=== PATIENT | male | born 1975 | race Caucasian/White ===

== ENCOUNTER 2016-04-29 09:26 | Emergency (ER) | payer MEDICAID ==
[2016-04-29] MEDS ORDERED: IPRATROPIUM/ALBUTEROL 0.5-2.5 MG/3 ML AMPUL NEB ONE (10:16)
[2016-04-29] MEDS ORDERED: PREDNISONE 20 MG TABLET PO ONE (10:17)
--- NOTE | 2016-04-29 11:25 | ER Document Report ---
HPI - HPI Patient complains to provider of: cough Onset: Last week Onset/Duration: Gradual Quality of pain: Achy Pain Level: 3 Context: Patient complains of occasionally productive cough for the past week. Patient denies any fever. Associated Symptoms: Productive cough. denies: Fever, Rhinnorhea Exacerbated by: Denies Relieved by: Denies Similar symptoms previously: Yes Recently seen / treated by doctor: No - ROS ROS below otherwise negative: Yes Systems Reviewed and Negative: Yes All other systems reviewed and negative - CONSTITUTIONAL Constitutional: DENIES: Fever, Chills - EENT EENT: REPORTS: Congestion. DENIES: Sore Throat - CARDIOVASCULAR Cardiovascular: DENIES: Chest pain - RESPIRATORY Respiratory: REPORTS: Coughing. 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 denies: CAD, DM, Hyperlipidemia, Thyroid Disfunction Patient has suicidal ideation: No Patient has homicidal ideation: No - Past Medical History Cardiac Medical History: Reports: Hx Hypertension Pulmonary Medical History: Reports: Hx Asthma Renal/ Medical History: Denies: Hx Peritoneal Dialysis Musculoskeltal Medical History: Reports Hx Musculoskeletal Deformity, Reports Hx Musculoskeletal Trauma Psychiatric Medical History: Reports: Hx Attention Deficit Hyperactivity Disorder Traumatic Medical History: Reports: Hx Fractures - thumb Past Surgical History: Reports: Hx Orthopedic Surgery - rt shoulder, rt thumb - Immunizations Hx Diphtheria, Pertussis, Tetanus Vaccination: Yes Vertical Provider Document - CONSTITUTIONAL Agree With Documented VS: Yes Exam Limitations: No Limitations General Appearance: WD/WN, No Apparent Distress - INFECTION CONTROL TRAVEL OUTSIDE OF THE [place] IN LAST 30 DAYS: No - HEENT HEENT: Atraumatic, Normal ENT Exam, Normocephalic - NECK Neck: Normal Inspection, Supple. negative: Lymphadenopathy-Left, Lymphadenopathy-Right - RESPIRATORY Respiratory: No Respiratory Distress, Rhonchi, Wheezing - Faint only with cough. negative: Rales O2 Sat by Pulse Oximetry: 96 - CARDIOVASCULAR Cardiovascular: Regular Rate, Regular Rhythm, No Murmur - GI/ABDOMEN Gastrointestinal: Abdomen Soft, Abdomen Non-Tender, No Organomegaly - BACK Back: Normal Inspection - MUSCULOSKELETAL/EXTREMETIES Musculoskeletal/Extremeties: MAEW - NEURO Level of Consciousness: Awake, Alert, Appropriate Motor/Sensory: No Motor Deficit, No Sensory Deficit - DERM Integumentary: Warm, Dry, No Rash Course - Vital Signs Vital signs: Temp Pulse Resp BP Pulse Ox 97.9 F 103 H 16 148/99 H 96 04/29/16 09:34 04/29/16 09:34 04/29/16 10:25 04/29/16 09:34 04/29/16 09:34 - Diagnostic Test Radiology reviewed: Reports reviewed Discharge - Discharge Clinical Impression: Bronchospasm Upper respiratory infection Qualifiers: URI type: unspecified URI Qualified Code(s): J06.9 - Acute upper respiratory infection, unspecified Condition: Stable Disposition: HOME, SELF-CARE Additional Instructions: Return immediately for any new or worsening symptoms Followup with your primary care provider, call tomorrow to make a followup appointment UPPER RESPIRATORY ILLNESS: You have a viral infection of the respiratory passages -- a "cold." This common infection causes nasal congestion, drainage, and often sore throat and cough. It is highly contagious. The disease usually lasts about 10 to 14 days. There is no "cure" for the viral infection -- it must run its course. If there is a complication, such as bacterial infection in the nose, sinuses, middle ear, or bronchial tubes, antibiotics may be required. The antibiotics won't affect the virus. Drink plenty of fluids. A humidifier may help. An expectorant medication or decongestant may make you more comfortable. Use acetaminophen or ibuprofen for fever or aches. See the doctor if fever persists over two days, if there is any significant worsening of your symptoms, or if you simply fail to improve as expected. BRONCHOSPASM: You have tightness in the bronchial tubes, called bronchospasm. This often occurs with bronchial infections. Allergies, inhaled chemicals, and polluted or cold air can also provoke bronchospasm. It's more likely in patients with asthma in the family. Emergency treatment of bronchospasm may include adrenaline shots or bronchodilator aerosol. You may feel lightheaded and have a rapid pulse for an hour or two. Rest and get plenty of fluids. At home, we'll treat you with a bronchodilator inhaler. Antibiotics and corticosteroids may be required for some patients. Until you recover, avoid chemical fumes, dusts, pollens, and exercising in very cold or dry air. If you smoke, stop now!! If you develop a fever, increased wheezing, chest pain, or severe shortness of breath, you should contact the doctor immediately. INHALED BRONCHODILATORS: You have received a treatment of and/or prescription for an inhaled bronchodilator -- a medication which stimulates the airways in the lung to dilate. This improves the flow of air in asthma, bronchitis, and emphysema. These medicines have some similarity to adrenaline, and can cause similar side effects: shakiness, racing heart, and a sense of nervousness. These side effects decrease with time. Contact your doctor if these side effects are severe. Do not over-use the medicine. Too-frequent use of the inhaler may make it ineffective. Call your doctor if the inhaler is not controlling your symptoms at the prescribed doses. STEROID MEDICATION: You have been given an injection of or oral medicine of the cortisone/ steroid class. This medication is used to control inflammation or allergy. Lázaro t is usually only given for a short period of time, until the acute process subsides. There are usually no side effects from short-term use of cortisone-like medications. Some persons feel an increased sense of well-being and are not sleepy at bedtime. Long-term use of cortisone medications is best avoided, unless required for a severe condition. If your condition does not remit, or relapses after the course of corticosteroid medication, you should consult your physician. USE OF ACETAMINOPHEN (Tylenol): Acetaminophen may be taken for pain relief or fever control. It's much safer than aspirin, offering a wider range of "safe" dosages. It is safe during . Some brand names are Tylenol, Panadol, Datril, Anacin 3, Tempra, and Liquiprin. Acetaminophen can be repeated every four hours. The following are maximum recommended dosages: >89 pounds or adults 650 mg to 900 mg Acetaminophen can be repeated every four hours. Maximum dose not to exceed 4000 mg a day. FOLLOW-UP CARE: If you have been referred to a physician for follow-up care, call the physician s office for an appointment as you were instructed or within the next two days. If you experience worsening or a significant change in your symptoms, notify the physician immediately or return to the Emergency Department at any time for re-evaluation. Prescriptions: Albuterol Sulfate [Ventolin Hfa] 2 puff IH Q4HP PRN #17 gm PRN Reason: Hydrocodone/Acetaminophen [[place] 5-325 Tablet] 1 each PO Q4 PRN #15 tablet PRN Reason: Prednisone 20 mg PO DAILY #12 tablet Forms: Elevated Blood Pressure, Return to Work Referrals: ADRIAN FUENTES MD [Primary Care Provider] - 05/02/16
[2016-04-29 12:39] VITALS: BP 142/89
== END 2016-04-29 11:30 | disposition home or self-care (01) ==
LOC: ER 09:26
DX: J06.9 Acute upper respiratory infection, unspecified (principal); J98.01 Acute bronchospasm; I10 Essential (primary) hypertension; J45.909 Unspecified asthma, uncomplicated
CPT/HCPCS: 94640; 99283; 71020; J7512; J7620

== ENCOUNTER 2016-05-17 13:44 | Emergency (ER) | payer MEDICAID ==
--- NOTE | 2016-05-17 14:18 | ER Document Report ---
ED Medical Screen (RME) - General Stated Complaint: CHEST CONGESTION,COUGH,DIARRHEA Mode of Arrival: Ambulatory Information source: Patient Notes: Patient complains of cough for the past 3 days. Patient does complain of congestion. Patient reports subjective fever at home. hx: Asthma I have greeted and performed a rapid initial assessment of this patient. A comprehensive ED assessment and evaluation of the patient, analysis of test results and completion of the medical decision making process will be conducted by additional ED providers. TRAVEL OUTSIDE OF THE [place] IN LAST 30 DAYS: No - Related Data Allergies/Adverse Reactions: codeine [Codeine] Adverse Reaction (Verified 05/17/16 14:16) Past Medical History - Past Medical History Cardiac Medical History: Reports: Hx Hypertension Pulmonary Medical History: Reports: Hx Asthma Renal/ Medical History: Denies: Hx Peritoneal Dialysis Musculoskeltal Medical History: Reports Hx Musculoskeletal Deformity, Reports Hx Musculoskeletal Trauma Psychiatric Medical History: Reports: Hx Attention Deficit Hyperactivity Disorder Traumatic Medical History: Reports: Hx Fractures - thumb Past Surgical History: Reports: Hx Orthopedic Surgery - rt shoulder, rt thumb - Immunizations Hx Diphtheria, Pertussis, Tetanus Vaccination: Yes Physical Exam - Vital signs Vitals: Temp Pulse Resp BP Pulse Ox 97.9 F 79 18 148/106 H 98 05/17/16 13:49 05/17/16 13:49 05/17/16 13:49 05/17/16 13:49 05/17/16 13:49 - Respiratory Respiratory status: No respiratory distress Breath sounds: Nonproductive cough. No: Rales, Rhonchi, Stridor, Wheezing Course - Vital Signs Vital signs: Temp Pulse Resp BP Pulse Ox 97.9 F 79 18 148/106 H 98 05/17/16 13:49 05/17/16 13:49 05/17/16 13:49 05/17/16 13:49 05/17/16 13:49
--- NOTE | 2016-05-17 14:59 | ER Document Report ---
HPI - HPI Patient complains to provider of: cough, sinus congestion, fever Onset: Other - 3 days Quality of pain: Achy Severity: Moderate Pain Level: 3 Context: Patient presents with cough congestion sinus discharge for the past 3 days. Patient reports history of asthma and has been using his inhaler and is neb treatments as indicated. He reports he has hot and cold chills. Denies vomiting diarrhea, reports loose bowel 1. Associated Symptoms: Nonproductive cough, Diarrhea, Fever, Sinus pain/drainage Exacerbated by: Denies Relieved by: Denies Similar symptoms previously: Yes Recently seen / treated by doctor: No - REPRODUCTIVE Reproductive: DENIES: : - DERM Skin Color: Normal Past Medical History - General Information source: Patient - Social History Smoking Status: Smoker,Current Status Unk Cigarette use (# per day): No Frequency of alcohol use: None Drug Abuse: None Family History: Arthritis, CVA, Hypertension, Malignancy. denies: CAD, DM, Hyperlipidemia, Thyroid Disfunction Patient has suicidal ideation: No Patient has homicidal ideation: No - Past Medical History Cardiac Medical History: Reports: Hx Hypertension Pulmonary Medical History: Reports: Hx Asthma Renal/ Medical History: Denies: Hx Peritoneal Dialysis Musculoskeltal Medical History: Reports Hx Musculoskeletal Deformity, Reports Hx Musculoskeletal Trauma Psychiatric Medical History: Reports: Hx Attention Deficit Hyperactivity Disorder Traumatic Medical History: Reports: Hx Fractures - thumb Past Surgical History: Reports: Hx Orthopedic Surgery - rt shoulder, rt thumb - Immunizations Hx Diphtheria, Pertussis, Tetanus Vaccination: Yes Vertical Provider Document - CONSTITUTIONAL Agree With Documented VS: Yes Exam Limitations: No Limitations General Appearance: WD/WN, No Apparent Distress - nontoxic looking - INFECTION CONTROL TRAVEL OUTSIDE OF THE [place] IN LAST 30 DAYS: No - HEENT HEENT: Atraumatic, Normocephalic. negative: Conjuctival Injection, Pharyngeal Exudate, Tympanic Membrane Red, Tympanic Membrane Bulging Notes: +post nasal drip - NECK Neck: Normal Inspection, Supple. negative: Lymphadenopathy-Left, Lymphadenopathy-Right - RESPIRATORY Respiratory: Breath Sounds Normal, No Respiratory Distress. negative: Rhonchi, Wheezing O2 Sat by Pulse Oximetry: 98 - CARDIOVASCULAR Cardiovascular: Regular Rate, Regular Rhythm - MUSCULOSKELETAL/EXTREMETIES Musculoskeletal/Extremeties: MAEW, FROM - NEURO Level of Consciousness: Awake, Alert, Appropriate Motor/Sensory: No Motor Deficit - DERM Integumentary: Warm, Dry, No Rash Course - Re-evaluation Re-evalutation: 05/17/16 Patient was instructed on negative x-ray. Instructed on [id number] aids for cough Flonase for nasal discharge. Patient requesting steroids that he was treated with last time is here. - Vital Signs Vital signs: Temp Pulse Resp BP Pulse Ox 97.9 F 79 18 148/106 H 98 05/17/16 13:49 05/17/16 13:49 05/17/16 13:49 05/17/16 13:49 05/17/16 13:49 - Diagnostic Test Radiology reviewed: Image reviewed, Reports reviewed - neg chest xray Discharge - Discharge Clinical Impression: Cough, Congestion of nasal sinus, Elevated blood pressure reading Fever Qualifiers: Fever type: unspecified Qualified Code(s): R50.9 - Fever, unspecified URI (upper respiratory infection) Qualifiers: URI type: unspecified URI Qualified Code(s): J06.9 - Acute upper respiratory infection, unspecified Condition: Stable Disposition: HOME, SELF-CARE Instructions: Steroid Medication, Oral Narcotic Medication ([facility]), Upper Respiratory Illness ([facility]) Additional Instructions: *You have been evaluated for cold symptoms today, cough, fever, sinus congestion *Increase fluid intake as discussed *Over the counter flonase as indicated *Take medication as prescribed *Monitor your temperature, take Tylenol as indicated *Follow up with [facility] within one week *Monitor your blood pressure. Your blood pressure was elevated today. This may be because you were anxious, in pain or because you need medication. It is important to follow up with your primary care provider for full evaluation. *Return to ED for worsening condition, changes, needs, trouble breathing, concerns Prescriptions: Hydrocodone/Acetaminophen [[place] 5-325 mg Tablet] 1 tab PO QID #15 tablet Prednisone [Deltasone 10 mg Tablet] 10 mg PO ASDIR PRN #21 tablet PRN Reason: Forms: Elevated Blood Pressure, Return to Work
[2016-05-17 15:50] VITALS: BP 134/93
== END 2016-05-17 15:53 | disposition home or self-care (01) ==
LOC: ER 13:44
DX: J06.9 Acute upper respiratory infection, unspecified (principal); R05 Cough; R09.81 Nasal congestion; I10 Essential (primary) hypertension; J34.89 Other specified disorders of nose and nasal sinuses; R19.7 Diarrhea, unspecified; J45.909 Unspecified asthma, uncomplicated; R50.9 Fever, unspecified
CPT/HCPCS: 71020; 99283

== ENCOUNTER 2016-07-12 18:13 | Emergency (ER) | payer MEDICAID ==
[2016-07-12] MEDS ORDERED: PREDNISONE 20 MG TABLET PO ONE (19:23)
[2016-07-12] MEDS ORDERED: BENZONATATE 100 MG CAPSULE PO ONE (19:23)
[2016-07-12] MEDS ORDERED: HYDROCODONE/ACETAMINOPHEN 5-325 MG TABLET PO ONE (19:23)
[2016-07-12] MEDS ORDERED: IPRATROPIUM/ALBUTEROL 0.5-2.5 MG/3 ML AMPUL NEB ONE (20:02)
--- NOTE | 2016-07-12 20:20 | ER Document Report ---
ED Respiratory Problem - General Chief Complaint: Shortness Of Breath Stated Complaint: SHORTNESS OF BREATH Time seen by provider: 20:19 Mode of Arrival: Ambulatory Information source: Patient TRAVEL OUTSIDE OF THE [place] IN LAST 30 DAYS: No - HPI Patient complains to provider of: Cough, Short of breath Onset: Other - Monday Duration: Worse/persistent Quality of pain: No pain Severity: Moderate Context: Hx asthma Short of Breath: Moderate Chest pain/discomfort: Tightness Cough: Productive Sputum amount: Small Sputum color: White Sputum consistency: Mucoid At home treatment: Bronchodilators Associated symptoms: Congestion, Cough, Short of breath, Wheezing Similar symptoms previously: Yes Recently seen / treated by doctor: No Notes: Patient is a 40-year-old male with a history of asthma presents to the emergency room cough cold congestion with shortness of breath he denies a fever , cough is productive of a small amount of whitish colored phlegm, he states he' s been using his albuterol inhaler at home with mild, denies any recent travel, no chest pain, no sick contacts - Related Data Allergies/Adverse Reactions: codeine [Codeine] Adverse Reaction (Verified 05/17/16 14:16) Past Medical History - General Information source: Patient - Social History Smoking Status: Never Smoker Chew tobacco use (# tins/day): No Frequency of alcohol use: Occasional Drug Abuse: None Family History: Arthritis, CVA, Hypertension, Malignancy. denies: CAD, DM, Hyperlipidemia, Thyroid Disfunction Patient has suicidal ideation: No Patient has homicidal ideation: No - Past Medical History Cardiac Medical History: Reports: Hx Hypertension Pulmonary Medical History: Reports: Hx Asthma Renal/ Medical History: Denies: Hx Peritoneal Dialysis Musculoskeltal Medical History: Reports Hx Musculoskeletal Deformity, Reports Hx Musculoskeletal Trauma Psychiatric Medical History: Reports: Hx Attention Deficit Hyperactivity Disorder Traumatic Medical History: Reports: Hx Fractures - thumb Past Surgical History: Reports: Hx Orthopedic Surgery - rt shoulder, rt thumb - Immunizations Hx Diphtheria, Pertussis, Tetanus Vaccination: Yes Review of Systems - Review of Systems Constitutional: No symptoms reported EENT: No symptoms reported Cardiovascular: No symptoms reported Respiratory: See HPI Gastrointestinal: No symptoms reported Genitourinary: No symptoms reported Male Genitourinary: No symptoms reported Musculoskeletal: No symptoms reported Skin: No symptoms reported Hematologic/Lymphatic: No symptoms reported Neurological/Psychological: No symptoms reported -: Yes All other systems reviewed and negative Physical Exam - Vital signs Vitals: Temp Pulse Resp BP Pulse Ox 97.5 F 94 18 130/87 H 99 07/12/16 18:38 07/12/16 18:38 07/12/16 18:38 07/12/16 18:38 07/12/16 18:38 Interpretation: Normal - General General appearance: Appears well, Alert - HEENT Head: Normocephalic, Atraumatic Eyes: Normal Pupils: PERRL - Respiratory Respiratory status: No respiratory distress Chest status: Nontender Breath sounds: Nonproductive cough, Wheezing Chest palpation: Normal - Cardiovascular Rhythm: Regular Heart sounds: Normal auscultation Murmur: No - Abdominal Inspection: Normal Distension: No distension Bowel sounds: Normal Tenderness: Nontender Organomegaly: No organomegaly - Back Back: Normal, Nontender - Extremities General upper extremity: Normal inspection, Nontender, Normal color, Normal ROM , Normal temperature General lower extremity: Normal inspection, Nontender, Normal color, Normal ROM , Normal temperature, Normal weight bearing. No: Dewey's sign - Neurological Neuro grossly intact: Yes Cognition: Normal Orientation: AAOx4 [place] Coma Scale Eye Opening: Spontaneous [place] Coma Scale Verbal: Oriented Mandi Coma Scale Motor: Obeys Commands [place] Coma Scale Total: 15 Speech: Normal Motor strength normal: LUE, RUE, LLE, RLE Sensory: Normal - Psychological Associated symptoms: Normal affect, Normal mood - Skin Skin Temperature: Warm Skin Moisture: Dry Skin Color: Normal Course - Re-evaluation Re-evalutation: 07/12/16 20:22 Patient reports feeling much better, imaging findings were discussed with patient at bedside which are unremarkable, discharged with prescriptions for several medications for treatment of viral upper respiratory illness with asthma exacerbation, advised to follow-up with his primary care provider or return if symptoms worsen, patient acknowledges understanding and agreement with this plan - Vital Signs Vital signs: Temp Pulse Resp BP Pulse Ox 97.5 F 94 18 130/87 H 99 07/12/16 18:38 07/12/16 18:38 07/12/16 19:29 07/12/16 18:38 07/12/16 18:38 - Diagnostic Test Radiology reviewed: Image reviewed, Reports reviewed Discharge - Discharge Clinical Impression: Viral upper respiratory illness Acute asthma exacerbation Qualifiers: Asthma severity: mild persistent Qualified Code(s): J45.31 - Mild persistent asthma with (acute) exacerbation Condition: Stable Disposition: HOME, SELF-CARE Instructions: Upper Respiratory Illness ([facility]), Viral Syndrome ([facility]), Asthma ( [facility]) Additional Instructions: Follow up with your primary care provider in one to 2 days. Return to the emergency room immediately if symptoms worsen or any additional concerns. Prescriptions: Benzonatate [Tessalon [place] 100 mg Capsule] 100 mg PO Q8HP PRN #40 cap PRN Reason: Hydrocodone/Acetaminophen [Hydrocodon-Acetaminophen 5-325] 1 each PO Q6 #20 tablet Prednisone 40 mg PO DAILY #8 tablet
[2016-07-12 20:28] VITALS: BP 149/91
== END 2016-07-12 20:27 | disposition home or self-care (01) ==
LOC: ER 18:13
DX: J06.9 Acute upper respiratory infection, unspecified (principal); B97.89 Other viral agents as the cause of diseases classified elsewhere; J45.31 Mild persistent asthma with (acute) exacerbation; R05 Cough; R06.02 Shortness of breath; I10 Essential (primary) hypertension
CPT/HCPCS: 94640; 99284; 71020; J3490; J7512; J7620

== ENCOUNTER 2016-08-18 09:46 | Emergency (ER) | payer MEDICAID ==
[2016-08-18] MEDS ORDERED: PREDNISONE 20 MG TABLET PO ONE (09:57)
[2016-08-18] MEDS ORDERED: IPRATROPIUM/ALBUTEROL 0.5-2.5 MG/3 ML AMPUL NEB ONE (09:58)
--- NOTE | 2016-08-18 10:02 | ER Document Report ---
ED Respiratory Problem - General Chief Complaint: Breathing Difficulty Stated Complaint: SHORTNESS OF BREATH Time Seen by Provider: 08/18/16 09:57 Notes: Patient is having difficulty breathing this morning. He has a history of asthma. Also has a history of Pickett's esophagitis which causes him to have acid reflux, especially when he is laying recumbent and sleeping. He now has a cough and is producing yellow and green sputum, but has not noted a fever. He is on home medications including nebulizer for his asthma and he uses them today, but still feels difficulty breathing and wheezing. Patient has an appointment to see a records supervisor in September. TRAVEL OUTSIDE OF THE [place] IN LAST 30 DAYS: No - Related Data Allergies/Adverse Reactions: codeine [Codeine] Adverse Reaction (Verified 05/17/16 14:16) Past Medical History - Social History Smoking Status: Never Smoker Frequency of alcohol use: None Drug Abuse: None Family History: Arthritis, CVA, Hypertension, Malignancy. denies: CAD, DM, Hyperlipidemia, Thyroid Disfunction - Past Medical History Cardiac Medical History: Reports: Hx Hypertension Pulmonary Medical History: Reports: Hx Asthma GI Medical History: Reports: Hx Gastroesophageal Reflux Disease, Other - History of Pickett's esophagitis Musculoskeltal Medical History: Reports Hx Musculoskeletal Deformity, Reports Hx Musculoskeletal Trauma Psychiatric Medical History: Reports: Hx Attention Deficit Hyperactivity Disorder Traumatic Medical History: Reports: Hx Fractures - thumb Past Surgical History: Reports: Hx Orthopedic Surgery - rt shoulder, rt thumb - Immunizations Hx Diphtheria, Pertussis, Tetanus Vaccination: Yes Review of Systems - Review of Systems Notes: REVIEW OF SYSTEMS: CONSTITUTIONAL : Denies fever. EENT: Denies eye, ear, nose or mouth or throat pain or other symptoms. CARDIOVASCULAR: Denies chest pain. RESPIRATORY: See HPI. Cough is productive of yellow/green sputum. GASTROINTESTINAL: Denies abdominal pain or nausea, vomiting, or diarrhea. GENITOURINARY: Denies difficulty or painful urinating, urinary frequency, blood in urine. MUSCULOSKELETAL: Denies back or neck pain. Denies joint pain or swelling. SKIN: Denies rash or skin lesions. NEUROLOGICAL: Denies LOC or altered mental status. Denies headache. Denies sensory loss or motor deficits. ALL OTHER SYSTEMS REVIEWED AND NEGATIVE. Physical Exam - Vital signs Vitals: Temp Pulse Resp BP Pulse Ox 97.6 F 107 H 18 141/94 H 97 08/18/16 09:50 05/25/17 09:50 08/18/16 09:50 08/18/16 09:50 08/18/16 09:50 Interpretation: Normal, Tachycardic - Minimal - Notes Notes: PHYSICAL EXAMINATION: Vital signs essentially normal. Afebrile. O2 sat. GENERAL: Well-appearing, in no acute distress. Patient has frequent coughing episodes which sound to be mostly nonproductive. HEAD: Atraumatic, normocephalic. EYES: Pupils equal round and reactive to light, extraocular movements intact. ENT: oropharynx clear without exudates. Moist mucous membranes. NECK: Normal range of motion, supple. LUNGS: Scattered mild expiratory wheezes bilaterally. HEART: Regular rate and rhythm without murmurs. ABDOMEN: Soft, nontender. No guarding or rebound. BACK: No tenderness throughout entire back. EXTREMITIES: Normal range of motion without pain. No pains. Negative Homans bilaterally. NEUROLOGICAL: Normal speech, normal gait. Normal sensory, motor, and reflex exams. Awake, alert, and oriented x3. Cranial nerves normal. SKIN: Warm, dry, no rashes. Course - Re-evaluation Re-evalutation: 08/18/16 11:37 Patient had significant improvement in the wheezing just with one nebulizer treatment. She was also given 80 mg of prednisone p.o. here. Advised him to use his nebulizer at home every morning and every evening every day as long as he is having any problems breathing. In addition, he can use the nebulizer another 2 or 3 times during the day, as needed. He has his inhaler to use when he is not around his nebulizer. - Vital Signs Vital signs: Temp Pulse Resp BP Pulse Ox 97.7 F 103 H 16 116/78 97 08/18/16 11:17 08/18/16 11:17 08/18/16 11:17 08/18/16 11:17 08/18/16 11:17 - Diagnostic Test Radiology results interpreted by me: 08/18/16 11:36 X-ray is normal without evidence of infiltrate or infectious process. Discharge - Discharge Clinical Impression: Asthma Qualifiers: Asthma severity: mild intermittent Asthma complication type: with acute exacerbation Qualified Code(s): J45.21 - Mild intermittent asthma with (acute) exacerbation Acid reflux Qualifiers: Esophagitis presence: with esophagitis Qualified Code(s): K21.0 - Gastro- esophageal reflux disease with esophagitis Pickett's esophagus Qualifiers: Pickett's esophagus type: with dysplasia of unspecified degree Qualified Code(s ): K22.719 - Pickett's esophagus with dysplasia, unspecified Condition: Stable Disposition: HOME, SELF-CARE Additional Instructions: Esophagitis Your evaluation has resulted in a diagnosis of esophagitis. This is an inflammation of the lower esophagus due to stomach acid. It causes symptoms such as chest pain, heartburn, or food "sticking." This is common in persons with a hiatal hernia. Certain foods, alcohol, and aspirin contribute to esophagitis. Treatment depends on the severity. Usually, antacids or acid-suppressing medicines are used. The physician will often prescribe membrane-protective drugs (such as Carafate). Some patients benefit from medication that tightens the valve at the top of the stomach (such as Reglan). Avoid alcohol, aspirin, caffeine, tobacco, and foods that cause heartburn ( such as chocolate). Elevate the head of your bed about four inches. Call the doctor if you develop severe chest pain, inability to swallow fluids, fever, or worsening symptoms. Reflux Disease (GERD) Gastro-Esophageal Reflux Disease (GERD) is caused by stomach acid refluxing back up into the esophagus. The valve at the end of the esophagus may be weak. This is common in persons with a hiatal hernia. GERD symptoms can include indigestion, chest pain, heartburn, or food "sticking." Certain foods, alcohol, and aspirin can make GERD worse. Treatment depends on the severity. Usually, antacids or acid-suppressing medicines are used. When the esophagus is acutely inflamed, the physician will often prescribe membrane-protective drugs such as Carafate. Some patients benefit from medication such as Reglan that tightens the valve at the top of the stomach. Avoid those foods that bring on your symptoms. For many people, these foods are coffee, chocolate, onions, garlic, and carbonated drinks. Don't use alcohol, aspirin, caffeine, or tobacco. Don't eat late at night -- within 4 hours of bedtime. Don't over-eat. If necessary, elevate the head of your bed about 4 inches so that stomach acid will not roll up into your esophagus. Call the doctor if you develop severe chest pain, inability to swallow fluids, fever, or worsening symptoms. ASTHMA: You have been diagnosed as having asthma. This is a condition where there is episodic tightness in the bronchial tubes. Allergies, infections, and polluted or cold air may be contributing factors. Emergency treatment of a severe asthma attack may include adrenaline shots , or bronchodilator aerosol. You may feel lightheaded, have a decreased exercise tolerance and a rapid pulse for an hour or two. Rest and get plenty of fluids. Home treatment of asthma requires bronchodilator drugs. These can be administered by injection, inhalation, or by mouth. Antibiotics and corticosteroids may be required for some patients. You should avoid chemical fumes, dusts, pollens, and exercising in very cold or dry air. If you smoke, stop!! If you develop a fever, increased wheezing, chest pain, or severe shortness of breath, you should contact the doctor immediately. STEROID MEDICATION: You have been given an injection of or oral medicine of the cortisone/ steroid class. This medication is used to control inflammation or allergy. Lázaro t is usually only given for a short period of time, until the acute process subsides. There are usually no side effects from short-term use of cortisone-like medications. Some persons feel an increased sense of well-being and are not sleepy at bedtime. Long-term use of cortisone medications is best avoided, unless required for a severe condition. If your condition does not remit, or relapses after the course of corticosteroid medication, you should consult your physician. INHALED BRONCHODILATORS: You have received treatment(s) of and/or prescription for an inhaled bronchodilator -- a medication which stimulates the airways in the lung to dilate. This improves the flow of air in asthma, bronchitis, and emphysema. These medicines have some similarity to adrenaline, and can cause similar side effects: shakiness, racing heart, and a sense of nervousness. These side effects decrease with time. Contact your doctor if these side effects are severe. Do not over-use the medicine. Too-frequent use of the inhaler may make it ineffective. Call your doctor if the inhaler is not controlling your symptoms at the prescribed doses. Cough Suppressant/Expectorant Medication You are to use a cough medication as needed for relief of symptoms. This medicine is a combination of an expectorant (to make the mucous thinner and more easily "coughed up") and a cough suppressant (to reduce the frequency of coughing). The cough-suppressant medicine is related to narcotics. You may experience mild nausea and sleepiness. Some patients who are very sensitive to narcotics may have stomach pain from this medicine. Taking the medicine with food reduces these side effects. Do not drive or work with machinery until you know how this medicine affects you. The expectorant should have no side effects. Iodine-containing expectorants (such as organidin) should not be taken by persons with active thyroid disease unless approved by your doctor. Call the doctor if you develop shortness of breath, hives, rash, itching, lightheadedness, or severe nausea and vomiting. Antinausea Medication You have been given a medication to suppress nausea and vomiting. This type of medication can be given as a shot, pill, or suppository. It will usually last for many hours. Pills and shots usually last six to eight hours, suppositories last about 12 hours. For the typical illness, only one or two doses of the medication may be necessary. Mild lightheadedness may occur. This type of medicine can cause drowsiness. Do not drive or operate dangerous machinery while under its influence. Do not mix with alcohol. See your doctor at once if you have muscle spasms or tightness, or uncontrollable motions (particularly of the neck, mouth, or jaw). Persistent vomiting or severe lightheadedness should also be evaluated by the physician. FOLLOW-UP CARE: If you have been referred to a physician for follow-up care, call the physician s office for an appointment as you were instructed or within the next two days. If you experience worsening or a significant change in your symptoms, notify the physician immediately or return to the Emergency Department at any time for re-evaluation. Prescriptions: Hydrocodone/Acetaminophen [[place] 5-325 mg Tablet] 1 - 2 tab PO Q4HP PRN #20 tablet PRN Reason: Promethazine HCl [Phenergan 25 mg Tablet] 25 mg PO Q4HP PRN #20 tablet PRN Reason: Prednisone [Deltasone 10 mg Tablet] 10 mg PO ASDIR PRN #21 tablet PRN Reason: Forms: Return to Work
--- NOTE | 2016-08-18 10:42 | RADIOLOGY REPORT (SQ) ---
EXAM DESCRIPTION: CHEST PA/LAT COMPLETED DATE/TIME: 08/18/2016 10:32 am REASON FOR STUDY: Asthma, wheezing, producing phlegm COMPARISON: 07/12/2016 EXAM PARAMETERS: NUMBER OF VIEWS: two views TECHNIQUE: Digital Frontal and Lateral radiographic views of the chest acquired. RADIATION DOSE: NA LIMITATIONS: Poor inspiration. FINDINGS: LUNGS AND PLEURA: Minimal scarring on the lateral view overlying the heart. No acute opac ities, masses or pneumothorax. No pleural effusion. MEDIASTINUM AND HILAR STRUCTURES: No masses or contour abnormalities. HEART AND VASCULAR STRUCTURES: Heart normal size. No evidence for failure. BONES: No acute findings. HARDWARE: None in the chest. OTHER: No other significant finding. IMPRESSION: Poor inspiration without evidence of acute cardiopulmonary disease. TECHNICAL DOCUMENTATION: JOB ID: [id number] [employer]- All Rights Reserved
[2016-08-18 11:20] VITALS: BP 116/78
== END 2016-08-18 11:27 | disposition home or self-care (01) ==
LOC: ER 09:46
DX: J45.21 Mild intermittent asthma with (acute) exacerbation (principal); K21.0 Gastro-esophageal reflux disease with esophagitis; K22.719 Barrett's esophagus with dysplasia, unspecified; R05 Cough; I10 Essential (primary) hypertension; Z79.899 Other long term (current) drug therapy
CPT/HCPCS: 94640; 99284; 71020; J7512; J7620

== ENCOUNTER 2016-08-30 16:15 | Inpatient (IN) | payer MEDICAID ==
[2016-08-30] MEDS ORDERED: NORMAL SALINE 1000 ML 1,000 ML IV ONE (16:39)
[2016-08-30] MEDS ORDERED: IPRATROPIUM/ALBUTEROL 0.5-2.5 MG/3 ML AMPUL NEB ONE ×2 (16:39→17:27)
--- NOTE | 2016-08-30 16:39 | ER Document Report ---
ED Respiratory Problem - General Mode of Arrival: Ambulatory Information source: Patient TRAVEL OUTSIDE OF THE [place] IN LAST 30 DAYS: No - HPI Patient complains to provider of: Asthma, Short of breath <IKER ZAVALA - Last Filed: 08/30/16 19:32> <ADY LOUIS - Last Filed: 08/30/16 23:21> - General Chief Complaint: Breathing Difficulty Stated Complaint: DIFFICULTY BREATHING Time Seen by Provider: 08/30/16 16:33 Notes: Patient is a 40-year-old male who presents to the emergency department today with complaints of shortness of breath. Patient states that yesterday the shortness of breath began after an episode of "severe" acid reflux. Patient states when he has an asthma attack this bad, they are usually preceded by acid reflux. Patient states he has been having a sensation that his chest is burning. (IKER ZAVALA) - Related Data Allergies/Adverse Reactions: codeine [Codeine] Adverse Reaction (Verified 08/30/16 16:20) Home Medications: Current Home Medications Albuterol Sulfate [Albuterol Sulfate 2.5mg/3 mL] 3 ml NEB Q8 08/30/16 [History] Budesonide/Formoterol Fumarate [Symbicort HFA 160-4.5 mcg Inhaler 6 gm] 2 puff IN Q12 08/30/16 [History] Buspirone HCl [Buspar 10 mg Tablet] 10 mg PO QIDP PRN 08/30/16 [History] Cyclobenzaprine HCl [Flexeril 10 mg Tablet] 10 mg PO QIDP PRN 08/30/16 [History] Doxepin HCl [Sinequan 10 mg Capsule] 10 mg PO HSP PRN 08/30/16 [History] Fluoxetine HCl [Prozac 20 mg Capsule] 20 mg PO QAM 08/30/16 [History] Fluticasone Propionate [Flovent Hfa 110 Mcg Inhalation Aerosol 12 gm] 2 puff IH BID 08/30/16 [History] Fluticasone/Salmeterol [Advair 250-50 Diskus 14 Dose/Diskus] 1 puff IH Q12 08/30 [History] Hydrocodone Bit/Acetaminophen [Hydrocodon-Acetaminophen 5-325] 1 tab PO Q4HP PRN 08/30/16 [History] Ipratropium [place] [Atrovent 0.02% Neb 0.5 mg/2.5 ml Ampul] 2.5 ml NEB Q4 08/30 [History] Ketorolac Tromethamine [Toradol 10 mg Tablet] 10 mg PO Q8HP PRN 08/30/16 [ History] Lisinopril [Prinivil 40 mg Tablet] 40 mg PO DAILY 08/30/16 [History] Montelukast Sodium [Singulair 10 mg Tablet] 10 mg PO DAILY 08/30/16 [History] Omeprazole 40 mg PO BIDACBS 08/30/16 [History] Tramadol HCl [Ultram 50 mg Tablet] 50 mg PO Q8HP PRN 08/30/16 [History] Trazodone HCl [Desyrel 50 mg Tablet] 50 mg PO HSP PRN 08/30/16 [History] Zolpidem Tartrate [Ambien 5 mg Tablet] 5 mg PO QHS 08/30/16 [History] Past Medical History - General Information source: Patient - Social History Smoking Status: Unknown if Ever Smoked Family History: Arthritis, CVA, Hypertension, Malignancy Patient has suicidal ideation: No Patient has homicidal ideation: No - Past Medical History Cardiac Medical History: Reports: Hx Hypertension Pulmonary Medical History: Reports: Hx Asthma GI Medical History: Reports: Hx Gastroesophageal Reflux Disease Musculoskeltal Medical History: Reports Hx Musculoskeletal Deformity, Reports Hx Musculoskeletal Trauma Psychiatric Medical History: Reports: Hx Attention Deficit Hyperactivity Disorder Traumatic Medical History: Reports: Hx Fractures - thumb Past Surgical History: Reports: Hx Orthopedic Surgery - rt shoulder, rt thumb - Immunizations Hx Diphtheria, Pertussis, Tetanus Vaccination: Yes <IKER ZAVALA - Last Filed: 08/30/16 19:32> Review of Systems - Review of Systems Constitutional: See HPI, Chills EENT: No symptoms reported Cardiovascular: No symptoms reported Respiratory: See HPI, Cough, Short of breath, Wheezing, Other - chest burning sensation Gastrointestinal: No symptoms reported Genitourinary: No symptoms reported Male Genitourinary: No symptoms reported Musculoskeletal: No symptoms reported Skin: No symptoms reported Hematologic/Lymphatic: No symptoms reported Neurological/Psychological: No symptoms reported -: Yes All other systems reviewed and negative <IKER ZAVALA - Last Filed: 08/30/16 19:32> Physical Exam - Vital signs Interpretation: Tachycardic, Hypoxic, Tachypneic - General General appearance: Alert In distress: Moderate - Respiratory Respiratory status: Respiratory distress, Depressed respirations, Retractions, Tachypnea Chest status: Accessory muscle use Breath sounds: Decreased air movement, Wheezing - Cardiovascular Rhythm: Regular, Tachycardia - Abdominal Inspection: Normal Tenderness: Nontender - Back Back: Normal - Extremities General upper extremity: Normal inspection, Nontender, Normal color, Normal ROM , Normal temperature General lower extremity: Normal inspection, Normal ROM, Normal strength - Neurological Neuro grossly intact: Yes Cognition: Normal Orientation: AAOx4 [place] Coma Scale Eye Opening: Spontaneous [place] Coma Scale Verbal: Oriented [place] Coma Scale Motor: Obeys Commands Mandi Coma Scale Total: 15 Speech: Normal Motor strength normal: LUE, RUE, LLE, RLE Sensory: Normal - Psychological Associated symptoms: Normal affect, Normal mood - Skin Skin Temperature: Warm Skin Moisture: Dry Skin Color: Normal <ADY LOUIS - Last Filed: 08/30/16 23:21> - Vital signs Vitals: Temp Pulse Resp BP Pulse Ox 97.6 F 126 H 24 H 128/89 H 98 08/30/16 16:20 08/30/16 16:20 08/30/16 16:20 08/30/16 16:20 08/30/16 16:20 Course - Laboratory Result Diagrams: 08/30/16 16:05 08/30/16 16:05 - Consults Dr. Astorga Time consulted: 17:57 Consulted provider: will see as inpatient <IKER ZAVALA - Last Filed: 08/30/16 19:32> - Laboratory Result Diagrams: 08/30/16 16:05 08/30/16 16:05 - Diagnostic Test Radiology reviewed: Image reviewed, Reports reviewed - EKG Interpretation by Sc EKG shows normal: Sinus rhythm Rate: Tachycardia Rhythm: NSR <ADY LOUIS - Last Filed: 08/30/16 23:21> - Re-evaluation Re-evalutation: 08/30/16 17:57 (IKER ZAVALA) 08/30/16 17:28 Is a 40-year-old male who comes in with an asthma exacerbation. Patient has been given DuoNeb, Solu-Medrol, he is still wheezing and has decreased air movement. Magnesium has been given. Patient will require hospital admission for continuous exacerbation of asthma with hypoxemia. Respiratory distress is improving with BiPAP. Understands and agrees with plan. (ADY LOUIS) - Vital Signs Vital signs: Temp Pulse Resp BP Pulse Ox 97.6 F 99 18 122/72 96 08/30/16 16:20 08/30/16 20:58 08/30/16 22:01 08/30/16 22:01 08/30/16 22:01 - Laboratory Laboratory results interpreted by me: 08/30/16 08/30/16 16:05 16:05 Hgb 17.4 H Hct 51.4 H MCV 98 H Potassium 5.1 H Glucose 191 H - Consults Dr. Astorga Reason for consultation: 08/30/16 17:57 agrees to admit patient (IKER ZAVALA) Critical Care Note - Critical Care Note Total time excluding time spent on procedures (mins): 45 - Evaluation and management of respiratory distress, multiple re-evaluations, initiation of BiPAP , coordination of admission, counseling of patient and family <ADY LOUIS - Last Filed: 08/30/16 23:21> Discharge <IKER ZAVALA - Last Filed: 08/30/16 19:32> - Discharge Admitting Provider: [facility] Admitted: [facility] <ADY LOUIS - Last Filed: 08/30/16 23:21> - Discharge Clinical Impression: Asthma exacerbation, Respiratory distress Condition: Stable Disposition: ADMITTED INPATIENT Scribe Attestation: 08/30/16 23:21 I personally performed the services described in the documentation, reviewed and edited the documentation which was dictated to the scribe in my presence, and it accurately records my words and actions. (ADY LOUIS) Scribe Documentation - Scribe Written by Pricilla:: Pricilla Rivera, [id number]/[id number] acting as scribe for :: Nighat <IKER ZAVALA - Last Filed: 08/30/16 19:32>
[2016-08-30] MEDS ORDERED: METHYLPREDNISOLONE INJ 125 MG/2 ML SDV IV ONE (16:40)
[2016-08-30 17:26] LABS: ABSOLUTE BASOPHILS # (AUTO) 0.1 10^3/uL (0.0-0.2); ABSOLUTE LYMPHOCYTES (AUTO) 1.4 10^3/uL (0.5-4.7); ABSOLUTE MONOCYTES (AUTO) 0.8 10^3/uL (0.1-1.4); ABSOLUTE NEUT (AUTO) 8.1 10^3/uL (1.7-8.2); BASOPHILS % (AUTO) 0.7 % (0-2); EOSINOPHILS % (AUTO) 0.2 % (0-6); HEMATOCRIT 51.4 % (37.9-51.0); HEMOGLOBIN 17.4 g/dL (13.5-17.0); HGB HCT DIFFERENCE 0.8; LYMPHOCYTES % (AUTO) 13.7 % (13-45); MEAN CORPUSCULAR HGB CONC 33.8 g/dL (32.0-36.0); MEAN CORPUSCULAR VOLUME 98 fl (80-97); MONOCYTES % (AUTO) 7.5 % (3-13); RED BLOOD COUNT 5.26 10^6/uL (4.35-5.55); SEGMENTED NEUTROPHILS % (AUTO) 77.9 % (42-78); VENOUS BLOOD BASE EXCESS -0.9 mmol/L; VENOUS BLOOD HCO3 23.4 mmol/L (20-32); VENOUS BLOOD PCO2 37.9 mmHg (35-63); VENOUS BLOOD PH 7.41 (7.30-7.42); WHITE BLOOD COUNT 10.4 10^3/uL (4.0-10.5)
[2016-08-30 17:30] LABS: PROTHROMBIN TIME 13.5 SEC (11.4-15.4)
[2016-08-30] MEDS: MAGNESIUM SULFATE/D5W 100 ML IV SCH ×2 (17:47→19:37)
[2016-08-30 17:48] LABS: ALANINE AMINOTRANSFERASE 34 U/L (21-72); ALBUMIN 4.4 g/dL (3.5-5.0); ALKALINE PHOSPHATASE 79 U/L (38-126); ANION GAP 12 (5-19); ASPARTATE AMINO TRANSFERASE 23 U/L (17-59); BILIRUBIN,DIRECT 0.3 mg/dL (0.0-0.4); BILIRUBIN,TOTAL 0.6 mg/dL (0.2-1.3); BLOOD UREA NITROGEN 16 mg/dL (7-20); CALCIUM 9.9 mg/dL (8.4-10.2); CARBON DIOXIDE 23 mmol/L (22-30); CHLORIDE 103 mmol/L (98-107); CREATININE RESULT 1.05 mg/dL (0.52-1.25); GLUCOSE 191 mg/dL (75-110); POTASSIUM 5.1 mmol/L (3.6-5.0); SODIUM 138.3 mmol/L (137-145); TOTAL PROTEIN 7.5 g/dL (6.3-8.2)
--- NOTE | 2016-08-30 17:50 | RADIOLOGY REPORT (SQ) ---
EXAM DESCRIPTION: CHEST SINGLE VIEW COMPLETED DATE/TIME: 08/30/2016 5:39 pm REASON FOR STUDY: SOB COMPARISON: 08/18/2016 EXAM PARAMETERS: NUMBER OF VIEWS: One view. TECHNIQUE: Single frontal radiographic view of the chest acquired. RADIATION DOSE: NA LIMITATIONS: None. FINDINGS: LUNGS AND PLEURA: No opacities, masses or pneumothorax. No pleural effusion. MEDIASTINUM AND HILAR STRUCTURES: No masses. Contour normal. HEART AND VASCULAR STRUCTURES: Heart normal in size. Normal vasculature. BONES: No acute findings. HARDWARE: None in the chest. OTHER: No other significant finding. IMPRESSION: NO ACUTE RADIOGRAPHIC FINDING IN THE CHEST. TECHNICAL DOCUMENTATION: JOB ID: [id number]
[2016-08-30] MEDS ORDERED: ACETAMINOPHEN 325 MG TABLET PO PRN (19:22)
--- NOTE | 2016-08-30 19:42 | PDOC H&P ---
History of Present Illness Admission Date/PCP: 08/30/16 18:25 SHAKIR LOZOYA MD History of Present Illness: MINAL PEÑA JR is a 40 year old white male with a past medical history significant for GERD and childhood asthma who presents to the service with acute asthma exacerbation. The patient had asthma as a child. His asthma has been out of control over the last year according to his mother who is in the room. He usually follows as an outpatient with Dr. Naveed Lerma out in [place]. He has seen Dr. Benton once. He Has been to the emergency room off and on since the beginning of the year with his last visit in July. According to the patient his symptoms of shortness of breath began yesterday evening. He believes that it is connected with his acid reflux. He states This is usually how it starts. 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 He has had a cough now for the last week. Most recently he has had allergy testing that showed that he is allergic to various grasses and dogs. He currently lives at home with his mother who has a Arian. He has never been intubated before. He presented to the emergency room and it was felt that he needed to be placed on bilevel Pap. VBG was done which showed a pH of 7.4 and a PO2 of 37 with a bicarb of 23. X Ray was done and did not show any acute process. He was Given 125 mg of Solu-Medrol, magnesium, nebulizer treatments 2. He feels very jittery after having all of these medications. he also feels quite restless and somewhat anxious because he feels as though he cannot breathe. Past Medical History Cardiac Medical History: Reports: Hypertension Pulmonary Medical History: Reports: Asthma GI Medical History: Reports: Gastroesophageal Reflux Disease Musculoskeltal Medical History: Reports: Other - Chronic neck and back pain Psychiatric Medical History: Reports: Attention Deficit Hyperactivity Disorder Past Surgical History Past Surgical History: Reports: Orthopedic Surgery - rt shoulder, rt thumb Social History Information Source: Patient Lives with: Family, Parents Smoking Status: Former Smoker - Patient quit 29 years old prior to this he smoked 1 pack per day Frequency of Alcohol Use: Social - Drinks 1-2 beers a month Hx Recreational Drug Use: No Drugs: None - Advance Directive Resuscitation Status: Full Code Family History Family History: Arthritis, CVA, Hypertension, Malignancy. denies: CAD, DM, Hyperlipidemia, Thyroid Disfunction Parental Family History Reviewed: Yes Children Family History Reviewed: Yes Sibling(s) Family History Reviewed.: Yes Medication/Allergy Allergies/Adverse Reactions: codeine [Codeine] Adverse Reaction (Verified 08/30/16 16:20) Review of Systems Review of Systems: Review of systems is pertinent as per HPI. in addition to this the patient also complains of weight gain, a burning sensation in the chest whenever he has acid reflux, occasional dizziness, occasional diarrhea, cough, and vomiting blood it whenever he takes NSAIDs. He denies any fevers, chills, nausea, vomiting or constipation. Physical Exam Vital Signs: Temp Pulse Resp BP Pulse Ox 97.6 F 126 H 17 125/85 98 08/30/16 16:20 08/30/16 16:20 08/30/16 19:01 08/30/16 19:01 08/30/16 19:01 Physical exam: General: This is a well-developed well-nourished appearing overweight white male resting in bed currently in no acute distress HEENT: normocephalic atraumatic trachea is midline sclera are anicteric. No lymphadenopathy no thyromegaly. Heart: Tachycardic at the bedside. No Murmurs rubs or gallops. Lungs: Clinically clear bilaterally with the exception of slightly diminished breath sounds at the bases. equal rise and fall of the chest. Abdomen: soft, Nontender nondistended with active bowel sounds Extremities: No clubbing cyanosis or edema. Strength is 5 out of 5 bilaterally Neuro: He is awake alert oriented cranial nerves are specifically intact 2 through 12 Results Impressions: Chest X-Ray 08/30/16 17:27 IMPRESSION: NO ACUTE RADIOGRAPHIC FINDING IN THE CHEST. Assessment & Plan - Diagnosis (1) Acute respiratory failure with hypoxemia Plan: Secondary to underlying asthma exacerbation. Continue bilevel Pap for now. (2) Asthma exacerbation Plan: Continue Solu-Medrol at 40 mg 3 times daily. Continue bilevel Pap for now. Continue home medications of Flovent, Advair and albuterol Atrovent nebulizer. Consult pulmonology service for evaluation (3) Neck and shoulder pain Plan: Percocet as needed every 6 hours as needed (4) GERD (gastroesophageal reflux disease) Plan: Continue home medications. - Time Time Spent: 50 to 70 Minutes Anticipated discharge: Home Within: within 72 hours - Inpatient Certification Medical Necessity: Need Close Monitoring Due to Risk of Patient Decompensation
[2016-08-30] MEDS ORDERED: ENOXAPARIN SODIUM INJ 40 MG/0.4 ML DISP.SYRIN SUBCUT ONE (20:45)
[2016-08-30 20:51] LABS: APPEARANCE,URINE CLEAR; BILIRUBIN,URINE NEGATIVE (NEGATIVE); GLUCOSE, URINE 50 mg/dL (NEGATIVE); KETONES,URINE NEGATIVE (NEGATIVE); LEUKOCYTE ESTERASE,URINE NEGATIVE (NEGATIVE); NITRITE,URINE NEGATIVE (NEGATIVE); PROTEIN,URINE NEGATIVE (NEGATIVE); URINE SPECIFIC GRAVITY 1.013; UROBILINOGEN,URINE NEGATIVE mg/dL (<2.0)
[2016-08-30] MEDS: IPRATROPIUM/ALBUTEROL 0.5-2.5 MG/3 ML AMPUL NEB SCH ×2 (20:58→23:57)
[2016-08-30] MEDS: ZOLPIDEM TARTRATE 5 MG TABLET PO SCH (21:25)
[2016-08-30] MEDS: MONTELUKAST SODIUM 10 MG TABLET PO SCH (21:25)
[2016-08-30] MEDS: PANTOPRAZOLE SODIUM 40 MG VIAL IV SCH (21:25)
[2016-08-30] MEDS: FLUTICASONE/SALMETEROL DISKUS 250-50 MCG/DOSE IH SCH (23:40)
[2016-08-31] MEDS: OXYCODONE-ACETAMINOPHEN 5-325 MG TABLET PO PRN ×4 (00:54→17:36)
[2016-08-31] MEDS: IPRATROPIUM/ALBUTEROL 0.5-2.5 MG/3 ML AMPUL NEB SCH ×5 (04:05→19:43)
[2016-08-31] MEDS: METHYLPREDNISOLONE INJ 40 MG/1 ML SDV IV SCH ×3 (05:53→21:09)
[2016-08-31] MEDS ORDERED: BUSPIRONE HCL 10 MG TABLET PO PRN (08:05)
[2016-08-31] MEDS ORDERED: CYCLOBENZAPRINE HCL 10 MG TABLET PO PRN (08:05)
[2016-08-31] MEDS: ENOXAPARIN SODIUM INJ 40 MG/0.4 ML DISP.SYRIN SUBCUT SCH (09:05)
[2016-08-31] MEDS: LISINOPRIL 10 MG TABLET PO SCH (09:06)
[2016-08-31] MEDS: PANTOPRAZOLE SODIUM 40 MG VIAL IV SCH ×2 (09:07→21:10)
[2016-08-31] MEDS: FLUTICASONE/SALMETEROL DISKUS 250-50 MCG/DOSE IH SCH (09:07)
--- NOTE | 2016-08-31 09:12 | EKG REPORT ---
SEVERITY:- NORMAL ECG - SINUS RHYTHM : Confirmed by: Karey Pedroza MD 31-Aug-2016 09:12:10
[2016-08-31] MEDS ORDERED: FLUOXETINE HCL 20 MG CAPSULE PO SCH (10:00)
[2016-08-31 12:04] LABS: ABSOLUTE BASOPHILS # (AUTO) 0.1 10^3/uL (0.0-0.2); ABSOLUTE NEUT (AUTO) 16.7 10^3/uL (1.7-8.2); BASOPHILS % (AUTO) 0.5 % (0-2); HEMATOCRIT 42.9 % (37.9-51.0); HGB HCT DIFFERENCE 0.6; LYMPHOCYTES % (AUTO) 5.5 % (13-45); MEAN CORPUSCULAR HEMOGLOBIN 33.2 pg (27.0-33.4); MEAN CORPUSCULAR HGB CONC 33.7 g/dL (32.0-36.0); MEAN CORPUSCULAR VOLUME 99 fl (80-97); MONOCYTES % (AUTO) 5.1 % (3-13); RED BLOOD COUNT 4.36 10^6/uL (4.35-5.55); RED CELL DISTRIBUTION WIDTH 14.5 % (11.5-14.0); SEGMENTED NEUTROPHILS % (AUTO) 88.9 % (42-78); WHITE BLOOD COUNT 18.8 10^3/uL (4.0-10.5)
[2016-08-31 12:12] LABS: HEMOGLOBIN 14.5 g/dL (13.5-17.0)
[2016-08-31 12:31] LABS: ANION GAP 15 (5-19); BLOOD UREA NITROGEN 13 mg/dL (7-20); CALCIUM 9.5 mg/dL (8.4-10.2); CARBON DIOXIDE 19 mmol/L (22-30); CHLORIDE 104 mmol/L (98-107); CREATININE RESULT 0.91 mg/dL (0.52-1.25); GLUCOSE 264 mg/dL (75-110); MAGNESIUM 2.2 mg/dL (1.6-2.3); POTASSIUM 4.8 mmol/L (3.6-5.0); SODIUM 137.5 mmol/L (137-145)
--- NOTE | 2016-08-31 14:29 | PDOC PROGRESS REPORT ---
Subjective Progress Note for:: 08/31/16 Subjective:: Patient was seen on rounds earlier this morning. He states that he feels much better than he did when he first came in. Any chest pain. We had a long discussion about his need for various pulmonary medications. For each of these medications and their purpose. Physical Exam Vital Signs: Temp Pulse Resp BP Pulse Ox 97.4 F 136 H 18 132/66 H 93 08/31/16 12:02 08/31/16 14:00 08/31/16 12:13 08/31/16 12:02 08/31/16 12:02 Intake & Output 08/30/16 08/31/16 09/01/16 06:59 06:59 06:59 Intake Total 444 996 Output Total 1250 Balance -806 996 Weight 113.9 kg Physical exam: General: This is a well-developed well-nourished appearing overweight white male resting in bed currently in no acute distress HEENT: normocephalic atraumatic trachea is midline sclera are anicteric. Heart: Tachycardic at the bedside. No Murmurs rubs or gallops. Lungs: clear bilaterally with the exception rare expiratory wheeze on the left side. equal rise and fall of the chest. Abdomen: soft, Nontender nondistended with active bowel sounds Extremities: No clubbing cyanosis or edema. Neuro: He is awake alert oriented cranial nerves are specifically intact 2 through 12 Results Laboratory Results: 08/31/16 11:20 08/31/16 11:20 08/30/16 08/31/16 08/31/16 20:05 11:20 11:20 WBC 18.8 H RBC 4.36 Hgb 14.5 D Hct 42.9 MCV 99 H MCH 33.2 MCHC 33.7 RDW 14.5 H Plt Count 222 Seg Neutrophils % 88.9 H Lymphocytes % 5.5 L Monocytes % 5.1 Eosinophils % 0.0 Basophils % 0.5 Absolute Neutrophils 16.7 H Absolute Lymphocytes 1.0 Absolute Monocytes 1.0 Absolute Eosinophils 0.0 Absolute Basophils 0.1 Sodium 137.5 Potassium 4.8 Chloride 104 Carbon Dioxide 19 L Anion Gap 15 BUN 13 Creatinine 0.91 Est GFR ( Amer) > 60 Est GFR (Non-Af Amer) > 60 Glucose 264 H Calcium 9.5 Magnesium 2.2 Urine Color YELLOW Urine Appearance CLEAR Urine pH 7.0 Ur Specific [place] 1.013 Urine Protein NEGATIVE Urine Glucose (UA) 50 H Urine Ketones NEGATIVE Urine Blood NEGATIVE Urine Nitrite NEGATIVE Ur Leukocyte Esterase NEGATIVE Urine WBC (Auto) 0 Urine RBC (Auto) 0 Impressions: Chest X-Ray 08/30/16 17:27 IMPRESSION: NO ACUTE RADIOGRAPHIC FINDING IN THE CHEST. Assessment & Plan - Diagnosis (1) Acute respiratory failure with hypoxemia Plan: Secondary to underlying asthma exacerbation. Patient is off of bilevel Pap. (2) Asthma exacerbation Plan: Severe Persistent asthma. Patient has had to take leave from work since May. Continue Solu-Medrol at 40 mg 2 times daily. Continue current medications. consult pulmonology service for evaluation (3) Neck and shoulder pain Plan: Percocet as needed every 6 hours as needed (4) GERD (gastroesophageal reflux disease) Plan: Continue home medications. - Time Time Spent with patient: 25-34 minutes - Inpatient Certification Medical Necessity: Significant Comorbidiites Make Outpatient Treatment Too Risky
--- NOTE | 2016-08-31 14:59 | PDOC CONSULTATION ---
Consultation Consult Date: 08/31/16 Attending physician:: BHAVIN LOVETT Consult reason:: dyspnea History of Present Illness Admission Date/PCP: 08/30/16 19:16 SHAKIR LOZOYA MD History of Present Illness: MINAL PEÑA JR is a 40 year old white male with a past medical history significant for GERD and childhood asthma who presents to the service with acute asthma exacerbation. The patient had asthma as a child. His asthma has been out of control over the last year according to his mother who is in the room. He usually follows as an outpatient with Dr. Naveed Lerma out in [place]. He has seen Dr. Benton once. He Has been to the emergency room off and on since the beginning of the year with his last visit in July. According to the patient his symptoms of shortness of breath began yesterday evening. He believes that it is connected with his acid reflux. He states This is usually how it starts. 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 He has had a cough now for the last week. Most recently he has had allergy testing that showed that he is allergic to various grasses and dogs. He currently lives at home with his mother who has a Arian. He has never been intubated before. He presented to the emergency room and it was felt that he needed to be placed on bilevel Pap. VBG was done which showed a pH of 7.4 and a PO2 of 37 with a bicarb of 23. X Ray was done and did not show any acute process. He was Given 125 mg of Solu-Medrol, magnesium, nebulizer treatments 2. He feels very jittery after having all of these medications. he also feels quite restless and somewhat anxious because he feels as though he cannot breathe. Past Medical History Cardiac Medical History: Reports: Hypertension Pulmonary Medical History: Reports: Asthma GI Medical History: Reports: Gastroesophageal Reflux Disease Musculoskeltal Medical History: Reports: Other - Chronic neck and back pain Psychiatric Medical History: Reports: Attention Deficit Hyperactivity Disorder, Depression - anxiety Past Surgical History Past Surgical History: Reports: Orthopedic Surgery - rt shoulder, rt thumb Social History Lives with: Family, Parents Smoking Status: Former Smoker Cigarettes Packs Per Day: 1 Number of Years Smokin Last Time Smoked: quit 04' Frequency of Alcohol Use: Occasional Hx Recreational Drug Use: No Drugs: None Hx Prescription Drug Abuse: No - Advance Directive Resuscitation Status: Full Code Family History Family History: Arthritis, CVA, Hypertension, Malignancy. denies: CAD, DM, Hyperlipidemia, Thyroid Disfunction Parental Family History Reviewed: Yes Children Family History Reviewed: Yes Sibling(s) Family History Reviewed.: Yes Medication/Allergy Home Medications: Albuterol Sulfate [Albuterol Sulfate 2.5mg/3 mL] 3 ml NEB Q8 08/30/16 Budesonide/Formoterol Fumarate [Symbicort HFA 160-4.5 mcg Inhaler 6 gm] 2 puff IN Q12 08/30/16 Buspirone HCl [Buspar 10 mg Tablet] 10 mg PO QIDP PRN 08/30/16 Cyclobenzaprine HCl [Flexeril 10 mg Tablet] 10 mg PO QIDP PRN 08/30/16 Doxepin HCl [Sinequan 10 mg Capsule] 10 mg PO HSP PRN 08/30/16 Fluoxetine HCl [Prozac 20 mg Capsule] 20 mg PO QAM 08/30/16 Fluticasone Propionate [Flovent Hfa 110 Mcg Inhalation Aerosol 12 gm] 2 puff IH BID 08/30/16 Fluticasone/Salmeterol [Advair 250-50 Diskus 14 Dose/Diskus] 1 puff IH Q12 08/30 Hydrocodone Bit/Acetaminophen [Hydrocodon-Acetaminophen 5-325] 1 tab PO Q4HP PRN 08/30/16 Ipratropium [place] [Atrovent 0.02% Neb 0.5 mg/2.5 ml Ampul] 2.5 ml NEB Q4 08/30 Ketorolac Tromethamine [Toradol 10 mg Tablet] 10 mg PO Q8HP PRN 08/30/16 Lisinopril [Prinivil 40 mg Tablet] 40 mg PO DAILY 08/30/16 Montelukast Sodium [Singulair 10 mg Tablet] 10 mg PO DAILY 08/30/16 Omeprazole 40 mg PO BIDACBS 08/30/16 Tramadol HCl [Ultram 50 mg Tablet] 50 mg PO Q8HP PRN 08/30/16 Trazodone HCl [Desyrel 50 mg Tablet] 50 mg PO HSP PRN 08/30/16 Zolpidem Tartrate [Ambien 5 mg Tablet] 5 mg PO QHS 08/30/16 Allergies/Adverse Reactions: codeine [Codeine] Adverse Reaction (Verified 08/31/16 00:19) Physical Exam Vital Signs: Temp Pulse Resp BP Pulse Ox 97.4 F 136 H 18 132/66 H 93 08/31/16 12:02 08/31/16 14:00 08/31/16 12:13 08/31/16 12:02 08/31/16 12:02 Intake & Output 08/30/16 08/31/16 09/01/16 06:59 06:59 06:59 Intake Total 444 996 Output Total 1250 Balance -806 996 Weight 113.9 kg General appearance: PRESENT: disheveled, mild distress, morbidly obese, well- developed Head exam: PRESENT: atraumatic, normocephalic Eye exam: PRESENT: conjunctiva pale, EOMI Mouth exam: PRESENT: dry mucosa, neck supple, tongue midline Teeth exam: PRESENT: poor dentation Neck exam: PRESENT: carotid bruit Respiratory exam: PRESENT: decreased breath sounds, prolonged expiratory phas, rales, rhonchi, symmetrical, unlabored Cardiovascular exam: PRESENT: RRR, +S1, +S2, other - harsh loud sounds Pulses: PRESENT: normal radial pulses GI/Abdominal exam: PRESENT: normal bowel sounds, soft. ABSENT: distended, guarding, mass, organolmegaly, rebound, tenderness Rectal exam: PRESENT: deferred Musculoskeletal exam: PRESENT: normal inspection Neurological exam: PRESENT: alert, awake Psychiatric exam: PRESENT: normal mood Skin exam: PRESENT: dry, warm Results Laboratory Results: 08/31/16 11:20 08/31/16 11:20 08/30/16 08/31/16 08/31/16 20:05 11:20 11:20 WBC 18.8 H RBC 4.36 Hgb 14.5 D Hct 42.9 MCV 99 H MCH 33.2 MCHC 33.7 RDW 14.5 H Plt Count 222 Seg Neutrophils % 88.9 H Lymphocytes % 5.5 L Monocytes % 5.1 Eosinophils % 0.0 Basophils % 0.5 Absolute Neutrophils 16.7 H Absolute Lymphocytes 1.0 Absolute Monocytes 1.0 Absolute Eosinophils 0.0 Absolute Basophils 0.1 Sodium 137.5 Potassium 4.8 Chloride 104 Carbon Dioxide 19 L Anion Gap 15 BUN 13 Creatinine 0.91 Est GFR ( Amer) > 60 Est GFR (Non-Af Amer) > 60 Glucose 264 H Calcium 9.5 Magnesium 2.2 Urine Color YELLOW Urine Appearance CLEAR Urine pH 7.0 Ur Specific [place] 1.013 Urine Protein NEGATIVE Urine Glucose (UA) 50 H Urine Ketones NEGATIVE Urine Blood NEGATIVE Urine Nitrite NEGATIVE Ur Leukocyte Esterase NEGATIVE Urine WBC (Auto) 0 Urine RBC (Auto) 0 Impressions: Chest X-Ray 08/30/16 17:27 IMPRESSION: NO ACUTE RADIOGRAPHIC FINDING IN THE CHEST. Assessment & Plan - Diagnosis (1) Dysphasia Is this a current diagnosis for this admission?: No (2) Hiatal hernia with gastroesophageal reflux disease and esophagitis Is this a current diagnosis for this admission?: No (3) Acute respiratory failure with hypoxemia Is this a current diagnosis for this admission?: Yes (4) Asthma exacerbation Is this a current diagnosis for this admission?: Yes (5) GERD (gastroesophageal reflux disease) Is this a current diagnosis for this admission?: Yes
[2016-08-31] MEDS: BUDESONIDE NEB 0.5 MG/2 ML AMPUL NEB SCH (19:43)
[2016-08-31] MEDS: MONTELUKAST SODIUM 10 MG TABLET PO SCH (21:10)
[2016-08-31] MEDS: ZOLPIDEM TARTRATE 5 MG TABLET PO SCH (21:10)
[2016-09-01] MEDS: IPRATROPIUM/ALBUTEROL 0.5-2.5 MG/3 ML AMPUL NEB SCH ×5 (00:05→15:34)
[2016-09-01] MEDS: OXYCODONE-ACETAMINOPHEN 5-325 MG TABLET PO PRN ×2 (05:22→11:20)
--- NOTE | 2016-09-01 07:14 | Physician Advisory Note ---
Physician Advisor ProgressNote .: Pursuant to the plan for [facility], I have reviewed the medical record for this patient. Physician Advisor Statement: Please consider documentin. Criteria used for dx of Ac Hypoxemic Resp Failure: evidence of hypoxemia. (Or else take out "Hypoxemic" from dx, or say dx r/o'd.) Pt was using accessory muscles in ED, but initial sat 98% on RA & lowest sat listed = 93%, VBG pCO2 37 with no pO2 in labs section. 2. Type of asthma* *Dx of type of chronic asthma is based on worst category in which pt has at least 1 of following s/s present at baseline: A. Mild Intermittent: only needs albuterol occasionally. B. Mild Persistent: sx >2x/wk, nocturnal sx up to 4x/mo, FEV1 80+% predicted C. Mod Persistent: sx (or albuterol) daily, nocturnal sx >1x/wk, FEV1 60-80% predicted D. Severe Persistent: activities curtailed, frequent exacerbations, noct sx frequent, FEV1 <60% predicted. Thanks! CK
[2016-09-01] MEDS: BUDESONIDE NEB 0.5 MG/2 ML AMPUL NEB SCH (08:05)
--- NOTE | 2016-09-01 08:54 | ST Inp Modified Barium Swallow ---
Medical Diagnosis - Medical Diagnoses Medical Diagnosis Description & ICD-10 Code(s): gagging liquids and solids - ICD-10 Tx Diagnosis Coding (1) Dysphagia, unspecified ICD-10 Code(s): R13.10 - DYSPHAGIA, UNSPECIFIED ST Inpatient [facility] [place] - General Date: 09/01/16 Date of Onset: 08/30/16 - History History Obtained From: Patient - per EMR -: Medical - per EMR; difficulty breathing, acute asthma, acute respiratory failure, GERD. Chest xray shows no acute findings. PMHx: GERD, childhood asthma , HTN, chronic neck and back pain, ADHD. Per pt: pt states he feels symptoms due to GERD. Pt reports will cough when laying down at night or after meals. Pt denies coughing or choking with PO intake. Reported globus sensation in mid chest. Pt reports history of EOE and hiatal hernia. Pt states follows up with GI. Medications: Medications Reviewed Allergies: Refer to medical record - Subjective Current Nutritional Means: PO Current PO Diet: Regular Current Symptoms: gagging - per order Pain: 0/5 - Objective Assessment: Upright, Left Lateral - Food Trials Food Trials Used: Thin liquids, Pureed, Regular The Patient: Was Able to Self Feed - Assessment Labial Function: Within Normal Limits Lingual Function: Within Normal Limits Mandibular Function: Within Normal Limits Dentition: Full Velo-Pharyngeal Function: Unremarkable Laryngeal Function: Volitional Cough, Volitional Swallow - Pharyngeal Stage Initiation of Pharyngeal Stage: Normal Decreased Laryngeal Elevation: No Reduced Velo-Pharyngeal Closure: no Reduced Pressure Generation: No Reduced Tongue Base Retraction: No Pre-Swallowing Pooling in Valleculae: None Pre-Swallowing Pooling in Pyriforms: None Reduced Thyro-Hyiod Approximation: No Reduced Epiglottic Excursion: No Reduced Pharyngeal Peristalsis: No Post Swallow Residuals in Valleculae: None Post Swallow Residuals in Pyriforms: None - Impression/Summary Laryngeal Penetration: No Tracheal Aspiration: no Patient Presents With: Normal swallow at eval - safe and effective swallow observed Risk of Aspiration: Minimal - Recommendations NPO: no Solid Diet Recommendations: Regular Liquid Diet Recommendations: Thin Dysphagia Therapy with PERSONNEL CONSULTANT: No Recommended Techniques: Fully Upright During Meal, Small Bites and Sips Supervision: Independent Other Recommendations: 1) DIET: recommend continued current diet of regular and thin. 2) Recommend continued follow up with treating GI due to pt reports of GERD, EOE, and hiatal hernia. SUMMARY: Pt presents with a WNL oral and pharyngeal swallow. No penetration or aspiration observed. No oral or pharyngeal residuals seen. Safe and effective swallow observed during MBSS. Pt' s reported symptoms appear consistent with esophageal issues. Pt provided with reflux precautions handout. ST to sign off at this time, please re-consult PRN. - Time Total Time: 20 Total Timed Minutes: 0
[2016-09-01] MEDS: ENOXAPARIN SODIUM INJ 40 MG/0.4 ML DISP.SYRIN SUBCUT SCH (09:21)
[2016-09-01] MEDS: LISINOPRIL 10 MG TABLET PO SCH (09:21)
[2016-09-01] MEDS: METHYLPREDNISOLONE INJ 40 MG/1 ML SDV IV SCH (09:21)
[2016-09-01] MEDS: PANTOPRAZOLE SODIUM 40 MG VIAL IV SCH (11:20)
--- NOTE | 2016-09-01 12:23 | XCELERA REPORT ---
[address] [address] Transthoracic Echocardiogram Report Name: MINAL PEÑA JR Age: 40 yrs Gender: Male : 1975 Patient Status: Inpatient Patient Location: [id number] Study Date: 09/01/2016 08:49 AM Height: 71 in Weight: 251 lb BSA: 2.3 m2 Procedure: A complete two-dimensional transthoracic echocardiogram was performed (2D, M-mode, spectral and color flow Doppler). The study was technically adequate with some images being suboptimal in quality. Reason For Study: chest tightness Ordering Physician: PEDRO CHIU Performed By: Shavon Yadav Interpretation Summary The left ventricular ejection fraction is normal. Doppler measurements suggest impaired left ventricular relaxation, which is associated with grade I/IV or mild diastolic dysfunction There is mild concentric left ventricular hypertrophy. The left ventricle is grossly normal size. Wall motion cannot be accurately commented on, but no definite regional wall motion abnormalities noted. The right ventricular systolic function is normal. The right atrium is normal in size The left atrial size is normal. There is no mitral valve stenosis. There is a trace amount of mitral regurgitation There is no aortic valve stenosis No aortic regurgitation is present. There is a trace or physiologic amount of tricuspid regurgitation Tricuspid regurgitation jet envelope not well defined to measure RV systolic pressure accurately. The aortic root is not well visualized but is probably normal size. The inferior vena cava was not well visualized There is no pericardial effusion. MMode/2D Measurements \T\ Calculations RVDd: 3.0 cm LVIDd: 5.1 cmFS: 46.1 % Ao root diam: 3.3 cm IVSd: 1.1 cm LVIDs: 2.8 cmEDV(Teich): 126.6 ml LVPWd: 1.1 cmESV(Teich): 29.0 ml Ao root area: 8.5 cm2 EF(Teich): 77.1 % LA dimension: 3.5 cm LVOT diam: 2.3 cm LVOT area: 4.3 cm2 Doppler Measurements \T\ Calculations MV E max barbara: MV P1/2t max barbara: Ao V2 max: LV V1 max P.8 cm/sec 91.8 cm/sec 156.9 cm/sec 9.1 mmHg MV A max barbara: MV P1/2t: 46.1 msec Ao max PG: LV V1 max: 84.4 cm/sec MVA(P1/2t): 4.8 cm2 9.8 mmHg 150.5 cm/sec MV E/A: 1.1 MV dec slope: LISETTE(V,D): 4.1 cm2 583.0 cm/sec2 PA V2 max: 96.7 cm/sec PA max P.7 mmHg Left Ventricle The left ventricle is grossly normal size. There is mild concentric left ventricular hypertrophy. The left ventricular ejection fraction is normal. Doppler measurements suggest impaired left ventricular relaxation, which is associated with grade I/IV or mild diastolic dysfunction. Wall motion cannot be accurately commented on, but no definite regional wall motion abnormalities noted. Right Ventricle The right ventricle is grossly normal size. There is normal right ventricular wall thickness. The right ventricular systolic function is normal. Atria The right atrium is normal in size. The left atrial size is normal. Interarterial septum not well visualized and not well dopplered. Cannot comment on ASD/PFO presence. Mitral Valve The mitral valve is grossly normal. There is no mitral valve stenosis. There is a trace amount of mitral regurgitation. Aortic Valve The aortic valve is grossly normal. There is no aortic valve stenosis. No aortic regurgitation is present. Tricuspid Valve The tricuspid valve is not well visualized, but is grossly normal. There is no tricuspid stenosis. There is a trace or physiologic amount of tricuspid regurgitation. Tricuspid regurgitation jet envelope not well defined to measure RV systolic pressure accurately. Pulmonic Valve The pulmonic valve is not well visualized. Great Vessels The aortic root is not well visualized but is probably normal size. The inferior vena cava was not well visualized. Effusions There is no pericardial effusion. : PEDRO CHIU > Johanne Drake
--- NOTE | 2016-09-01 13:16 | PDOC DISCHARGE SUMMARY ---
General - Admit/Disc Date/PCP Admission Date/Primary Care Provider: 08/30/16 19:16 SHAKIR LOZOYA MD Discharge Date: 09/01/16 - Discharge Diagnosis (1) Acute respiratory failure Summary: Patient tachypnic on admission with increased effort of breathing. Patient was initially placed on bilevel Pap for acute asthma exacerbation he was treated with IV Solu-Medrol. He did well with this. And was able to be weaned off of supportive oxygen therapy. (2) Asthma exacerbation Is this a current diagnosis for this admission?: YesSummary: The patient again was able to be weaned off of oxygen he was treated with IV steroids. He underwent modified barium swallow as well as cardiac echo. Each was normal. He was seen by the pulmonary service here. Plan will be for him to be discharged home on prednisone taper. He has an appointment already scheduled with Dr. Lerma for follow-up visit. he should keep this. He should continue his home Symbicort and as needed rescue inhaler/nebulizer treatments. He should also continue his Singulair. (4) GERD (gastroesophageal reflux disease) Is this a current diagnosis for this admission?: YesSummary: PPI. - Additional Information Resuscitation Status: Full Code Discharge Diet: As Tolerated Discharge Activity: Activity As Tolerated Home Medications: Albuterol Sulfate [Albuterol Sulfate 2.5mg/3 mL] 3 ml NEB Q8 08/30/16 Budesonide/Formoterol Fumarate [Symbicort HFA 160-4.5 mcg Inhaler 6 gm] 2 puff IN Q12 08/30/16 Cyclobenzaprine HCl [Flexeril 10 mg Tablet] 10 mg PO QIDP PRN 08/30/16 Fluticasone Propionate [Flovent Hfa 110 Mcg Inhalation Aerosol 12 gm] 2 puff IH BID 08/30/16 Hydrocodone Bit/Acetaminophen [Hydrocodon-Acetaminophen 5-325] 1 tab PO Q4HP PRN 08/30/16 Ipratropium [place] [Atrovent 0.02% Neb 0.5 mg/2.5 ml Ampul] 2.5 ml NEB Q4 08/30 Lisinopril [Prinivil 40 mg Tablet] 40 mg PO DAILY 08/30/16 Montelukast Sodium [Singulair 10 mg Tablet] 10 mg PO DAILY 08/30/16 Omeprazole 40 mg PO BIDACBS 08/30/16 Zolpidem Tartrate [Ambien 5 mg Tablet] 5 mg PO QHS 08/30/16 Prednisone 20 mg PO ASDIR #15 tablet 09/01/16 History of Present Illness History of Present Illness: MINAL PEÑA JR is a 40 year old white male with a past medical history significant for GERD and childhood asthma who presents to the service with acute asthma exacerbation. The patient had asthma as a child. His asthma has been out of control over the last year according to his mother who is in the room. He usually follows as an outpatient with Dr. Naveed Lerma out in [place]. He has seen Dr. Benton once. He Has been to the emergency room off and on since the beginning of the year with his last visit in July. According to the patient his symptoms of shortness of breath began yesterday evening. He believes that it is connected with his acid reflux. He states This is usually how it starts. 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 He has had a cough now for the last week. Most recently he has had allergy testing that showed that he is allergic to various grasses and dogs. He currently lives at home with his [facility] He has never been intubated before. He presented to the emergency room and it was felt that he needed to be placed on bilevel Pap. VBG was done which showed a pH of 7.4 and a PO2 of 37 with a bicarb of 23. X Ray was done and did not show any acute process. He was Given 125 mg of Solu-Medrol, magnesium, nebulizer treatments 2. He feels very jittery after having all of these medications. he also feels quite restless and somewhat anxious because he feels as though he cannot breathe. Hospital Course Hospital Course: Once admitted to the floor, the patient tended to do very well. He was able to be weaned off of bilevel Pap. He was subsequently maintained on oxygen via nasal cannula and did well with this. This too was able to be weaned. A consult was placed to the pulmonary service. And the patient underwent modified barium swallow to rule out aspiration as well as cardiac echo. Each of these tests were normal. The patient was able to be weaned completely off of oxygen and was satting well on room air. He will be converted to p.o. prednisone and given a prescription for prednisone taper as an outpatient. He already has an appointment set up to follow-up with Dr. Lerma on September 13. Physical Exam Vital Signs: Temp Pulse Resp BP Pulse Ox 97.7 F 108 H 18 123/88 H 95 09/01/16 11:14 09/01/16 11:14 09/01/16 11:14 09/01/16 11:14 09/01/16 11:14 Intake & Output 08/31/16 09/01/16 09/02/16 06:59 06:59 06:59 Intake Total 444 2573 Output Total 1250 1000 Balance -806 1573 Weight 113.9 kg 108.2 kg Physical exam: General: This is a well-developed well-nourished appearing overweight white male resting in bed currently in no acute distress HEENT: normocephalic atraumatic trachea is midline sclera are anicteric. Heart: Tachycardic at the bedside. No Murmurs rubs or gallops. Lungs: Diminished at the bases bilaterally with equal rise and fall of the chest Abdomen: soft, Nontender nondistended with active bowel sounds Extremities: No clubbing cyanosis or edema. Neuro: He is awake alert oriented cranial nerves are specifically intact 2 through 12 Results Laboratory Results: 08/31/16 11:20 08/31/16 11:20 08/30/16 20:05 Clean Catch Midstream Urine Culture - Final NO GROWTH 2 DAYS Impressions: Chest X-Ray 08/30/16 17:27 IMPRESSION: NO ACUTE RADIOGRAPHIC FINDING IN THE CHEST. Qualifiers PATEINT BEING DISCHARGED WITH ANY OF THE FOLLOWING DIAGNOSIS?: No Plan Time Spent: Greater than 30 Minutes
--- NOTE | 2016-09-01 13:20 | PDOC PROGRESS REPORT ---
Subjective Progress Note for:: 09/01/16 Subjective:: i feel better Physical Exam Vital Signs: Temp Pulse Resp BP Pulse Ox 97.7 F 108 H 18 123/88 H 95 09/01/16 11:14 09/01/16 11:14 09/01/16 11:14 09/01/16 11:14 09/01/16 11:14 Intake & Output 08/31/16 09/01/16 09/02/16 06:59 06:59 06:59 Intake Total 444 2573 Output Total 1250 1000 Balance -806 1573 Weight 113.9 kg 108.2 kg General appearance: PRESENT: no acute distress, disheveled, obese, well- developed Head exam: PRESENT: atraumatic, normocephalic Eye exam: PRESENT: conjunctiva pale Mouth exam: PRESENT: moist, neck supple, tongue midline Neck exam: ABSENT: carotid bruit, JVD, lymphadenopathy, thyromegaly Respiratory exam: PRESENT: decreased breath sounds, prolonged expiratory phas, rhonchi, symmetrical, unlabored Cardiovascular exam: PRESENT: RRR, +S1, +S2 Pulses: PRESENT: normal radial pulses GI/Abdominal exam: PRESENT: normal bowel sounds, soft. ABSENT: distended, guarding, mass, organolmegaly, rebound, tenderness Rectal exam: PRESENT: deferred Gentrourinary exam: PRESENT: indwelling catheter Musculoskeletal exam: PRESENT: normal inspection Neurological exam: PRESENT: alert, awake Skin exam: PRESENT: dry, warm Results Laboratory Results: 08/31/16 11:20 08/31/16 11:20 08/30/16 20:05 Clean Catch Midstream Urine Culture - Final NO GROWTH 2 DAYS Impressions: Chest X-Ray 08/30/16 17:27 IMPRESSION: NO ACUTE RADIOGRAPHIC FINDING IN THE CHEST. Assessment & Plan - Diagnosis (1) Dysphasia Is this a current diagnosis for this admission?: No (2) Hiatal hernia with gastroesophageal reflux disease and esophagitis Is this a current diagnosis for this admission?: No (3) Acute respiratory failure with hypoxemia Is this a current diagnosis for this admission?: Yes (4) Asthma exacerbation Is this a current diagnosis for this admission?: Yes (5) GERD (gastroesophageal reflux disease) Is this a current diagnosis for this admission?: Yes
[2016-09-01 16:06] VITALS: BP 123/81
--- NOTE | 2016-09-01 16:21 | RADIOLOGY REPORT (SQ) ---
EXAM DESCRIPTION: STEVEN SWALLOW COMPLETED DATE/TIME: 09/01/2016 8:55 am REASON FOR STUDY: Dysphagia unspecified R 13.10, food in pharynx causing other injury, sequela T17.2 28S gagging liquids and solids COMPARISON: None. TECHNIQUE: Videofluoroscopic swallowing examination was performed in conjunction with speech patholo gy. Videofluoroscopic imaging was obtained and reviewed and these are the findings: RADIATION DOSE: Total fluoroscopy time 20 seconds 1 fluoroscopy image saved to PACS. LIMITATIONS: None FINDINGS: The patient was brought into the fluoro room and placed upright on a modified barium swall ow chair. The patient was then given multiple consistencies mixed with barium to swallow under live fluoroscopic video guidance. According to the Speech Pathologist there was no laryngeal penetration and no tracheal aspiration. Normal oral and pharyngeal transit time observed. No significant post s wallow residual seen. Please see speech pathology report for further details and recommendations. IMPRESSION: NO EVIDENCE OF LARYNGEAL PENETRATION OR TRACHEAL ASPIRATIONPLEASE SEE SPEECH PATHOLOGIST REPORT FOR OTHER FINDINGS AND RECOMMENDATIONS. COMMENT: Quality ID [id number]: Final reports for procedures using fluoroscopy that document radiation exp osure indices, or exposure time and number of fluorographic images (if radiation exposure indices are not available) TECHNICAL DOCUMENTATION: JOB ID: [id number] [x+1]- All Rights Reserved
[2016-09-01] MEDS ORDERED: LANSOPRAZOLE 30 MG TAB.RAP.DR PO SCH (18:00)
[2016-09-03 12:40] LABS: IMMUNOGLOBULIN E 98 IU/mL (0-100)
== END 2016-09-01 16:40 | disposition home or self-care (01) | DRG 202 ==
LOC: ER 16:15 → UNDOADMIN 18:25 → EH 18:25 → 3N 08-31 00:03
PROVIDERS: ADMIT Hospitalist; ATTEND Hospitalist
PROC: 3E0F73Z Introduction of Anti-inflammatory into Respiratory Tract, Via Natural or Artificial Opening (ICD-10-PCS; principal; 2016-08-31)
PROC: 5A09357 Assistance with Respiratory Ventilation, Less than 24 Consecutive Hours, Continuous Positive Airway Pressure (ICD-10-PCS; 2016-08-31)
DX: J45.51 Severe persistent asthma with (acute) exacerbation (principal); J96.00 Acute respiratory failure, unspecified whether with hypoxia or hypercapnia; K21.9 Gastro-esophageal reflux disease without esophagitis; F90.9 Attention-deficit hyperactivity disorder, unspecified type; G89.29 Other chronic pain; M79.2 Neuralgia and neuritis, unspecified; M25.519 Pain in unspecified shoulder; M54.9 Dorsalgia, unspecified; I10 Essential (primary) hypertension; Z91.048 Other nonmedicinal substance allergy status; Z87.891 Personal history of nicotine dependence; Z82.61 Family history of arthritis; Z82.3 Family history of stroke; Z80.9 Family history of malignant neoplasm, unspecified; Z82.49 Family history of ischemic heart disease and other diseases of the circulatory system
CPT/HCPCS: 36415; 71010; 74230; 80048; 80053; 81001; 81332; 82785; 82803; 83605; 83735; 85025; 85610; 87040; 87086; 93005; 93010; 93306; 94640; 94660; 96365; 96375; 99291; J1650; J2920; J2930; J3475; J3490; J7030; J7620; S0164

== ENCOUNTER 2016-09-04 18:44 | Emergency (ER) | payer MEDICAID ==
[2016-09-04] MEDS ORDERED: HYDROCODONE/ACETAMINOPHEN 5-325 MG TABLET PO ONE (19:19)
[2016-09-04] MEDS ORDERED: PROMETHAZINE HCL 25 MG TABLET PO ONE (19:19)
--- NOTE | 2016-09-04 19:22 | ER Document Report ---
ED Medical Screen (RME) - General Chief Complaint: Breathing Difficulty Stated Complaint: BACK PAIN Time Seen by Provider: 09/04/16 19:18 Notes: Just got out of [facility] after 4 day hospitalization for difficulty breathing and wheezing secondary to his asthma. He was discharged on steroids and nebulizers and inhalers. In home, yesterday, his daughter jumped in his arms and he had a sudden pain in the right back and flank area which goes down the right buttock and into the right lower leg. That pain is quite severe and he has had a persistent hacking cough that is aggravating that pain. TRAVEL OUTSIDE OF THE [place] IN LAST 30 DAYS: No - Related Data Allergies/Adverse Reactions: codeine [Codeine] Adverse Reaction (Verified 09/04/16 18:49) Past Medical History - Past Medical History Cardiac Medical History: Reports: Hx Hypertension Pulmonary Medical History: Reports: Hx Asthma Renal/ Medical History: Denies: Hx Peritoneal Dialysis GI Medical History: Reports: Hx Gastroesophageal Reflux Disease Musculoskeltal Medical History: Reports Hx Musculoskeletal Deformity, Reports Hx Musculoskeletal Trauma Psychiatric Medical History: Reports: Hx Attention Deficit Hyperactivity Disorder, Hx Depression - anxiety Traumatic Medical History: Reports: Hx Fractures - thumb Past Surgical History: Reports: Hx Orthopedic Surgery - rt shoulder, rt thumb - Immunizations Hx Diphtheria, Pertussis, Tetanus Vaccination: Yes Physical Exam - Vital signs Vitals: Temp Pulse Resp BP Pulse Ox 97.7 F 121 H 17 149/95 H 97 09/04/16 18:49 09/04/16 18:49 09/04/16 18:49 09/04/16 18:49 09/04/16 18:49 Course - Vital Signs Vital signs: Temp Pulse Resp BP Pulse Ox 97.7 F 121 H 17 149/95 H 97 09/04/16 18:49 09/04/16 18:49 09/04/16 18:49 09/04/16 18:49 09/04/16 18:49
[2016-09-04] MEDS ORDERED: IPRATROPIUM/ALBUTEROL 0.5-2.5 MG/3 ML AMPUL NEB ONE (19:37)
--- NOTE | 2016-09-04 19:38 | ER Document Report ---
ED General - General Chief Complaint: Breathing Difficulty Stated Complaint: BACK PAIN Time Seen by Provider: 09/04/16 19:18 Notes: Patient is a 40 year old male with a chief complaint of pain in his right patient is a 40-year-old male that comes emergency department for lower back and flank with radiation down his right leg, he states that on Monday (2 days ago) his 12-year-old daughter jumped into his arms and he felt like he pulled a muscle at that time, he has had increased symptoms since that time. He denies any numbness, loss of bowel or bladder control, impact to his back, or history of the same. He denies any fevers. Past medical history of asthma, he states that he has a persistent cough with occasional yellowish sputum production and postnasal drip, he states that every time he coughs he hurts in his lower back and he cannot get relief because of this. He was actually discharged from this hospital facility 3 days ago on prednisone for treatment of asthma exacerbation. He denies smoking. TRAVEL OUTSIDE OF THE [place] IN LAST 30 DAYS: No - Related Data Allergies/Adverse Reactions: codeine [Codeine] Adverse Reaction (Verified 09/04/16 18:49) Past Medical History - General Information source: Patient - Social History Smoking Status: Never Smoker Frequency of alcohol use: None Drug Abuse: None Lives with: Family Family History: Arthritis, CVA, Hypertension, Malignancy. denies: CAD, DM, Hyperlipidemia, Thyroid Disfunction Patient has suicidal ideation: No Patient has homicidal ideation: No - Past Medical History Cardiac Medical History: Reports: Hx Hypertension Pulmonary Medical History: Reports: Hx Asthma Renal/ Medical History: Denies: Hx Peritoneal Dialysis GI Medical History: Reports: Hx Gastroesophageal Reflux Disease Musculoskeltal Medical History: Reports Hx Musculoskeletal Deformity, Reports Hx Musculoskeletal Trauma Psychiatric Medical History: Reports: Hx Attention Deficit Hyperactivity Disorder, Hx Depression - anxiety Traumatic Medical History: Reports: Hx Fractures - thumb Past Surgical History: Reports: Hx Orthopedic Surgery - rt shoulder, rt thumb - Immunizations Hx Diphtheria, Pertussis, Tetanus Vaccination: Yes Review of Systems - Review of Systems Constitutional: No symptoms reported EENT: No symptoms reported Cardiovascular: No symptoms reported Respiratory: See HPI Gastrointestinal: No symptoms reported Genitourinary: No symptoms reported Male Genitourinary: No symptoms reported Musculoskeletal: See HPI Skin: No symptoms reported Hematologic/Lymphatic: No symptoms reported Neurological/Psychological: No symptoms reported Physical Exam - Vital signs Vitals: Temp Pulse Resp BP Pulse Ox 97.7 F 121 H 17 149/95 H 97 09/04/16 18:49 09/04/16 18:49 09/04/16 18:49 09/04/16 18:49 09/04/16 18:49 Interpretation: Normal - General General appearance: Anxious In distress: Mild - patient sitting slightly awkwardly on the bed, appears uncomfortable but not in distress - HEENT Head: Normocephalic, Atraumatic Eyes: Normal Pupils: PERRL - Respiratory Respiratory status: No respiratory distress Chest status: Nontender Breath sounds: Nonproductive cough - regular non-productive cough, Other - good air movement bilaterally with a very faint end expiratory wheeze Chest palpation: Normal - Cardiovascular Rhythm: Regular, Tachycardia Heart sounds: Normal auscultation, S1 appreciated, S2 appreciated Murmur: No - Abdominal Inspection: Normal Distension: No distension Bowel sounds: Normal Tenderness: Nontender Organomegaly: No organomegaly - Back Back: Tender - tender in the right - Extremities General upper extremity: Normal inspection, Nontender, Normal color, Normal ROM , Normal temperature General lower extremity: Normal inspection, Nontender, Normal color, Normal ROM , Normal temperature, Normal weight bearing. No: Dewey's sign - Neurological Neuro grossly intact: Yes Cognition: Normal Orientation: AAOx4 Mandi Coma Scale Eye Opening: Spontaneous Hinck[place] Coma Scale Verbal: Oriented H[place] Coma Scale Motor: Obeys Commands Hinckley Coma Scale Total: 15 Speech: Normal Motor strength normal: LUE, RUE, LLE, RLE Sensory: Normal - Psychological Associated symptoms: Normal affect, Normal mood - Skin Skin Temperature: Warm Skin Moisture: Dry Skin Color: Normal Course - Re-evaluation Re-evalutation: Negative straight leg raise, no midline tenderness, no saddle anesthesia, there is palpable tenderness over the right lower lumbar musculature extending to the gluteal musculature, no suggestion of neurological injury. Patient with persistent cough initially, this did improve along with resolution of tachycardia with medications. Wheezing completely resolved with a single DuoNeb. No tachypnea or hypoxia. Patient states he had not had a treatment since this morning and the treatments work well at home additionally. chest x- ray unremarkable with no pneumonia or other abnormality noted. Will treat patient symptomatically for cough and back pain, patient has pending followup with pulmonology. Discussed treatment, followup, return precautions with patient and mom, they state understanding and agreement. - Vital Signs Vital signs: Temp Pulse Resp BP Pulse Ox 97.8 F 101 H 20 140/93 H 99 09/04/16 21:42 09/04/16 21:42 09/04/16 21:42 09/04/16 21:42 09/04/16 21:42 Discharge - Discharge Clinical Impression: Cough Lower back pain Qualifiers: Chronicity: acute Back pain laterality: right Sciatica presence: with sciatica Sciatica laterality: sciatica of right side Qualified Code(s): M54.41 - Lumbago with sciatica, right side Condition: Stable Disposition: HOME, SELF-CARE Additional Instructions: The chest x-ray does not show any concerning abnormalities. Take the Tessalon as prescribed for cough, take pain medication as prescribed And apply heat to your left lower back, continue prednisone, also take the muscle relaxer, and rest. Follow up with Pulmonology as planned. Return to the ED for any concerning or worsening symptoms - difficulty breathing , fever, numbness, inability to urinate, numbness, or any other concerning symptoms. Prescriptions: Benzonatate [Tessalon [place] 100 mg Capsule] 100 mg PO Q8HP PRN #40 cap PRN Reason: Methocarbamol [Robaxin 500 mg Tablet] 500 mg PO QID PRN #20 tablet PRN Reason: Oxycodone HCl/Acetaminophen [Percocet 5-325 mg Tablet] 1 - 2 tab PO Q4H PRN #20 tablet PRN Reason:
--- NOTE | 2016-09-04 20:31 | RADIOLOGY REPORT (SQ) ---
EXAM DESCRIPTION: CHEST PA/LAT COMPLETED DATE/TIME: 09/04/2016 8:18 pm REASON FOR STUDY: Frequent coughing, asthma COMPARISON: 08/18/2016. NUMBER OF VIEWS: Two view. TECHNIQUE: Frontal and lateral radiographic views of the chest acquired. LIMITATIONS: None. FINDINGS: LUNGS AND PLEURA: Low lung volumes. No opacities, masses or pneumothorax. No pleural eff usion. MEDIASTINUM AND HILAR STRUCTURES: No masses. No contour abnormalities. HEART AND VASCULAR STRUCTURES: Heart normal in size and contour. No evidence for failure. BONES: No acute findings. HARDWARE: None in the chest. OTHER: No other significant finding. IMPRESSION: LOW LUNG VOLUMES. NO SIGNIFICANT RADIOGRAPHIC FINDING IN THE CHEST. TECHNICAL DOCUMENTATION: JOB ID: [id number] [employer]- All Rights Reserved
[2016-09-04] MEDS ORDERED: HYDROCODONE/ACETAMINOPHEN 5-325 MG 6 TAB/DSPK PO PRN (20:59)
[2016-09-04] MEDS ORDERED: BENZONATATE 100 MG CAPSULE PO ONE (20:59)
[2016-09-04 21:52] VITALS: BP 140/93
== END 2016-09-04 21:42 | disposition home or self-care (01) ==
LOC: ER 18:44
DX: M54.41 Lumbago with sciatica, right side (principal); R05 Cough; R06.02 Shortness of breath; M54.9 Dorsalgia, unspecified; M54.5 Low back pain
CPT/HCPCS: 94640; 99283; 71020; J3490 ×2; J7620

== ENCOUNTER 2016-09-18 11:26 | Inpatient (IN) | payer MEDICAID ==
[2016-09-18] MEDS ORDERED: IPRATROPIUM/ALBUTEROL 0.5-2.5 MG/3 ML AMPUL NEB ONE ×2 (11:44→11:45)
[2016-09-18] MEDS ORDERED: PREDNISONE 20 MG TABLET PO ONE (11:45)
[2016-09-18] MEDS ORDERED: MAGNESIUM SULFATE/D5W 100 ML IV ONE (11:45)
[2016-09-18] MEDS ORDERED: ALBUTEROL SULFATE 0.083% NEB 2.5 MG/3 ML AMPUL NEB ONE (11:45)
--- NOTE | 2016-09-18 11:47 | ER Document Report ---
ED Medical Screen (RME) - General Chief Complaint: Cough Stated Complaint: DIFFICULTY BREATHING Time Seen by Provider: 09/18/16 11:45 TRAVEL OUTSIDE OF THE [place] IN LAST 30 DAYS: No - HPI Patient complains to provider of: Shortness of breath with chest burning - Related Data Allergies/Adverse Reactions: codeine [Codeine] Adverse Reaction (Verified 09/04/16 18:49) Past Medical History - Past Medical History Cardiac Medical History: Reports: Hx Hypertension Pulmonary Medical History: Reports: Hx Asthma Renal/ Medical History: Denies: Hx Peritoneal Dialysis GI Medical History: Reports: Hx Gastroesophageal Reflux Disease Musculoskeltal Medical History: Reports Hx Musculoskeletal Deformity, Reports Hx Musculoskeletal Trauma Psychiatric Medical History: Reports: Hx Attention Deficit Hyperactivity Disorder, Hx Depression - anxiety Traumatic Medical History: Reports: Hx Fractures - thumb Past Surgical History: Reports: Hx Orthopedic Surgery - rt shoulder, rt thumb - Immunizations Hx Diphtheria, Pertussis, Tetanus Vaccination: Yes Review of Systems - Review of Systems Cardiovascular: Chest pain Respiratory: Short of breath Physical Exam - Vital signs Vitals: Temp Pulse Resp BP Pulse Ox 97.5 F 88 22 H 136/98 H 96 09/18/16 11:32 09/18/16 11:32 09/18/16 11:32 09/18/16 11:32 09/18/16 11:32 - Respiratory Respiratory status: Tachypnea Chest status: Nontender Breath sounds: Wheezing - Cardiovascular Rhythm: Regular Heart sounds: Normal auscultation Course - Vital Signs Vital signs: Temp Pulse Resp BP Pulse Ox 97.5 F 88 22 H 136/98 H 96 09/18/16 11:32 09/18/16 11:32 09/18/16 11:32 09/18/16 11:32 09/18/16 11:32
[2016-09-18 12:08] LABS: PROTHROMBIN TIME 13.3 SEC (11.4-15.4)
[2016-09-18 12:14] LABS: ABSOLUTE EOSINOPHILS # (AUTO) 0.2 10^3/uL (0.0-0.6); ABSOLUTE LYMPHOCYTES (AUTO) 2.1 10^3/uL (0.5-4.7); ABSOLUTE MONOCYTES (AUTO) 1.1 10^3/uL (0.1-1.4); ABSOLUTE NEUT (AUTO) 5.1 10^3/uL (1.7-8.2); BASOPHILS % (AUTO) 0.4 % (0-2); EOSINOPHILS % (AUTO) 2.5 % (0-6); HEMATOCRIT 44.8 % (37.9-51.0); HEMOGLOBIN 15.3 g/dL (13.5-17.0); HGB HCT DIFFERENCE 1.1; LYMPHOCYTES % (AUTO) 24.6 % (13-45); MEAN CORPUSCULAR HEMOGLOBIN 33.2 pg (27.0-33.4); MEAN CORPUSCULAR VOLUME 98 fl (80-97); MONOCYTES % (AUTO) 12.4 % (3-13); SEGMENTED NEUTROPHILS % (AUTO) 60.1 % (42-78); WHITE BLOOD COUNT 8.5 10^3/uL (4.0-10.5)
--- NOTE | 2016-09-18 12:26 | RADIOLOGY REPORT (SQ) ---
EXAM DESCRIPTION: CHEST PA/LAT COMPLETED DATE/TIME: 09/18/2016 12:19 pm REASON FOR STUDY: sob COMPARISON: 09/04/2016 NUMBER OF VIEWS: Two view. TECHNIQUE: Frontal and lateral radiographic views of the chest acquired. LIMITATIONS: None. FINDINGS: LUNGS AND PLEURA: Low lung volumes. No opacities, masses or pneumothorax. No pleural eff usion. MEDIASTINUM AND HILAR STRUCTURES: No masses. No contour abnormalities. HEART AND VASCULAR STRUCTURES: Heart normal in size and contour. No evidence for failure. BONES: No acute findings. HARDWARE: None in the chest. OTHER: No other significant finding. IMPRESSION: LOW LUNG VOLUMES. NO SIGNIFICANT RADIOGRAPHIC FINDING IN THE CHEST. TECHNICAL DOCUMENTATION: JOB ID: [id number] [employer]- All Rights Reserved
[2016-09-18 12:28] LABS: ALANINE AMINOTRANSFERASE 44 U/L (21-72); ALBUMIN 3.8 g/dL (3.5-5.0); ALKALINE PHOSPHATASE 63 U/L (38-126); ANION GAP 8 (5-19); ASPARTATE AMINO TRANSFERASE 37 U/L (17-59); BILIRUBIN,DIRECT 0.3 mg/dL (0.0-0.4); BILIRUBIN,TOTAL 0.8 mg/dL (0.2-1.3); BLOOD UREA NITROGEN 15 mg/dL (7-20); CALCIUM 9.1 mg/dL (8.4-10.2); CARBON DIOXIDE 27 mmol/L (22-30); CHLORIDE 103 mmol/L (98-107); CREATINE KINASE 312 U/L (55-170); CREATININE RESULT 1.04 mg/dL (0.52-1.25); GLUCOSE 82 mg/dL (75-110); MAGNESIUM 2.1 mg/dL (1.6-2.3); POTASSIUM 4.8 mmol/L (3.6-5.0); SODIUM 138.4 mmol/L (137-145); TOTAL PROTEIN 6.8 g/dL (6.3-8.2)
--- NOTE | 2016-09-18 12:31 | ER Document Report ---
ED Respiratory Problem - General Mode of Arrival: Ambulatory Information source: Patient TRAVEL OUTSIDE OF THE [place] IN LAST 30 DAYS: No - HPI Patient complains to provider of: Short of breath Initiating Event: Other - GERD Short of Breath: Mild <IKER ZAVALA - Last Filed: 09/18/16 12:44> <ADY LOUIS - Last Filed: 09/18/16 14:46> - General Chief Complaint: Cough Stated Complaint: DIFFICULTY BREATHING Time Seen by Provider: 09/18/16 11:45 Notes: Patient is a 40-year-old male who presents to the emergency department today with complaints of shortness of breath. Patient states that last night he had "bad reflux" which caused shortness of breath and wheezing. Patient has been seen 3 times over the last few weeks for similar complaints. Patient states that he is on omeprazole 3 times a day for reflux and is on Pao and Singulair for allergies. Patient states that he does not feel that his shortness of breath is is worse today as it has been in the past, stating he "came in sooner this time". (IKER ZAVALA) - Related Data Allergies/Adverse Reactions: codeine [Codeine] Adverse Reaction (Verified 09/04/16 18:49) Past Medical History - General Information source: Patient - Social History Smoking Status: Never Smoker Cigarette use (# per day): No Chew tobacco use (# tins/day): No Frequency of alcohol use: Rare Drug Abuse: None Lives with: Family Family History: Arthritis, CVA, Hypertension, Malignancy Patient has suicidal ideation: No Patient has homicidal ideation: No - Past Medical History Cardiac Medical History: Reports: Hx Hypertension Pulmonary Medical History: Reports: Hx Asthma GI Medical History: Reports: Hx Gastroesophageal Reflux Disease Musculoskeltal Medical History: Reports Hx Musculoskeletal Deformity, Reports Hx Musculoskeletal Trauma Psychiatric Medical History: Reports: Hx Attention Deficit Hyperactivity Disorder, Hx Depression - anxiety Traumatic Medical History: Reports: Hx Fractures - thumb Past Surgical History: Reports: Hx Orthopedic Surgery - rt shoulder, rt thumb - Immunizations Hx Diphtheria, Pertussis, Tetanus Vaccination: Yes <IKER ZAVALA - Last Filed: 09/18/16 12:44> Review of Systems - Review of Systems Constitutional: No symptoms reported EENT: No symptoms reported Cardiovascular: No symptoms reported Respiratory: See HPI, Short of breath, Wheezing Gastrointestinal: No symptoms reported Genitourinary: No symptoms reported Male Genitourinary: No symptoms reported Musculoskeletal: No symptoms reported Skin: No symptoms reported Hematologic/Lymphatic: No symptoms reported Neurological/Psychological: No symptoms reported -: Yes All other systems reviewed and negative <IKER ZAVALA - Last Filed: 09/18/16 12:44> Physical Exam - Vital signs Interpretation: Tachypneic - General General appearance: Alert In distress: Mild - HEENT Head: Normocephalic, Atraumatic Eyes: Normal Pupils: PERRL Neck: Normal - Respiratory Respiratory status: Respiratory distress - Mild, Retractions, Tachypnea Breath sounds: Decreased air movement, Wheezing - Cardiovascular Rhythm: Regular Heart sounds: Normal auscultation Murmur: No - Abdominal Inspection: Normal Distension: No distension Bowel sounds: Normal Tenderness: Nontender Organomegaly: No organomegaly - Back Back: Normal, Nontender - Extremities General upper extremity: Normal inspection, Nontender, Normal color, Normal ROM , Normal temperature General lower extremity: Normal inspection, Nontender, Normal color, Normal ROM , Normal temperature, Normal weight bearing. No: Dewey's sign - Neurological Neuro grossly intact: Yes Cognition: Normal Orientation: AAOx4 [place] Coma Scale Eye Opening: Spontaneous [place] Coma Scale Verbal: Oriented Mandi Coma Scale Motor: Obeys Commands Mandi Coma Scale Total: 15 Speech: Normal Motor strength normal: LUE, RUE, LLE, RLE Sensory: Normal - Psychological Associated symptoms: Normal affect, Normal mood - Skin Skin Temperature: Warm Skin Moisture: Dry Skin Color: Normal <ADY LOUIS - Last Filed: 09/18/16 14:46> - Vital signs Vitals: Temp Pulse Resp BP Pulse Ox 97.5 F 88 22 H 136/98 H 96 09/18/16 11:32 09/18/16 11:32 09/18/16 11:32 09/18/16 11:32 09/18/16 11:32 Course - Laboratory Result Diagrams: 09/18/16 11:52 09/18/16 11:52 <IKER ZAVALA - Last Filed: 09/18/16 12:44> - Laboratory Result Diagrams: 09/18/16 11:52 09/18/16 11:52 - Diagnostic Test Radiology reviewed: Reports reviewed <ADY LOUIS - Last Filed: 09/18/16 14:46> - Re-evaluation Re-evalutation: 09/18/16 14:45 Patient is a 40-year-old male who comes in with difficulty breathing. History of asthma. Patient has been given Solu-Medrol, nebulizer treatments, and magnesium. He is persistently wheezing after 3 hours. Patient is fine at rest but he begins to have difficulty breathing and increasing retractions when he starts to sit up or exert himself. Discussed with the hospitalist service and will be referred for asthma exacerbation. Patient agrees with this plan. ( ADY LOUIS) - Vital Signs Vital signs: Temp Pulse Resp BP Pulse Ox 97.5 F 88 13 123/82 99 09/18/16 11:32 09/18/16 11:32 09/18/16 13:01 09/18/16 13:01 09/18/16 13:01 - Laboratory Laboratory results interpreted by me: 09/18/16 09/18/16 11:52 11:52 MCV 98 H Creatine Kinase 312 H Discharge <IKER ZAVALA - Last Filed: 09/18/16 12:44> - Discharge Admitting Provider: Hospitalist [facility] Admitted: Telemetry <ADY LOUIS - Last Filed: 09/18/16 14:46> - Discharge Clinical Impression: Asthma exacerbation Condition: Stable Disposition: ADMITTED INPATIENT Scribe Attestation: 09/18/16 14:46 I personally performed the services described in the documentation, reviewed and edited the documentation which was dictated to the scribe in my presence, and it accurately records my words and actions. (ADY LOUIS) Scribe Documentation - Scribe Written by Pricilla:: Pricilla Rivera, 09/18/2016 1256 acting as scribe for :: Nighat <IKER ZAVALA - Last Filed: 09/18/16 12:44>
[2016-09-18] MEDS ORDERED: HYDROCODONE/ACETAMINOPHEN 5-325 MG TABLET PO ONE (14:19)
[2016-09-18] MEDS ORDERED: ALBUTEROL SULFATE 0.083% NEB 2.5 MG/3 ML AMPUL NEB PRN (14:42)
--- NOTE | 2016-09-18 15:16 | EKG REPORT ---
SEVERITY:- NORMAL ECG - SINUS RHYTHM : Confirmed by: Johanne Drake 18-Sep-2016 15:15:39
[2016-09-18] MEDS ORDERED: LORATADINE 10 MG TABLET PO ONE (15:30)
[2016-09-18] MEDS ORDERED: PANTOPRAZOLE SODIUM 40 MG VIAL IV ONE (16:00)
[2016-09-18] MEDS ORDERED: FAMOTIDINE 20 MG TABLET PO SCH (18:00)
[2016-09-18] MEDS ORDERED: LANSOPRAZOLE 30 MG TAB.RAP.DR PO SCH (18:00)
--- NOTE | 2016-09-18 18:24 | HISTORY AND PHYSICAL E ---
History and Physical NAME: MINAL PEÑA : 1975 AGE: 40Y ADMITTED: 09/18/2016 ROOM: ED05 CODE STATUS: FULL CODE. PRIMARY CARE PROVIDER: Dr. Li in [place]. Outpatient furnace mason is in [place], [place]. Senior Engineering Tech is Lynette Gonzalez in [place], [place]. CHIEF COMPLAINT: Shortness of breath and wheezing. HISTORY OF PRESENT ILLNESS: The patient is a 40-year-old male with a past medical history of asthma and gastroesophageal reflux disease and recent diagnosis of eosinophilic esophagitis. The patient presented to the emergency department with a chief complaint of shortness of breath. The patient stated that he was awakened at approximately 3 a.m. this morning with complaints of acute shortness of breath. The patient got up and gave himself a neb without much change in symptoms. The patient stated that he began coughing with bronchospasm and coughed a significant amount of melon and red colored sputum which was consistent with reflux from spaghetti he had eaten earlier in the evening. The patient stated that he had had reflux esophagitis and had had aspiration reflux in the past. The patient stated that throughout the evening he had bronchospasm and then came to the emergency department here for evaluation and management. Upon presentation to the emergency department the patient was noted to be extremely tight, wheezing, was breathing about 22 times a minute and was saturating 96% on room air. The patient was afebrile. He was given multiple nebs and the patient continued to have diffuse tight expiratory wheezes as well as diminished breath sounds and the patient was also treated with magnesium and steroids and was referred to the hospitalist for admission and management. PAST MEDICAL HISTORY: 1. Gastroesophageal reflux disease. 2. Asthma. 3. Eosinophilic esophagitis. 4. Hypertension. 5. Depression. PAST SURGICAL HISTORY: Orthopedic surgery of the shoulder and thumb on the right extremity. SOCIAL HISTORY: The patient currently resides at home. He does have a history of tobacco use. The patient stopped smoking at the age of 28 after having approximately 10 pack years. The patient denies any alcohol abuse, no illicit drugs. FAMILY MEDICAL HISTORY: Positive for respiratory problems in multiple family members. The patient has a cousin as well as grandfather with COPD and uncle with alpha-1 antitrypsin deficiency. The patient's mother is alive without issues and siblings without any chronic medical problems. ALLERGIES: CODEINE. HOME MEDICATIONS: 1. Albuterol 2.5 mg neb 1 neb q.8 h. p.r.n. 2. Symbicort HFA 2 puff inhalation q.12 h. 3. Flexeril 2 mg p.o. q.i.d. p.r.n. 4. Flovent HFA 2 puff inhalation b.i.d. 5. Atrovent 0.02% neb q.4 h. 6. Lisinopril 40 mg p.o. daily. 7. Robaxin 500 mg p.o. q.i.d. 8. Singulair 2 mg p.o. every hour of sleep. 9. Omeprazole 40 mg p.o. t.i.d. 10. Percocet 5/325 one tablet p.o. q.4 h. p.r.n. 11. Prednisone taper. 12. Ambien 5 mg p.o. every hour of sleep. REVIEW OF SYSTEMS: CONSTITUTIONAL: The patient denies any fevers or chills, no dizziness, no weakness, no loss of appetite. SKIN: The patient denies any diaphoresis, rash, bruising or itching. HEENT: Denies any vision or hearing loss, nasal drainage, sore throat, or headache. CARDIOVASCULAR: Denies any chest pain, edema or heart palpitations. No shortness of breath. RESPIRATORY: The patient denies any hemoptysis but positive for cough, wheezing or sputum production. GASTROINTESTINAL: Denies any nausea, vomiting, abdominal pain, bloating, hematemesis, melena or hematochezia. The patient admits to significant reflux. GENITOURINARY: No hematuria, pyuria or dysuria. MUSCULOSKELETAL: The patient does have chronic joint pains but no acute joint pains. NEUROLOGIC: No seizures, tremors or loss of consciousness. HEMATOLOGICAL: Denies any breezy bleeding. ENDOCRINE: Denies any recent weight changes. PSYCHIATRIC: Denies suicidal or homicidal ideations. The rest of the review of the other organ systems is negative. PHYSICAL EXAMINATION: GENERAL: On examination, the patient is a well-developed, well-nourished 40-year-old male who is awake, alert and oriented to person, place, time and situation. He is verbal, conversational, ambulatory and does not appear to be in any acute distress. VITAL SIGNS: Temperature 97.5, pulse 88, respirations 22, blood pressure 136/98, oxygen saturation is 96% on 2 L nasal cannula. SKIN: Warm and dry. No rash, not diaphoretic. HEENT: Pupils are equal, round, and reactive to light and accommodation. Conjunctivae is pink. Sclerae are not icteric. There are no mouth lesions. Tongue is midline. NECK: Supple. No JVD. No palpable lymphadenopathy or thyromegaly. CARDIOVASCULAR: Heart is regular. There is no murmur or rub. CHEST: The patient does have expiratory wheezes noted throughout both lung kaur, more prominent on the left, slightly diminished, symmetrical and unlabored. ABDOMEN: Soft, nontender, nondistended. Bowel sounds are present. No palpable organomegaly. BACK: No CVA tenderness or sacral edema. EXTREMITIES: No clubbing, cyanosis or edema or peripheral signs of embolization. There are +2 pedal pulses are noted bilaterally. PSYCHIATRIC: Appropriate affect. Pleasant mood. NEUROLOGIC: Cranial nerves II-XII are grossly intact. DIAGNOSTICS: Labs are as follows: Hematology obtained on 09/18/2016: WBC 8.5, hemoglobin 13.3, hematocrit 44.8, platelet count is 179,000. Coagulation obtained on 09/18/2016: PT 13.3, INR 0.94. Chemistry obtained on 09/18/2016: Sodium 138, potassium 4.8, chloride 103, carbon dioxide 27, BUN 15, creatinine 1.04, glucose 82, lactic acid is 1.9, calcium 9.1, magnesium 3.1, total bilirubin 0.8, AST 37, ALT 44, alk phos 63, CK 312, total protein 6.8, albumin 3.8, CK-MB 1.86. IMPRESSION AND PLAN: 1. Gastroesophageal reflux disease. This is severe. The patient is currently on 120 mg of PPI therapy daily. Will alternate PPI therapy and H2 receptor rubi and will monitor symptoms. If symptoms were to persist, will consider adding Reglan and follow. 2. Acute asthma exacerbation secondary to #1. The patient has a normal white count, no fevers, and has not produce sputum today. Therefore, will add steroid, Singulair, home inhalers, defer antibiotic therapy for now given the patient's significant improvement but will monitor closely. The patient is currently being tested for alpha-1 antitrypsin deficiency. Will start the patient on IV steroids and schedule nebulizers. 3. Eosinophilic esophagitis. Will continue Atrovent. DISPOSITION: The patient is a FULL CODE. Pending patient's symptomatology and diagnostic findings, will evaluate in the a.m. Will admit the patient to inpatient telemetry, as the patient's expected length of stay will surpass 2 midnights. Time spent on this admission including assessment, plan, physical examination, patient education and family meeting is 35 minutes. DICTATING PHYSICIAN: VANDANA MARQUIS NP [id number] PHY#: [id number] ID: [id number] JOB#: [id number] ACCT: [id number] cc:DUSTY HEAD M.D., MICHAEL NP > MTDD
[2016-09-18] MEDS: FAMOTIDINE INJ/PF 20 MG/2 ML SDV IV SCH (18:42)
[2016-09-18] MEDS: METHYLPREDNISOLONE INJ 125 MG/2 ML SDV IV SCH ×2 (18:42→23:31)
[2016-09-18] MEDS ORDERED: ACETAMINOPHEN 325 MG TABLET PO PRN (19:41)
[2016-09-18] MEDS: IPRATROPIUM/ALBUTEROL 0.5-2.5 MG/3 ML AMPUL NEB SCH (19:49)
[2016-09-18] MEDS ORDERED: ZOLPIDEM TARTRATE 5 MG TABLET PO PRN (20:18)
[2016-09-18] MEDS ORDERED: MONTELUKAST SODIUM 10 MG TABLET PO SCH (22:00)
[2016-09-19] MEDS: FAMOTIDINE INJ/PF 20 MG/2 ML SDV IV SCH (05:21)
[2016-09-19] MEDS: METHYLPREDNISOLONE INJ 125 MG/2 ML SDV IV SCH ×2 (05:21→11:00)
[2016-09-19] MEDS ORDERED: PANTOPRAZOLE SODIUM 40 MG VIAL IV SCH (06:00)
[2016-09-19] MEDS: IPRATROPIUM/ALBUTEROL 0.5-2.5 MG/3 ML AMPUL NEB SCH (07:38)
[2016-09-19] MEDS ORDERED: KETOROLAC TROMETHAMINE INJ/PF 30 MG/1 ML SDV IV ONE (09:30)
[2016-09-19] MEDS ORDERED: LIDOCAINE 1% INJ-PF (10 MG/ML) 30 ML SDV ONE (09:56)
[2016-09-19] MEDS ORDERED: LISINOPRIL 10 MG TABLET PO SCH (10:00)
[2016-09-19] MEDS ORDERED: LORATADINE 10 MG TABLET PO SCH (10:00)
[2016-09-19] MEDS ORDERED: OXYCODONE-ACETAMINOPHEN 5-325 MG TABLET PO ONE (10:30)
--- NOTE | 2016-09-19 10:37 | PDOC CONSULTATION ---
Consultation Consult Date: 09/19/16 Consult reason:: Abscess left upper back History of Present Illness Admission Date/PCP: 09/18/16 14:42 History of Present Illness: MINAL PEÑA JR is a 40 year old male who presented to the emergency room with exacerbation of his asthma. The patient elicited a history of having a painful mass in his left upper back that prior to admission had his sister cut with a razor blade. He stated the mass prior to that was quite large without any drainage but "I knew it had something in it." He stated that a large amount of purulent "cottage cheese" type material came out of the mass when his sister cut it. He denied taking any antibiotics prior to that he stated that he thought that she had cleaned it with peroxide only. He states the pain is increased over the last 24 hours. He states he can barely lie on that side of his back. He denies fever, chills, sweats. He states he has never had anything like that in the past. Past Medical History Cardiac Medical History: Reports: Hypertension Pulmonary Medical History: Reports: Asthma GI Medical History: Reports: Gastroesophageal Reflux Disease Psychiatric Medical History: Reports: Attention Deficit Hyperactivity Disorder, Depression - anxiety Past Surgical History Past Surgical History: Reports: Orthopedic Surgery - rt shoulder, rt thumb Social History Lives with: Family Smoking Status: Former Smoker Frequency of Alcohol Use: Occasional Hx Recreational Drug Use: No Drugs: None Hx Prescription Drug Abuse: No - Advance Directive Resuscitation Status: Full Code Family History Family History: Arthritis, CVA, Hypertension, Malignancy Family History: Family history cannot be obtained from the patient at this time Parental Family History Reviewed: No Children Family History Reviewed: Unknown Sibling(s) Family History Reviewed.: Unknown Medication/Allergy Home Medications: Albuterol Sulfate [Albuterol Sulfate 2.5mg/3 mL] 2.5 mg NEB Q8 09/18/16 Budesonide/Formoterol Fumarate [Symbicort HFA 160-4.5 mcg Inhaler 6 gm] 2 puff IN Q12 09/18/16 Cyclobenzaprine HCl [Flexeril 10 mg Tablet] 10 mg PO QIDP PRN 09/18/16 Fluticasone Propionate [Flovent Hfa 110 Mcg Inhalation Aerosol 12 gm] 2 puff IH BID 09/18/16 Ipratropium/Albuterol Sulfate [Iprat-Albut 0.5-3(2.5) mg/3 ml] 3 ml NEB Q4 09/18 Lisinopril [Prinivil 40 mg Tablet] 40 mg PO DAILY 09/18/16 Methocarbamol [Robaxin 500 mg Tablet] 500 mg PO QIDP PRN 09/18/16 Montelukast Sodium [Singulair 10 mg Tablet] 10 mg PO DAILY 09/18/16 Oxycodone HCl/Acetaminophen [Oxycodone-Acetaminophen 5-325] 1 tab PO Q4HP PRN Zolpidem Tartrate [Ambien 5 mg Tablet] 5 mg PO QHS 09/18/16 Omeprazole 40 mg PO TID #0 09/19/16 Allergies/Adverse Reactions: codeine [Codeine] Adverse Reaction (Verified 09/04/16 18:49) Review of Systems Constitutional: PRESENT: as per HPI Eyes: PRESENT: as per HPI Ears: PRESENT: as per HPI Nose, Mouth, and Throat: PRESENT: as per HPI Breasts: PRESENT: as per HPI Cardiovascular: PRESENT: as per HPI Respiratory: PRESENT: cough, dyspnea Gastrointestinal: PRESENT: as per HPI Genitourinary: PRESENT: as per HPI Musculoskeletal: PRESENT: as per HPI Integumentary: PRESENT: other - Patient is positive for painful mass left upper back Neurological: PRESENT: as per HPI Psychiatric: PRESENT: as per HPI Endocrine: PRESENT: as per HPI Hematologic/Lymphatic: PRESENT: as per HPI Allergic/Immunologic: PRESENT: as per HPI Physical Exam Vital Signs: Temp Pulse Resp BP Pulse Ox 97.5 F 99 14 133/82 H 94 09/19/16 03:48 09/19/16 07:00 09/19/16 03:48 09/19/16 03:48 09/19/16 03:48 Intake & Output 09/18/16 09/19/16 09/20/16 06:59 06:59 06:59 Intake Total 482 Balance 482 Weight 118.9 kg General appearance: PRESENT: no acute distress, cooperative, obese Eye exam: PRESENT: EOMI, PERRLA Ear exam: PRESENT: normal external ear exam Mouth exam: ABSENT: dry mucosa, laceration, moist, neck supple, tongue midline, other Respiratory exam: PRESENT: symmetrical, unlabored Cardiovascular exam: PRESENT: RRR, +S1, +S2 Pulses: PRESENT: normal carotid pulses GI/Abdominal exam: PRESENT: normal bowel sounds, soft Musculoskeletal exam: PRESENT: tenderness, other - Patient is positive for a 2.5 cm diameter hard fluctuant erythematous area in the left mid to upper back lateral to and inferior to the base of the scapula overlying the ribs. No palpation of the area. There is obviously a old "laceration" probably the site of incision with a razor blade the patient described. No evidence of necrosis of the skin. Skin exam: PRESENT: erythema, warm, other - As noted previously on the back. Results Laboratory Results: 09/18/16 17:15 Troponin I < 0.012 Impressions: Chest X-Ray 09/18/16 11:46 IMPRESSION: LOW LUNG VOLUMES. NO SIGNIFICANT RADIOGRAPHIC FINDING IN THE CHEST. Assessment & Plan - Diagnosis (2) Epidermal inclusion cyst Is this a current diagnosis for this admission?: Yes (3) Asthma exacerbation Is this a current diagnosis for this admission?: Yes (4) inclusion cyst Plan: Procedure note: A consent form was signed by the patient including possible risks and complications which she stated he understood. The area was prepped with Betadine solution draped in sterile fashion. 1% Xylocaine without epinephrine was infiltrated as a field block around the abscess. Once this had adequate time to take effect a cruciate incision was then made with a #11 scalpel blade through skin subtenons tissue. Utilizing bimanual palpation of the area all of the contents of the inclusion cyst was expressed. A curved hemostat was inserted into the abscess cavity and debris was removed utilizing the curved hemostat. The area was irrigated with saline solution. Iodoform gauze was then inserted into the wound as a packing. A sterile dressing was placed on the outside of the wound. The patient tolerated the procedure well. - Time Time Spent: 30 to 50 Minutes - Plan Summary Plan Summary: Instructions were given to the patient to follow-up with his family physician in 1-2 days to remove the iodoform gauze packing. The iodoform gauze was sent with the patient is he is to be discharged today so that it can be used to repack the wound if the family physician feels necessary. He is told to keep it clean and dry. He will be given Bactrim DS 1 p.o. twice daily 10 days to cover the suspected bacteria within the abscess cavity.
[2016-09-19 12:22] VITALS: BP 130/72
--- NOTE | 2016-09-21 15:49 | DISCHARGE SUMMARY E ---
Discharge Summary NAME: MINAL PEÑA : 1975 AGE: 40Y ADMITTED: 09/18/2016 DISCHARGED: 09/19/2016 CODE STATUS: FULL CODE. PRIMARY CARE PROVIDER: Dr. Li in [place]. Outpatient professor of theater is in [place], [place]. [employer] is Lynette Mccann in [place], [place]. CONSULTING SURGICALIST: Dr. Schulz DISCHARGE DIAGNOSES: 1. Gastroesophageal reflux disease. 2. Asthma exacerbation secondary to #1. 3. Recent history of eosinophilic esophagitis. 4. Hypertension. 5. Depression. 6. Abscess on left upper back. DISCHARGE MEDICATIONS: 1. Bactrim DS 1 tablet p.o. b.i.d., 20 tablets, 0 refills. 2. Ambien 5 mg p.o. at hour of sleep. 3. Percocet 5/325 one tablet p.o. q.4 hours p.r.n. 4. Omeprazole 40 mg p.o. t.i.d. 5. Singulair 10 mg p.o. at hour of sleep. 6. Robaxin 500 mg p.o. q.i.d. p.r.n. 7. Claritin 10 mg p.o. daily. 8. Lisinopril 40 mg p.o. daily. 9. DuoNeb 1 neb q.6 hours p.r.n. 10. Flovent HFA 2 puff inhalation b.i.d. 11. Flexeril 10 mg p.o. q.i.d. p.r.n. 12. Symbicort HFA 2 puff inhalation q.12 hours. 13. Albuterol 2.5 mg nebs q.4 hours p.r.n. 14. Tylenol 650 mg p.o. q.4 hours p.r.n. DIET: As tolerated. ACTIVITY: As tolerated. HISTORY OF PRESENT ILLNESS: The patient is a 40-year-old male with a past medical history of asthma and severe gastroesophageal reflux disease. The patient presented to the emergency department with a chief complaint of shortness of breath and wheezing. According to the patient, he was awakened at approximately 3 a.m. the morning of presentation with complaints of acute shortness of breath. The patient stated that the night before he ate a large supper that included spaghetti and he was having much issue with reflux. The patient did lay down to sleep and awakened with a choking sensation. The patient stated that he felt that he had swallowed his own reflux and began coughing and produced red colored sputum which was consistent with his dinner. The patient has been recently treated for eosinophilic esophagitis and is still on inhaler for this and has had aspiration reflux in the past. The patient stated he had problems with bronchospasms and received several nebulizers at home. Upon presentation to the emergency department, the patient was noted to be extremely tight, wheezy, breathing about 22 times a minute, and was saturating 96% on room air. The patient was afebrile. He was given multiple nebs and continued to have diffuse tight expiratory wheezes as well as diminished breath sounds, and the patient was treated with magnesium and steroids and referred to the hospitalist for admission and management. HOSPITAL COURSE: The patient was admitted to continuous telemetry unit. The patient was placed on scheduled nebs and p.r.n. nebs as well as steroids. The patient was co-treated with PPI therapy as well as an H2 receptor rubi and the patient had no reflux symptomatology. The patient was continued on his home medications. The patient's symptoms continued to improve overnight and on the morning of discharge, the patient's wheezing had completely resolved. The patient was not producing any sputum, no fevers or chills, and the patient was no longer dyspneic. No hypoxia. The patient did mention an abscess on his back for which his sister had previously opened for him. The area does appear more reddened than it had the day before and therefore surgery was consulted for bedside I and D. Do appreciate Surgery's input with this. The area was packed and the patient is to return to his primary care provider within 1-2 days to have the packing removed. DIAGNOSTICS: Lab values are as follow: Hematology obtained on 09/18/2016: WBCs are 8.5, hemoglobin 15.3, hematocrit 44.8, platelet count is 179,000. Coagulation obtained on 09/18/2016: PT is 13.3, INR 0.94. Chemistry obtained on 09/18/2016: Sodium 138, potassium 4.8, chloride 103, carbon dioxide 27, BUN 15, creatinine 1.04, glucose 82, calcium is 9.1, magnesium 2.1, bilirubin is 0.8, AST 37, ALT 44, alk phos 66, CK 312, CK-MB 1.86, troponin is 0.012, total protein 6.8, albumin 3.8. Chest x-ray obtained on 09/18/2016 reveals low lung volumes. No significant radiographic finding of the chest. EKG obtained on 09/18/2016 reveals sinus rhythm. PHYSICAL EXAMINATION: GENERAL: On examination, the patient is a well-developed, well-nourished, 40-year-old male who is awake, alert, and oriented to person, place, time, and situation. He is verbal, conversational, ambulatory, and does not appear to be in any acute distress. VITAL SIGNS: Temperature 98.1, pulse 67, respirations 18, blood pressure 147/85, oxygen saturation is 98% on room air. SKIN: Warm and dry. No rash. Not diaphoretic. HEENT: Pupils equal, round, reactive to light and accommodation. Conjunctivae are pink. There is no JVP. CARDIOVASCULAR: Heart is regular with no murmur or rub. CHEST: Clear, symmetrical, unlabored. ABDOMEN: Soft, nontender, nondistended. BACK: No CVA tenderness or sacral edema. EXTREMITIES: No clubbing, cyanosis, or edema. PSYCHIATRIC: Appropriate affect. Pleasant mood. DISCHARGE PLANNIN. The patient is advised to followup with primary care provider within 1-2 days for hospital followup and to have packing removed. 2. The patient is to followup with Gastroenterology on Monday as scheduled. Time spent on this discharge including assessment, plan, physical examination, patient education, and speciality collaboration is 25 minutes. DICTATING PHYSICIAN: VANDANA MARQUIS NP [id number] PHY#: [id number] ID: [id number] JOB#: [id number] ACCT: [id number] cc:DUSTY HEAD M.D., MICHAEL NP >
== END 2016-09-19 12:45 | disposition home or self-care (01) | DRG 988 ==
LOC: ER 11:26 → EH 14:42 → UNDOADMIN 15:13 → EH 15:13 → 5 17:54
PROVIDERS: ADMIT Family Medicine; ATTEND Family Medicine
PROC: 5A09457 Assistance with Respiratory Ventilation, 24-96 Consecutive Hours, Continuous Positive Airway Pressure (ICD-10-PCS; 2016-09-18)
PROC: 0J970ZZ Drainage of Back Subcutaneous Tissue and Fascia, Open Approach (ICD-10-PCS; principal; 2016-09-19)
DX: J45.901 Unspecified asthma with (acute) exacerbation (principal); L02.212 Cutaneous abscess of back [any part, except buttock and flank]; L72.0 Epidermal cyst; K20.0 Eosinophilic esophagitis; I10 Essential (primary) hypertension; F32.9 Major depressive disorder, single episode, unspecified; F90.9 Attention-deficit hyperactivity disorder, unspecified type; Z87.891 Personal history of nicotine dependence; Z82.5 Family history of asthma and other chronic lower respiratory diseases; Z88.6 Allergy status to analgesic agent; Z82.3 Family history of stroke; Z80.9 Family history of malignant neoplasm, unspecified
CPT/HCPCS: 36415; 71020; 80053; 82550; 82553; 83735; 84484; 85025; 85610; 93005; 93010; 94640; 96365; 99285; A6266; J2930; J3475; J3490; J7512; J7620; S0028; S0164

== ENCOUNTER 2016-10-03 10:06 | Emergency (ER) | payer MEDICAID ==
[2016-10-03] MEDS ORDERED: METHYLPREDNISOLONE INJ 125 MG/2 ML SDV IM ONE (10:33)
[2016-10-03] MEDS ORDERED: BENZONATATE 100 MG CAPSULE PO ONE (10:33)
--- NOTE | 2016-10-03 10:39 | ER Document Report ---
HPI - HPI Pain Level: 4 Notes: Patient is a 40-year-old male presents the ED complaining of an acute exacerbation of his asthma over the last 2 days. Patient states that he has been hospitalized twice in the last month for this exacerbation the past. Patient states that he is trying to catch it early and that he took a nebulizer treatment at home which helped. Pt describes this exacerbation mild compared to his last couple visits. Patient has been continuing to use the Singulair and Symbicort as well. Patient complains of a dry cough and occasional wheeze. 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 Patient also has hypertension, no other significant past medical history. Denies any illicit drug use. Patient states she is allergic to codeine, causes GI upset. Patient is tolerating [place] in the past for his cough. Patient would like cough medicine and a steroid. Denies any headache, fever, nasal congestion/discharge , sore throat, chest pain, palpitations, syncope, abdominal pain, nausea/ vomiting/diarrhea, dysuria, muscle weakness/paralysis, or rash. - ROS Notes: REVIEW OF SYSTEMS: CONSTITUTIONAL : Denies fever, chills, or sweats. Denies recent illness. EENT: Denies eye, ear, throat, or mouth pain or symptoms. Denies nasal or sinus congestion or discharge. Denies throat, tongue, or mouth swelling or difficulty swallowing. CARDIOVASCULAR: Denies chest pain. Denies palpitations or racing or irregular heart beat. Denies ankle edema. RESPIRATORY: see hpi GASTROINTESTINAL: Denies abdominal pain or distention. Denies nausea, vomiting , or diarrhea. Denies blood in vomitus, stools, or per rectum. Denies black, tarry stools. Denies constipation. GENITOURINARY: Denies difficulty urinating, painful urination, burning, frequency, blood in urine, or discharge. MUSCULOSKELETAL: Denies back or neck pain or stiffness. Denies joint pain or swelling. SKIN: Denies rash, lesions or sores. ALL OTHER SYSTEMS REVIEWED AND NEGATIVE. Dictation was performed using [employer] voice recognition software - REPRODUCTIVE Reproductive: DENIES: : - DERM Skin Color: Normal Past Medical History - Social History Smoking Status: Former Smoker Family History: Arthritis, CVA, Hypertension, Malignancy Patient has suicidal ideation: No - Past Medical History Cardiac Medical History: Reports: Hx Hypertension Pulmonary Medical History: Reports: Hx Asthma Renal/ Medical History: Denies: Hx Peritoneal Dialysis GI Medical History: Reports: Hx Gastroesophageal Reflux Disease Musculoskeltal Medical History: Reports Hx Musculoskeletal Deformity, Reports Hx Musculoskeletal Trauma Psychiatric Medical History: Reports: Hx Attention Deficit Hyperactivity Disorder, Hx Depression - anxiety Traumatic Medical History: Reports: Hx Fractures - thumb Past Surgical History: Reports: Hx Orthopedic Surgery - rt shoulder, rt thumb - Immunizations Hx Diphtheria, Pertussis, Tetanus Vaccination: Yes Vertical Provider Document - CONSTITUTIONAL Agree With Documented VS: Yes Notes: PHYSICAL EXAMINATION: GENERAL: Well-appearing, well-nourished and in no acute distress. HEAD: Atraumatic, normocephalic. EYES: Pupils equal round and reactive to light, extraocular movements intact, sclera anicteric, conjunctiva are normal. ENT: EAC clear b/l. TM's intact b/l without erythema, fluid, or perforation. Nares patent and without discharge. oropharynx clear without exudates. No tonsilar hypertrophy or erythema. Moist mucous membranes. No sinus tenderness. NECK: Normal range of motion, supple without lymphadenopathy LUNGS: Breath sounds clear to auscultation bilaterally and equal. No wheezes rales or rhonchi. Harsh dry cough noted on exam. HEART: Regular rate and rhythm without murmurs, rubs, gallops. Extremities: No cyanosis, clubbing, or edema b/l. Peripheral pulses 2+. Capillary refill less than 3 seconds. NEUROLOGICAL: Cranial nerves grossly intact. Normal speech, normal gait. Normal sensory, motor exams PSYCH: Normal mood, normal affect. SKIN: Warm, Dry, normal turgor, no rashes or lesions noted. - INFECTION CONTROL TRAVEL OUTSIDE OF THE [place] IN LAST 30 DAYS: No - RESPIRATORY Respiratory: Breath Sounds Normal, No Respiratory Distress Course - Re-evaluation Re-evalutation: 10/03/16 10:44 Patient is an afebrile, well-hydrated, 40-year-old male presents to the ED with an acute exacerbation of his asthma. Vitals are stable. PE otherwise unremarkable for any respiratory distress at this time. Lung sounds are clear. Solu-Medrol 125 mg given IM today along with a Tessalon Perles of 100 mg. I will send him home with a steroid taper along with 6 tablets of [place] and a prescription for Tessalon to help with his cough. I would have liked to give him cheratussin, but pt cannot tolerate the codeine (can tolerate norco). He does continue is to continue with his inhalers and nebulizer treatment at home as directed. He is to monitor symptoms closely. Recheck with his PCM in 2-3 days. Return to the ED with any worsening/concerning symptoms otherwise as reviewed. Patient is in agreement. Discharge - Discharge Clinical Impression: Asthma exacerbation Condition: Stable Disposition: HOME, SELF-CARE Additional Instructions: Maintain adequate fluid intake Take meds as directed Use nebulizer and inhalers as directed/needed tylenol/ibuprofen as needed over the counter cold medication as needed for symptoms Humidified air may help F/u: with your PCM in 2-3 days for a recheck Return to the ED with any fever, worsening pain, chest pain, shortness of breath , trouble swallowing/breathing, abdominal pain, n/v/d, or worsening/concerning symptoms otherwise. Prescriptions: Benzonatate [Tessalon Perle 100 mg Capsule] 100 mg PO Q8HP PRN #40 cap PRN Reason: Hydrocodone/Acetaminophen [[place] 5-325 mg Tablet] 1 tab PO BID #6 tablet Prednisone [Deltasone 10 mg Tablet] 10 mg PO ASDIR PRN #21 tablet PRN Reason: Referrals: PULMONOLOGY [Provider Group] - Follow up as needed
[2016-10-03 11:01] VITALS: BP 150/99
== END 2016-10-03 11:00 | disposition home or self-care (01) ==
LOC: ER 10:06
DX: J45.901 Unspecified asthma with (acute) exacerbation (principal); Z87.891 Personal history of nicotine dependence
CPT/HCPCS: 99284; 96372; J3490; J2930

== ENCOUNTER 2016-10-18 11:35 | Emergency (ER) | payer MEDICAID ==
[2016-10-18] MEDS ORDERED: ONDANSETRON 4 MG TAB.RAPDIS PO ONE (11:48)
[2016-10-18] MEDS ORDERED: KETOROLAC TROMETHAMINE 60 MG/2 ML SDV IM ONE (11:48)
[2016-10-18] MEDS ORDERED: HYDROMORPHONE HCL INJ/PF 2 MG/ML AMPULE IM ONE (11:49)
--- NOTE | 2016-10-18 11:57 | ER Document Report ---
ED General - General Chief Complaint: Back Injury Stated Complaint: FALL/RIGHT LEG PAIN Time Seen by Provider: 10/18/16 11:47 Notes: Patient states he fell onto his right hip approximately 2 hours before arrival. He did this while skateboarding with his daughter. Patient complains of right hip pain that radiates down the right leg. It is severe and sharp. It is worse with movement and better with rest. He denies any low back pain. No previous history of lower back or disc problems. No previous history of sciatica. He has not appreciated any history of bowel or urinary problems. Constant. He denies any other injuries. TRAVEL OUTSIDE OF THE [place] IN LAST 30 DAYS: No - Related Data Allergies/Adverse Reactions: codeine [Codeine] Adverse Reaction (Verified 10/18/16 11:39) NSAIDS (Non-Steroidal Anti-Inflamma Adverse Reaction (Verified 10/18/16 12:00) Past Medical History - General Information source: Patient - Social History Smoking Status: Current Every Day Smoker Frequency of alcohol use: Occasional Drug Abuse: None Family History: Arthritis, CVA, Hypertension, Malignancy Patient has suicidal ideation: No Patient has homicidal ideation: No - Past Medical History Cardiac Medical History: Reports: Hx Hypertension Pulmonary Medical History: Reports: Hx Asthma Renal/ Medical History: Denies: Hx Peritoneal Dialysis GI Medical History: Reports: Hx Gastroesophageal Reflux Disease Musculoskeltal Medical History: Reports Hx Musculoskeletal Deformity, Reports Hx Musculoskeletal Trauma Psychiatric Medical History: Reports: Hx Attention Deficit Hyperactivity Disorder, Hx Depression - anxiety Traumatic Medical History: Reports: Hx Fractures - thumb Past Surgical History: Reports: Hx Orthopedic Surgery - rt shoulder, rt thumb - Immunizations Hx Diphtheria, Pertussis, Tetanus Vaccination: Yes Review of Systems - Review of Systems Constitutional: denies: Chills, Fever Cardiovascular: denies: Chest pain, Palpitations Respiratory: denies: Hurts to breathe, Short of breath Gastrointestinal: denies: Abdominal pain, Nausea, Vomiting -: Yes All other systems reviewed and negative Physical Exam - Vital signs Vitals: Temp Pulse Resp BP Pulse Ox 98.6 F 99 24 H 141/104 H 99 10/18/16 11:39 10/18/16 11:39 10/18/16 11:39 10/18/16 11:39 10/18/16 11:39 Interpretation: Normal - General General appearance: Appears well, Alert - HEENT Head: Normocephalic, Atraumatic Eyes: Normal Pupils: PERRL - Respiratory Respiratory status: No respiratory distress Chest status: Nontender Breath sounds: Normal Chest palpation: Normal - Cardiovascular Rhythm: Regular Heart sounds: Normal auscultation Murmur: No - Abdominal Inspection: Normal Distension: No distension Bowel sounds: Normal Tenderness: Nontender Organomegaly: No organomegaly - Back Back: Normal, Nontender - Extremities General upper extremity: Normal inspection, Nontender, Normal color, Normal ROM , Normal temperature General lower extremity: Tender, Normal color, Normal temperature. No: Normal ROM, Normal weight bearing, Dewey's sign Hip: Tender - right, Pain with ROM. No: Deformity Thigh: Normal Knee: Normal Calf: Normal Ankle: Normal Foot: Normal - Neurological Neuro grossly intact: Yes Cognition: Normal Orientation: AAOx4 [place] Coma Scale Eye Opening: Spontaneous [place] Coma Scale Verbal: Oriented [place] Coma Scale Motor: Obeys Commands [place] Coma Scale Total: 15 Speech: Normal Motor strength normal: LUE, RUE, LLE, RLE Sensory: Normal - Psychological Associated symptoms: Normal affect, Normal mood - Skin Skin Temperature: Warm Skin Moisture: Dry Skin Color: Normal Course - Vital Signs Vital signs: Temp Pulse Resp BP Pulse Ox 98.6 F 99 24 H 141/104 H 99 10/18/16 11:39 10/18/16 11:39 10/18/16 11:39 10/18/16 11:39 10/18/16 11:39 - Diagnostic Test Radiology reviewed: Image reviewed - no acute fx, Reports reviewed Discharge - Discharge Clinical Impression: Contusion of right hip Condition: Good Disposition: HOME, SELF-CARE Instructions: Ice Packs ([facility]), Oral Narcotic Medication ([facility]), Contusion ([facility]) Additional Instructions: Call your primary doctor today to arrange follow-up. Prescriptions: Oxycodone HCl/Acetaminophen [Percocet 5-325 mg Tablet] 1 - 2 tab PO Q4H PRN #15 tablet PRN Reason:
--- NOTE | 2016-10-18 12:29 | RADIOLOGY REPORT (SQ) ---
EXAM DESCRIPTION: HIP RIGHT AP/LATERAL COMPLETED DATE/TIME: 10/18/2016 12:18 pm REASON FOR STUDY: fall/pain COMPARISON: 05/18/2015. NUMBER OF VIEWS: Two views. TECHNIQUE: AP pelvis and additional frog-leg view of the right hip. LIMITATIONS: None. FINDINGS: MINERALIZATION: Normal. RIGHT HIP: No fracture or dislocation. No worrisome bone lesions. LEFT HIP: No fracture or dislocation. No worrisome bone lesions. PUBIS AND ISCHIUM: No fracture. PELVIS: No fracture. SACRUM: No fracture or dislocation. No worrisome bone lesions. LOWER LUMBAR SPINE: No fracture or dislocation. No worrisome bone lesions. No significant disc disea se. SOFT TISSUES: No findings. OTHER: No other significant finding. IMPRESSION: NEGATIVE STUDY OF THE RIGHT HIP. NO RADIOGRAPHIC EVIDENCE OF ACUTE INJURY. TECHNICAL DOCUMENTATION: JOB ID: [id number] 2014 [employer]- All Rights Reserved
[2016-10-18 12:46] VITALS: BP 139/86
== END 2016-10-18 12:49 | disposition home or self-care (01) ==
LOC: ER 11:35
DX: S70.01XA Contusion of right hip, initial encounter (principal); M79.604 Pain in right leg; M54.5 Low back pain; W18.39XA Other fall on same level, initial encounter; Y93.51 Activity, roller skating (inline) and skateboarding
CPT/HCPCS: 99283; 73502; S0119; J1170

== ENCOUNTER 2016-10-23 18:32 | Emergency (ER) | payer MEDICAID ==
[2016-10-23] MEDS ORDERED: IPRATROPIUM/ALBUTEROL 0.5-2.5 MG/3 ML AMPUL NEB ONE (19:10)
[2016-10-23] MEDS ORDERED: PREDNISONE 20 MG TABLET PO ONE (19:10)
--- NOTE | 2016-10-23 19:13 | ER Document Report ---
ED Medical Screen (RME) - General Chief Complaint: Shortness Of Breath Stated Complaint: DIFFICULTY BREATHING Time Seen by Provider: 10/23/16 18:47 Mode of Arrival: Ambulatory Information source: Patient Notes: Old male presents to ED for cough for 6 months. Shortness of breath and wheezing since yesterday postnasal drip for couple days. He has a history of asthma. States she is a former smoker but no longer smokes denies any fever nausea vomiting. He has a past medical history of asthma and Pickett's esophagitis with precancerous cells. States he no longer drinks alcohol. Lungs have wheezes bilaterally. I have greeted and performed a rapid initial assessment of this patient. A comprehensive ED assessment and evaluation of the patient, analysis of test results and completion of medical decision making process will be conducted by an additional ED providers. TRAVEL OUTSIDE OF THE [place] IN LAST 30 DAYS: No - Related Data Smoking: Quit greater than 1 year Frequency of alcohol use: None Drug Abuse: None Allergies/Adverse Reactions: codeine [Codeine] Adverse Reaction (Verified 10/23/16 18:45) NSAIDS (Non-Steroidal Anti-Inflamma Adverse Reaction (Verified 10/23/16 18:45) Past Medical History - Past Medical History Cardiac Medical History: Reports: Hx Hypertension Pulmonary Medical History: Reports: Hx Asthma Renal/ Medical History: Denies: Hx Peritoneal Dialysis GI Medical History: Reports: Hx Gastroesophageal Reflux Disease Musculoskeltal Medical History: Reports Hx Musculoskeletal Deformity, Reports Hx Musculoskeletal Trauma Psychiatric Medical History: Reports: Hx Attention Deficit Hyperactivity Disorder, Hx Depression - anxiety Traumatic Medical History: Reports: Hx Fractures - thumb Past Surgical History: Reports: Hx Orthopedic Surgery - rt shoulder, rt thumb - Immunizations Hx Diphtheria, Pertussis, Tetanus Vaccination: Yes Physical Exam - Vital signs Vitals: Temp Pulse Resp BP Pulse Ox 97.8 F 95 22 H 152/98 H 99 10/23/16 18:45 10/23/16 18:45 10/23/16 18:45 10/23/16 18:45 10/23/16 18:45 Course - Vital Signs Vital signs: Temp Pulse Resp BP Pulse Ox 97.8 F 95 22 H 152/98 H 99 10/23/16 18:45 10/23/16 18:45 10/23/16 18:45 10/23/16 18:45 10/23/16 18:45
--- NOTE | 2016-10-23 19:27 | RADIOLOGY REPORT (SQ) ---
EXAM DESCRIPTION: CHEST PA/LAT COMPLETED DATE/TIME: 10/23/2016 7:20 pm REASON FOR STUDY: cough congestion wheezing COMPARISON: 09/18/2016 EXAM PARAMETERS: NUMBER OF VIEWS: two views TECHNIQUE: Digital Frontal and Lateral radiographic views of the chest acquired. RADIATION DOSE: NA LIMITATIONS: none FINDINGS: LUNGS AND PLEURA: No opacities, masses or pneumothorax. No pleural effusion. MEDIASTINUM AND HILAR STRUCTURES: No masses or contour abnormalities. HEART AND VASCULAR STRUCTURES: Heart normal size. No evidence for failure. BONES: No acute findings. HARDWARE: None in the chest. OTHER: No other significant finding. IMPRESSION: NO SIGNIFICANT RADIOGRAPHIC FINDING IN THE CHEST. TECHNICAL DOCUMENTATION: JOB ID: [id number] [employer]- All Rights Reserved
[2016-10-23] MEDS: ALBUTEROL SULFATE 0.083% NEB 2.5 MG/3 ML AMPUL NEB SCH ×2 (19:31→20:16)
[2016-10-23] MEDS ORDERED: BENZONATATE 100 MG CAPSULE PO ONE (20:04)
[2016-10-23] MEDS ORDERED: ALBUTEROL SULFATE 0.083% NEB 2.5 MG/3 ML AMPUL NEB ONE (20:06)
[2016-10-23] MEDS ORDERED: HYDROCODONE/ACETAMINOPHEN 5-325 MG TABLET PO ONE (20:43)
[2016-10-23] MEDS ORDERED: HYDROCODONE/ACETAMINOPHEN 5-325 MG 6 TAB/DSPK PO PRN (20:43)
--- NOTE | 2016-10-23 20:46 | ER Document Report ---
ED Respiratory Problem - General Chief Complaint: Shortness Of Breath Stated Complaint: DIFFICULTY BREATHING Time Seen by Provider: 10/23/16 18:47 Mode of Arrival: Ambulatory Information source: Patient TRAVEL OUTSIDE OF THE [place] IN LAST 30 DAYS: No - HPI Patient complains to provider of: COPD, Cough, Short of breath Duration: Worse/persistent Quality of pain: Achy Severity: Mild Context: Hx asthma, Hx COPD Short of Breath: Moderate Chest pain/discomfort: Tightness Cough: Nonproductive Associated symptoms: Congestion, Cough, Short of breath, Wheezing Similar symptoms previously: Yes Notes: Is a 41-year-old male who reports being a former smoker, with a history of asthma/PE COPD, who presents to the emergency room for a cough that has been worsening over the last 6 months, he denies any fevers, no chest pain, reports he ran out of albuterol Nebules for his nebulizer at home recently, not currently on steroids - Related Data Allergies/Adverse Reactions: codeine [Codeine] Adverse Reaction (Verified 10/23/16 18:45) NSAIDS (Non-Steroidal Anti-Inflamma Adverse Reaction (Verified 10/23/16 18:45) Past Medical History - General Information source: Patient - Social History Smoking Status: Former Smoker Chew tobacco use (# tins/day): No Frequency of alcohol use: None Drug Abuse: None Family History: Arthritis, CVA, Hypertension, Malignancy - Past Medical History Cardiac Medical History: Reports: Hx Hypertension Pulmonary Medical History: Reports: Hx Asthma Renal/ Medical History: Denies: Hx Peritoneal Dialysis GI Medical History: Reports: Hx Gastroesophageal Reflux Disease Musculoskeltal Medical History: Reports Hx Musculoskeletal Deformity, Reports Hx Musculoskeletal Trauma Psychiatric Medical History: Reports: Hx Attention Deficit Hyperactivity Disorder, Hx Depression - anxiety Traumatic Medical History: Reports: Hx Fractures - thumb Past Surgical History: Reports: Hx Orthopedic Surgery - rt shoulder, rt thumb - Immunizations Hx Diphtheria, Pertussis, Tetanus Vaccination: Yes Review of Systems - Review of Systems Constitutional: No symptoms reported EENT: No symptoms reported Cardiovascular: No symptoms reported Respiratory: See HPI Gastrointestinal: No symptoms reported Genitourinary: No symptoms reported Male Genitourinary: No symptoms reported Musculoskeletal: No symptoms reported Skin: No symptoms reported Hematologic/Lymphatic: No symptoms reported Neurological/Psychological: No symptoms reported -: Yes All other systems reviewed and negative Physical Exam - Vital signs Vitals: Temp Pulse Resp BP Pulse Ox 97.8 F 95 22 H 152/98 H 99 10/23/16 18:45 10/23/16 18:45 10/23/16 18:45 10/23/16 18:45 10/23/16 18:45 Interpretation: Normal - General General appearance: Appears well, Alert - HEENT Head: Normocephalic, Atraumatic Eyes: Normal Pupils: PERRL - Respiratory Respiratory status: No respiratory distress Chest status: Nontender Breath sounds: Nonproductive cough, Wheezing Chest palpation: Normal - Cardiovascular Rhythm: Regular Heart sounds: Normal auscultation Murmur: No - Abdominal Inspection: Normal Distension: No distension Bowel sounds: Normal Tenderness: Nontender Organomegaly: No organomegaly - Back Back: Normal, Nontender - Extremities General upper extremity: Normal inspection, Nontender, Normal color, Normal ROM , Normal temperature General lower extremity: Normal inspection, Nontender, Normal color, Normal ROM , Normal temperature, Normal weight bearing. No: Dewey's sign - Neurological Neuro grossly intact: Yes Cognition: Normal Orientation: AAOx4 Mandi Coma Scale Eye Opening: Spontaneous Mandi Coma Scale Verbal: Oriented [place] Coma Scale Motor: Obeys Commands [place] Coma Scale Total: 15 Speech: Normal Motor strength normal: LUE, RUE, LLE, RLE Sensory: Normal - Psychological Associated symptoms: Normal affect, Normal mood - Skin Skin Temperature: Warm Skin Moisture: Dry Skin Color: Normal Course - Re-evaluation Re-evalutation: 10/23/16 21:07 Patient reports feeling much better after receiving treatment in the emergency room, chest x-ray is without acute findings and was discussed with patient at bedside, he was given a prescription for cough suppressant medication and albuterol nebulizer to use at home, patient was advised to follow-up with a primary care provider or return if symptoms worsen, patient acknowledges understanding and agreement with this plan - Vital Signs Vital signs: Temp Pulse Resp BP Pulse Ox 97.9 F 107 H 18 147/88 H 96 10/23/16 21:01 10/23/16 21:01 10/23/16 21:01 10/23/16 21:01 10/23/16 21:01 - Diagnostic Test Radiology reviewed: Image reviewed, Reports reviewed Discharge - Discharge Clinical Impression: Asthma exacerbation Condition: Stable Disposition: HOME, SELF-CARE Instructions: Asthma (REPLACED BY [facility]) Additional Instructions: Follow up with your primary care provider in one to 2 days. Return to the emergency room immediately if symptoms worsen or any additional concerns. Prescriptions: Albuterol Sulfate [Albuterol Sulfate 2.5mg/3 mL] 1 vial IH Q4 PRN #30 vial PRN Reason: Hydrocodone/Acetaminophen [Hydrocodon-Acetaminophen 5-325] 1 each PO Q6 #10 tablet Prednisone 40 mg PO DAILY #8 tablet
[2016-10-23 21:05] VITALS: BP 147/88
== END 2016-10-23 21:03 | disposition home or self-care (01) ==
LOC: ER 18:32
DX: J44.9 Chronic obstructive pulmonary disease, unspecified (principal); R05 Cough; R06.02 Shortness of breath; R07.89 Other chest pain; Z87.891 Personal history of nicotine dependence; Z86.711 Personal history of pulmonary embolism; I10 Essential (primary) hypertension
CPT/HCPCS: 94640 ×2; 99285; 71020; J3490; J7512; J7620

== ENCOUNTER 2016-11-10 13:44 | Emergency (ER) | payer MEDICAID ==
[2016-11-10] MEDS ORDERED: BENZONATATE 100 MG CAPSULE PO ONE (14:45)
--- NOTE | 2016-11-10 16:37 | ER Document Report ---
ED Respiratory Problem - General Chief Complaint: Cough Stated Complaint: COUGH Time Seen by Provider: 11/10/16 14:24 Mode of Arrival: Ambulatory Information source: Patient Notes: 41-year-old male presents to ED for report of cough on and off for 3 or 4 months. He has a history of asthma states he has had a productive cough with green sputum's. Has some rib pain from his cough. States he has been using his nebulizer treatment that he uses for asthma. States he has had an increase and his cough for the last 3 or 4 days. Has had runny nose with nasal drip. TRAVEL OUTSIDE OF THE [place] IN LAST 30 DAYS: No - HPI Patient complains to provider of: Asthma, Cough Onset: Other - Cough on and off for 3-4 months worse for the last 3-4 days requesting narcotic cough medicine when first evaluated Duration: Intermittent episodes Initiating Event: URI Quality of pain: Achy Severity: Moderate Pain Level: 4 Context: Hx asthma Cough: Productive Sputum amount: Moderate Sputum color: Green Associated symptoms: Chest pain/discomfort - When he coughs, PND, Runny nose, Sinus pain/pressure. 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 Drug Abuse: None Family History: Arthritis, CVA, Hypertension, Malignancy Patient has suicidal ideation: No Patient has homicidal ideation: No - Past Medical History Cardiac Medical History: Reports: Hx Hypertension Pulmonary Medical History: Reports: Hx Asthma EENT Medical History: Reports: None Neurological Medical History: Reports: None Endocrine Medical History: Reports: None Renal/ Medical History: Reports: None Malignancy Medical History: Reports None GI Medical History: Reports: Hx Gastroesophageal Reflux Disease - Pickett's esophagitis as well as reflux Musculoskeltal Medical History: Reports Hx Musculoskeletal Deformity, Reports Hx Musculoskeletal Trauma Skin Medical History: Reports None Psychiatric Medical History: Reports: Hx Anxiety, Hx Attention Deficit Hyperactivity Disorder, Hx Depression Traumatic Medical History: Reports: Hx Fractures - thumb Infectious Medical History: Reports: None Past Surgical History: Reports: Hx Orthopedic Surgery - rt shoulder, rt thumb - Immunizations Hx Diphtheria, Pertussis, Tetanus Vaccination: Yes Review of Systems - Review of Systems Constitutional: Recent illness EENT: Nose discharge, Sinus pressure, Sinus discharge Cardiovascular: No symptoms reported Respiratory: Cough, Other - Pain with cough Gastrointestinal: No symptoms reported Genitourinary: No symptoms reported Male Genitourinary: No symptoms reported Musculoskeletal: No symptoms reported Skin: No symptoms reported Hematologic/Lymphatic: No symptoms reported Neurological/Psychological: No symptoms reported -: Yes All other systems reviewed and negative Physical Exam - Vital signs Vitals: Temp Pulse Resp BP Pulse Ox 97.9 F 96 24 H 153/102 H 99 11/10/16 13:47 11/10/16 13:47 11/10/16 13:47 11/10/16 13:47 11/10/16 13:47 Interpretation: Normal - General General appearance: Appears well, Alert - HEENT Head: Normocephalic, Atraumatic Eyes: Normal Pupils: PERRL Ears: Normal External canal: Normal Tympanic membrane: Normal Sinus: Normal Nasal: Purulent discharge, Swelling Mouth/Lips: Normal Mucous membranes: Normal Pharynx: Post nasal drainage Neck: Normal - Respiratory Respiratory status: No respiratory distress Chest status: Nontender Breath sounds: Normal. No: Rales, Rhonchi, Wheezing Chest palpation: Normal - Cardiovascular Rhythm: Regular Heart sounds: Normal auscultation Murmur: No - Abdominal Inspection: Normal Distension: No distension Bowel sounds: Normal Tenderness: Nontender Organomegaly: No organomegaly - Back Back: Normal, Nontender - Extremities General upper extremity: Normal inspection, Nontender, Normal color, Normal ROM , Normal temperature General lower extremity: Normal inspection, Nontender, Normal color, Normal ROM , Normal temperature, Normal weight bearing. No: Dewey's sign - Neurological Neuro grossly intact: Yes Cognition: Normal Orientation: AAOx4 Mandi Coma Scale Eye Opening: Spontaneous Mandi Coma Scale Verbal: Oriented [place] Coma Scale Motor: Obeys Commands [place] Coma Scale Total: 15 Speech: Normal Motor strength normal: LUE, RUE, LLE, RLE Sensory: Normal - Psychological Associated symptoms: Normal affect, Normal mood - Skin Skin Temperature: Warm Skin Moisture: Dry Skin Color: Normal Course - Re-evaluation Re-evalutation: 11/10/16 22:42 Discussed x-ray with patient and patient discharged home to follow-up with his primary doctor. - Vital Signs Vital signs: Temp Pulse Resp BP Pulse Ox 97.9 F 84 18 168/92 H 100 11/10/16 16:50 11/10/16 16:50 11/10/16 16:50 11/10/16 16:50 11/10/16 16:50 - Diagnostic Test Radiology reviewed: Image reviewed Discharge - Discharge Clinical Impression: URI (upper respiratory infection) Qualifiers: URI type: unspecified URI Qualified Code(s): J06.9 - Acute upper respiratory infection, unspecified Condition: Stable Disposition: HOME, SELF-CARE Instructions: Family Physicians / Practices Additional Instructions: UPPER RESPIRATORY ILLNESS: You have a viral infection of the respiratory passages -- a "cold." This common infection causes nasal congestion, drainage, and often sore throat and cough. It is highly contagious. The disease usually lasts about 10 to 14 days. There is no "cure" for the viral infection -- it must run its course. If there is a complication, such as bacterial infection in the nose, sinuses, middle ear, or bronchial tubes, antibiotics may be required. The antibiotics won't affect the virus. Drink plenty of fluids. A humidifier may help. An expectorant medication or decongestant may make you more comfortable. Use acetaminophen or ibuprofen for fever or aches. See the doctor if fever persists over two days, if there is any significant worsening of your symptoms, or if you simply fail to improve as expected. COUGH-SUPPRESSANT & EXPECTORANT MEDICATION: You are to use a cough medication as needed for relief of symptoms. This medicine is a combination of an expectorant (to make the mucous thinner and more easily "coughed up") and a cough suppressant (to reduce the frequency of coughing). The cough-suppressant medicine is related to narcotics. You may experience mild nausea and sleepiness. Some patients who are very sensitive to narcotics may have stomach pain from this medicine. Taking the medicine with food reduces these side effects. Do not drive or work with machinery until you know how this medicine affects you. The expectorant should have no side effects. Iodine-containing expectorants (such as organidin) should not be taken by persons with active thyroid disease unless approved by your doctor. Call the doctor if you develop shortness of breath, hives, rash, itching, lightheadedness, or severe nausea and vomiting. STEROID MEDICATION: You have been given an injection of or oral medicine of the cortisone/ steroid class. This medication is used to control inflammation or allergy. Lázaro t is usually only given for a short period of time, until the acute process subsides. There are usually no side effects from short-term use of cortisone-like medications. Some persons feel an increased sense of well-being and are not sleepy at bedtime. Long-term use of cortisone medications is best avoided, unless required for a severe condition. If your condition does not remit, or relapses after the course of corticosteroid medication, you should consult your physician. USE OF ACETAMINOPHEN (Tylenol): Acetaminophen may be taken for pain relief or fever control. It's much safer than aspirin, offering a wider range of "safe" dosages. It is safe during . Some brand names are Tylenol, Panadol, Datril, Anacin 3, Tempra, and Liquiprin. Acetaminophen can be repeated every four hours. The following are maximum recommended dosages: >89 pounds or adults 650 mg to 900 mg Acetaminophen can be repeated every four hours. Maximum dose not to exceed 4000 mg a day. FOLLOW-UP CARE: If you have been referred to a physician for follow-up care, call the physician s office for an appointment as you were instructed or within the next two days. If you experience worsening or a significant change in your symptoms, notify the physician immediately or return to the Emergency Department at any time for re-evaluation. Prescriptions: Albuterol Sulfate [Proair HFA Inhalation Aerosol 8.5 gm MDI] 2 puff IH Q4H PRN # 1 mdi PRN Reason: Prednisone [Sterapred Ds] 1 pkg PO ASDIR PRN 12 Days [email or web address] PRN Reason: Forms: Elevated Blood Pressure
[2016-11-10 16:55] VITALS: BP 168/92
--- NOTE | 2016-11-11 14:55 | RADIOLOGY REPORT (SQ) ---
EXAM DESCRIPTION: Chest PA and lateral COMPLETED DATE/TIME: 11/10/2016, 1517 hours REASON FOR STUDY: Cough, congestion COMPARISON: 10/31/2007, 08/18/2016, 10/23/2016 TECHNIQUE: PA and lateral chest LIMITATIONS: None FINDINGS: No focal infiltrates. No pleural effusions or pneumothorax. Cardiac silhouette size, chris, bony structures unremarkable. IMPRESSION: No acute findings.
== END 2016-11-10 16:50 | disposition home or self-care (01) ==
LOC: ER 13:44
DX: J06.9 Acute upper respiratory infection, unspecified (principal); R05 Cough; R07.81 Pleurodynia; J45.909 Unspecified asthma, uncomplicated; R09.82 Postnasal drip; R09.89 Other specified symptoms and signs involving the circulatory and respiratory systems; I10 Essential (primary) hypertension; Z87.891 Personal history of nicotine dependence
CPT/HCPCS: 99283; 71020; J3490

== ENCOUNTER 2016-12-13 19:26 | Emergency (ER) | payer MEDICAID ==
[2016-12-13] MEDS ORDERED: NORMAL SALINE 1000 ML 1,000 ML IV PRN (21:06)
[2016-12-13] MEDS ORDERED: ONDANSETRON HCL INJ/PF 4 MG/2 ML SDV IV ONE (21:06)
[2016-12-13] MEDS ORDERED: MORPHINE SULFATE 10 MG/ML INJ IV ONE (21:07)
--- NOTE | 2016-12-13 21:08 | ER Document Report ---
ED Medical Screen (RME) - General Chief Complaint: Abdominal Pain Stated Complaint: ABDOMINAL PAIN Time Seen by Provider: 12/13/16 21:06 Notes: Patient has an umbilical hernia. He states that he has an appointment next week with a surgeon concerning this. However he states for about 1 week now has had increased abdominal pain periumbilically. He is also had vomiting and diarrhea. On exam I am able to easily reduce the umbilical hernia. TRAVEL OUTSIDE OF THE [place] IN LAST 30 DAYS: No - Related Data Allergies/Adverse Reactions: codeine [Codeine] Adverse Reaction (Verified 12/13/16 20:35) NSAIDS (Non-Steroidal Anti-Inflamma Adverse Reaction (Verified 12/13/16 20:35) Past Medical History - Social History Chew tobacco use (# tins/day): No Frequency of alcohol use: Rare Drug Abuse: None - Past Medical History Cardiac Medical History: Reports: Hx Hypertension Denies: Hx Coronary Artery Disease, Hx Heart Attack Pulmonary Medical History: Reports: Hx Asthma Denies: Hx Bronchitis, Hx COPD, Hx Pneumonia Neurological Medical History: Denies: Hx Cerebrovascular Accident, Hx Seizures Renal/ Medical History: Denies: Hx Peritoneal Dialysis GI Medical History: Reports: Hx Gastroesophageal Reflux Disease - Pickett's esophagitis as well as reflux Musculoskeltal Medical History: Denies Hx Arthritis, Reports Hx Musculoskeletal Deformity, Reports Hx Musculoskeletal Trauma Psychiatric Medical History: Reports: Hx Anxiety, Hx Attention Deficit Hyperactivity Disorder, Hx Depression Traumatic Medical History: Reports: Hx Fractures - thumb Past Surgical History: Reports: Hx Orthopedic Surgery - rt shoulder, rt thumb - Immunizations Hx Diphtheria, Pertussis, Tetanus Vaccination: Yes Physical Exam - Vital signs Vitals: Temp Pulse Resp BP Pulse Ox 97.9 F 103 H 18 141/100 H 97 12/13/16 20:36 12/13/16 20:36 12/13/16 20:36 12/13/16 20:36 12/13/16 20:36 Course - Vital Signs Vital signs: Temp Pulse Resp BP Pulse Ox 97.9 F 103 H 18 141/100 H 97 12/13/16 20:36 12/13/16 20:36 12/13/16 20:36 12/13/16 20:36 12/13/16 20:36
[2016-12-13 21:49] LABS: ABSOLUTE EOSINOPHILS # (AUTO) 0.4 10^3/uL (0.0-0.6); ABSOLUTE MONOCYTES (AUTO) 1.2 10^3/uL (0.1-1.4); ABSOLUTE NEUT (AUTO) 5.7 10^3/uL (1.7-8.2); BASOPHILS % (AUTO) 0.2 % (0-2); EOSINOPHILS % (AUTO) 3.8 % (0-6); HEMATOCRIT 48.2 % (37.9-51.0); HEMOGLOBIN 17.6 g/dL (13.5-17.0); LYMPHOCYTES % (AUTO) 29.1 % (13-45); MEAN CORPUSCULAR HEMOGLOBIN 34.7 pg (27.0-33.4); MEAN CORPUSCULAR HGB CONC 36.4 g/dL (32.0-36.0); MEAN CORPUSCULAR VOLUME 95 fl (80-97); MONOCYTES % (AUTO) 11.6 % (3-13); RED BLOOD COUNT 5.06 10^6/uL (4.35-5.55); RED CELL DISTRIBUTION WIDTH 13.5 % (11.5-14.0); SEGMENTED NEUTROPHILS % (AUTO) 55.3 % (42-78); WHITE BLOOD COUNT 10.3 10^3/uL (4.0-10.5)
[2016-12-13 21:51] LABS: APPEARANCE,URINE SLIGHTLY-CLOUDY; BILIRUBIN,URINE NEGATIVE (NEGATIVE); GLUCOSE, URINE NEGATIVE (NEGATIVE); KETONES,URINE NEGATIVE (NEGATIVE); LEUKOCYTE ESTERASE,URINE NEGATIVE (NEGATIVE); NITRITE,URINE NEGATIVE (NEGATIVE); PROTEIN,URINE 30 mg/dL (NEGATIVE); URINE SPECIFIC GRAVITY 1.025; UROBILINOGEN,URINE NEGATIVE mg/dL (<2.0)
[2016-12-13 22:01] LABS: HGB HCT DIFFERENCE 4.6
[2016-12-13 22:04] LABS: ALANINE AMINOTRANSFERASE 63 U/L (21-72); ALBUMIN 4.6 g/dL (3.5-5.0); ALKALINE PHOSPHATASE 64 U/L (38-126); ANION GAP 12 (5-19); ASPARTATE AMINO TRANSFERASE 40 U/L (17-59); BILIRUBIN,DIRECT 0.4 mg/dL (0.0-0.4); BILIRUBIN,TOTAL 0.5 mg/dL (0.2-1.3); BLOOD UREA NITROGEN 9 mg/dL (7-20); CALCIUM 9.7 mg/dL (8.4-10.2); CARBON DIOXIDE 23 mmol/L (22-30); CHLORIDE 106 mmol/L (98-107); CREATININE RESULT 0.77 mg/dL (0.52-1.25); GLUCOSE 95 mg/dL (75-110); POTASSIUM 4.5 mmol/L (3.6-5.0); TOTAL PROTEIN 7.5 g/dL (6.3-8.2)
--- NOTE | 2016-12-13 22:34 | ER Document Report ---
ED GI/ - General Mode of Arrival: Ambulatory Information source: Patient TRAVEL OUTSIDE OF THE [place] IN LAST 30 DAYS: No <MICHELLE BOYLE - Last Filed: 12/14/16 00:02> <ASAD COX - Last Filed: 12/14/16 03:36> - General Chief Complaint: Abdominal Pain Stated Complaint: ABDOMINAL PAIN Time Seen by Provider: 12/13/16 21:06 Notes: Patient is a 41 year old male presenting to the emergency department for abdominal pain. Patient has a history of an umbilical hernia and is scheduled to have surgery on Monday. Patient states he has had increased abdominal pain to the area of his hernia. Patient also complains of some nausea, vomiting and diarrhea. 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 Patient is not wearing any type of hernia belt. Patient denies any fever. Patient states he has been taking Tylenol. Patient states he is allergic to codeine and NSAIDS. (MICHELLE BOYLE) - Related Data Allergies/Adverse Reactions: codeine [Codeine] Adverse Reaction (Verified 12/13/16 20:35) NSAIDS (Non-Steroidal Anti-Inflamma Adverse Reaction (Verified 12/13/16 20:35) Past Medical History - General Information source: Patient - Social History Smoking Status: Former Smoker Chew tobacco use (# tins/day): Yes Smoking Education Provided: No Frequency of alcohol use: Rare Drug Abuse: None Family History: Arthritis, CVA, Hypertension, Malignancy Patient has suicidal ideation: No Patient has homicidal ideation: No - Past Medical History Cardiac Medical History: Reports: Hx Hypertension Pulmonary Medical History: Reports: Hx Asthma GI Medical History: Reports: Hx Gastroesophageal Reflux Disease - Pickett's esophagitis as well as reflux Musculoskeltal Medical History: Reports Hx Musculoskeletal Deformity, Reports Hx Musculoskeletal Trauma Psychiatric Medical History: Reports: Hx Anxiety, Hx Attention Deficit Hyperactivity Disorder, Hx Depression Traumatic Medical History: Reports: Hx Fractures - thumb Past Surgical History: Reports: Hx Orthopedic Surgery - rt shoulder, rt thumb - Immunizations Hx Diphtheria, Pertussis, Tetanus Vaccination: Yes <MICHELLE BOYLE - Last Filed: 12/14/16 00:02> Review of Systems - Review of Systems Constitutional: denies: Fever Cardiovascular: denies: Chest pain Respiratory: denies: Short of breath Gastrointestinal: See HPI, Abdominal pain, Diarrhea, Nausea, Vomiting -: Yes All other systems reviewed and negative <TAMARMICHELLE - Last Filed: 12/14/16 00:02> Physical Exam - Vital signs Interpretation: Hypertensive <MICHELLE BOYLE - Last Filed: 12/14/16 00:02> <ASAD COX - Last Filed: 12/14/16 03:36> - Vital signs Vitals: Temp Pulse Resp BP Pulse Ox 97.9 F 103 H 18 141/100 H 97 12/13/16 20:36 12/13/16 20:36 12/13/16 20:36 12/13/16 20:36 12/13/16 20:36 - Notes Notes: GENERAL: Alert, interacts well. No acute distress. HEAD: Normocephalic, atraumatic. EYES: Pupils equal, round, and reactive to light. Extraocular movements intact. ENT: Oral mucosa moist, tongue midline. NECK: Full range of motion. Supple. Trachea midline. LUNGS: Clear to auscultation bilaterally, no wheezes, rales, or rhonchi. No respiratory distress. HEART: Regular rate and rhythm. No murmurs, gallops, or rubs. ABDOMEN: Soft, small fat containing umbilical hernia which is easily reduced. No evidence of incarceration or strangulation. No surrounding abdominal tenderness. Non-distended. Bowel sounds present in all 4 quadrants. EXTREMITIES: Moves all 4 extremities spontaneously. No edema. No cyanosis. NEUROLOGICAL: Alert and oriented x3. Normal speech. PSYCH: Normal affect, normal mood. SKIN: Warm, dry, normal turgor. (TAMARMICHELLE) Course - Laboratory Result Diagrams: 12/13/16 21:30 12/13/16 21:30 <MICHELLE BOYLE - Last Filed: 12/14/16 00:02> - Laboratory Result Diagrams: 12/13/16 21:30 12/13/16 21:30 <ASAD COX - Last Filed: 12/14/16 03:36> - Re-evaluation Re-evalutation: 12/13/16 22:59 CBC unremarkable, CMP unremarkable, urinalysis shows small blood but no signs of infection, only 3 RBCs. Doubt kidney stone. Discussed with patient that lifting is likely worsening his hernia, tearing the muscle more and causing his pain. There is no evidence of incarceration or stimulation, abdomen is not acute, does not feel surgical. No indication for CT scan at this time. Suspect with the vomiting and the diarrhea that he also has likely a viral gastroenteritis. Patient will be given Zofran to help with the nausea. Encouraged take Tylenol for the pain. Encouraged to return for worsening vomiting, worsening diarrhea, abdominal pain anywhere other than directly underneath his hernia or inability to reduce the hernia. (ASAD COX) - Vital Signs Vital signs: Temp Pulse Resp BP Pulse Ox 97.9 F 82 18 150/99 H 98 12/13/16 20:36 12/13/16 23:09 12/13/16 23:09 12/13/16 23:09 12/13/16 23:09 - Laboratory Laboratory results interpreted by me: 12/13/16 12/13/16 21:30 21:30 Hgb 17.6 H MCH 34.7 H MCHC 36.4 H Urine Protein 30 H Urine Blood SMALL H Discharge <MICHELLE BOYLE - Last Filed: 12/14/16 00:02> <ASAD COX - Last Filed: 12/14/16 03:36> - Discharge Clinical Impression: Nausea vomiting and diarrhea Umbilical hernia Qualifiers: Obstruction and gangrene presence: without obstruction or gangrene Qualified Code(s): K42.9 - Umbilical hernia without obstruction or gangrene Hypertension Qualifiers: Hypertension type: essential hypertension Qualified Code(s): I10 - Essential ( primary) hypertension Condition: Stable Disposition: HOME, SELF-CARE Additional Instructions: Take the Zofran as directed for nausea and vomiting, you may use Imodium over- the-counter as directed on the box for diarrhea. Please do not lift anything for the next week until you have had surgery to repair your hernia. Return for fevers, abdominal pain anywhere other than right around your hernia, a hernia that will not reduce or any new or concerning symptoms. Prescriptions: Ondansetron [Zofran Odt 4 mg Tablet] 1 - 2 tab PO Q4H PRN #15 tab.rapdis PRN Reason: For Nausea/Vomiting Forms: Elevated Blood Pressure Scribe Attestation: 12/14/16 03:36 I personally performed the services described in the documentation, reviewed and edited the documentation which was dictated to the scribe in my presence, and it accurately records my words and actions. (ASAD COX) Scribe Documentation - Scribe Written by Pricilla:: Pricilla Jackson 12/14/2016 00:40 acting as scribe for :: Kofi <MICHELLE BOYLE - Last Filed: 12/14/16 00:02>
[2016-12-13 23:14] VITALS: BP 150/99
== END 2016-12-13 23:13 | disposition home or self-care (01) ==
LOC: ER 19:26
DX: R11.2 Nausea with vomiting, unspecified (principal); R19.7 Diarrhea, unspecified; K42.9 Umbilical hernia without obstruction or gangrene; I10 Essential (primary) hypertension; Z87.891 Personal history of nicotine dependence; Z88.6 Allergy status to analgesic agent
CPT/HCPCS: 99284; 96361; 96374; 96375; 36415; 85025; 80053; 81001; J2270; J2405; J7030

== ENCOUNTER 2016-12-20 13:52 | Day surgery (SDC) | payer MEDICAID ==
[2016-12-15 09:56] LABS: HEMATOCRIT 45.8 % (37.9-51.0); HEMOGLOBIN 16.4 g/dL (13.5-17.0); HGB HCT DIFFERENCE 3.4; MEAN CORPUSCULAR HEMOGLOBIN 34.1 pg (27.0-33.4); MEAN CORPUSCULAR HGB CONC 35.7 g/dL (32.0-36.0); MEAN CORPUSCULAR VOLUME 95 fl (80-97); RED CELL DISTRIBUTION WIDTH 13.3 % (11.5-14.0)
[2016-12-15 10:19] LABS: ANION GAP 12 (5-19); BLOOD UREA NITROGEN 12 mg/dL (7-20); CALCIUM 9.7 mg/dL (8.4-10.2); CARBON DIOXIDE 24 mmol/L (22-30); CHLORIDE 105 mmol/L (98-107); GLUCOSE 140 mg/dL (75-110); POTASSIUM 4.5 mmol/L (3.6-5.0); SODIUM 141.2 mmol/L (137-145)
--- NOTE | 2016-12-15 12:45 | EKG REPORT ---
SEVERITY:- NORMAL ECG - SINUS RHYTHM : Confirmed by: Jose Fleming MD 15-Dec-2016 12:44:51
--- NOTE | 2016-12-16 16:18 | RADIOLOGY REPORT (SQ) ---
EXAM DESCRIPTION: CHEST PA/LATERAL COMPLETED DATE/TIME: 12/16/2016 3:39 pm REASON FOR STUDY: PRE OP COMPARISON: Two-view chest 11/10/2016 EXAM PARAMETERS: NUMBER OF VIEWS: two views TECHNIQUE: Digital Frontal and Lateral radiographic views of the chest acquired. RADIATION DOSE: NA LIMITATIONS: none FINDINGS: LUNGS AND PLEURA: No opacities, masses or pneumothorax. No pleural effusion. MEDIASTINUM AND HILAR STRUCTURES: No masses or contour abnormalities. HEART AND VASCULAR STRUCTURES: Heart normal size. No evidence for failure. BONES: No acute findings. HARDWARE: None in the chest. OTHER: No other significant finding. IMPRESSION: NO SIGNIFICANT RADIOGRAPHIC FINDING IN THE CHEST. TECHNICAL DOCUMENTATION: JOB ID: [id number] [employer]- All Rights Reserved
[~2016-12-20 13:52] MED LIST: ALBUTEROL SULFATE 0.083% NEB 2.5 MG/3 ML AMPUL NEB PRN; CEFAZOLIN 1 GM/D5W RTU 1 GM/50 ML RTUPB IV PRN; DEXAMETHASONE SOD PHOSPHATE INJ 4 MG/1 ML VIAL ONE; LACTATED RINGERS 1000 ML IV PRN; LIDOCAINE 0.5% INJ-PF (5 MG/ML) 50 ML SDV SUBCUT PRN; ONDANSETRON HCL INJ/PF 4 MG/2 ML SDV ONE; ROCURONIUM BROMIDE INJ 50 MG/5 ML VIAL IV ONE; SUCCINYLCHOLINE CHLORIDE INJ 200 MG/10 ML VIAL ONE
[2016-12-20] MEDS ORDERED: MIDAZOLAM 2 MG/2 ML INJ ONE ×2 (15:10→17:44)
[2016-12-20] MEDS ORDERED: FAMOTIDINE INJ/PF 20 MG/2 ML SDV IV ONE (15:11)
[2016-12-20] MEDS ORDERED: CITRIC ACID/SODIUM CITRATE ORAL SOLN 15 ML UDCUP ONE (15:11)
[2016-12-20] MEDS ORDERED: METOCLOPRAMIDE HCL INJ/PF 10 MG/2 ML SDV ONE (15:11)
[2016-12-20] MEDS ORDERED: PROPOFOL INJ 200 MG/20 ML VIAL IV ONE (17:44)
[2016-12-20] MEDS ORDERED: FENTANYL CITRATE INJ/PF 100 MCG/2 ML AMPUL ONE (17:44)
[2016-12-20] MEDS ORDERED: ACETAMINOPHEN 100 ML IV ONE (17:45)
[2016-12-20] MEDS ORDERED: BUPIVACAINE HCL 0.25 % INJ/PF (2.5 MG/1 ML) 30 ML VIAL ONE (18:00)
[2016-12-20] MEDS ORDERED: MEPERIDINE HCL/PF INJ 25 MG/1 ML DISP.SYRIN IV PRN (18:23)
[2016-12-20] MEDS ORDERED: PROMETHAZINE HCL INJ 25 MG/1 ML VIAL IV PRN ×2 (18:23)
[2016-12-20] MEDS ORDERED: DIPHENHYDRAMINE HCL 50 MG/ML VIAL IV PRN (18:23)
[2016-12-20] MEDS ORDERED: FENTANYL CITRATE INJ/PF 100 MCG/2 ML AMPUL IV PRN ×3 (18:23)
--- NOTE | 2016-12-20 18:57 | Operative Report ---
Operative Report DATE OF SURGERY: 12/20/16 PREOPERATIVE DIAGNOSIS: Umbilical hernia POSTOPERATIVE DIAGNOSIS: Umbilical hernia OPERATION: Umbilical hernia repair SURGEON: LOLA VALENTIN ANESTHESIA: GA TISSUE REMOVED OR ALTERED: None COMPLICATIONS: None ESTIMATED BLOOD LOSS: Minimal INTRAOPERATIVE FINDINGS: 1.5 cm fascial defect at the umbilicus. PROCEDURE: Informed consent was obtained. Patient was brought to the operating room placed on the operating table in supine position. After satisfactory induction of general anesthesia patient's abdomen was prepped and draped in usual sterile fashion. A semicircular infraumbilical incision was made. Dissection was carried down. The bellybutton was dissected off of the underlying hernia. The hernia sac consisted of preperitoneal fat which was tucked back into the preperitoneal space. The fascial defect measured slightly less than 1.5 cm in size. Therefore, primary repair was performed with interrupted Ethibond sutures closing the defect in the transverse direction. The repair came together well without tension. Hemostasis appeared excellent. Marcaine was injected at the operative site. The belly button was tacked to the underlying fascia using interrupted Vicryl suture. Skin was closed with subcuticular running Monocryl suture. Patient tolerated procedure well with no apparent complications and was taken to the recovery area in stable condition.
[2016-12-20] MEDS ORDERED: RINGERS SOLUTION,LACTATED 1,000 ML IV PRN (19:01)
[2016-12-20] MEDS ORDERED: OXYCODONE-ACETAMINOPHEN 5-325 MG TABLET PO PRN (19:01)
[2016-12-20] MEDS ORDERED: ONDANSETRON HCL INJ/PF 4 MG/2 ML SDV IV PRN (19:01)
--- NOTE | 2016-12-20 19:01 | PDOC DISCHARGE SUMMARY ---
Discharge Summary (SDC) - Discharge Final Diagnosis: Umbilical hernia. Date of Surgery: 12/20/16 Discharge Date: 12/20/16 Condition: Good Treatment or Instructions: Underwent umbilical hernia repair. May discharge patient home when met discharge criteria. Follow-up with me in 2 weeks. Stay active but avoid strenuous activity. May shower in 2 days. Keep Steri-Strips on. Do not use Ambien for the next 3 days. Do not use Ambien while on Percocet. Prescriptions: Oxycodone HCl/Acetaminophen [Percocet 5-325 mg Tablet] 1 tab PO ASDIR PRN #25 tablet PRN Reason: Discharge Diet: As Tolerated Discharge Activity: Activity As Tolerated - Stay active but avoid strenuous activity. Report the Following to Your Physician Immediately: Fever over 101 Degrees, Unusual Bleeding, Redness, Drainage-Foul Smelling
[2016-12-20] MEDS: FENTANYL CITRATE INJ/PF 100 MCG/2 ML AMPUL ONE ×2 (19:05→19:10)
[2016-12-20] MEDS: HYDROMORPHONE HCL INJ/PF 2 MG/ML AMPULE ONE ×5 (19:20→20:00)
[2016-12-20] MEDS ORDERED: HYDROMORPHONE HCL INJ/PF 2 MG/ML AMPULE IV PRN (19:34)
[2016-12-20] MEDS ORDERED: OXYCODONE-ACETAMINOPHEN 5-325 MG TABLET ONE (20:19)
[2016-12-20 22:48] VITALS: BP 116/82
== END 2016-12-20 22:30 | disposition home or self-care (01) ==
LOC: OROUT 13:52 → 4N 20:51 → OROUT 22:30
PROVIDERS: ATTEND Surgery
PROC: 0WQF0ZZ Repair Abdominal Wall, Open Approach (ICD-10-PCS; principal; 2016-12-20 16:30)
DX: K42.9 Umbilical hernia without obstruction or gangrene (principal); J45.909 Unspecified asthma, uncomplicated; F17.290 Nicotine dependence, other tobacco product, uncomplicated; I10 Essential (primary) hypertension; Z79.899 Other long term (current) drug therapy; Z88.5 Allergy status to narcotic agent; Z79.51 Long term (current) use of inhaled steroids; Z88.8 Allergy status to other drugs, medicaments and biological substances
CPT/HCPCS: 93005; 36415; 85027; 80048; 71020; 93010; 94640; 49585; J2250; J0690; J3490 ×2; J1100; J3010; J2765; J1170; J0330; J2405; S0020; J2704; S0028; J0131; 830

== ENCOUNTER 2017-01-19 16:15 | Emergency (ER) | payer MEDICAID ==
[2017-01-19] MEDS ORDERED: NORMAL SALINE 1000 ML 1,000 ML IV ONE (16:37)
[2017-01-19] MEDS ORDERED: ONDANSETRON HCL INJ/PF 4 MG/2 ML SDV IV ONE (16:37)
--- NOTE | 2017-01-19 16:40 | ER Document Report ---
ED Medical Screen (RME) - General Chief Complaint: Abdominal Pain Stated Complaint: NAUSEA,VOMITING,ABDOMINAL PAIN Time Seen by Provider: 01/19/17 16:34 TRAVEL OUTSIDE OF THE [place] IN LAST 30 DAYS: No - HPI Notes: 01/19/17 16:38 Right upper quadrant pain - Related Data Allergies/Adverse Reactions: codeine [Codeine] Adverse Reaction (Verified 01/19/17 16:19) NSAIDS (Non-Steroidal Anti-Inflamma Adverse Reaction (Verified 01/19/17 16:19) Past Medical History - Past Medical History Cardiac Medical History: Reports: Hx Hypertension Denies: Hx Coronary Artery Disease, Hx Heart Attack Pulmonary Medical History: Reports: Hx Asthma Denies: Hx Bronchitis, Hx COPD, Hx Pneumonia Neurological Medical History: Denies: Hx Cerebrovascular Accident, Hx Seizures Renal/ Medical History: Denies: Hx Peritoneal Dialysis GI Medical History: Reports: Hx Gastroesophageal Reflux Disease - Pickett's esophagitis as well as reflux Musculoskeltal Medical History: Denies Hx Arthritis, Reports Hx Musculoskeletal Deformity, Reports Hx Musculoskeletal Trauma Psychiatric Medical History: Reports: Hx Anxiety, Hx Attention Deficit Hyperactivity Disorder, Hx Depression Traumatic Medical History: Reports: Hx Fractures - thumb Past Surgical History: Reports: Hx Orthopedic Surgery - rt shoulder, rt thumb - Immunizations Hx Diphtheria, Pertussis, Tetanus Vaccination: Yes Review of Systems - Review of Systems Gastrointestinal: Abdominal pain, Nausea, Vomiting Physical Exam - Vital signs Vitals: Temp Pulse Resp BP Pulse Ox 97.4 F 80 20 132/90 H 98 01/19/17 16:18 01/19/17 16:18 01/19/17 16:18 01/19/17 16:18 01/19/17 16:18 - Cardiovascular Rhythm: Regular Heart sounds: Normal auscultation Course - Vital Signs Vital signs: Temp Pulse Resp BP Pulse Ox 97.4 F 80 20 132/90 H 98 01/19/17 16:18 01/19/17 16:18 01/19/17 16:18 01/19/17 16:18 01/19/17 16:18
[2017-01-19 17:09] LABS: ABSOLUTE BASOPHILS # (AUTO) 0.1 10^3/uL (0.0-0.2); ABSOLUTE EOSINOPHILS # (AUTO) 0.1 10^3/uL (0.0-0.6); ABSOLUTE LYMPHOCYTES (AUTO) 2.3 10^3/uL (0.5-4.7); ABSOLUTE NEUT (AUTO) 3.2 10^3/uL (1.7-8.2); BASOPHILS % (AUTO) 1.3 % (0-2); EOSINOPHILS % (AUTO) 1.3 % (0-6); HEMATOCRIT 46.8 % (37.9-51.0); HEMOGLOBIN 16.3 g/dL (13.5-17.0); HGB HCT DIFFERENCE 2.1; LYMPHOCYTES % (AUTO) 34.5 % (13-45); MEAN CORPUSCULAR HEMOGLOBIN 33.5 pg (27.0-33.4); MEAN CORPUSCULAR HGB CONC 34.8 g/dL (32.0-36.0); MEAN CORPUSCULAR VOLUME 96 fl (80-97); MONOCYTES % (AUTO) 14.3 % (3-13); RED BLOOD COUNT 4.86 10^6/uL (4.35-5.55); RED CELL DISTRIBUTION WIDTH 13.5 % (11.5-14.0); SEGMENTED NEUTROPHILS % (AUTO) 48.6 % (42-78); WHITE BLOOD COUNT 6.7 10^3/uL (4.0-10.5)
[2017-01-19 17:18] LABS: APPEARANCE,URINE CLEAR; BILIRUBIN,URINE NEGATIVE (NEGATIVE); GLUCOSE, URINE NEGATIVE (NEGATIVE); KETONES,URINE NEGATIVE (NEGATIVE); LEUKOCYTE ESTERASE,URINE NEGATIVE (NEGATIVE); NITRITE,URINE NEGATIVE (NEGATIVE); PROTEIN,URINE NEGATIVE (NEGATIVE)
[2017-01-19] MEDS ORDERED: MORPHINE SULFATE 10 MG/ML INJ IV ONE ×2 (17:20→19:30)
--- NOTE | 2017-01-19 17:22 | ER Document Report ---
ED General - General Chief Complaint: Abdominal Pain Stated Complaint: NAUSEA,VOMITING,ABDOMINAL PAIN Time Seen by Provider: 01/19/17 16:34 Notes: Patient states that he had hernia surgery one month ago by Dr. Candelaria and he has been fine. Over the last couple of days he has had right upper quadrant pain. Worse after eating. Nothing seems to make it better or worse. Still has his gallbladder. Intermittent chills but does not know if he has had a fever or not. No change in stool. Pain radiates to the right side of his back as well. TRAVEL OUTSIDE OF THE [place] IN LAST 30 DAYS: No - HPI Onset: Last week Onset/Duration: Gradual Quality of pain: Achy Severity: Moderate Pain Level: 4 Associated symptoms: Nausea Relieved by: Denies Similar symptoms previously: No Recently seen / treated by doctor: Yes - Had umbilical hernia surgery 30 days ago - Related Data Allergies/Adverse Reactions: codeine [Codeine] Adverse Reaction (Verified 01/19/17 16:19) NSAIDS (Non-Steroidal Anti-Inflamma Adverse Reaction (Verified 01/19/17 16:19) Past Medical History - General Information source: Patient - Social History Smoking Status: Never Smoker Chew tobacco use (# tins/day): No Frequency of alcohol use: None Drug Abuse: None Family History: Arthritis, CVA, Hypertension, Malignancy Patient has suicidal ideation: No Patient has homicidal ideation: No - Past Medical History Cardiac Medical History: Reports: Hx Hypertension Denies: Hx Coronary Artery Disease, Hx Heart Attack Pulmonary Medical History: Reports: Hx Asthma Denies: Hx Bronchitis, Hx COPD, Hx Pneumonia Neurological Medical History: Denies: Hx Cerebrovascular Accident, Hx Seizures Renal/ Medical History: Denies: Hx Peritoneal Dialysis GI Medical History: Reports: Hx Gastroesophageal Reflux Disease - Pickett's esophagitis as well as reflux Musculoskeltal Medical History: Denies Hx Arthritis, Reports Hx Musculoskeletal Deformity, Reports Hx Musculoskeletal Trauma Psychiatric Medical History: Reports: Hx Anxiety, Hx Attention Deficit Hyperactivity Disorder, Hx Depression Traumatic Medical History: Reports: Hx Fractures - thumb Past Surgical History: Reports: Hx Orthopedic Surgery - rt shoulder, rt thumb - Immunizations Hx Diphtheria, Pertussis, Tetanus Vaccination: Yes Review of Systems - Review of Systems Constitutional: No symptoms reported EENT: No symptoms reported Cardiovascular: No symptoms reported Respiratory: No symptoms reported Gastrointestinal: No symptoms reported, Abdominal pain, Nausea Genitourinary: No symptoms reported Male Genitourinary: No symptoms reported Musculoskeletal: No symptoms reported Skin: No symptoms reported Hematologic/Lymphatic: No symptoms reported Neurological/Psychological: No symptoms reported Physical Exam - Vital signs Vitals: Temp Pulse Resp BP Pulse Ox 97.4 F 80 20 132/90 H 98 01/19/17 16:18 01/19/17 16:18 01/19/17 16:18 01/19/17 16:18 01/19/17 16:18 Interpretation: Normal - General General appearance: Appears well, Alert - HEENT Head: Normocephalic, Atraumatic Eyes: Normal Pupils: PERRL - Respiratory Respiratory status: No respiratory distress Chest status: Nontender Breath sounds: Normal Chest palpation: Normal - Cardiovascular Rhythm: Regular Heart sounds: Normal auscultation Murmur: No - Abdominal Inspection: Normal Distension: No distension Bowel sounds: Normal Tenderness: Tender, Other - Tenderness in the right upper quadrant with positive Viera sign Organomegaly: No organomegaly - Back Back: Normal, Nontender - Extremities General upper extremity: Normal inspection, Nontender, Normal color, Normal ROM , Normal temperature General lower extremity: Normal inspection, Nontender, Normal color, Normal ROM , Normal temperature, Normal weight bearing. No: Dewey's sign - Neurological Neuro grossly intact: Yes Cognition: Normal Orientation: AAOx4 [place] Coma Scale Eye Opening: Spontaneous [place] Coma Scale Verbal: Oriented Mandi Coma Scale Motor: Obeys Commands Mandi Coma Scale Total: 15 Speech: Normal Motor strength normal: LUE, RUE, LLE, RLE Sensory: Normal - Psychological Associated symptoms: Normal affect, Normal mood - Skin Skin Temperature: Warm Skin Moisture: Dry Skin Color: Normal Course - Re-evaluation Re-evalutation: 01/19/17 19:42 Patient feeling a little bit better. Ultrasound does show some gallstones with a trace amount of pericholecystic fluid. Does not have a fever. Does not have an elevated WBC count. Consulted with general surgeon, Dr. Arnold who recommends p.o. challenge and outpatient follow-up. Patient already has follow- up scheduled for next Monday with surgeon. Comfortable with this plan at this time. - Vital Signs Vital signs: Temp Pulse Resp BP Pulse Ox 97.4 F 80 25 H 124/75 99 01/19/17 16:18 01/19/17 16:18 01/19/17 19:09 01/19/17 19:09 01/19/17 19:09 - Laboratory Result Diagrams: 01/19/17 16:45 01/19/17 16:45 Laboratory results interpreted by me: 01/19/17 01/19/17 16:40 16:45 MCH 33.5 H Monocytes % 14.3 H Urine Urobilinogen 4.0 H Discharge - Discharge Clinical Impression: Biliary colic symptom Cholelithiasis Qualifiers: Cholelithiasis location: gallbladder Cholecystitis presence: without cholecystitis Biliary obstruction: without biliary obstruction Qualified Code(s) : K80.20 - Calculus of gallbladder without cholecystitis without obstruction Condition: Good Disposition: HOME, SELF-CARE Instructions: Abdominal Pain ([facility]), Gallbladder Disease ([facility]), Oral Narcotic Medication ([facility]) Additional Instructions: Return to the emergency department in 24 hours or sooner if abdominal pain is getting worse or is not improved. Especially return if you develop fever, inability to keep food or liquid down, chest pain, shortness of breath or other symptoms. Prescriptions: Dicyclomine HCl [Bentyl 20 mg Tablet] 20 mg PO TID 30 Days #30 tablet Hydrocodone/Acetaminophen [[place] 5-325 mg Tablet] 1 tab PO TID 5 Days #15 tablet Ondansetron [Zofran Odt 4 mg Tablet] 1 - 2 tab PO Q4H PRN #15 tab.rapdis PRN Reason: For Nausea/Vomiting Referrals: LOLA VALENTIN MD [ACTIVE STAFF] - Follow up as needed
[2017-01-19 17:32] LABS: ALANINE AMINOTRANSFERASE 49 U/L (21-72); ALBUMIN 4.1 g/dL (3.5-5.0); ALKALINE PHOSPHATASE 55 U/L (38-126); ANION GAP 11 (5-19); ASPARTATE AMINO TRANSFERASE 36 U/L (17-59); BILIRUBIN,DIRECT 0.3 mg/dL (0.0-0.4); BILIRUBIN,TOTAL 0.4 mg/dL (0.2-1.3); BLOOD UREA NITROGEN 14 mg/dL (7-20); CALCIUM 9.4 mg/dL (8.4-10.2); CARBON DIOXIDE 24 mmol/L (22-30); CHLORIDE 107 mmol/L (98-107); CREATININE RESULT 0.86 mg/dL (0.52-1.25); GLUCOSE 83 mg/dL (75-110); LIPASE 74.9 U/L (23-300); POTASSIUM 4.5 mmol/L (3.6-5.0); SODIUM 142.4 mmol/L (137-145); TOTAL PROTEIN 6.5 g/dL (6.3-8.2)
--- NOTE | 2017-01-19 19:05 | RADIOLOGY REPORT (SQ) ---
EXAM DESCRIPTION: U/S ABDOMEN LIMITED W/O DOP COMPLETED DATE/TIME: 01/19/2017 6:48 pm REASON FOR STUDY: ruq pain COMPARISON: None. TECHNIQUE: Dynamic and static grayscale images acquired of the right upper quadrant and recorded on PACS. Additional selected color Doppler and spectral images recorded. LIMITATIONS: Study limited due to the patient's body habitus and overlying bowel gas. FINDINGS: PANCREAS: Parts of the pancreas poorly seen secondary to acoustical interference from fat or from air in the bowel. LIVER: Echotexture is coarse with increased echogenicity consistent with fatty infiltration. No mass es. LIVER VASCULATURE: Normal directional flow of the main portal vein and hepatic veins. GALLBLADDER: Limited visualization. Possible tiny gallstones. No gallbladder wall thickening. Ques tionable trace pericholecystic fluid. ULTRASOUND-DETECTED STONE'S SIGN: Negative. INTRAHEPATIC DUCTS AND COMMON DUCT: CBD and intrahepatic ducts normal caliber. No filling defects. INFERIOR VENA CAVA: Normal flow. AORTA: No aneurysm. RIGHT KIDNEY: Normal size. Normal echogenicity. No solid or suspicious masses. No hydronephrosis. No calcifications. PERITONEAL CAVITY AND RIGHT PLEURAL SPACE: No ascites or effusions. OTHER: No other significant finding. IMPRESSION: LIMITED STUDY. POSSIBLE TINY GALLSTONES. QUESTIONABLE TRACE PERICHOLECYSTIC FLUID. DI FFUSE FATTY INFILTRATION OF THE LIVER. TECHNICAL DOCUMENTATION: JOB ID: [id number] [employer]- All Rights Reserved
[2017-01-19] MEDS ORDERED: DICYCLOMINE HCL 20 MG TABLET PO ONE (19:36)
[2017-01-19 20:35] VITALS: BP 131/91
== END 2017-01-19 20:36 | disposition home or self-care (01) ==
LOC: ER 16:15
DX: K80.20 Calculus of gallbladder without cholecystitis without obstruction (principal); K80.50 Calculus of bile duct without cholangitis or cholecystitis without obstruction; R10.9 Unspecified abdominal pain; R11.2 Nausea with vomiting, unspecified; I10 Essential (primary) hypertension; Z88.6 Allergy status to analgesic agent
CPT/HCPCS: 96376; 99284; 96361; 96374; 96375; 36415; 83690; 85025; 80053; 81001; 83605; 76705; J3490; J2270; J2405; J7030

== ENCOUNTER 2017-02-04 13:32 | Emergency (ER) | payer MEDICAID ==
[2017-02-04 13:40] VITALS: BP 140/93
[2017-02-04] MEDS ORDERED: HYDROCODONE/ACETAMINOPHEN 5-325 MG 6 TAB/DSPK PO PRN (14:25)
[2017-02-04] MEDS ORDERED: LIDOCAINE 5% (700 MG) TRANSDERMAL ADH..PATCH TP ONE (14:25)
--- NOTE | 2017-02-04 14:32 | ER Document Report ---
ED Neck/Back Problem - General Chief Complaint: Back Pain Stated Complaint: LOWER BACK AND LEG PAIN Time Seen by Provider: 02/04/17 13:57 Mode of Arrival: Wheelchair Information source: Patient Notes: 31-year-old male presents to ED for complaint of right hip and lower back pain running down his right leg. He states he was sitting in a deer stand on and when he tried to stand up his leg was numb and gave out from under him and he fell landing on some limbs in brush. He states he has been trying to use Tylenol ice and heat and BenGay for the pain but he is continuing to hurt and the pain is running down his leg. He states he cannot take ibuprofen because he has Pickett's esophagitis and has been told not to take any kind of NSAIDs. States he also has severe gastritis and GERD and had a cholecystectomy in the latter part of December this year. TRAVEL OUTSIDE OF THE [place] IN LAST 30 DAYS: No - HPI Patient complains to provider of: Lower back - Right lower back and hip Onset: Other - Where: Outdoors Timing: Still present Quality of pain: Sharp, Throbbing Severity: Severe Pain Level: 5 Context: Fall/near-fall Recent injury: Yes Associated symptoms: Numbness/tingling, Radiation to leg, Lower back pain - Right lower back and right hip due to fall. denies: Constipation, Incontinence , Like prior neck/back pain, Motor loss, Sensory loss, Sweaty, Unable to urinate , Upper back pain Exacerbated by: Movement of trunk, Sitting position Relieved by: Nothing Similar symptoms previously: No Recently seen / treated by doctor: Yes - Related Data Allergies/Adverse Reactions: codeine [Codeine] Adverse Reaction (Verified 02/04/17 13:37) NSAIDS (Non-Steroidal Anti-Inflamma Adverse Reaction (Verified 02/04/17 13:37) Past Medical History - General Information source: Patient - Social History Smoking Status: Former Smoker Cigarette use (# per day): Yes Chew tobacco use (# tins/day): No Smoking Education Provided: Yes Frequency of alcohol use: None Drug Abuse: None Lives with: Family Family History: Arthritis, COPD, CVA, Hyperlipidemia, Hypertension, Malignancy, Thyroid Disfunction. denies: CAD Patient has suicidal ideation: No Patient has homicidal ideation: No - Past Medical History Cardiac Medical History: Reports: Hx Hypertension Pulmonary Medical History: Reports: Hx Asthma, Hx Bronchitis, Hx Pneumonia EENT Medical History: Reports: None Neurological Medical History: Reports: None Endocrine Medical History: Reports: None Renal/ Medical History: Reports: None Malignancy Medical History: Reports None GI Medical History: Reports: Hx Gastritis, Hx Gastroesophageal Reflux Disease - Pickett's esophagus, Hx Colonoscopy, Hx Endoscopy, Other - Pickett's esophagitis Musculoskeltal Medical History: Reports Hx Musculoskeletal Deformity, Reports Hx Musculoskeletal Trauma Skin Medical History: Reports None Psychiatric Medical History: Reports: Hx Anxiety, Hx Attention Deficit Hyperactivity Disorder Traumatic Medical History: Reports: Hx Fractures - thumb Infectious Medical History: Reports: None Past Surgical History: Reports: Hx Cholecystectomy, Hx Orthopedic Surgery - rt shoulder, rt thumb, Hx Umbilical Hernia, Other - Umbilical hernia repair 1 month prior, primary - Immunizations Immunizations up to date: Yes Hx Diphtheria, Pertussis, Tetanus Vaccination: Yes Review of Systems - Review of Systems Constitutional: No symptoms reported EENT: No symptoms reported Cardiovascular: No symptoms reported Respiratory: No symptoms reported Gastrointestinal: No symptoms reported Genitourinary: No symptoms reported Male Genitourinary: No symptoms reported Musculoskeletal: Back pain, Muscle pain, Muscle stiffness - Mild swelling to the right pelvic region Skin: No symptoms reported Hematologic/Lymphatic: No symptoms reported Neurological/Psychological: No symptoms reported -: Yes All other systems reviewed and negative Physical Exam - Vital signs Vitals: Temp Pulse Resp BP Pulse Ox 97.6 F 92 20 140/93 H 97 02/04/17 13:37 02/04/17 13:37 02/04/17 13:37 02/04/17 13:37 02/04/17 13:37 Interpretation: Normal - General General appearance: Appears well, Alert - HEENT Head: Normocephalic, Atraumatic Eyes: Normal Pupils: PERRL - Respiratory Respiratory status: No respiratory distress Chest status: Nontender Breath sounds: Normal Chest palpation: Normal - Cardiovascular Rhythm: Regular Heart sounds: Normal auscultation Murmur: No - Abdominal Inspection: Normal Distension: No distension Bowel sounds: Normal Tenderness: Nontender Organomegaly: No organomegaly - Back Back: Normal, Tender - Posterior right pelvic area right lower back and right hip. No: Deformity/step-off, CVA tenderness, Vertebra tenderness, Scars, Scoliosis, Wounds - Extremities General upper extremity: Normal inspection, Nontender, Normal color, Normal ROM , Normal temperature General lower extremity: Normal color, Normal ROM, Normal temperature. No: Dewey's sign Hip: Tender, Ecchymosis, Pain with ROM, Unable to bear weight. No: Abrasion - Pain with ambulation, Deformity, Dislocation, Instability, Laceration - Neurological Neuro grossly intact: Yes Cognition: Normal Orientation: AAOx4 Mandi Coma Scale Eye Opening: Spontaneous [place] Coma Scale Verbal: Oriented Mandi Coma Scale Motor: Obeys Commands Mandi Coma Scale Total: 15 Speech: Normal Motor strength normal: LUE, RUE, LLE, RLE Sensory: Normal - Psychological Associated symptoms: Normal affect, Normal mood - Skin Skin Temperature: Warm Skin Moisture: Dry Skin Color: Normal Course - Re-evaluation Re-evalutation: 02/04/17 15:57 Discussed x-rays with patient and written report given the patient to follow-up with primary doctor. Patient was given a Argyle dispense pack and a Lidoderm patch for his pain. Patient instructed on use ice and warm packs and Aspercreme for his pain. - Vital Signs Vital signs: Temp Pulse Resp BP Pulse Ox 97.6 F 92 20 140/93 H 97 02/04/17 13:37 02/04/17 13:37 02/04/17 13:37 02/04/17 13:37 02/04/17 13:37 - Diagnostic Test Radiology reviewed: Image reviewed, Reports reviewed Discharge - Discharge Clinical Impression: right low back contusion Contusion of right hip and thigh Qualifiers: Encounter type: initial encounter Qualified Code(s): S70.01XA - Contusion of right hip, initial encounter; S70.11XA - Contusion of right thigh, initial encounter; S70.11XA - Contusion of right thigh, initial encounter Condition: Stable Disposition: HOME, SELF-CARE Instructions: Family Physicians / Practices Additional Instructions: CONTUSION: Your injury has resulted in a contusion -- a crushing of the deep tissues. No injury to important structures was detected during the physician's exam. Contusions vary in the amount of pain they cause, and in the length of time required for healing. Typically, the area will become bruised, and will remain painful to touch for two or three weeks. However, most patients are back to working and playing within a few days. After the initial period of rest and cold-packs, your symptoms (together with the doctor's recommendations) will determine how rapidly you can get back to full activity. Usually this means "do what feels okay, but don't do things that hurt." If re-examination was recommended, it's important to follow up as instructed. Call the doctor or return any time if pain increases, if swelling becomes severe, if you develop numbness or weakness in an injured extremity, or if any other alarming symptoms occur. LOW BACK PAIN: Three out of every four people will have an episode of disabling back pain during their lifetime. Most commonly the pain is due to straining of the muscles and ligaments in the low back. Usual treatment includes: (1) Rest on a firm surface. Avoid lying on your stomach. (2) Ice pack the painful area. After a few days, gentle heat may be used intermittently to relax the area, or ice packs can be continued. (3) Medication may be needed -- muscle relaxers and antiinflammatory medicines are commonly used. (4) As the back improves, exercises are prescribed to strengthen the back and abdominal muscles. Your doctor will advise you on the proper care for your back at each stage in your recovery. You may be better in a few days -- or healing may take several weeks. If new symptoms of a "herniated disc" (radiation of pain, numbness, or tingling down the back of the leg or weakness in the leg) occur, you should be re-examined. Further testing may be necessary. ICE PACKS: Apply ice packs frequently against the painful area. Many different schedules are recommended, such as "20 minutes on, 20 minutes off" or "one hour ice, two hours rest." If you need to work, you may need to go longer between ice treatments. You should plan to have the area ice packed AT LEAST one fourth of the time. The ice should be applied over the wrap, tape, or splint, or over a layer of cloth -- not directly against the skin. Some ice bags have a built-in cloth and can be put directly on the skin. WARM PACKS: After approximately two days, apply gentle heat (such as a heating pad or hot water bottle) for about 20 to 30 minutes about every two hours -- at least four times daily. Warmth and elevation will help you make a more rapid recovery , and will ease the pain considerably. Do not use HOT heat, and never apply heat for longer than 30 minutes. The continuous heat can invisibly damage skin and muscles -- even when no burn is seen on the surface. Damaged muscles can make you MORE sore. ORAL NARCOTIC MEDICATION: You have been given a Argyle dispense pack for pain control. This medication is a narcotic. It's best taken with food, as nausea can result if taken on an empty stomach. Don't operate machinery or drive within six hours of taking this medication. Do not combine this medicine with alcohol, or with any medication which can cause sedation (such as cold tablets or sleeping pills) unless you get permission from the physician. Narcotics tend to cause constipation. If possible, drink plenty of fluids and eat a diet high in fiber and fruits. FOLLOW-UP CARE: If you have been referred to a physician for follow-up care, call the physician s office for an appointment as you were instructed or within the next two days. If you experience worsening or a significant change in your symptoms, notify the physician immediately or return to the Emergency Department at any time for re-evaluation. Forms: Elevated Blood Pressure
--- NOTE | 2017-02-04 15:06 | RADIOLOGY REPORT (SQ) ---
EXAM DESCRIPTION: HIP RIGHT AP/LATERAL COMPLETED DATE/TIME: 02/04/2017 2:51 pm REASON FOR STUDY: pain and fall COMPARISON: None. NUMBER OF VIEWS: 3 images total, AP pelvis as well as right hip AP and frog lateral. LIMITATIONS: None. FINDINGS: There is no acute or significant bone, joint or soft tissue abnormality. OTHER: No other significant finding. IMPRESSION: NORMAL STUDY. TECHNICAL DOCUMENTATION: JOB ID: [id number]
== END 2017-02-04 16:05 | disposition home or self-care (01) ==
LOC: ER 13:32
DX: S30.0XXA Contusion of lower back and pelvis, initial encounter (principal); S70.01XA Contusion of right hip, initial encounter; S70.11XA Contusion of right thigh, initial encounter; M25.551 Pain in right hip; M54.5 Low back pain; W17.89XA Other fall from one level to another, initial encounter; K21.0 Gastro-esophageal reflux disease with esophagitis; K22.70 Barrett's esophagus without dysplasia; K29.70 Gastritis, unspecified, without bleeding; I10 Essential (primary) hypertension; J45.909 Unspecified asthma, uncomplicated
CPT/HCPCS: 99283; 73502; J3490

== ENCOUNTER 2017-02-15 11:46 | Emergency (ER) | payer MEDICAID ==
[2017-02-15 11:51] VITALS: BP 150/96
[2017-02-15] MEDS ORDERED: METHYLPREDNISOLONE INJ 40 MG/1 ML SDV IV ONE (12:15)
[2017-02-15] MEDS ORDERED: OXYCODONE-ACETAMINOPHEN 5-325 MG TABLET PO ONE ×2 (12:15→14:12)
[2017-02-15] MEDS ORDERED: CYCLOBENZAPRINE HCL 10 MG TABLET PO ONE (12:15)
--- NOTE | 2017-02-15 12:16 | ER Document Report ---
HPI - HPI Pain Level: 5 Context: patient is a 41-year-old male who presents emergency department complaining of acute on chronic back pain. Patient has been having back pain on and off for this year but has been worse over the past couple weeks. Patient states that he fell yesterday and states that his right-sided back pain is worse than normal. He admits to right-sided back pain with right-sided sciatica but denies any urinary/incontinence, saddle anesthesia. Denies any numbness and tingling in his extremities, able to bear weight. Patient states that he is not able to take any nonsteroidal anti-inflammatories and that he is already on prednisone by his primary care doctor who he saw on the and was sent home with Percocet. - REPRODUCTIVE Reproductive: DENIES: : Past Medical History - Social History Smoking Status: Never Smoker Family History: Arthritis, COPD, CVA, Hyperlipidemia, Hypertension, Malignancy, Thyroid Disfunction. denies: CAD - Past Medical History Cardiac Medical History: Reports: Hx Hypertension Denies: Hx Heart Attack Pulmonary Medical History: Reports: Hx Asthma, Hx Bronchitis, Hx Pneumonia Denies: Hx COPD Neurological Medical History: Denies: Hx Seizures Renal/ Medical History: Denies: Hx Peritoneal Dialysis GI Medical History: Reports: Hx Gastritis, Hx Gastroesophageal Reflux Disease - Pickett's esophagus, Hx Colonoscopy, Hx Endoscopy Musculoskeltal Medical History: Denies Hx Arthritis, Reports Hx Musculoskeletal Deformity, Reports Hx Musculoskeletal Trauma Psychiatric Medical History: Reports: Hx Anxiety, Hx Attention Deficit Hyperactivity Disorder Denies: Hx Depression Traumatic Medical History: Reports: Hx Fractures - thumb Past Surgical History: Reports: Hx Cholecystectomy, Hx Orthopedic Surgery - rt shoulder, rt thumb, Hx Umbilical Hernia, Other - Umbilical hernia repair 1 month prior, primary - Immunizations Immunizations up to date: Yes Hx Diphtheria, Pertussis, Tetanus Vaccination: Yes Vertical Provider Document - CONSTITUTIONAL Notes: PHYSICAL EXAM GENERAL: Alert, interacts well. LUNGS: Clear to auscultation bilaterally, no wheezes, rales, or rhonchi. No respiratory distress. HEART: Regular rate and rhythm. No murmurs, gallops, or rubs. ABDOMEN: Soft, nondistended, nontender. No guarding, rebound, or rigidity.. Bowel sounds present in all 4 quadrants. EXTREMITIES: Moves all 4 extremities spontaneously. No edema, radial and dorsalis pedis pulses 2/4 bilaterally. No cyanosis. Back: Right-sided paralumbar muscular tenderness with pain reproducible palpation. No spinous process tenderness, step-offs or deformities. No CVA tenderness bilaterally NEUROLOGICAL: Alert and oriented x4. Normal speech. PSYCH: Normal affect, normal mood. SKIN: Warm, dry, normal turgor. No rashes or lesions noted. - INFECTION CONTROL TRAVEL OUTSIDE OF THE [place] IN LAST 30 DAYS: No - RESPIRATORY O2 Sat by Pulse Oximetry: 97 Course - Re-evaluation Re-evalutation: 02/15/17 14:00 Patient is a 41-year-old male who is hemodynamically stable, no acute distress and afebrile. Presentation is consistent with an acute exacerbation of his chronic back pain. Patient does have a scheduled follow-up appointment with his primary care doctor on Monday and states that he has an outpatient MRI scheduled for his chronic back pain. The patient presents with low back pain without signs of spinal cord compression, cauda equina syndrome, infection, aneurysm, or other serious etiology. The patient is neurologically intact. Given the extremely low risk of these diagnoses further testing and evaluation for these possibilities does not appear to be indicated at this time. The patient has been instructed to return if the symptoms worsen or change in any way. - Vital Signs Vital signs: Temp Pulse Resp BP Pulse Ox 97.7 F 108 H 20 150/96 H 97 02/15/17 11:48 02/15/17 11:48 02/15/17 11:48 02/15/17 11:48 02/15/17 11:48 - Diagnostic Test Radiology reviewed: Image reviewed, Reports reviewed Discharge - Discharge Clinical Impression: Back pain Qualifiers: Back pain location: low back pain Chronicity: chronic Back pain laterality: right Sciatica presence: with sciatica Sciatica laterality: sciatica of right side Qualified Code(s): M54.41 - Lumbago with sciatica, right side Condition: Good Disposition: HOME, SELF-CARE Additional Instructions: Please follow up with your primary care doctor on Monday as scheduled LOW BACK PAIN: Three out of every four people will have an episode of disabling back pain during their lifetime. Most commonly the pain is due to straining of the muscles and ligaments in the low back. Usual treatment includes: (1) Rest on a firm surface. Avoid lying on your stomach. (2) Ice pack the painful area. After a few days, gentle heat may be used intermittently to relax the area, or ice packs can be continued. (3) Medication may be needed -- muscle relaxers and antiinflammatory medicines are commonly used. (4) As the back improves, exercises are prescribed to strengthen the back and abdominal muscles. Your doctor will advise you on the proper care for your back at each stage in your recovery. You may be better in a few days -- or healing may take several weeks. If new symptoms of a "herniated disc" (radiation of pain, numbness, or tingling down the back of the leg or weakness in the leg) occur, you should be re-examined. Further testing may be necessary. MUSCLE RELAXERS: Muscle relaxing medications are usually prescribed for acute muscle spasm or injury to the neck and back. They are often combined with antiinflammatory pain medication for increased relief. You may stop the muscle relaxer when the pain and stiffness have improved. Start the medication again if spasms recur. Muscle relaxers may cause drowsiness, especially with the first dose. Do not operate machinery or drive while under the effects of the medication. Most muscle relaxers last up to 24 hours. Do not combine the medication with alcohol. ICE PACKS: Apply ice packs frequently against the painful area. Many different schedules are recommended, such as "20 minutes on, 20 minutes off" or "one hour ice, two hours rest." If you need to work, you may need to go longer between ice treatments. You should plan to have the area ice packed AT LEAST one fourth of the time. The ice should be applied over the wrap, tape, or splint, or over a layer of cloth -- not directly against the skin. Some ice bags have a built-in cloth and can be put directly on the skin. WARM PACKS: After approximately two days, apply gentle heat (such as a heating pad or hot water bottle) for about 20 to 30 minutes about every two hours -- at least four times daily. Warmth and elevation will help you make a more rapid recovery , and will ease the pain considerably. Do not use HOT heat, and never apply heat for longer than 30 minutes. The continuous heat can invisibly damage skin and muscles -- even when no burn is seen on the surface. Damaged muscles can make you MORE sore. FOLLOW-UP CARE: If you have been referred to a physician for follow-up care, call the physician s office for an appointment as you were instructed or within the next two days. If you experience worsening or a significant change in your symptoms, notify the physician immediately or return to the Emergency Department at any time for re-evaluation. Prescriptions: Cyclobenzaprine HCl [Flexeril 10 mg Tablet] 10 mg PO TIDP PRN #15 tab PRN Reason: Lidocaine [Lidoderm 5% (700 mg) Transdermal Patch] 1 patch TP DAILY #15 adh..patch
--- NOTE | 2017-02-15 14:01 | RADIOLOGY REPORT (SQ) ---
EXAM DESCRIPTION: L SPINE WHOLE COMPLETED DATE/TIME: 02/15/2017 1:24 pm REASON FOR STUDY: low back pain COMPARISON: CT abdomen and pelvis 01/21/2017 NUMBER OF VIEWS: Five views including obliques. TECHNIQUE: AP, lateral, oblique, and sacral radiographic images acquired of the lumbar spine. LIMITATIONS: None. FINDINGS: MINERALIZATION: Normal. SEGMENTATION: Normal. No transitional anatomy. ALIGNMENT: Normal. VERTEBRAE: Maintained height. No fracture or worrisome bone lesion. DISCS: Preserved height. No significant osteophytes or end plate irregularity. POSTERIOR ELEMENTS: Pedicles and facets are intact. No pars defect or posterior arch defects. HARDWARE: Clips right upper quadrant post cholecystectomy PARASPINAL SOFT TISSUES: Normal. PELVIS: Intact as visualized. No fractures or worrisome bone lesions. SI joints intact. OTHER: No other significant finding. IMPRESSION: NORMAL 5 VIEW LUMBAR SPINE. TECHNICAL DOCUMENTATION: JOB ID: [id number] [employer]- All Rights Reserved
== END 2017-02-15 14:30 | disposition home or self-care (01) ==
LOC: ER 11:46
DX: M54.41 Lumbago with sciatica, right side (principal); M54.9 Dorsalgia, unspecified; G89.29 Other chronic pain; W19.XXXA Unspecified fall, initial encounter
CPT/HCPCS: 99283; 96374; 72110; J3490; J2920

== ENCOUNTER → 2017-03-02 | Outpatient (CLI) | payer MEDICAID ==
[2017-03-02 09:44] LABS: ABSOLUTE BASOPHILS # (AUTO) 0.1 10^3/uL (0.0-0.2); ABSOLUTE EOSINOPHILS # (AUTO) 0.1 10^3/uL (0.0-0.6); ABSOLUTE LYMPHOCYTES (AUTO) 2.2 10^3/uL (0.5-4.7); ABSOLUTE MONOCYTES (AUTO) 1.1 10^3/uL (0.1-1.4); ABSOLUTE NEUT (AUTO) 4.2 10^3/uL (1.7-8.2); BASOPHILS % (AUTO) 1.2 % (0-2); HEMATOCRIT 45.8 % (37.9-51.0); HEMOGLOBIN 16.3 g/dL (13.5-17.0); HGB HCT DIFFERENCE 3.1; LYMPHOCYTES % (AUTO) 28.3 % (13-45); MEAN CORPUSCULAR HGB CONC 35.6 g/dL (32.0-36.0); MEAN CORPUSCULAR VOLUME 96 fl (80-97); MONOCYTES % (AUTO) 14.5 % (3-13); RED BLOOD COUNT 4.79 10^6/uL (4.35-5.55); RED CELL DISTRIBUTION WIDTH 13.5 % (11.5-14.0); WHITE BLOOD COUNT 7.6 10^3/uL (4.0-10.5)
[2017-03-02 10:06] LABS: ALANINE AMINOTRANSFERASE 53 U/L (21-72); ALBUMIN 4.1 g/dL (3.5-5.0); ALKALINE PHOSPHATASE 69 U/L (38-126); ANION GAP 12 (5-19); ASPARTATE AMINO TRANSFERASE 22 U/L (17-59); BILIRUBIN,DIRECT 0.4 mg/dL (0.0-0.4); BILIRUBIN,TOTAL 0.5 mg/dL (0.2-1.3); BLOOD UREA NITROGEN 16 mg/dL (7-20); CALCIUM 9.2 mg/dL (8.4-10.2); CARBON DIOXIDE 26 mmol/L (22-30); CHLORIDE 104 mmol/L (98-107); CREATININE RESULT 0.86 mg/dL (0.52-1.25); GLUCOSE 104 mg/dL (75-110); POTASSIUM 4.4 mmol/L (3.6-5.0); SODIUM 142.1 mmol/L (137-145); TOTAL PROTEIN 6.9 g/dL (6.3-8.2)
--- NOTE | 2017-03-02 11:36 | RADIOLOGY REPORT (SQ) ---
EXAM DESCRIPTION: CT ABD/PELVIS WITH IV ORAL COMPLETED DATE/TIME: 03/02/2017 10:17 am REASON FOR STUDY: LOWER ABD PAIN (R10.30) R10.30 LOWER ABDOMINAL PAIN, UNSPECIFIED COMPARISON: 01/21/2017 TECHNIQUE: CT scan of the abdomen and pelvis performed using helical scanning technique with dynamic intravenous contrast injection. Oral contrast. Images reviewed with lung, soft tissue, and bone win dows. Reconstructed coronal and sagittal MPR images reviewed. Delayed images for evaluation of the ur inary system also acquired. All images stored on PACS. All CT scanners at this facility use dose modulation, iterative reconstruction, and/or weight based d osing when appropriate to reduce radiation dose to as low as reasonably achievable (ALARA). [facility]: Dose Right [facility]: CareDose [facility]: Dose Right [facility]: Teradose 4D [facility]: Shippo CONTRAST TYPE AND DOSE: contrast/concentration: Isovue 370.00 mg/ml; Total Contrast Delivered: 100.0 ml; Total Saline Delivered: 72.0 ml RENAL FUNCTION: Creatinine 0.8 RADIATION DOSE: CT Rad equipment meets quality standard of care and radiation dose reduction techniq ues were employed. CTDIvol: 20.2 - 21.3 mGy. DLP: 2291 mGy-cm.. LIMITATIONS: None. FINDINGS: LOWER CHEST: No significant findings. No nodules or infiltrates. LIVER: Diffuse decreased attenuation. No masses. Persistent dilatation the common bile duct likely secondary to cholecystectomy. No intrahepatic ductal dilatation is seen. SPLEEN: Normal size. No focal lesions. PANCREAS: No masses. No significant calcifications. No adjacent inflammation or peripancreatic fluid collections. Pancreatic duct not dilated. GALLBLADDER: Surgically absent. ADRENAL GLANDS: No significant masses or asymmetry. RIGHT KIDNEY AND URETER: No solid masses. No significant calcifications. No hydronephrosis or hyd roureter. LEFT KIDNEY AND URETER: No solid masses. No significant calcifications. No hydronephrosis or hydr oureter. AORTA AND VESSELS: No aneurysm. No dissection. Renal arteries, SMA, celiac without stenosis. RETROPERITONEUM: No retroperitoneal adenopathy, hemorrhage or masses. BOWEL AND PERITONEAL CAVITY: No obstructive lesion. No inflammatory changes. Contrast is in the rec emilie. APPENDIX: Normal. PELVIS: No mass. No free fluid. Normal bladder. ABDOMINAL WALL: No masses. No hernias. BONES: No significant or acute findings. OTHER: No other significant finding. IMPRESSION: The study is essentially normal. There are no findings that explain the patient's pain. The common bile duct remains dilated as discussed. TECHNICAL DOCUMENTATION: JOB ID: [id number] Quality ID # [id number]: Final reports with documentation of one or more dose reduction techniques (e.g., Au tomated exposure control, adjustment of the mA and/or kV according to patient size, use of iterative reconstruction technique) 2010 [employer]- All Rights Reserved
== END ==
LOC: RAD 09:28
PROVIDERS: ATTEND Surgery
DX: R10.30 Lower abdominal pain, unspecified (principal)
CPT/HCPCS: 36415; 74177; 80053; 82565; 85025

== ENCOUNTER 2017-03-04 19:06 | Emergency (ER) | payer MEDICAID ==
[2017-03-04 20:29] LABS: ABSOLUTE LYMPHOCYTES (AUTO) 2.6 10^3/uL (0.5-4.7); ABSOLUTE MONOCYTES (AUTO) 1.2 10^3/uL (0.1-1.4); ABSOLUTE NEUT (AUTO) 4.7 10^3/uL (1.7-8.2); BASOPHILS % (AUTO) 0.4 % (0-2); EOSINOPHILS % (AUTO) 0.5 % (0-6); HEMATOCRIT 46.2 % (37.9-51.0); HEMOGLOBIN 16.6 g/dL (13.5-17.0); HGB HCT DIFFERENCE 3.6; MEAN CORPUSCULAR HEMOGLOBIN 34.2 pg (27.0-33.4); MEAN CORPUSCULAR VOLUME 95 fl (80-97); MONOCYTES % (AUTO) 14.3 % (3-13); RED BLOOD COUNT 4.85 10^6/uL (4.35-5.55); RED CELL DISTRIBUTION WIDTH 13.7 % (11.5-14.0); SEGMENTED NEUTROPHILS % (AUTO) 54.8 % (42-78); WHITE BLOOD COUNT 8.6 10^3/uL (4.0-10.5)
[2017-03-04 20:41] LABS: APPEARANCE,URINE CLEAR; BILIRUBIN,URINE NEGATIVE (NEGATIVE); GLUCOSE, URINE NEGATIVE (NEGATIVE); KETONES,URINE NEGATIVE (NEGATIVE); LEUKOCYTE ESTERASE,URINE NEGATIVE (NEGATIVE); NITRITE,URINE NEGATIVE (NEGATIVE); PROTEIN,URINE NEGATIVE (NEGATIVE); URINE SPECIFIC GRAVITY 1.027
[2017-03-04 20:42] LABS: ALANINE AMINOTRANSFERASE 50 U/L (21-72); ALBUMIN 4.2 g/dL (3.5-5.0); ALKALINE PHOSPHATASE 73 U/L (38-126); ANION GAP 16 (5-19); ASPARTATE AMINO TRANSFERASE 26 U/L (17-59); BILIRUBIN,DIRECT 0.3 mg/dL (0.0-0.4); BILIRUBIN,TOTAL 0.5 mg/dL (0.2-1.3); BLOOD UREA NITROGEN 12 mg/dL (7-20); CALCIUM 9.7 mg/dL (8.4-10.2); CARBON DIOXIDE 21 mmol/L (22-30); CHLORIDE 104 mmol/L (98-107); CREATININE RESULT 0.79 mg/dL (0.52-1.25); GLUCOSE 104 mg/dL (75-110); LIPASE 103.1 U/L (23-300); POTASSIUM 4.3 mmol/L (3.6-5.0); SODIUM 141.3 mmol/L (137-145); TOTAL PROTEIN 6.9 g/dL (6.3-8.2)
[2017-03-04] MEDS ORDERED: ONDANSETRON HCL INJ/PF 4 MG/2 ML SDV IV ONE (21:32)
[2017-03-04] MEDS ORDERED: MORPHINE SULFATE 10 MG/ML INJ IV ONE (21:32)
--- NOTE | 2017-03-04 21:33 | ER Document Report ---
ED GI/ - General Chief Complaint: Abdominal Pain Stated Complaint: ABDOMINAL PAIN Time Seen by Provider: 03/04/17 20:49 Notes: Patient is a 41 year old male who presents to the ED complaining of persistent Right suprapubic pain that has been present for 7-10 days with assocaited nausea and vomiting today. States it originated as a dull aching pain originating in the right flank/RLQ now in his right suprapubic area with occasional radiation into his groin. States the pain today is now a constatn ache, sore with occasional sharp pains with position change. Admits to vomiting x2 todya 2/2 pain. Denies any diarrhea, constipation, fevers, chills, lethargy, pyuria, hematuria. Does describe less UOP and difficulty going that has been all week. Was seen by Dr. Valentin with [facility] who started him on Levaquin and flagyl for possible diverticulitis and was sent for a CT scan of the abd/pelvis with IV and PO contrast. They have not been told the results of this study PMH: gastritis, gerd, barretts, bulging disk at L4-L5, L5-S1 PSH: umbilical hernia 12/11, dawood 01/10 SH: nonsmoker, denies etoh, IVDU TRAVEL OUTSIDE OF THE [place] IN LAST 30 DAYS: No - Related Data Allergies/Adverse Reactions: codeine [Codeine] Adverse Reaction (Verified 02/04/17 13:37) NSAIDS (Non-Steroidal Anti-Inflamma Adverse Reaction (Verified 02/04/17 13:37) Past Medical History - Social History Smoking Status: Unknown if Ever Smoked Family History: Arthritis, COPD, CVA, Hyperlipidemia, Hypertension, Malignancy, Thyroid Disfunction. denies: CAD Patient has suicidal ideation: No Patient has homicidal ideation: No - Past Medical History Cardiac Medical History: Reports: Hx Hypertension Denies: Hx Heart Attack Pulmonary Medical History: Reports: Hx Asthma, Hx Bronchitis, Hx Pneumonia Denies: Hx COPD Neurological Medical History: Denies: Hx Seizures Renal/ Medical History: Denies: Hx Peritoneal Dialysis GI Medical History: Reports: Hx Gastritis, Hx Gastroesophageal Reflux Disease - Pickett's esophagus, Hx Colonoscopy, Hx Endoscopy Musculoskeltal Medical History: Denies Hx Arthritis, Reports Hx Musculoskeletal Deformity, Reports Hx Musculoskeletal Trauma Psychiatric Medical History: Reports: Hx Anxiety, Hx Attention Deficit Hyperactivity Disorder Denies: Hx Depression Traumatic Medical History: Reports: Hx Fractures - thumb Past Surgical History: Reports: Hx Cholecystectomy, Hx Orthopedic Surgery - rt shoulder, rt thumb, Hx Umbilical Hernia, Other - Umbilical hernia repair 1 month prior, primary - Immunizations Immunizations up to date: Yes Hx Diphtheria, Pertussis, Tetanus Vaccination: Yes Review of Systems - Review of Systems Constitutional: No symptoms reported Cardiovascular: No symptoms reported Respiratory: No symptoms reported Gastrointestinal: See HPI Genitourinary: See HPI -: Yes All other systems reviewed and negative Physical Exam - Vital signs Vitals: Temp Pulse Resp BP Pulse Ox 97.8 F 108 H 20 118/80 97 03/04/17 19:21 03/04/17 19:21 03/04/17 19:21 03/04/17 19:21 03/04/17 19:21 - Notes Notes: PHYSICAL EXAM GENERAL: Alert, interacts well. LUNGS: Clear to auscultation bilaterally, no wheezes, rales, or rhonchi. No respiratory distress. HEART: Regular rate and rhythm. No murmurs, gallops, or rubs. ABDOMEN: Soft, nondistended, mild tenderness to palpation of the right suprapubic area. No RLQ tenderness, negative mcburneys point tenderness, psoas, obturator sign. No guarding, rebound, or rigidity.. Bowel sounds present in all 4 quadrants. Male : Cremasteric reflex intact bilaterally. Normal inspection. No inguinal hernia noted bilaterally. EXTREMITIES: Moves all 4 extremities spontaneously. No edema, radial and dorsalis pedis pulses 2/4 bilaterally. No cyanosis. NEUROLOGICAL: Alert and oriented x4. Normal speech. PSYCH: Normal affect, normal mood. SKIN: Warm, dry, normal turgor. No rashes or lesions noted. Course - Re-evaluation Re-evalutation: 03/04/17 21:55 Patient is a 41-year-old male who is hemodynamically stable, no acute distress and afebrile. No evidence of leukocytosis or anemia noted on CBC. Chemistry without evidence of acute abnormality, acute renal failure, elevated LFTs. Urine without any evidence of bacturia. CT of the abdomen and pelvis that was completed on March 02 without any acute intra-abdominal or intrapelvic pathology. Discussed with radiologist Dr. Hinkle who does not see any evidence of acute pathology or concern for his pain. Also does not notice any evidence of a ureteral stone. His exam is not consistent with acute abdomen given no signs of peritonitis, and given length of symptoms. 03/04/17 22:52 Repeat abdominal exam continues to have any kind of acute abdomen. Patient states his pain is much better has not had any evidence of vomiting in the department. Discussed with him send him home with nausea and pain medication and follow-up with Dr. Resendiz scheduled on Monday. Otherwise discussed strict return precautions indicating return to the emergency department. Patient and mother at the bedside agree with plan - Vital Signs Vital signs: Temp Pulse Resp BP Pulse Ox 97.9 F 108 H 14 135/81 H 99 03/04/17 23:39 03/04/17 19:21 03/04/17 23:39 03/04/17 23:39 03/04/17 23:39 - Laboratory Result Diagrams: 03/04/17 20:15 03/04/17 20:15 Laboratory results interpreted by me: 03/04/17 03/04/17 03/04/17 20:15 20:15 20:15 [facility] 34.2 H Monocytes % 14.3 H Carbon Dioxide 21 L Urine Urobilinogen 4.0 H - Diagnostic Test Radiology reviewed: Image reviewed, Reports reviewed - From March 02 CT the abdomen and pelvis with IV and p.o. contrast Discharge - Discharge Clinical Impression: Abdominal pain Qualifiers: Abdominal location: right lower quadrant Qualified Code(s): R10.31 - Right lower quadrant pain Condition: Good Disposition: HOME, SELF-CARE Additional Instructions: ABDOMINAL PAIN: There are many causes of abdominal pain. Pain can mean a serious problem requiring surgery (such as appendicitis). It can also be an innocent problem that goes away on its own (such as a viral infection). Often, time must pass to determine the cause of pain. The physician does not feel that hospitalization is necessary, at present. Things may change within the next 24 hours. Call the doctor or come back for re- examination if any problems occur, such as: (1) Pain that becomes more severe, steady, or becomes concentrated in one specific area. Also, pain that is more severe with movement or coughing. (2) Vomiting that persists or becomes more frequent. (3) Blood in the vomitus, urine, or bowel movements. Blood in the stool may have a tarry or black appearance. (4) Shaking chills or fever greater than 100 degrees F. (5) The abdomen becomes more distended or swollen. (6) Bowel movements cease. (7) Failure to improve as expected. NORMAL EXAM AND WORKUP: At this time, your examination and workup show no significant abnormality. No significant abnormal physical findings are noted. All laboratory, EKG, and imaging (x-ray, CT scans, ultrasound) studies that were ordered show no significant abnormality. Although your examination and all studies that were ordered showed no significant abnormal finding, there are no examinations and no studies that are 100% accurate. There is always the possibility that some abnormality could exist and not be detected with physical examination or within the limits and capabilities of laboratory and other studies. You should return or follow up as you were instructed on your visit today for further evaluation if your symptoms do not resolve. PAIN MEDICATION INJECTION: You have received an injection of a pain medication. You should experience significant pain relief within 45 minutes. This drug is a narcotic - - it will impair your judgement, slow your reaction time and make you sleepy ( as well as relieve your pain). Narcotics also can cause nausea. You should not drive, work with machinery, or perform any task requiring mental alertness until all effects of the medication are gone -- six to eight hours. Do not take any alcohol, or sedatives, and do not take any other medication without checking with your physician. ANTINAUSEA MEDICATION: You have been given a medication to suppress nausea and vomiting. This type of medication can be given as a shot, pill, or suppository. It will usually last for many hours. Pills and shots usually last six to eight hours, suppositories last about 12 hours. For the typical illness, only one or two doses of the medication may be necessary. Mild lightheadedness may occur. This type of medicine can cause drowsiness. Do not drive or operate dangerous machinery while under its influence. Do not mix with alcohol. See your doctor at once if you have muscle spasms or tightness, or uncontrollable motions (particularly of the neck, mouth, or jaw). Persistent vomiting or severe lightheadedness should also be evaluated by the physician. ORAL NARCOTIC MEDICATION: You have been given a prescription for pain control. This medication is a narcotic. It's best taken with food, as nausea can result if taken on an empty stomach. Don't operate machinery or drive within six hours of taking this medication. Do not combine this medicine with alcohol, or with any medication which can cause sedation (such as cold tablets or sleeping pills) unless you get permission from the physician. Narcotics tend to cause constipation. If possible, drink plenty of fluids and eat a diet high in fiber and fruits. Please be aware that prescription narcotics also have the potential for abuse. People become addicted to these medications because of the general sense of wellbeing that they induce. This feeling along with a significant reduction in tension, anxiety, and aggression provides a stimulating seductive quality to these drugs. Once your pain is under control, we encourage you to discard your unused narcotics. FOLLOW-UP CARE: If you have been referred to a physician for follow-up care, call the physician s office for an appointment as you were instructed or within the next two days. If you experience worsening or a significant change in your symptoms, notify the physician immediately or return to the Emergency Department at any time for re-evaluation. Prescriptions: Metoclopramide HCl [Reglan] 5 mg PO Q6HP PRN #20 tablet PRN Reason: Promethazine HCl [Phenergan 25 mg Tablet] 1 - 2 tab PO Q6H PRN #15 tablet PRN Reason: Referrals: LOLA VALENTIN MD [ACTIVE STAFF] - 03/06/17
[2017-03-04] MEDS ORDERED: NORMAL SALINE 1000 ML 1,000 ML IV ONE (21:55)
[2017-03-04] MEDS ORDERED: METOCLOPRAMIDE HCL INJ/PF 10 MG/2 ML SDV IV ONE (22:52)
[2017-03-04] MEDS ORDERED: HYDROCODONE/ACETAMINOPHEN 5-325 MG 6 TAB/DSPK PO PRN (23:28)
[2017-03-04 23:46] VITALS: BP 135/81
== END 2017-03-04 23:46 | disposition home or self-care (01) ==
LOC: ER 19:06
DX: R10.31 Right lower quadrant pain (principal); R11.2 Nausea with vomiting, unspecified
CPT/HCPCS: 99284; 96361; 96374; 96375; 36415; 83690; 85025; 80053; 81001; J2765; J2270; J2405; J7030

== ENCOUNTER 2017-03-20 07:01 | Emergency (ER) | payer MEDICAID ==
[2017-03-20 07:09] VITALS: BP 135/90
--- NOTE | 2017-03-20 07:38 | ER Document Report ---
HPI - HPI Patient complains to provider of: right low back pain Onset: Yesterday Onset/Duration: Sudden Pain Level: 5 Context: 41 yo male c/o right back pain that radiates into right lateral leg to foot after juming last night,. No hx herniated discs. No saddle anesthesia, no fever , no IV drug use. Associated Symptoms: None Exacerbated by: Sitting Relieved by: Denies Similar symptoms previously: No Recently seen / treated by doctor: No - ROS ROS below otherwise negative: Yes Systems Reviewed and Negative: Yes All other systems reviewed and negative - REPRODUCTIVE Reproductive: DENIES: : Past Medical History - General Information source: Patient - Social History Smoking Status: Current Every Day Smoker Frequency of alcohol use: None Drug Abuse: None Lives with: Spouse/Significant other Family History: Arthritis, COPD, CVA, Hyperlipidemia, Hypertension, Malignancy, Thyroid Disfunction. denies: CAD - Past Medical History Cardiac Medical History: Reports: Hx Hypertension Pulmonary Medical History: Reports: Hx Asthma, Hx Bronchitis, Hx Pneumonia Renal/ Medical History: Denies: Hx Peritoneal Dialysis GI Medical History: Reports: Hx Gastritis, Hx Gastroesophageal Reflux Disease - Pickett's esophagus, Hx Colonoscopy, Hx Endoscopy Musculoskeltal Medical History: Reports Hx Musculoskeletal Deformity, Reports Hx Musculoskeletal Trauma Psychiatric Medical History: Reports: Hx Anxiety, Hx Attention Deficit Hyperactivity Disorder Traumatic Medical History: Reports: Hx Fractures - thumb Past Surgical History: Reports: Hx Cholecystectomy, Hx Orthopedic Surgery - rt shoulder, rt thumb, Hx Umbilical Hernia, Other - Umbilical hernia repair 1 month prior, primary - Immunizations Immunizations up to date: Yes Hx Diphtheria, Pertussis, Tetanus Vaccination: Yes Vertical Provider Document - CONSTITUTIONAL Agree With Documented VS: Yes Exam Limitations: No Limitations General Appearance: No Apparent Distress - INFECTION CONTROL TRAVEL OUTSIDE OF THE [place] IN LAST 30 DAYS: No - HEENT HEENT: Normocephalic - NECK Neck: Supple - RESPIRATORY O2 Sat by Pulse Oximetry: 98 - MUSCULOSKELETAL/EXTREMETIES Musculoskeletal/Extremeties: MAEW, FROM, Tender - right SI joint into mid buttocks - NEURO Level of Consciousness: Awake, Alert, Appropriate Motor/Sensory: No Motor Deficit, No Sensory Deficit Deep Tendon Reflexes: 2+ - ankle and patellar yonny - DERM Integumentary: Warm, Dry, No Rash Course - Vital Signs Vital signs: Temp Pulse Resp BP Pulse Ox 97.5 F 101 H 18 135/90 H 98 03/20/17 07:08 03/20/17 07:08 03/20/17 07:08 03/20/17 07:08 03/20/17 07:08 Discharge - Discharge Clinical Impression: Low back pain Qualifiers: Chronicity: acute Back pain laterality: right Sciatica presence: with sciatica Sciatica laterality: sciatica of right side Qualified Code(s): M54.41 - Lumbago with sciatica, right side Sciatica Qualifiers: Laterality: right Qualified Code(s): M54.31 - Sciatica, right side Condition: Poor Disposition: HOME, SELF-CARE Instructions: Chiropractor, Low Back Pain ([facility]), Muscle Relaxers ([facility]), Oral Narcotic Medication ([facility]), Pain Medication Injection ([facility]), Sciatica ([facility]) Additional Instructions: see chiropractor to er if worse warm compress Prescriptions: Oxycodone HCl/Acetaminophen [Percocet 10-325 Mg Tablet] 1 each PO Q4HP PRN #10 tablet PRN Reason: Cyclobenzaprine HCl [Flexeril 10 Mg Tablet] 10 mg PO TIDP PRN #20 tablet PRN Reason: Referrals: DAISY PATEL DC [CHIROPRACTOR] - Follow up as needed
[2017-03-20] MEDS ORDERED: MORPHINE SULFATE 10 MG/ML INJ IM ONE (08:00)
[2017-03-20] MEDS ORDERED: ONDANSETRON 4 MG TAB.RAPDIS PO ONE (08:01)
== END 2017-03-20 08:50 | disposition home or self-care (01) ==
LOC: ER 07:01
DX: M54.41 Lumbago with sciatica, right side (principal); F17.200 Nicotine dependence, unspecified, uncomplicated; I10 Essential (primary) hypertension; J45.909 Unspecified asthma, uncomplicated
CPT/HCPCS: 99283; 96372; S0119; J2270

== ENCOUNTER 2017-03-31 14:00 | Emergency (ER) | payer MEDICAID ==
--- NOTE | 2017-03-31 15:48 | ER Document Report ---
HPI - HPI Patient complains to provider of: fell of cement this am Onset: This morning Quality of pain: Achy Pain Level: 4 Context: 41 yo male slipped and fell on cement pavers this morning. Increase pain with movement. No saddle anesthesia, no radiculopathy. Associated Symptoms: None Exacerbated by: Movement Relieved by: Denies - ROS ROS below otherwise negative: Yes Systems Reviewed and Negative: Yes All other systems reviewed and negative - MUSCULOSKELETAL Musculoskeletal: REPORTS: Extremity pain - right leg slipped on ice Past Medical History - General Information source: Patient - Social History Smoking Status: Never Smoker Chew tobacco use (# tins/day): No Frequency of alcohol use: None Drug Abuse: None Lives with: Spouse/Significant other Family History: Arthritis, COPD, CVA, Hyperlipidemia, Hypertension, Malignancy, Thyroid Disfunction Patient has suicidal ideation: No Patient has homicidal ideation: No - Past Medical History Cardiac Medical History: Reports: Hx Hypertension Pulmonary Medical History: Reports: Hx Asthma, Hx Bronchitis, Hx Pneumonia GI Medical History: Reports: Hx Gastritis, Hx Gastroesophageal Reflux Disease - Pickett's esophagus, Hx Colonoscopy, Hx Endoscopy Musculoskeltal Medical History: Denies Hx Arthritis, Reports Hx Musculoskeletal Deformity, Reports Hx Musculoskeletal Trauma Psychiatric Medical History: Reports: Hx Anxiety, Hx Attention Deficit Hyperactivity Disorder Denies: Hx Depression Traumatic Medical History: Reports: Hx Fractures - thumb Past Surgical History: Reports: Hx Cholecystectomy, Hx Orthopedic Surgery - rt shoulder, rt thumb, Hx Umbilical Hernia, Other - Umbilical hernia repair 1 month prior, primary - Immunizations Immunizations up to date: Yes Hx Diphtheria, Pertussis, Tetanus Vaccination: Yes Vertical Provider Document - CONSTITUTIONAL Agree With Documented VS: Yes Exam Limitations: No Limitations General Appearance: No Apparent Distress - INFECTION CONTROL TRAVEL OUTSIDE OF THE [place] IN LAST 30 DAYS: No - HEENT HEENT: Normocephalic - NECK Neck: Supple - RESPIRATORY O2 Sat by Pulse Oximetry: 97 - BACK Back: Normal Inspection - tender lower thoracic and lumbar spine - MUSCULOSKELETAL/EXTREMETIES Musculoskeletal/Extremeties: MAEW, FROM, Tender - see above - NEURO Level of Consciousness: Awake, Alert Motor/Sensory: No Motor Deficit Deep Tendon Reflexes: 2+ - yonny ankle and patellar Course - Vital Signs Vital signs: Temp Pulse Resp BP Pulse Ox 97.8 F 91 22 H 148/99 H 97 03/31/17 14:11 03/31/17 14:11 03/31/17 14:11 03/31/17 14:11 03/31/17 14:11 Discharge - Discharge Clinical Impression: Contusion, back Qualifiers: Encounter type: initial encounter Laterality: unspecified laterality Qualified Code(s): S20.229A - Contusion of unspecified back wall of thorax, initial encounter Condition: Good Disposition: HOME, SELF-CARE Instructions: Acetaminophen, Contusion ([facility]), Low Back Pain ([facility]), Ultram ([facility]) , Warm Packs ([facility]) Additional Instructions: warm compress tylenol up to 4000 mg per day utram few doses gentle stretching no heavy lifting Prescriptions: Tramadol HCl [Ultram 50 mg Tablet] 50 mg PO ASDIR PRN #15 tablet PRN Reason: Forms: Return to Work Referrals: LISHA PIERRE MD [Primary Care Provider] - Follow up as needed
[2017-03-31] MEDS ORDERED: OXYCODONE-ACETAMINOPHEN 5-325 MG TABLET PO ONE (16:14)
[2017-03-31] MEDS ORDERED: ONDANSETRON 4 MG TAB.RAPDIS PO ONE (16:14)
--- NOTE | 2017-03-31 16:50 | RADIOLOGY REPORT (SQ) ---
EXAM DESCRIPTION: L SPINE WHOLE COMPLETED DATE/TIME: 03/31/2017 4:41 pm REASON FOR STUDY: fell on back COMPARISON: 02/15/2017 NUMBER OF VIEWS: Five views including obliques. TECHNIQUE: AP, lateral, oblique, and sacral radiographic images acquired of the lumbar spine. LIMITATIONS: None. FINDINGS: MINERALIZATION: Normal. SEGMENTATION: Normal. No transitional anatomy. ALIGNMENT: Normal. VERTEBRAE: No acute compression fractures. DISCS: Preserved height. No significant osteophytes or end plate irregularity. POSTERIOR ELEMENTS: Pedicles and facets are intact. No pars defect or posterior arch defects. HARDWARE: None in the spine. PARASPINAL SOFT TISSUES: Normal. PELVIS: Intact as visualized. No fractures or worrisome bone lesions. SI joints intact. OTHER: No other significant finding. IMPRESSION: No acute fractures. TECHNICAL DOCUMENTATION: JOB ID: [id number] [employer]- All Rights Reserved
--- NOTE | 2017-03-31 16:51 | RADIOLOGY REPORT (SQ) ---
EXAM DESCRIPTION: T SPINE AP/LAT COMPLETED DATE/TIME: 03/31/2017 4:41 pm REASON FOR STUDY: fell on back COMPARISON: 05/18/2015 NUMBER OF VIEWS: Two views. TECHNIQUE: AP and lateral radiographic images acquired of the thoracic spine. LIMITATIONS: None. FINDINGS: MINERALIZATION: Normal. ALIGNMENT: Normal. No scoliosis. VERTEBRAE: No fracture or bone lesion. Maintained height, normal segmentation. DISCS: No significant loss of height or significant narrowing. No large osteophytes. HARDWARE: None in the spine. MEDIASTINUM AND SOFT TISSUES: Normal heart size and aortic contour. No soft tissue abnormality. VISUALIZED LUNG CASTILLO: Clear. OTHER: No other significant finding. IMPRESSION: NO SIGNIFICANT RADIOGRAPHIC FINDING IN THE THORACIC SPINE. TECHNICAL DOCUMENTATION: JOB ID: [id number] [employer]- All Rights Reserved
[2017-03-31 17:45] VITALS: BP 140/90
== END 2017-03-31 17:45 | disposition home or self-care (01) ==
LOC: ER 14:00
DX: S20.229A Contusion of unspecified back wall of thorax, initial encounter (principal); M54.6 Pain in thoracic spine; W19.XXXA Unspecified fall, initial encounter
CPT/HCPCS: 99283; 72110; 72070; S0119

== ENCOUNTER 2017-04-07 21:14 | Emergency (ER) | payer MEDICAID ==
[2017-04-07] MEDS ORDERED: IPRATROPIUM/ALBUTEROL 0.5-2.5 MG/3 ML AMPUL NEB ONE ×2 (21:48→23:17)
--- NOTE | 2017-04-07 22:17 | RADIOLOGY REPORT (SQ) ---
EXAM DESCRIPTION: CHEST SINGLE VIEW COMPLETED DATE/TIME: 04/07/2017 10:11 pm REASON FOR STUDY: sob COMPARISON: 12/16/2016 EXAM PARAMETERS: NUMBER OF VIEWS: One view. TECHNIQUE: Single frontal radiographic view of the chest acquired. RADIATION DOSE: NA LIMITATIONS: None. FINDINGS: LUNGS AND PLEURA: No opacities, masses or pneumothorax. No pleural effusion. MEDIASTINUM AND HILAR STRUCTURES: No masses. Contour normal. HEART AND VASCULAR STRUCTURES: Heart normal in size. Normal vasculature. BONES: No acute findings. HARDWARE: None in the chest. OTHER: No other significant finding. IMPRESSION: NO ACUTE RADIOGRAPHIC FINDING IN THE CHEST. TECHNICAL DOCUMENTATION: JOB ID: [id number] [employer]- All Rights Reserved
[2017-04-07] MEDS ORDERED: METHYLPREDNISOLONE INJ 125 MG/2 ML SDV IV ONE (22:24)
[2017-04-07] MEDS ORDERED: AZITHROMYCIN INJ 500 MG VIAL IV ONE (22:25)
[2017-04-07] MEDS ORDERED: CEFTRIAXONE 1 GM/D5W RTU 1 GM/50 ML RTUPB IV ONE (22:25)
[2017-04-07 22:26] LABS: ABSOLUTE BASOPHILS # (AUTO) 0.1 10^3/uL (0.0-0.2); ABSOLUTE EOSINOPHILS # (AUTO) 0.1 10^3/uL (0.0-0.6); ABSOLUTE LYMPHOCYTES (AUTO) 2.4 10^3/uL (0.5-4.7); ABSOLUTE MONOCYTES (AUTO) 1.1 10^3/uL (0.1-1.4); ABSOLUTE NEUT (AUTO) 4.4 10^3/uL (1.7-8.2); BASOPHILS % (AUTO) 1.3 % (0-2); EOSINOPHILS % (AUTO) 0.7 % (0-6); HEMATOCRIT 46.6 % (37.9-51.0); HEMOGLOBIN 16.3 g/dL (13.5-17.0); LYMPHOCYTES % (AUTO) 29.8 % (13-45); MEAN CORPUSCULAR HEMOGLOBIN 33.7 pg (27.0-33.4); MEAN CORPUSCULAR HGB CONC 34.9 g/dL (32.0-36.0); MEAN CORPUSCULAR VOLUME 97 fl (80-97); PLATELET COUNT 239 10^3/uL (150-450); RED BLOOD COUNT 4.83 10^6/uL (4.35-5.55); RED CELL DISTRIBUTION WIDTH 13.8 % (11.5-14.0); SEGMENTED NEUTROPHILS % (AUTO) 54.2 % (42-78); TOTAL CELLS COUNTED % (AUTO) 100 %; VENOUS BLOOD HCO3 25.8 mmol/L (20-32); VENOUS BLOOD PCO2 37.8 mmHg (35-63); VENOUS BLOOD PH 7.45 (7.30-7.42); WHITE BLOOD COUNT 8.1 10^3/uL (4.0-10.5)
[2017-04-07 23:29] LABS: ALANINE AMINOTRANSFERASE 50 U/L (21-72); ALBUMIN 4.4 g/dL (3.5-5.0); ALKALINE PHOSPHATASE 63 U/L (38-126); ANION GAP 10 (5-19); ASPARTATE AMINO TRANSFERASE 26 U/L (17-59); BILIRUBIN,DIRECT 0.2 mg/dL (0.0-0.4); BILIRUBIN,TOTAL 0.3 mg/dL (0.2-1.3); BLOOD UREA NITROGEN 11 mg/dL (7-20); CALCIUM 9.9 mg/dL (8.4-10.2); CARBON DIOXIDE 26 mmol/L (22-30); CHLORIDE 102 mmol/L (98-107); GLUCOSE 158 mg/dL (75-110); POTASSIUM 3.8 mmol/L (3.6-5.0); SODIUM 138.4 mmol/L (137-145); TOTAL PROTEIN 6.8 g/dL (6.3-8.2)
[2017-04-07 23:42] LABS: NT PRO BNP < 11 pg/mL (<125); TROPONIN I < 0.012 ng/mL
[2017-04-07] MEDS ORDERED: CEFTRIAXONE INJ 1000 MG VIAL ONE (23:45)
--- NOTE | 2017-04-08 00:23 | ER Document Report ---
ED General - General Information source: Patient, Relative TRAVEL OUTSIDE OF THE [place] 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 He does not smoke. He states today he did his 2 routine inhalers as well as albuterol and a nebulizer 2 without relief. He states he was coughing up yellow phlegm however the last few hours he is unable to get anything out of his lungs. (BEE ZHANG) - Related Data Allergies/Adverse Reactions: codeine [Codeine] Adverse Reaction (Verified 04/07/17 21:20) NSAIDS (Non-Steroidal Anti-Inflamma Adverse Reaction (Verified 04/07/17 21:20) Past Medical History - General Information source: Patient, Relative - Social History Smoking Status: Unknown if Ever Smoked Chew tobacco use (# tins/day): No Frequency of alcohol use: None Drug Abuse: None Lives with: Family Family History: Arthritis, COPD, CVA, Hyperlipidemia, Hypertension, Malignancy, Thyroid Disfunction Patient has suicidal ideation: No Patient has homicidal ideation: No - Past Medical History Cardiac Medical History: Reports: Hx Hypertension Denies: Hx Heart Attack Pulmonary Medical History: Reports: Hx Asthma, Hx Bronchitis, Hx Pneumonia Denies: Hx COPD Neurological Medical History: Denies: Hx Seizures Renal/ Medical History: Denies: Hx Peritoneal Dialysis GI Medical History: Reports: Hx Gastritis, Hx Gastroesophageal Reflux Disease - Pickett's esophagus, Hx Colonoscopy, Hx Endoscopy Musculoskeltal Medical History: Denies Hx Arthritis, Reports Hx Musculoskeletal Deformity, Reports Hx Musculoskeletal Trauma Psychiatric Medical History: Reports: Hx Anxiety, Hx Attention Deficit Hyperactivity Disorder Denies: Hx Depression Traumatic Medical History: Reports: Hx Fractures - thumb Past Surgical History: Reports: Hx Cholecystectomy, Hx Orthopedic Surgery - rt shoulder, rt thumb, Hx Umbilical Hernia, Other - Umbilical hernia repair 1 month prior, primary - Immunizations Immunizations up to date: Yes Hx Diphtheria, Pertussis, Tetanus Vaccination: Yes <TAMICAEDILBERTOENDY SantanaHUBERTAlda Alda - Last Filed: 04/08/17 00:35> Review of Systems - Review of Systems Constitutional: Chills, Recent illness EENT: No symptoms reported Cardiovascular: No symptoms reported Respiratory: Cough, Short of breath, Sputum, Wheezing Gastrointestinal: No symptoms reported Genitourinary: No symptoms reported Male Genitourinary: No symptoms reported Musculoskeletal: No symptoms reported Skin: No symptoms reported Hematologic/Lymphatic: No symptoms reported Neurological/Psychological: No symptoms reported <TAMICABEE QUINTANA - Last Filed: 04/08/17 00:35> Physical Exam <TAMICABEE QUINTANA - Last Filed: 04/08/17 00:35> <BRIGID HUGGINS - Last Filed: 04/08/17 02:21> - Vital signs Vitals: Resp Pulse Ox 20 97 04/07/17 21:54 04/07/17 21:54 - Notes Notes: PHYSICAL EXAMINATION: GENERAL:ill-appearing, well-nourished and in moderate respiratory distress. HEAD: Atraumatic, normocephalic. EYES: Pupils equal round and reactive to light, extraocular movements intact, sclera anicteric, conjunctiva are normal. ENT: Nares patent, oropharynx clear without exudates. Moist mucous membranes. NECK: Normal range of motion, supple without lymphadenopathy LUNGS: Breath sounds clear to auscultation bilaterally and equal. Rhonchi and wheezing throughout both lung kaur HEART: Tachycardic with regular rhythm without murmurs ABDOMEN: Soft, nontender, nondistended abdomen. No guarding, no rebound. No masses appreciated. Musculoskeletal: Normal range of motion, no pitting or edema. No cyanosis. NEUROLOGICAL: Cranial nerves grossly intact. Normal speech, normal gait. Normal sensory, motor exams PSYCH: Normal mood, normal affect. SKIN: Warm, Dry, normal turgor, no rashes or lesions noted. (BEE ZHANG) Course - Laboratory Result Diagrams: 04/07/17 22:10 04/07/17 22:50 - Diagnostic Test Radiology reviewed: Image reviewed, Reports reviewed - EKG Interpretation by Me EKG shows normal: Sinus rhythm Rate: Normal <BEE ZHANG - Last Filed: 04/08/17 00:35> - Laboratory Result Diagrams: 04/07/17 22:10 04/07/17 22:50 <BRIGID HUGGINS - Last Filed: 04/08/17 02:21> - Re-evaluation Re-evalutation: 04/08/17 00:32 Patient has markedly improved. He is laying back on the gurney in no respiratory distress. Pulse ox is 98% on room air. I am awaiting the results of the CT. Antibiotics are infusing. Patient is getting one antibiotic and will be receiving his second shortly. (BEE ZHANG) 04/08/17 02:21 Patient's lung kaur are clear. He has good air movement. He is speaking in full sentences. No tachypnea or increased work of breathing. Patient says he is feeling improved. Patient's CT scan was negative. Dr. Zhagn's are typed up the patient's discharge paperwork and prescriptions. Patient will be discharged home. I strongly encourage him return to ER immediately if he has difficulty breathing, fevers, or feels unwell. Patient agrees with plan will be discharged home. Dictation of this chart was performed using voice recognition software; therefore, there may be some unintended grammatical errors. (BRIGID HUGGINS) - Vital Signs Vital signs: Temp Pulse Resp BP Pulse Ox 16 141/94 H 97 04/07/17 23:01 04/07/17 23:01 04/07/17 23:01 - Laboratory Laboratory results interpreted by me: 04/07/17 04/07/17 04/07/17 22:10 22:10 22:50 MCH 33.7 H Monocytes % 14.0 H VBG pH 7.45 H Glucose 158 H - Diagnostic Test Radiology results interpreted by me: 04/08/17 00:26 Chest x-ray without any acute abnormalities (BEE ZHANG) Discharge <BEE ZHANG - Last Filed: 04/08/17 00:35> <BRIGID HUGGINS - Last Filed: 04/08/17 02:21> - Discharge Clinical Impression: Exacerbation of asthma, Bronchitis Condition: Stable Disposition: HOME, SELF-CARE Instructions: Antibiotic Therapy ([facility]), Asthma ([facility]), Bronchitis ([facility]) Additional Instructions: Return to the emergency department if worsening of symptoms. Take all medications as prescribed. Avoid secondhand smoke. Prescriptions: Azithromycin [Zithromax 250 mg Tablet] 250 mg PO ASDIR PRN #6 tablet PRN Reason: Prednisone [Deltasone 20 mg Tablet] 3 tab PO DAILY 5 Days tablet Referrals: LISHA PIERRE MD [Primary Care Provider] - Follow up tomorrow (Call office iin am for follow up appointment. Return to the emergency department if you have any concerns.)
--- NOTE | 2017-04-08 00:28 | RADIOLOGY REPORT (SQ) ---
EXAM DESCRIPTION: CT CHEST WITH CONTRAST CLINICAL HISTORY: hypoxic/sob/fever COMPARISON: None Available. TECHNIQUE: Axial CT images of the chest following the uncomplicated intravenous administration of 80 mL Isovue-370. FINDINGS: Chest: No abnormalities of the visualized thyroid gland. Great vessels have normal anatomic configuration. No abnormalities of the thoracic aorta. No gross abnormalities of the pulmonary arteries. No cardiomegaly, pericardial effusion, or coronary artery atherosclerosis. No mediastinal lymphadenopathy. No abnormalities of visualized esophagus. Lung windows demonstrate no consolidation, pneumothorax, or pleural effusion.No abnormalities of the visualized trachea. Bone windows demonstrate no destructive osseous lesions. Minimal degenerative spondylosis of the thoracic spine. Limited images of the upper abdomen demonstrate no abnormalities of visualized spleen, pancreas, adrenal glands, or kidneys. Diffusely decreased hepatic density. There is a 5.2 x 2.6 cm hypodensity in the hepatic parenchyma adjacent to the gallbladder fossa of indeterminate etiology. Prior cholecystectomy. DLP: 899.81 mGy-cm IMPRESSION: 1. No acute pulmonary process. 2. There is a 5.2 cm hypodense lesion in the hepatic parenchyma adjacent to the gallbladder fossa. Follow-up three-phase hepatic CT recommended for more definitive characterization. No intrahepatic biliary dilatation identified. 3. Hepatic steatosis. This exam was performed according to our departmental dose-optimization program, which includes automated exposure control, adjustment of the mA and/or kV according to patient size and/or use of iterative reconstruction technique.
[2017-04-08 02:27] VITALS: BP 130/94
--- NOTE | 2017-04-08 09:36 | EKG REPORT ---
SEVERITY:- BORDERLINE ECG - SINUS RHYTHM PROBABLE LEFT ATRIAL ABNORMALITY : Confirmed by: Jose Fleming MD 08-Apr-2017 09:35:15
== END 2017-04-08 02:27 | disposition home or self-care (01) ==
LOC: ER 21:14
DX: J45.901 Unspecified asthma with (acute) exacerbation (principal); J40 Bronchitis, not specified as acute or chronic; R06.02 Shortness of breath
CPT/HCPCS: 93005; 94640 ×2; 99285; 96375; 96365; 96367; 36415; 87040; 85025; 80053; 84484; 82803; 83605; 83880; 71045; 71260; 93010; J2930; J0696; J0456; J7620

== ENCOUNTER 2017-04-20 18:20 | Emergency (ER) | payer MEDICAID ==
[2017-04-20] MEDS ORDERED: IPRATROPIUM/ALBUTEROL 0.5-2.5 MG/3 ML AMPUL NEB ONE (20:03)
[2017-04-20] MEDS ORDERED: PREDNISONE 20 MG TABLET PO ONE (20:03)
--- NOTE | 2017-04-20 20:05 | ER Document Report ---
ED Medical Screen (RME) - General Chief Complaint: Breathing Difficulty Stated Complaint: BREATHING DIFFICULTY Time Seen by Provider: 04/20/17 20:03 Mode of Arrival: Ambulatory Notes: Patient presents complaining of difficulty breathing for the past week. Patient does report cough that is productive with green sputum. Patient reports low-grade fever of 100 at home today. Patient does complain of chest pain with deep inspiration for the past week. Patient complains of left upper back pain and is concerned that he may have pulled a muscle from the coughing. Patient states that he is unable to take aspirin. hx: Asthma, Pickett's esophagus, cholecystectomy, hernia repair I have greeted and performed a rapid initial assessment of this patient. A comprehensive ED assessment and evaluation of the patient, analysis of test results and completion of the medical decision making process will be conducted by additional ED providers. TRAVEL OUTSIDE OF THE [place] IN LAST 30 DAYS: No - Related Data Allergies/Adverse Reactions: codeine [Codeine] Adverse Reaction (Verified 04/07/17 21:20) NSAIDS (Non-Steroidal Anti-Inflamma Adverse Reaction (Verified 04/07/17 21:20) Past Medical History - Social History Frequency of alcohol use: None Drug Abuse: None - Past Medical History Cardiac Medical History: Reports: Hx Hypertension Denies: Hx Heart Attack Pulmonary Medical History: Reports: Hx Asthma, Hx Bronchitis, Hx Pneumonia Denies: Hx COPD Neurological Medical History: Denies: Hx Seizures Renal/ Medical History: Denies: Hx Peritoneal Dialysis GI Medical History: Reports: Hx Gastritis, Hx Gastroesophageal Reflux Disease - Pickett's esophagus, Hx Colonoscopy, Hx Endoscopy Musculoskeltal Medical History: Denies Hx Arthritis, Reports Hx Musculoskeletal Deformity, Reports Hx Musculoskeletal Trauma Psychiatric Medical History: Reports: Hx Anxiety, Hx Attention Deficit Hyperactivity Disorder Denies: Hx Depression Traumatic Medical History: Reports: Hx Fractures - thumb Past Surgical History: Reports: Hx Cholecystectomy, Hx Orthopedic Surgery - rt shoulder, rt thumb, Hx Umbilical Hernia, Other - Umbilical hernia repair 1 month prior, primary - Immunizations Immunizations up to date: Yes Hx Diphtheria, Pertussis, Tetanus Vaccination: Yes History of Influenza Vaccine for 12/2016 - 05/2017 Season: Yes Physical Exam - Vital signs Vitals: Temp Pulse BP Pulse Ox 98.4 F 106 H 129/104 H 95 04/20/17 19:25 04/20/17 19:25 04/20/17 19:25 04/20/17 19:25 - Respiratory Respiratory status: No respiratory distress Chest status: Pain with cough Breath sounds: Nonproductive cough, Wheezing Chest palpation: Tender Course - Vital Signs Vital signs: Temp Pulse Resp BP Pulse Ox 98.4 F 106 H 129/104 H 95 04/20/17 19:25 04/20/17 19:25 04/20/17 19:25 04/20/17 19:25
--- NOTE | 2017-04-20 21:40 | RADIOLOGY REPORT (SQ) ---
EXAM DESCRIPTION: CHEST PA/LAT COMPLETED DATE/TIME: 04/20/2017 8:52 pm REASON FOR STUDY: cough, cp COMPARISON: 11/10/2016 EXAM PARAMETERS: NUMBER OF VIEWS: two views TECHNIQUE: Digital Frontal and Lateral radiographic views of the chest acquired. RADIATION DOSE: NA LIMITATIONS: none FINDINGS: LUNGS AND PLEURA: No acute opacities, masses or pneumothorax. No pleural effusion. MEDIASTINUM AND HILAR STRUCTURES: No masses or contour abnormalities. HEART AND VASCULAR STRUCTURES: Heart normal size. No evidence for failure. BONES: No acute findings. HARDWARE: None in the chest. OTHER: No other significant finding. IMPRESSION: No acute findings. TECHNICAL DOCUMENTATION: JOB ID: [id number] [employer]- All Rights Reserved
[2017-04-20 22:34] LABS: ABSOLUTE BASOPHILS # (AUTO) 0.1 10^3/uL (0.0-0.2); ABSOLUTE EOSINOPHILS # (AUTO) 0.1 10^3/uL (0.0-0.6); ABSOLUTE LYMPHOCYTES (AUTO) 3.2 10^3/uL (0.5-4.7); ABSOLUTE MONOCYTES (AUTO) 1.3 10^3/uL (0.1-1.4); ABSOLUTE NEUT (AUTO) 6.1 10^3/uL (1.7-8.2); BASOPHILS % (AUTO) 1.1 % (0-2); EOSINOPHILS % (AUTO) 0.6 % (0-6); HEMATOCRIT 48.1 % (37.9-51.0); HEMOGLOBIN 16.7 g/dL (13.5-17.0); MEAN CORPUSCULAR HEMOGLOBIN 33.6 pg (27.0-33.4); MEAN CORPUSCULAR HGB CONC 34.8 g/dL (32.0-36.0); MEAN CORPUSCULAR VOLUME 97 fl (80-97); MONOCYTES % (AUTO) 11.8 % (3-13); PLATELET COUNT 261 10^3/uL (150-450); RED BLOOD COUNT 4.97 10^6/uL (4.35-5.55); SEGMENTED NEUTROPHILS % (AUTO) 56.5 % (42-78); TOTAL CELLS COUNTED % (AUTO) 100 %; WHITE BLOOD COUNT 10.8 10^3/uL (4.0-10.5)
[2017-04-20 22:55] LABS: ALANINE AMINOTRANSFERASE 53 U/L (21-72); ALBUMIN 4.6 g/dL (3.5-5.0); ALKALINE PHOSPHATASE 66 U/L (38-126); ANION GAP 12 (5-19); ASPARTATE AMINO TRANSFERASE 31 U/L (17-59); BILIRUBIN,DIRECT 0.2 mg/dL (0.0-0.4); BILIRUBIN,TOTAL 0.4 mg/dL (0.2-1.3); BLOOD UREA NITROGEN 14 mg/dL (7-20); CALCIUM 10.2 mg/dL (8.4-10.2); CARBON DIOXIDE 23 mmol/L (22-30); CHLORIDE 107 mmol/L (98-107); CREATINE KINASE 74 U/L (55-170); GLUCOSE 70 mg/dL (75-110); POTASSIUM 4.3 mmol/L (3.6-5.0); SODIUM 141.6 mmol/L (137-145); TOTAL PROTEIN 7.3 g/dL (6.3-8.2)
[2017-04-20 23:02] LABS: A TYPE INFLUENZA AG NEGATIVE (NEGATIVE); B INFLUENZA AG NEGATIVE (NEGATIVE)
[2017-04-20 23:04] LABS: CREATINE KINASE MB 0.44 ng/mL (<4.55); TROPONIN I 0.017 ng/mL
[2017-04-20] MEDS ORDERED: HYDROCODONE/ACETAMINOPHEN 5-325 MG TABLET PO ONE (23:23)
[2017-04-20] MEDS ORDERED: BENZONATATE 100 MG CAPSULE PO ONE (23:23)
--- NOTE | 2017-04-20 23:25 | ER Document Report ---
ED Respiratory Problem - General Mode of Arrival: Ambulatory Information source: Patient TRAVEL OUTSIDE OF THE [place] IN LAST 30 DAYS: No - HPI Patient complains to provider of: Hurts to breath, Short of breath Onset: Last week Context: Other - see notes above Associated symptoms: Other - see notes above <BRADFORD NAYAK - Last Filed: 04/21/17 03:56> <ASAD COX - Last Filed: 04/21/17 03:58> - General Chief Complaint: Breathing Difficulty Stated Complaint: BREATHING DIFFICULTY Time Seen by Provider: 04/20/17 20:03 Notes: 41 year old male with history of asthma, bronchitis, and hypertension presents to the ED complaining of shortness of breath that started 1 weeks ago. Patient additionally complains of a burning sensation to his chest and lower ribs with deep breathing, productive cough with green sputum, fever, and cold sweats. Patient is having pain to his left back and arm which he believes is from his coughing. Patient has taken 3 breathing treatments today which some relief. Patient was seen in the ED last week and diagnosed with bronchitis. Patient sent home with antibiotics and steroids which he finished earlier this week. ( BRADFORD NAYAK) - Related Data Allergies/Adverse Reactions: codeine [Codeine] Adverse Reaction (Verified 04/07/17 21:20) NSAIDS (Non-Steroidal Anti-Inflamma Adverse Reaction (Verified 04/07/17 21:20) Past Medical History - General Information source: Patient - Social History Smoking Status: Never Smoker Chew tobacco use (# tins/day): Yes Frequency of alcohol use: None Drug Abuse: None Family History: Arthritis, COPD, CVA - father in his 50s, Hyperlipidemia, Hypertension, Malignancy, Thyroid Disfunction Patient has suicidal ideation: No Patient has homicidal ideation: No - Past Medical History Cardiac Medical History: Reports: Hx Hypertension Denies: Hx Heart Attack Pulmonary Medical History: Reports: Hx Asthma, Hx Bronchitis, Hx Pneumonia Denies: Hx COPD Neurological Medical History: Denies: Hx Seizures Renal/ Medical History: Denies: Hx Peritoneal Dialysis GI Medical History: Reports: Hx Gastritis, Hx Gastroesophageal Reflux Disease - Pickett's esophagus, Hx Colonoscopy, Hx Endoscopy Musculoskeltal Medical History: Denies Hx Arthritis, Reports Hx Musculoskeletal Deformity, Reports Hx Musculoskeletal Trauma Psychiatric Medical History: Reports: Hx Anxiety, Hx Attention Deficit Hyperactivity Disorder Denies: Hx Depression Traumatic Medical History: Reports: Hx Fractures - thumb Past Surgical History: Reports: Hx Cholecystectomy, Hx Orthopedic Surgery - rt shoulder, rt thumb, Hx Umbilical Hernia, Other - Umbilical hernia repair 1 month prior, primary - Immunizations Immunizations up to date: Yes Hx Diphtheria, Pertussis, Tetanus Vaccination: Yes <BRADFORD NAYAK - Last Filed: 04/21/17 03:56> Review of Systems - Review of Systems Constitutional: See HPI, Chills, Diaphoresis, Fever EENT: No symptoms reported. denies: Nose discharge Cardiovascular: No symptoms reported Respiratory: See HPI, Cough, Hurts to breathe, Short of breath, Sputum - green Gastrointestinal: No symptoms reported. denies: Vomiting Genitourinary: No symptoms reported Male Genitourinary: No symptoms reported Musculoskeletal: No symptoms reported Skin: No symptoms reported Hematologic/Lymphatic: No symptoms reported Neurological/Psychological: No symptoms reported -: Yes All other systems reviewed and negative <MALINIBRADFORD - Last Filed: 04/21/17 03:56> Physical Exam <NAYAKBRADFORD - Last Filed: 04/21/17 03:56> <ASAD COX - Last Filed: 04/21/17 03:58> - Vital signs Vitals: Temp Pulse BP Pulse Ox 98.4 F 106 H 129/104 H 95 04/20/17 19:25 04/20/17 19:25 04/20/17 19:25 04/20/17 19:25 - Notes Notes: GENERAL: Alert, interacts well. No acute distress. HEAD: Normocephalic, atraumatic. EYES: Pupils equal, round, and reactive to light. Extraocular movements intact. ENT: Oral mucosa moist, tongue midline. NECK: Full range of motion. Supple. Trachea midline. LUNGS: Clear to auscultation bilaterally, no wheezes, rales, or rhonchi. No respiratory distress. HEART: Regular rate and rhythm. No murmurs, gallops, or rubs. ABDOMEN: Soft, non-tender. Non-distended. Bowel sounds present in all 4 quadrants. EXTREMITIES: Moves all 4 extremities spontaneously. No edema, radial and dorsalis pedis pulses 2/4 bilaterally. No cyanosis. NEUROLOGICAL: Alert and oriented x3. Normal speech. PSYCH: Normal affect, normal mood. SKIN: Warm, dry, normal turgor. No rashes or lesions noted. (BRADFORD NAYAK) Course - Laboratory Result Diagrams: 04/20/17 21:12 04/20/17 21:12 <BRADFORD NAYAK - Last Filed: 04/21/17 03:56> - Laboratory Result Diagrams: 04/20/17 21:12 04/20/17 21:12 <ASAD COX - Last Filed: 04/21/17 03:58> - Re-evaluation Re-evalutation: 04/21/17 00:41 CBC shows slight leukocytosis 10.8 otherwise unremarkable, CMP grossly unremarkable, cardiac enzymes negative 2, flu swabs negative, chest x-ray unremarkable. EKG is nonischemic. Wheezing resolved with his breathing treatments. Patient has a dry cough, no signs of acute bacterial infection, no indication for repeat course of steroids. Patient already taking breathing treatments and inhaled steroids at home. Patient will be discharged to home with Leticia Quach and recommendations to follow-up with his primary care physician. (ASAD COX) - Vital Signs Vital signs: Temp Pulse Resp BP Pulse Ox 97.7 F 82 14 138/91 H 95 04/21/17 01:04 04/21/17 01:04 04/21/17 01:04 04/21/17 01:04 04/21/17 01:04 - Laboratory Laboratory results interpreted by me: 04/20/17 04/20/17 21:12 21:12 WBC 10.8 H MCH 33.6 H Glucose 70 L - EKG Interpretation by Me Additional EKG results interpreted by me: 04/21/17 00:42 EKG shows sinus rhythm at a rate of 84, normal axis, normal intervals, no ST segment elevations or depressions, no T-wave inversions per my interpretation. ( ASAD COX) Discharge <BRADFORD NAYAK - Last Filed: 04/21/17 03:56> <ASAD COX - Last Filed: 04/21/17 03:58> - Discharge Clinical Impression: Tobacco abuse, Tobacco abuse counseling Acute bronchitis Qualifiers: Bronchitis organism: unspecified organism Qualified Code(s): J20.9 - Acute bronchitis, unspecified Hypertension Qualifiers: Hypertension type: essential hypertension Qualified Code(s): I10 - Essential ( primary) hypertension Condition: Stable Disposition: HOME, SELF-CARE Additional Instructions: Today there is no sign of acute bacterial infection. As your wheezing got better with breathing treatments, I do not think you need steroids by mouth. Please keep taking your breathing treatments and your inhaled steroids. Please return for worsening cough, worsening shortness of breath, fevers or any new or concerning symptoms. Please use ibuprofen 800 mg every 8 hours as needed for pain. Please also use the Tessalon Perles for cough. Prescriptions: Benzonatate [Tessalon Perle 100 mg Capsule] 100 mg PO Q8HP PRN #40 cap PRN Reason: Forms: Smoking Cessation Education Referrals: KIERAN MAGDALENO MD [Primary Care Provider] - Follow up as needed Scribe Attestation: 04/21/17 03:57 I personally performed the services described in the documentation, reviewed and edited the documentation which was dictated to the scribe in my presence, and it accurately records my words and actions. (ASAD COX) Scribe Documentation - Scribe Written by Pricilla:: Pricilla Merida, 04/20/2017 [id number] acting as scribe for :: Kofi <BRADFORD NAYAK - Last Filed: 04/21/17 03:56>
[2017-04-21 01:25] VITALS: BP 138/91
--- NOTE | 2017-04-21 07:41 | EKG REPORT ---
SEVERITY:- NORMAL ECG - SINUS RHYTHM : Confirmed by: Karey Pedroza MD 21-Apr-2017 07:40:36
== END 2017-04-21 01:04 | disposition home or self-care (01) ==
LOC: ER 18:20
DX: J20.9 Acute bronchitis, unspecified (principal); I10 Essential (primary) hypertension; Z88.6 Allergy status to analgesic agent; Z90.49 Acquired absence of other specified parts of digestive tract
CPT/HCPCS: 93005; 94640; 99285; 36415; 87040; 87205; 82553; 82550; 85025; 80053; 84484; 87804; 71046; 93010; J3490; J7512; J7620; 87070

== ENCOUNTER 2017-05-06 12:47 | Emergency (ER) | payer MEDICAID ==
[2017-05-06] MEDS ORDERED: ONDANSETRON HCL INJ/PF 4 MG/2 ML SDV IV ONE (13:08)
[2017-05-06] MEDS ORDERED: NORMAL SALINE 1000 ML 1,000 ML IV ONE (13:08)
[2017-05-06] MEDS ORDERED: HYDROMORPHONE HCL INJ/PF 2 MG/ML AMPULE IV ONE (13:08)
--- NOTE | 2017-05-06 13:11 | ER Document Report ---
ED Medical Screen (RME) - General Chief Complaint: Abdominal Pain Stated Complaint: ABDOMINAL PAIN, NAUSEA Time Seen by Provider: 05/06/17 13:07 Mode of Arrival: Ambulatory Information source: Patient TRAVEL OUTSIDE OF THE [place] IN LAST 30 DAYS: No - HPI Patient complains to provider of: abd pain Onset: Yesterday - pt . is s/p cholecystectomy but has been having sever R- sided abd pain since last night with nausea - Related Data Allergies/Adverse Reactions: codeine [Codeine] Adverse Reaction (Verified 05/06/17 12:57) NSAIDS (Non-Steroidal Anti-Inflamma Adverse Reaction (Verified 05/06/17 12:57) Past Medical History - Past Medical History Cardiac Medical History: Reports: Hx Hypertension Denies: Hx Heart Attack Pulmonary Medical History: Reports: Hx Asthma, Hx Bronchitis, Hx Pneumonia Denies: Hx COPD Neurological Medical History: Denies: Hx Seizures Renal/ Medical History: Denies: Hx Peritoneal Dialysis GI Medical History: Reports: Hx Gastritis, Hx Gastroesophageal Reflux Disease - Pickett's esophagus, Hx Colonoscopy, Hx Endoscopy Musculoskeltal Medical History: Denies Hx Arthritis, Reports Hx Musculoskeletal Deformity, Reports Hx Musculoskeletal Trauma Psychiatric Medical History: Reports: Hx Anxiety, Hx Attention Deficit Hyperactivity Disorder Denies: Hx Depression Traumatic Medical History: Reports: Hx Fractures - thumb Past Surgical History: Reports: Hx Cholecystectomy, Hx Orthopedic Surgery - rt shoulder, rt thumb, Hx Umbilical Hernia, Other - Umbilical hernia repair 1 month prior, primary - Immunizations Immunizations up to date: Yes Hx Diphtheria, Pertussis, Tetanus Vaccination: Yes History of Influenza Vaccine for 12/2016 - 05/2017 Season: Yes Physical Exam - Vital signs Vitals: Temp Pulse Resp BP Pulse Ox 98.2 F 125 H 20 112/72 98 05/06/17 12:58 05/06/17 12:58 05/06/17 12:58 05/06/17 12:58 05/06/17 12:58 Course - Vital Signs Vital signs: Temp Pulse Resp BP Pulse Ox 98.2 F 125 H 20 112/72 98 05/06/17 12:58 05/06/17 12:58 05/06/17 12:58 05/06/17 12:58 05/06/17 12:58
[2017-05-06 13:54] LABS: ABSOLUTE BASOPHILS # (AUTO) 0.1 10^3/uL (0.0-0.2); ABSOLUTE MONOCYTES (AUTO) 1.3 10^3/uL (0.1-1.4); ABSOLUTE NEUT (AUTO) 8.2 10^3/uL (1.7-8.2); EOSINOPHILS % (AUTO) 0.2 % (0-6); HEMATOCRIT 50.7 % (37.9-51.0); HEMOGLOBIN 17.6 g/dL (13.5-17.0); LYMPHOCYTES % (AUTO) 17.4 % (13-45); MEAN CORPUSCULAR HEMOGLOBIN 33.7 pg (27.0-33.4); MEAN CORPUSCULAR HGB CONC 34.7 g/dL (32.0-36.0); MEAN CORPUSCULAR VOLUME 97 fl (80-97); PLATELET COUNT 282 10^3/uL (150-450); RED BLOOD COUNT 5.23 10^6/uL (4.35-5.55); RED CELL DISTRIBUTION WIDTH 13.7 % (11.5-14.0); SEGMENTED NEUTROPHILS % (AUTO) 70.4 % (42-78); TOTAL CELLS COUNTED % (AUTO) 100 %; WHITE BLOOD COUNT 11.7 10^3/uL (4.0-10.5)
[2017-05-06 13:59] LABS: APPEARANCE,URINE SLIGHTLY-CLOUDY; BILIRUBIN,URINE NEGATIVE (NEGATIVE); COLOR,URINE YELLOW; GLUCOSE, URINE 50 mg/dL (NEGATIVE); KETONES,URINE NEGATIVE (NEGATIVE); LEUKOCYTE ESTERASE,URINE NEGATIVE (NEGATIVE); NITRITE,URINE NEGATIVE (NEGATIVE); PROTEIN,URINE NEGATIVE (NEGATIVE); URINE SPECIFIC GRAVITY 1.026; UROBILINOGEN,URINE NEGATIVE mg/dL (<2.0)
[2017-05-06 14:10] LABS: ALANINE AMINOTRANSFERASE 62 U/L (21-72); ALBUMIN 4.7 g/dL (3.5-5.0); ALKALINE PHOSPHATASE 78 U/L (38-126); ANION GAP 12 (5-19); ASPARTATE AMINO TRANSFERASE 39 U/L (17-59); BILIRUBIN,DIRECT 0.1 mg/dL (0.0-0.4); BILIRUBIN,TOTAL 0.4 mg/dL (0.2-1.3); BLOOD UREA NITROGEN 12 mg/dL (7-20); CALCIUM 9.8 mg/dL (8.4-10.2); CARBON DIOXIDE 27 mmol/L (22-30); CHLORIDE 102 mmol/L (98-107); GLUCOSE 119 mg/dL (75-110); LIPASE 71.1 U/L (23-300); POTASSIUM 4.6 mmol/L (3.6-5.0); SODIUM 140.5 mmol/L (137-145); TOTAL PROTEIN 7.1 g/dL (6.3-8.2)
--- NOTE | 2017-05-06 15:28 | RADIOLOGY REPORT (SQ) ---
EXAM DESCRIPTION: CT ABD/PELVIS WITH IV ONLY COMPLETED DATE/TIME: 05/06/2017 3:10 pm REASON FOR STUDY: abd pain COMPARISON: 03/02/2017. TECHNIQUE: CT scan of the abdomen and pelvis performed using helical scanning technique with dynamic intravenous contrast injection. No oral contrast. Images reviewed with lung, soft tissue, and bone windows. Reconstructed coronal and sagittal MPR images reviewed. Delayed images for evaluation of the urinary system also acquired. All images stored on PACS. All CT scanners at this facility use dose modulation, iterative reconstruction, and/or weight based d osing when appropriate to reduce radiation dose to as low as reasonably achievable (ALARA). [facility]: Dose Right [facility]: CareDose [facility]: Dose Right [facility]: Teradose 4D [facility]: [employer] CONTRAST TYPE AND DOSE: contrast/concentration: Isovue 370.00 mg/ml; Total Contrast Delivered: 100.0 ml; Total Saline Delivered: 72.0 ml RENAL FUNCTION: BUN 12 creatinine 0.9. RADIATION DOSE: CT Rad equipment meets quality standard of care and radiation dose reduction techniq ues were employed. CTDIvol: 19.1 - 20.5 mGy. DLP: 2344 mGy-cm.. LIMITATIONS: None. FINDINGS: LOWER CHEST: No significant findings. No nodules or infiltrates. LIVER: Normal size. Diffuse fatty infiltration. Irregular area of decreased attenuation adjacent to the gallbladder fossa. No dilated ducts. SPLEEN: Normal size. No focal lesions. PANCREAS: No masses. No significant calcifications. No adjacent inflammation or peripancreatic fluid collections. Pancreatic duct not dilated. GALLBLADDER: Surgically absent. ADRENAL GLANDS: No significant masses or asymmetry. RIGHT KIDNEY AND URETER: No solid masses. No significant calcifications. No hydronephrosis or hyd roureter. LEFT KIDNEY AND URETER: No solid masses. No significant calcifications. No hydronephrosis or hydr oureter. AORTA AND VESSELS: No aneurysm. No dissection. Renal arteries, SMA, celiac without stenosis. RETROPERITONEUM: No retroperitoneal adenopathy, hemorrhage or masses. BOWEL AND PERITONEAL CAVITY: No masses or inflammatory changes. No free fluid or peritoneal masses. APPENDIX: Not visualized. PELVIS: No mass. No free fluid. Normal bladder. ABDOMINAL WALL: No masses. No hernias. BONES: No significant or acute findings. OTHER: No other significant finding. IMPRESSION: DIFFUSE FATTY INFILTRATION OF THE LIVER. IRREGULAR AREA OF DECREASED ATTENUATION ADJACE NT TO THE GALLBLADDER FOSSA PROBABLY DUE TO GEOGRAPHIC DISTRIBUTION OF FAT. NO OTHER SIGNIFICANT OR ACUTE FINDING IN THE ABDOMEN OR PELVIS ON CT SCAN WITH IV CONTRAST. TECHNICAL DOCUMENTATION: JOB ID: [id number] Quality ID # [id number]: Final reports with documentation of one or more dose reduction techniques (e.g., Au tomated exposure control, adjustment of the mA and/or kV according to patient size, use of iterative reconstruction technique) 2010 [employer]- All Rights Reserved
--- NOTE | 2017-05-06 15:39 | ER Document Report ---
ED General - General Chief Complaint: Abdominal Pain Stated Complaint: ABDOMINAL PAIN, NAUSEA Time Seen by Provider: 05/06/17 13:07 Mode of Arrival: Ambulatory Information source: Patient Notes: Patient presents emergency department with complaints of right upper quadrant abdominal pain that started yesterday. Reports some nausea denies fever vomiting. Reports history of diarrhea since he has had his gallbladder out in October. Patient reports he had a heavy dinner last night. Was worried that his ducts were blocked. TRAVEL OUTSIDE OF THE [place] IN LAST 30 DAYS: No - HPI Onset: Yesterday Quality of pain: Achy Severity: Severe Pain Level: 5 Associated symptoms: None Exacerbated by: Denies Relieved by: Denies Similar symptoms previously: Yes Recently seen / treated by doctor: Yes - Related Data Allergies/Adverse Reactions: codeine [Codeine] Adverse Reaction (Verified 05/06/17 12:57) NSAIDS (Non-Steroidal Anti-Inflamma Adverse Reaction (Verified 05/06/17 12:57) Past Medical History - General Information source: Patient - Social History Smoking Status: Former Smoker Chew tobacco use (# tins/day): No Frequency of alcohol use: None Drug Abuse: None Family History: Arthritis, COPD, CVA - father in his 50s, Hyperlipidemia, Hypertension, Malignancy, Thyroid Disfunction Patient has suicidal ideation: No Patient has homicidal ideation: No - Past Medical History Cardiac Medical History: Reports: Hx Hypertension Denies: Hx Heart Attack Pulmonary Medical History: Reports: Hx Asthma, Hx Bronchitis, Hx Pneumonia Denies: Hx COPD Neurological Medical History: Denies: Hx Seizures Renal/ Medical History: Denies: Hx Peritoneal Dialysis GI Medical History: Reports: Hx Gastritis, Hx Gastroesophageal Reflux Disease - Pickett's esophagus, Hx Colonoscopy, Hx Endoscopy Musculoskeltal Medical History: Denies Hx Arthritis, Reports Hx Musculoskeletal Deformity, Reports Hx Musculoskeletal Trauma Psychiatric Medical History: Reports: Hx Anxiety, Hx Attention Deficit Hyperactivity Disorder Denies: Hx Depression Traumatic Medical History: Reports: Hx Fractures - thumb Past Surgical History: Reports: Hx Cholecystectomy, Hx Orthopedic Surgery - rt shoulder, rt thumb, Hx Umbilical Hernia, Other - Umbilical hernia repair 1 month prior, primary - Immunizations Immunizations up to date: Yes Hx Diphtheria, Pertussis, Tetanus Vaccination: Yes Review of Systems - Review of Systems Notes: Review HPI for review of systems., All other systems negative Physical Exam - Vital signs Vitals: Temp Pulse Resp BP Pulse Ox 98.2 F 125 H 20 112/72 98 05/06/17 12:58 05/06/17 12:58 05/06/17 12:58 05/06/17 12:58 05/06/17 12:58 - Notes Notes: PHYSICAL EXAMINATION: GENERAL: Well-appearing and in no acute distress HEAD: Atraumatic, normocephalic. EYES: Pupils equal round , extraocular movements intact, sclera anicteric, conjunctiva are normal. ENT: nares patent, Moist mucous membranes. NECK: Normal range of motion, supple without lymphadenopathy LUNGS: CTAB and equal. No wheezes rales or rhonchi. HEART: Regular rate and rhythm without murmurs ABDOMEN: Soft, no tenderness. No guarding, no rebound BACK: Denies pain, denies CVA tenderness EXTREMITIES: Normal range of motion, no pitting edema. No cyanosis. NEUROLOGICAL: Cranial nerves grossly intact. Normal sensory/motor exams. PSYCH: Normal mood, normal affect. SKIN: Warm, Dry, normal turgor, no rashes or lesions noted Course - Re-evaluation Re-evalutation: 05/06/17 15:48 Patient looks good nontoxic no distress. labs unremarkable, CT shows fatty infiltration of liver. Patient was instructed on the importance of follow-up with his primary care provider or return to the emergency department for worsening symptoms. He verbalized understanding. review of [facility] chest patient has received multiple narcotics from multiple prior providers within the past year. I asked patient about this and he reports has a pinched nerve. - Vital Signs Vital signs: Temp Pulse Resp BP Pulse Ox 98.8 F 104 H 16 123/85 96 05/06/17 16:07 05/06/17 16:07 05/06/17 16:07 05/06/17 16:07 05/06/17 16:07 - Laboratory Result Diagrams: 05/06/17 13:25 05/06/17 13:25 Laboratory results interpreted by me: 05/06/17 05/06/17 05/06/17 13:25 13:25 13:25 WBC 11.7 H Hgb 17.6 H MCH 33.7 H Glucose 119 H Urine Glucose (UA) 50 H Urine Blood SMALL H - Diagnostic Test Radiology reviewed: Image reviewed, Reports reviewed - EXAM DESCRIPTION: CT ABD/ PELVIS WITH IV ONLY COMPLETED DATE/TIME: 05/06/2017 3:10 pm REASON FOR STUDY : abd pain COMPARISON: 03/02/2017. TECHNIQUE: CT scan of the abdomen and pelvis performed using helical scanning technique with dynamic intravenous contrast injection. No oral contrast. Images reviewed with lung, soft tissue, and bone windows. Reconstructed coronal and sagittal MPR images reviewed. Delayed images for evaluation of the urinary system also acquired. All images stored on PACS. All CT scanners at this facility use dose modulation, iterative reconstruction, and/or weight based dosing when appropriate to reduce radiation dose to as low as reasonably achievable (ALARA). [facility]: Dose Right [facility]: CareDose [facility]: Dose Right [facility]: Teradose 4D [facility]: [employer] CONTRAST TYPE AND DOSE: contrast/concentration: Isovue 370.00 mg/ml; Total Contrast Delivered: 100.0 ml; Total Saline Delivered: 72.0 ml RENAL FUNCTION : BUN 12 creatinine 0.9. RADIATION DOSE: CT Rad equipment meets quality standard of care and radiation dose reduction techniques were employed. CTDIvol : 19.1 - 20.5 mGy. DLP: 2344 mGy-cm.. LIMITATIONS: None. FINDINGS: LOWER CHEST: No significant findings. No nodules or infiltrates. LIVER: Normal size. Diffuse fatty infiltration. Irregular area of decreased attenuation adjacent to the gallbladder fossa. No dilated ducts. SPLEEN: Normal size. No focal lesions. PANCREAS: No masses. No significant calcifications. No adjacent inflammation or peripancreatic fluid collections. Pancreatic duct not dilated. GALLBLADDER: Surgically absent. ADRENAL GLANDS: No significant masses or asymmetry. RIGHT KIDNEY AND URETER: No solid masses. No significant calcifications. No hydronephrosis or hydroureter. LEFT KIDNEY AND URETER: No solid masses. No significant calcifications. No hydronephrosis or hydroureter. AORTA AND VESSELS: No aneurysm. No dissection. Renal arteries, SMA, celiac without stenosis. RETROPERITONEUM: No retroperitoneal adenopathy, hemorrhage or masses. BOWEL AND PERITONEAL CAVITY: No masses or inflammatory changes. No free fluid or peritoneal masses. APPENDIX: Not visualized. PELVIS: No mass. No free fluid. Normal bladder. ABDOMINAL WALL: No masses. No hernias. BONES: No significant or acute findings. OTHER: No other significant finding. IMPRESSION: DIFFUSE FATTY INFILTRATION OF THE LIVER. IRREGULAR AREA OF DECREASED ATTENUATION ADJACENT TO THE GALLBLADDER FOSSA PROBABLY DUE TO GEOGRAPHIC DISTRIBUTION OF FAT. NO OTHER SIGNIFICANT OR ACUTE FINDING IN THE ABDOMEN OR PELVIS ON CT SCAN WITH IV CONTRAST Discharge - Discharge Clinical Impression: Right upper quadrant abdominal pain, Fatty liver Condition: Stable Disposition: HOME, SELF-CARE Instructions: Abdominal Pain ([facility]), Antinausea Medication ([facility]), Pain Medication Injection ([facility]) Additional Instructions: *You have been evaluated for abdominal pain *Take medication for nausea as indicated and prescribed *Follow up with a primary care provider within 3 days *Return to ED for worsening condition, changes, needs *Return to ED if not better in 24 hours Prescriptions: Ondansetron [Zofran Odt 4 mg Tablet] 1 - 2 tab PO Q4H #10 tab.rapdis Referrals: KIERAN MAGDALENO MD [Primary Care Provider] - Follow up in 3-5 days
[2017-05-06 16:10] VITALS: BP 123/85
== END 2017-05-06 16:10 | disposition home or self-care (01) ==
LOC: ER 12:47
DX: R10.11 Right upper quadrant pain (principal); K76.0 Fatty (change of) liver, not elsewhere classified; R11.0 Nausea; R19.7 Diarrhea, unspecified; Z87.891 Personal history of nicotine dependence
CPT/HCPCS: 99284; 96361; 96374; 96375; 36415; 83690; 85025; 80053; 81001; 74177; J1170; J2405; J7030

== ENCOUNTER 2017-12-17 17:01 | Emergency (ER) | payer MEDICAID ==
[2017-12-17 17:28] VITALS: BP 144/96
--- NOTE | 2017-12-17 18:31 | RADIOLOGY REPORT (SQ) ---
EXAM DESCRIPTION: SHOULDER RIGHT 2 OR MORE VIEWS COMPLETED DATE/TIME: 12/17/2017 6:18 pm REASON FOR STUDY: SHOULDER INJURY COMPARISON: None. NUMBER OF VIEWS: Three views. TECHNIQUE: Internal rotation, external rotation, and Y view images acquired of the right shoulder. LIMITATIONS: None. FINDINGS: MINERALIZATION: Normal. BONES: No acute fracture or dislocation. No worrisome bone lesions. JOINTS: No glenohumeral dislocation. Acromioclavicular joint unremarkable VISUALIZED LUNGS AND RIBS: No pneumothorax. No rib fracture. SOFT TISSUES: No radiopaque foreign body. OTHER: No other significant finding. IMPRESSION: No acute findings TECHNICAL DOCUMENTATION: JOB ID: [id number] [employer]- All Rights Reserved Reading location - IP/workstation name: [email or web address]
[2017-12-17] MEDS ORDERED: OXYCODONE-ACETAMINOPHEN 5-325 MG TABLET PO ONE (18:57)
[2017-12-17] MEDS ORDERED: LIDOCAINE 5% (700 MG) TRANSDERMAL ADH..PATCH TP ONE (18:58)
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
== END 2017-12-17 19:39 | disposition home or self-care (01) ==
LOC: ER 17:01
DX: S43.401A Unspecified sprain of right shoulder joint, initial encounter (principal); W22.8XXA Striking against or struck by other objects, initial encounter; Y93.H9 Activity, other involving exterior property and land maintenance, building and construction; Z98.890 Other specified postprocedural states; I10 Essential (primary) hypertension; J45.909 Unspecified asthma, uncomplicated
CPT/HCPCS: 99283; 73030; L3650; J3490

== ENCOUNTER 2018-05-20 11:49 | Emergency (ER) | payer MEDICAID ==
[2018-05-20] MEDS ORDERED: ONDANSETRON HCL INJ/PF 4 MG/2 ML SDV IV ONE (12:21)
[2018-05-20] MEDS ORDERED: MORPHINE SULFATE 10 MG/ML INJ IV ONE (12:21)
--- NOTE | 2018-05-20 12:23 | ER Document Report ---
ED Medical Screen (RME) - General Chief Complaint: Hand Pain Stated Complaint: LACERATION TO LEFT HAND Time Seen by Provider: 05/20/18 12:12 Notes: Patient is a 42-year-old male that presents to the emergency department for chief complaint of left hand pain. Patient injured his hand and lacerated his extensor tendon of his left index finger, was seen by urgent care had it repaired, so was to follow-up with orthopedic surgery, but they are not in the office until tomorrow, he states that the pain was excruciating despite taking oxycodone, so he decided come to the emergency department.. ROS: Other than noted above, the 12 point review of systems was reviewed with the patient and were negative, all pertinent findings are included in the HPI. PHYSICAL EXAMINATION: Vital signs reviewed. GENERAL: Patient appears very uncomfortable and in pain on exam HEAD: Atraumatic, normocephalic. EYES: Pupils equal round extraocular movements intact, conjunctiva are normal. ENT: Nares patent NECK: Normal range of motion CV: Heart rate tachycardic, regular rhythm. LUNGS: No respiratory distress Musculoskeletal: Patient had a bulky dressing on his left hand, this was removed, patient had repaired laceration with sutures, patient had significant pain with trying to extend his index finger. No evidence of infection at this time, no erythema, area she is tender to palpate. NEUROLOGICAL: Normal speech PSYCH: Normal mood, normal affect. MDM: Patient seen and examined for rapid initial assessment. Vital signs reviewed. A comprehensive ED assessment and evaluation of the patient, analysis of test results and completion of the medical decision making process will be conducted by additional ED providers. *Note is created using voice recognition software and may contain spelling, syntax or grammatical errors. TRAVEL OUTSIDE OF THE [place] IN LAST 30 DAYS: No - Related Data Allergies/Adverse Reactions: codeine [Codeine] Adverse Reaction (Verified 12/17/17 17:02) NSAIDS (Non-Steroidal Anti-Inflamma Adverse Reaction (Verified 12/17/17 17:02) Past Medical History - Past Medical History Cardiac Medical History: Reports: Hx Hypertension Denies: Hx Heart Attack Pulmonary Medical History: Reports: Hx Asthma, Hx Bronchitis, Hx Pneumonia Denies: Hx COPD Neurological Medical History: Denies: Hx Seizures Renal/ Medical History: Denies: Hx Peritoneal Dialysis GI Medical History: Reports: Hx Gastritis, Hx Gastroesophageal Reflux Disease - Pickett's esophagus, Hx Colonoscopy, Hx Endoscopy Musculoskeltal Medical History: Denies Hx Arthritis, Reports Hx Musculoskeletal Deformity, Reports Hx Musculoskeletal Trauma Psychiatric Medical History: Reports: Hx Anxiety, Hx Attention Deficit Hyperactivity Disorder Denies: Hx Depression Traumatic Medical History: Reports: Hx Fractures - thumb Past Surgical History: Reports: Hx Cholecystectomy, Hx Orthopedic Surgery - rt shoulder, rt thumb, Hx Umbilical Hernia, Other - Umbilical hernia repair 1 month prior, primary - Immunizations Immunizations up to date: Yes Hx Diphtheria, Pertussis, Tetanus Vaccination: Yes History of Influenza Vaccine for 12/2016 - 05/2017 Season: Yes Physical Exam - Vital signs Vitals: Temp Pulse Resp BP Pulse Ox 98.9 F 107 H 18 156/101 H 99 05/20/18 12:03 05/20/18 12:03 05/20/18 12:03 05/20/18 12:03 05/20/18 12:03 Course - Vital Signs Vital signs: Temp Pulse Resp BP Pulse Ox 98.9 F 107 H 18 156/101 H 99 05/20/18 12:03 05/20/18 12:03 05/20/18 12:03 05/20/18 12:03 05/20/18 12:03
[2018-05-20] MEDS ORDERED: HYDROMORPHONE HCL INJ/PF 2 MG/ML AMPULE IV ONE ×2 (13:56→16:42)
--- NOTE | 2018-05-20 14:56 | PDOC CONSULTATION ---
History of Present Illness Admission Date/PCP: MELANIE OSEGUERA Patient complains of: Left hand pain History of Present Illness: MINAL PEÑA JR is a 42 year old male presents today for evaluation of her left hand pain. He states he sustained a laceration to his left hand yesterday when he fell on a piece of glass. He was seen at the urgent care where the area was apparently irrigated and loosely closed. Patient was started on Keflex but has not filled his antibiotics. States pain is worse with any attempted motion or movement. Had difficulty sleeping last night. Denies fever chills or sweats. Pain 01/03. Past Medical History Cardiac Medical History: Reports: Hypertension Denies: Myocardial Infarction Pulmonary Medical History: Reports: Asthma, Bronchitis, Pneumonia Denies: Chronic Obstructive Pulmonary Disease (COPD) Neurological Medical History: Denies: Seizures GI Medical History: Reports: Gastroesophageal Reflux Disease - Pickett's esophagus Musculoskeltal Medical History: Denies: Arthritis Psychiatric Medical History: Reports: Attention Deficit Hyperactivity Disorder Denies: Depression Hematology: Denies: Anemia Past Surgical History Past Surgical History: Reports: Cholecystectomy, Orthopedic Surgery - rt shoulder, rt thumb, Other - Umbilical hernia repair 1 month prior, primary Social History Smoking Status: Never Smoker Frequency of Alcohol Use: Occasional Hx Recreational Drug Use: No Drugs: None Hx Prescription Drug Abuse: No Family History Family History: Arthritis, COPD, CVA - father in his 50s, Hyperlipidemia, Hypertension, Malignancy, Thyroid Disfunction Parental Family History Reviewed: No Children Family History Reviewed: No Sibling(s) Family History Reviewed.: No Medication/Allergy Home Medications: Albuterol Sulfate [Ventolin 0.083% Neb 2.5 mg/3 mL Ampul] 2.5 mg NEB RTQ4HP PRN 01/21/17 Budesonide/Formoterol Fumarate [Symbicort 160-4.5 Mcg Inhaler] 2 puff IH Q12 01/21/17 Cyclobenzaprine HCl [Flexeril 10 mg Tablet] 10 mg PO Q12HP PRN 01/21/17 Epinephrine [Epipen] 0.3 ml IM ASDIR PRN 01/21/17 Hydrocodone/Acetaminophen [Independence 5-325 mg Tablet] 1 tab PO Q6HP PRN 01/21/17 Lisinopril [Prinivil 40 mg Tablet] 40 mg PO DAILY 01/21/17 Montelukast Sodium [Singulair 10 mg Tablet] 10 mg PO DAILY 01/21/17 Omeprazole 40 mg PO BIDACBS 01/21/17 Oxycodone HCl/Acetaminophen [Percocet 5-325 mg Tablet] 1 tab PO Q4HP PRN 01/21/17 Zolpidem Tartrate [Ambien 5 mg Tablet] 5 mg PO HSP PRN 01/21/17 Cyclobenzaprine HCl [Flexeril 10 mg Tablet] 10 mg PO TIDP PRN #15 tab 02/15/17 Lidocaine [Lidoderm 5% (700 mg) Transdermal Patch] 1 patch TP DAILY #15 adh..patch 02/15/17 Metoclopramide HCl [Reglan] 5 mg PO Q6HP PRN #20 tablet 03/04/17 Promethazine HCl [Phenergan 25 mg Tablet] 1 - 2 tab PO Q6H PRN #15 tablet 03/04/17 Cyclobenzaprine HCl [Flexeril 10 Mg Tablet] 10 mg PO TIDP PRN #20 tablet 03/20/17 Oxycodone HCl/Acetaminophen [Percocet 10-325 Mg Tablet] 1 each PO Q4HP PRN #10 tablet 03/20/17 Tramadol HCl [Ultram 50 mg Tablet] 50 mg PO ASDIR PRN #15 tablet 03/31/17 Azithromycin [Zithromax 250 mg Tablet] 250 mg PO ASDIR PRN #6 tablet 04/08/17 Prednisone [Deltasone 20 mg Tablet] 3 tab PO DAILY 5 Days tablet 04/08/17 Benzonatate [Tessalon Perle 100 mg Capsule] 100 mg PO Q8HP PRN #40 cap 04/21/17 Ondansetron [Zofran Odt 4 mg Tablet] 1 - 2 tab PO Q4H #10 tab.rapdis 05/06/17 Allergies/Adverse Reactions: codeine [Codeine] Adverse Reaction (Verified 12/17/17 17:02) NSAIDS (Non-Steroidal Anti-Inflamma Adverse Reaction (Verified 12/17/17 17:02) Review of Systems Constitutional: ABSENT: chills, fever(s), headache(s), weight gain, weight loss Eyes: ABSENT: visual disturbances Ears: ABSENT: hearing changes Cardiovascular: ABSENT: chest pain, dyspnea on exertion, edema, orthropnea, palpitations Respiratory: ABSENT: cough, hemoptysis Gastrointestinal: ABSENT: abdominal pain, constipation, diarrhea, hematemesis, hematochezia, nausea, vomiting Genitourinary: ABSENT: dysuria, hematuria Musculoskeletal: PRESENT: as per HPI Integumentary: ABSENT: rash, wounds Neurological: ABSENT: abnormal gait, abnormal speech, confusion, dizziness, focal weakness, syncope Psychiatric: ABSENT: anxiety, depression, homidical ideation, suicidal ideation Endocrine: ABSENT: cold intolerance, heat intolerance, menstrual abnormalities, polydipsia, polyuria Hematologic/Lymphatic: ABSENT: easy bleeding, easy bruising, lymphadenopathy Physical Exam Vital Signs: Temp Pulse Resp BP Pulse Ox 98.9 F 107 H 18 156/101 H 99 05/20/18 12:03 05/20/18 12:03 05/20/18 12:03 05/20/18 12:03 05/20/18 12:03 Intake & Output 05/19/18 05/20/18 05/21/18 06:59 06:59 06:59 Weight 116.2 kg General appearance: PRESENT: no acute distress, well-developed, well-nourished Head exam: PRESENT: atraumatic, normocephalic Eye exam: PRESENT: conjunctiva pink, EOMI, PERRLA. ABSENT: scleral icterus Ear exam: PRESENT: normal external ear exam Mouth exam: PRESENT: moist, tongue midline Neck exam: PRESENT: full ROM. ABSENT: carotid bruit, JVD, lymphadenopathy, thyromegaly Cardiovascular exam: PRESENT: RRR. ABSENT: diastolic murmur, rubs, systolic murmur Pulses: PRESENT: normal dorsalis pedis pul, +2 pedal pulses bilateral Vascular exam: PRESENT: normal capillary refill GI/Abdominal exam: PRESENT: normal bowel sounds, soft. ABSENT: distended, guarding, mass, organolmegaly, rebound, tenderness Rectal exam: PRESENT: deferred Musculoskeletal exam: PRESENT: other - Left hand: 1 cm laceration along the dorsal aspect of the MCP joint. Associated swelling dorsally. No erythema. No streaking erythema. Tenderness with palpation along the MCP joint. No pain with range of motion of the MCP joint within his mid range of motion pain with terminal flexion/extension. Pain with extension of the PIP joint which causes discomfort dorsally. No volar tenderness. No fusiform swelling. No tenderness along the flexor sheath. No sensory deficits. Cap refill less than 2 seconds. Limited active motion of the MCP joint. Greater than 35 degree extension lag at the MCP joint. Neurological exam: PRESENT: alert, awake, oriented to person, oriented to place, oriented to time, oriented to situation, CN II-XII grossly intact. ABSENT: motor sensory deficit Psychiatric exam: PRESENT: appropriate affect, normal mood. ABSENT: homicidal ideation, suicidal ideation Skin exam: PRESENT: dry, intact, warm. ABSENT: cyanosis, rash Assessment & Plan - Diagnosis (1) Laceration of extensor muscle, fascia and tendon of left index finger at wrist and hand level, initial encounter Is this a current diagnosis for this admission?: Yes Plan: Patient sustained an extensor tendon laceration of his left index finger with notable extensor lag. Today we discussed treatment options he will require operative intervention which includes extensor tendon repair. Currently there is no sign or symptoms of infection or septic flexor tenosynovitis patient will receive IV antibiotics in the emergency room and be sent home on p.o. antibiotics. Patient will follow-up with me as an outpatient to discuss operative intervention. Patient will also receive x-ray in the emergency room to ensure no evidence of retained foreign body.
[2018-05-20] MEDS ORDERED: CEFTRIAXONE 1 GM/D5W RTU 1 GM/50 ML RTUPB IV ONE ×2 (15:59→16:30)
--- NOTE | 2018-05-20 16:12 | ER Document Report ---
HPI - HPI Patient complains to provider of: laceration pain Time Seen by Provider: 05/20/18 12:12 Pain Level: 5 Context: Patient is a 42-year-old male presents to the emergency department for increased pain noted to a laceration he sustained yesterday. Laceration is on the dorsal aspect of his left hand near his index finger MCP joint. Patient states he was cut by a piece of glass. Patient states they did do an x-ray yesterday which revealed no abnormalities and then sutured him up. States they told him that his tendon was potentially lacerated and he needed to follow-up with orthopedics. Patient states due to it being Monday he was unable to follow-up with orthopedics and presents to the emergency department for increased pain. Patient states he would like to speak to orthopedic Dr. Rajput about potentially fixing his tendon. Patient states he takes narcotic pain medication for chronic back pain which has not been helping his laceration pain. Patient states he was given a IM shot of Rocephin at the urgent care and was al so given a prescription for Keflex. Patient states he has not filled his prescription for Keflex yet so he has not taken any of it. - REPRODUCTIVE Reproductive: DENIES: : - DERM Skin Color: Normal Past Medical History - General Information source: Patient - Social History Smoking Status: Never Smoker Family History: Arthritis, COPD, CVA - father in his 50s, Hyperlipidemia, Hyper tension, Malignancy, Thyroid Disfunction Patient has suicidal ideation: No Patient has homicidal ideation: No - Past Medical History Cardiac Medical History: Reports: Hx Hypertension Denies: Hx Heart Attack Pulmonary Medical History: Reports: Hx Asthma, Hx Bronchitis, Hx Pneumonia Denies: Hx COPD Neurological Medical History: Denies: Hx Seizures Renal/ Medical History: Denies: Hx Peritoneal Dialysis GI Medical History: Reports: Hx Gastritis, Hx Gastroesophageal Reflux Disease - Pickett's esophagus, Hx Colonoscopy, Hx Endoscopy Musculoskeletal Medical History: Denies Hx Arthritis, Reports Hx Musculoskeletal Deformity, Reports Hx Musculoskeletal Trauma Psychiatric Medical History: Reports: Hx Anxiety, Hx Attention Deficit Hyperactivity Disorder Denies: Hx Depression Traumatic Medical History: Reports: Hx Fractures - thumb Past Surgical History: Reports: Hx Cholecystectomy, Hx Orthopedic Surgery - rt shoulder, rt thumb, Hx Umbilical Hernia, Other - Umbilical hernia repair 1 month prior, primary - Immunizations Immunizations up to date: Yes Hx Diphtheria, Pertussis, Tetanus Vaccination: Yes Vertical Provider Document - CONSTITUTIONAL Agree With Documented VS: Yes Notes: GENERAL: Alert, interacts well. HEAD: Normocephalic, atraumatic. EYES: Pupils equal, round, and reactive to light. Extraocular movements intact. ENT: Oral mucosa moist, tongue midline. NECK: Full range of motion. Supple. Trachea midline. LUNGS: Clear to auscultation bilaterally, no wheezes, rales, or rhonchi. No respiratory distress. HEART: Regular rate and rhythm. No murmur ABDOMEN: Soft, non-tender. Non-distended. Bowel sounds present in all 4 quadrants. EXTREMITIES: Moves all 4 extremities spontaneously. normal radial and dorsalis pedis pulses bilaterally. No cyanosis. BACK: no cervical, thoracic, lumbar midline tenderness. No saddle anesthesia, normal distal neurovascular exam. NEUROLOGICAL: Alert and oriented x3. Normal speech. cranial nerves II through XII grossly intact PSYCH: Normal affect, normal mood. SKIN: Warm, dry, normal turgor. Left hand: 1 cm laceration along the dorsal aspect of the MCP joint, [address] Associated swelling dorsally. No erythema or streaking erythema noted. Tenderness with palpation along the MCP joint. Pain with extension of the PIP joint which causes discomfort dorsally. No volar tenderness. No tenderness along the flexor sheath. Cap refill less than 2 seconds. Limited active motion of the MCP joint d/t pain. - INFECTION CONTROL TRAVEL OUTSIDE OF THE [place] IN LAST 30 DAYS: No Course - Re-evaluation Re-evalutation: Discussed case Ortho Dr. Rajput who examined the pt in the ED. He is requesting one dose of IV ABX and and XR to search for retained foreign bodies. Discussed at length with patient he needs to get his antibiotics filled immediately and take them as prescribed. 05/20/18 17:10 In reviewing patient's [place] [employer] it is noted that he takes 5 mg of oxycodone's for his chronic back pain. Discussed with him that he should continue that for his hand pain. Discussed need for antibiotics and follow-up with orthopedics. Patient voices understanding and is stable for discharge. 05/20/18 17:20 Patient's x-ray is noted to have 2 foreign bodies. In discussing this with patient he knows that he has 2 pieces of metal in his hands. 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 - Vital Signs Vital signs: Temp Pulse Resp BP Pulse Ox 98.9 F 107 H 18 156/101 H 99 05/20/18 12:03 05/20/18 12:03 05/20/18 12:03 05/20/18 12:03 05/20/18 12:03 Discharge - Discharge Clinical Impression: Hand laceration Qualifiers: Encounter type: initial encounter Foreign body presence: without foreign body Laterality: left Qualified Code(s): S61.412A - Laceration without foreign body of left hand, initial encounter Condition: Stable Disposition: HOME, SELF-CARE Instructions: Laceration Care ([facility]), Prophylactic Antibiotic ([facility]), Soap Cleansing ([facility]) Additional Instructions: You have been seen and treated in the emergency department for an complication with your hand laceration. As we discussed with Dr. Rajput you should follow- up with him tomorrow. Please call his office in the morning for an appointment. Please make sure you get your antibiotics filled and take them as prescribed. Please also return to the emergency room should you have any other concerning symptoms. Referrals: MANOHAR GAN PA [Primary Care Provider] - Follow up as needed MOLINA RAJPUT DO [ACTIVE STAFF] - Follow up as needed
--- NOTE | 2018-05-20 16:24 | RADIOLOGY REPORT (SQ) ---
EXAM DESCRIPTION: HAND LEFT 3 VIEWS COMPLETED DATE/TIME: 05/20/2018 4:07 pm REASON FOR STUDY: poss FB COMPARISON: None. EXAM PARAMETERS: NUMBER OF VIEWS: Three views. TECHNIQUE: AP, lateral and oblique radiographic images acquired of the left hand. LIMITATIONS: None. FINDINGS: MINERALIZATION: Normal. BONES: No acute fracture or dislocation. No worrisome bone lesions. JOINTS: No effusion. SOFT TISSUES: Moderate soft tissue swelling. There are 2 radiopaque foreign bodies in the dorsal -la teral soft tissues, one measuring 2 mm at the level of the 3rd metacarpal diaphysis, an additional 3. 3 mm in the interspace of the 1st and 2nd metacarpals. . OTHER: No other significant finding. IMPRESSION: NO FRACTURE.Moderate soft tissue swelling. There are 2 radiopaque foreign bodies in the dorsal -lateral soft tissues, one measuring 2 mm at the level of the 3rd metacarpal diaphysis, an ad ditional 3.3 mm in the interspace of the 1st and 2nd metacarpals. TECHNICAL DOCUMENTATION: JOB ID: [id number] [place]-72 2010 [employer]- All Rights Reserved Reading location - IP/workstation name: [email or web address]
[2018-05-20 16:52] VITALS: BP 149/101
== END 2018-05-20 17:29 | disposition home or self-care (01) ==
LOC: ER 11:49
DX: S66.321D Laceration of extensor muscle, fascia and tendon of left index finger at wrist and hand level, subsequent encounter (principal); S61.412D Laceration without foreign body of left hand, subsequent encounter; W25.XXXD Contact with sharp glass, subsequent encounter; T36.1X6A Underdosing of cephalosporins and other beta-lactam antibiotics, initial encounter; Z91.128 Patient's intentional underdosing of medication regimen for other reason; Z91.14 Patient's other noncompliance with medication regimen; M54.9 Dorsalgia, unspecified; G89.29 Other chronic pain; Z79.891 Long term (current) use of opiate analgesic; I10 Essential (primary) hypertension; J45.909 Unspecified asthma, uncomplicated
CPT/HCPCS: 73130; J2270; J1170; J2405; J0696

== ENCOUNTER 2018-05-22 09:51 | Day surgery (SDC) | payer MEDICAID ==
[~2018-05-22 09:51] MED LIST changes: -ALBUTEROL SULFATE 0.083% NEB 2.5 MG/3 ML AMPUL NEB PRN; -CEFAZOLIN 1 GM/D5W RTU 1 GM/50 ML RTUPB IV PRN; +CEFAZOLIN 2 GM/D5W RTU 2 GM/50 ML RTUPB IV PRN; -DEXAMETHASONE SOD PHOSPHATE INJ 4 MG/1 ML VIAL ONE; +KETOROLAC TROMETHAMINE 60 MG/2 ML SDV ONE; -LACTATED RINGERS 1000 ML IV PRN; -LIDOCAINE 0.5% INJ-PF (5 MG/ML) 50 ML SDV SUBCUT PRN; -ONDANSETRON HCL INJ/PF 4 MG/2 ML SDV ONE; -ROCURONIUM BROMIDE INJ 50 MG/5 ML VIAL IV ONE; -SUCCINYLCHOLINE CHLORIDE INJ 200 MG/10 ML VIAL ONE
[2018-05-22] MEDS ORDERED: LIDOCAINE 1% INJ-PF (10 MG/ML) 30 ML SDV ONE (09:54)
[2018-05-22] MEDS ORDERED: BUPIVACAINE HCL 0.5 % INJ/PF 30 ML SDV ONE (09:54)
[2018-05-22] MEDS ORDERED: MIDAZOLAM 2 MG/2 ML INJ ONE (10:07)
[2018-05-22] MEDS ORDERED: ONDANSETRON HCL INJ/PF 4 MG/2 ML SDV ONE (10:07)
[2018-05-22] MEDS ORDERED: FENTANYL CITRATE INJ/PF 100 MCG/2 ML AMPUL ONE (10:07)
[2018-05-22] MEDS ORDERED: EPHEDRINE SULFATE INJ 50 MG/1 ML AMPULE ONE (10:08)
[2018-05-22] MEDS ORDERED: ACETAMINOPHEN 1,000 MG/100 ML RTUPB IV ONE (10:08)
[2018-05-22] MEDS ORDERED: PROPOFOL INJ 200 MG/20 ML VIAL IV ONE ×2 (10:08→11:46)
[2018-05-22 10:29] LABS: ABSOLUTE BASOPHILS # (AUTO) 0.1 10^3/uL (0.0-0.2); ABSOLUTE EOSINOPHILS # (AUTO) 0.1 10^3/uL (0.0-0.6); ABSOLUTE LYMPHOCYTES (AUTO) 2.2 10^3/uL (0.5-4.7); ABSOLUTE MONOCYTES (AUTO) 1.5 10^3/uL (0.1-1.4); ABSOLUTE NEUT (AUTO) 10.4 10^3/uL (1.7-8.2); BASOPHILS % (AUTO) 0.6 % (0-2); EOSINOPHILS % (AUTO) 0.8 % (0-6); HEMATOCRIT 42.4 % (37.9-51.0); HEMOGLOBIN 14.5 g/dL (13.5-17.0); LYMPHOCYTES % (AUTO) 15.5 % (13-45); MEAN CORPUSCULAR HEMOGLOBIN 29.5 pg (27.0-33.4); MEAN CORPUSCULAR HGB CONC 34.1 g/dL (32.0-36.0); MEAN CORPUSCULAR VOLUME 87 fl (80-97); MONOCYTES % (AUTO) 10.7 % (3-13); PLATELET COUNT 310 10^3/uL (150-450); RED CELL DISTRIBUTION WIDTH 15.8 % (11.5-14.0); SEGMENTED NEUTROPHILS % (AUTO) 72.4 % (42-78); TOTAL CELLS COUNTED % (AUTO) 100 %; WHITE BLOOD COUNT 14.4 10^3/uL (4.0-10.5)
--- NOTE | 2018-05-22 10:35 | RADIOLOGY REPORT (SQ) ---
EXAM DESCRIPTION: CHEST SINGLE VIEW COMPLETED DATE/TIME: 05/22/2018 10:17 am REASON FOR STUDY: PREOP COMPARISON: CT chest 04/08/2017 Chest films 04/20/2017 EXAM PARAMETERS: NUMBER OF VIEWS: One view. TECHNIQUE: Single frontal radiographic view of the chest acquired. RADIATION DOSE: NA LIMITATIONS: None. FINDINGS: LUNGS AND PLEURA: No opacities, masses or pneumothorax. No pleural effusion. MEDIASTINUM AND HILAR STRUCTURES: No masses. Contour normal. HEART AND VASCULAR STRUCTURES: Heart normal in size. Normal vasculature. BONES: No acute findings. HARDWARE: None in the chest. OTHER: No other significant finding. IMPRESSION: NO ACUTE RADIOGRAPHIC FINDING IN THE CHEST. TECHNICAL DOCUMENTATION: JOB ID: [id number] [employer]- All Rights Reserved Reading location - IP/workstation name: [email or web address]
[2018-05-22] MEDS ORDERED: CEFAZOLIN 2 GM/D5W RTU 2 GM/50 ML RTUPB IV ONE (10:44)
[2018-05-22 10:58] LABS: ANION GAP 11 (5-19); BLOOD UREA NITROGEN 12 mg/dL (7-20); CALCIUM 9.8 mg/dL (8.4-10.2); CARBON DIOXIDE 26 mmol/L (22-30); CHLORIDE 105 mmol/L (98-107); GLUCOSE 101 mg/dL (75-110); POTASSIUM 3.7 mmol/L (3.6-5.0); SODIUM 141.5 mmol/L (137-145)
[2018-05-22 11:24] LABS: PROTHROMBIN TIME 13.7 SEC (11.4-15.4)
[2018-05-22 11:25] LABS: PARTIAL THROMBOPLASTIN TIME 29.8 SEC (23.5-35.8)
[2018-05-22] MEDS ORDERED: PROMETHAZINE HCL INJ 25 MG/1 ML VIAL ONE (11:45)
[2018-05-22] MEDS ORDERED: MORPHINE SULFATE 10 MG/ML INJ IV PRN ×2 (12:10→12:39)
[2018-05-22] MEDS ORDERED: FENTANYL CITRATE INJ/PF 100 MCG/2 ML AMPUL IV PRN ×3 (12:10)
[2018-05-22] MEDS ORDERED: DIPHENHYDRAMINE HCL 50 MG/ML VIAL IV PRN (12:10)
[2018-05-22] MEDS ORDERED: PROMETHAZINE HCL INJ 25 MG/1 ML VIAL IV PRN ×2 (12:10)
[2018-05-22] MEDS ORDERED: MEPERIDINE HCL/PF INJ 25 MG/1 ML DISP.SYRIN IV PRN (12:10)
[2018-05-22] MEDS ORDERED: ONDANSETRON HCL INJ/PF 4 MG/2 ML SDV IV PRN (12:39)
[2018-05-22] MEDS ORDERED: OXYCODONE-ACETAMINOPHEN 5-325 MG TABLET PO PRN (12:39)
--- NOTE | 2018-05-22 12:39 | Discharge Summary ---
Discharge Summary (SDC) - Discharge Final Diagnosis: Right index finger extensor tendon laceration zone V Date of Surgery: 05/22/18 Discharge Date: 05/22/18 Condition: Good Treatment or Instructions: Schedule Follow Up w/ Dr. Joesph Sevilla @ [facility] for Surgery to be seen in 10-14 days or as scheduled [place]: [place]: [place]: May remove dressing on postop day #3, keep incision covered and dry. Ice and elevate May begin finger range of motion attempting to make full fist. Stool softener of choice when on pain medication. USE OF [id number] IBUPROFEN: Ibuprofen (Advil, Nuprin, Medipren, Motrin IB) is a medication for fever and pain control. In addition, it has anti- inflammatory effects which may be beneficial, especially in the treatment of injuries. It's best to take ibuprofen with food. Persons with ulcer disease or allergy to aspirin should notify their physician of this before taking ibuprofen. Ibuprofen can be given every four to six hours, for a total of four doses daily. Age Pain or fever dose Antiinflammatory dose 6-8 yr 200 mg (1 tab) 200 mg (1 tab) 9-11 yr 200 mg (1 tab) 200-400 mg (1-2 tab) 11-14 yr 200-400 mg (1-2 tab) 400 mg (2 tab) 15-adult 400 mg (2 tab) 600 mg (3 tab) ORAL NARCOTIC MEDICATION: You have been given a prescription for pain control. This medication is a narcotic. It's best taken with food, as nausea can result if taken on an empty stomach. Don't operate machinery or drive within six hours of taking this medication. Do not combine this medicine with alcohol, or with any medication which can cause sedation (such as cold tablets or sleeping pills) unless you get permission from the physician. Narcotics tend to cause constipation. If possible, drink plenty of fluids and eat a diet high in fiber and fruits. Please be aware that prescription narcotics also have the potential for abuse. People become addicted to these medications because of the general sense of wellbeing that they induce. This feeling along with a significant reduction in tension, anxiety, and aggression provides a stimulating seductive quality to these drugs. Once your pain is under control, we encourage you to discard your unused narcotics. Prescriptions: Oxycodone HCl [Oxy-Ir 5 mg Tablet] 5 mg PO Q6 PRN #25 tab PRN Reason: Discharge Diet: As Tolerated Respiratory Treatments at Home: Deep Breathing/Coughing Discharge Activity: No Lifting Over 10 Pounds, No Lifting/Push/Pulling Report the Following to Your Physician Immediately: Fever over 101 Degrees, Unusual Bleeding, Redness, Swelling, Warmth, Increased Soreness
--- NOTE | 2018-05-22 12:39 | Operative Report ---
Operative Report DATE OF SURGERY: 05/22/18 PREOPERATIVE DIAGNOSIS: Right index finger extensor tendon laceration zone V POSTOPERATIVE DIAGNOSIS: Right index finger extensor tendon laceration zone V OPERATION: Repair Right index finger extensor tendon laceration zone V SURGEON: MOLINA RAJPUT ANESTHESIA: GA COMPLICATIONS: None ESTIMATED BLOOD LOSS: Minimal PROCEDURE: Indication for procedure: 42-year-old male who sustained a fall onto his left hand resulting in a laceration. After injury he was seen at urgent care where antibiotics were g iven. Patient has had pain and difficulty straightening the digit since that time. Patient was seen at the emergency room at which point we discussed treatment options I recommended follow-up as an outpatient to proceed with extensor tendon repair. Procedure In Detail: Patient was seen and evaluated in the preoperative holding area. The LEFT upper extremity was initialized and marked. Patient received 2g of Ancef IV for bacterial prophylaxis. Patient was taken back to the operative room where transferred to the operative table and placed under general anesthesia. Once they were adequately anesthetized a nonsterile tourniquet was placed on the upper extremity. A surgical team debriefing was performed ensuring all instrumentation was available, the surgical procedure was discussed with possible concerns reviewed. The upper extremity was prepped with chlorhexidine and alcohol and draped in a sterile fashion. A timeout was done identifying correct patient, procedure and extremity everyone in attendance agree with this and verbalized no concerns. The extremity was exsanguinated the tourniquet was inflated to 250 mmHg. Surgical incision was extended proximally and distally exposing the extensor tendon. Wound was copiously irrigated with normal saline. No evidence of purulence. No foreign body appreciated. Extensor tendon at zone V was then isolated and 80 percent laceration was involved. The MCP joint arthrotomy was made wound was copiously irrigated with normal saline. Extensor mechanism was then reapproximated with M-Gamboa locking suture, and running epitendinous 3-0 Vicryl. This successfully reapproximated the extensor tendon. With mild passive flexion to 30 degrees there is no evidence of widening or gapping. No evidence of subluxation. Rest at neutral MCP joint extension with wrist flexion approximate 30 degrees with wrist extension. Wound was copiously irrigated with normal saline. Skin was closed with interrupted 4-0 nylon suture. 20 cc of 0.5% Marcaine without epinephrine was injected for postoperative pain control. Patient was placed in a radial gutter splint with MCP joint at 20 degrees hyperextension IP joints free and wrist extension. Sponge counts, instrument counts, needle counts were correct. Patient was then awoken from anesthesia. Transferred from the operating room table to the operating room stretcher. There was no intraoperative complications patient tolerated procedure well stable to PACU. Postop plan: Patient follow-up the office in 2 weeks at which point we will proceed with wound check. Will be set up for occupational therapy prior to follow-up appointment to be fitted for a radial gutter splint as per extensor mechanism repair zone
[2018-05-22] MEDS: FENTANYL CITRATE INJ/PF 100 MCG/2 ML AMPUL ONE ×2 (13:08→13:10)
[2018-05-22 14:15] VITALS: BP 127/88
--- NOTE | 2018-05-23 10:25 | EKG REPORT ---
SEVERITY:- OTHERWISE NORMAL ECG - SINUS TACHYCARDIA : Confirmed by: Johanne Drake 23-May-2018 10:25:09
== END 2018-05-22 14:15 | disposition home or self-care (01) ==
LOC: OROUT 09:51
PROVIDERS: ATTEND Orthopaedic Surgery
DX: S66.320A Laceration of extensor muscle, fascia and tendon of right index finger at wrist and hand level, initial encounter (principal); W19.XXXA Unspecified fall, initial encounter; J44.9 Chronic obstructive pulmonary disease, unspecified; I10 Essential (primary) hypertension; I26.99 Other pulmonary embolism without acute cor pulmonale; J82 Pulmonary eosinophilia, not elsewhere classified; G47.33 Obstructive sleep apnea (adult) (pediatric); E66.9 Obesity, unspecified; Z88.5 Allergy status to narcotic agent; Z79.51 Long term (current) use of inhaled steroids; Z79.891 Long term (current) use of opiate analgesic; Z79.899 Other long term (current) drug therapy; Z79.01 Long term (current) use of anticoagulants; Z68.35 Body mass index [BMI] 35.0-35.9, adult
CPT/HCPCS: 36415; 85025; 85610; 85730; 80048; 71045; 93005; 93010; 26418; J2250; J3490 ×2; J1885; J3010; J2550; J2405; J2704; J0690; J0131; 1810

== ENCOUNTER 2018-05-24 18:34 | Emergency (ER) | payer MEDICAID ==
[2018-05-24] MEDS ORDERED: FENTANYL CITRATE INJ/PF 100 MCG/2 ML AMPUL IM ONE (18:58)
--- NOTE | 2018-05-24 18:59 | ER Document Report ---
ED Medical Screen (RME) - General Chief Complaint: Arm Problem Stated Complaint: POST SURGICAL PAIN Time Seen by Provider: 05/24/18 18:57 Notes: 42 years old male presents today with fever after tendon repair on the left second and third finger 2 days ago. And also having pain. TRAVEL OUTSIDE OF THE [place] IN LAST 30 DAYS: No - Related Data Allergies/Adverse Reactions: codeine [Codeine] Adverse Reaction (Verified 05/24/18 18:39) NSAIDS (Non-Steroidal Anti-Inflamma Adverse Reaction (Verified 05/24/18 18:39) Past Medical History - Past Medical History Cardiac Medical History: Reports: Hx Hypertension Denies: Hx Coronary Artery Disease, Hx Heart Attack Pulmonary Medical History: Reports: Hx Asthma, Hx Bronchitis, Hx Pneumonia Denies: Hx COPD Neurological Medical History: Denies: Hx Cerebrovascular Accident, Hx Seizures Renal/ Medical History: Denies: Hx Peritoneal Dialysis GI Medical History: Reports: Hx Gastritis, Hx Gastroesophageal Reflux Disease - Pickett's esophagus, Hx Colonoscopy, Hx Endoscopy Musculoskeltal Medical History: Denies Hx Arthritis, Reports Hx Musculoskeletal Deformity, Reports Hx Musculoskeletal Trauma Psychiatric Medical History: Reports: Hx Anxiety, Hx Attention Deficit Hyperactivity Disorder Denies: Hx Depression Traumatic Medical History: Reports: Hx Fractures - thumb Past Surgical History: Reports: Hx Cholecystectomy, Hx Orthopedic Surgery - rt shoulder, rt thumb, Hx Umbilical Hernia, Other - Umbilical hernia repair 1 month prior, primary - Immunizations Immunizations up to date: Yes Hx Diphtheria, Pertussis, Tetanus Vaccination: Yes History of Influenza Vaccine for 12/2016 - 05/2017 Season: Yes Influenza Administration Date for 12/2016 - 05/2017 Season: 12/25/18 Physical Exam - Vital signs Vitals: Temp Pulse Resp BP Pulse Ox 99.9 F 105 H 20 140/90 H 100 05/24/18 18:43 05/24/18 18:43 05/24/18 18:43 05/24/18 18:43 05/24/18 18:43 Course - Vital Signs Vital signs: Temp Pulse Resp BP Pulse Ox 99.9 F 105 H 20 140/90 H 100 05/24/18 18:43 05/24/18 18:43 05/24/18 18:43 05/24/18 18:43 05/24/18 18:43
[2018-05-24 19:51] LABS: ABSOLUTE BASOPHILS # (AUTO) 0.1 10^3/uL (0.0-0.2); ABSOLUTE EOSINOPHILS # (AUTO) 0.2 10^3/uL (0.0-0.6); ABSOLUTE LYMPHOCYTES (AUTO) 2.2 10^3/uL (0.5-4.7); ABSOLUTE MONOCYTES (AUTO) 1.5 10^3/uL (0.1-1.4); ABSOLUTE NEUT (AUTO) 5.6 10^3/uL (1.7-8.2); BASOPHILS % (AUTO) 1.1 % (0-2); EOSINOPHILS % (AUTO) 2.3 % (0-6); HEMOGLOBIN 13.5 g/dL (13.5-17.0); LYMPHOCYTES % (AUTO) 22.5 % (13-45); MEAN CORPUSCULAR HEMOGLOBIN 30.1 pg (27.0-33.4); MEAN CORPUSCULAR HGB CONC 34.5 g/dL (32.0-36.0); MEAN CORPUSCULAR VOLUME 87 fl (80-97); MONOCYTES % (AUTO) 15.7 % (3-13); PLATELET COUNT 275 10^3/uL (150-450); RED BLOOD COUNT 4.48 10^6/uL (4.35-5.55); RED CELL DISTRIBUTION WIDTH 15.4 % (11.5-14.0); SEGMENTED NEUTROPHILS % (AUTO) 58.4 % (42-78); TOTAL CELLS COUNTED % (AUTO) 100 %; WHITE BLOOD COUNT 9.6 10^3/uL (4.0-10.5)
[2018-05-24 20:14] LABS: ANION GAP 10 (5-19); BLOOD UREA NITROGEN 17 mg/dL (7-20); C-REACTIVE PROTEIN 44.3 mg/L (<10.0); CALCIUM 9.5 mg/dL (8.4-10.2); CARBON DIOXIDE 24 mmol/L (22-30); CHLORIDE 107 mmol/L (98-107); GLUCOSE 84 mg/dL (75-110); POTASSIUM 4.1 mmol/L (3.6-5.0); SODIUM 141.3 mmol/L (137-145)
[2018-05-24 20:28] LABS: ERYTHROCYTE SEDIMENTATION RATE 32 mm/hr (0-15)
[2018-05-24] MEDS: HYDROMORPHONE HCL INJ/PF 2 MG/ML AMPULE IV PRN ×2 (20:34→22:48)
--- NOTE | 2018-05-24 20:34 | ER Document Report ---
ED General - General Chief Complaint: Arm Problem Stated Complaint: POST SURGICAL PAIN Time Seen by Provider: 05/24/18 18:57 Notes: Patient is a 42-year-old male, no chronic medical problems beyond chronic back pain for which he takes oxycodone daily who presents with severe pain over the surgical site of his left index finger. Patient sustained a laceration on 05/19, went to the operating room several days thereafter with orthopedic surgery Dr. Sevilla. Patient returns today stating that he hit the dorsal surface of the left hand on a kitchen countertop on accident shortly prior to arrival. States that he also had a low-grade temperature at home recorded at 100.5 degrees prior to hitting the hand. Notes a severe, throbbing, shooting pain since hitting his hand on the kitchen table. States that he has tried oxycodone with no imp rovement. Any movement worsens the pain. Has not contacted his orthopedic surgeon regarding this issue. Denies any additional injuries. TRAVEL OUTSIDE OF THE [place] IN LAST 30 DAYS: No - Related Data Allergies/Adverse Reactions: codeine [Codeine] Adverse Reaction (Verified 05/24/18 18:39) NSAIDS (Non-Steroidal Anti-Inflamma Adverse Reaction (Verified 05/24/18 18:39) Past Medical History - General Information source: Patient - Social History Smoking Status: Former Smoker Frequency of alcohol use: None Drug Abuse: None Lives with: Family Family History: Arthritis, COPD, CVA - father in his 50s, Hyperlipidemia, Hype rtension, Malignancy, Thyroid Disfunction Patient has suicidal ideation: No Patient has homicidal ideation: No - Past Medical History Cardiac Medical History: Reports: Hx Hypertension Denies: Hx Coronary Artery Disease, Hx Heart Attack Pulmonary Medical History: Reports: Hx Asthma, Hx Bronchitis, Hx Pneumonia Denies: Hx COPD Neurological Medical History: Denies: Hx Cerebrovascular Accident, Hx Seizures Renal/ Medical History: Denies: Hx Peritoneal Dialysis GI Medical History: Reports: Hx Gastritis, Hx Gastroesophageal Reflux Disease - Pickett's esophagus, Hx Colonoscopy, Hx Endoscopy Musculoskeletal Medical History: Denies Hx Arthritis, Reports Hx Musculoskeletal Deformity, Reports Hx Musculoskeletal Trauma Psychiatric Medical History: Reports: Hx Anxiety, Hx Attention Deficit Hyperactivity Disorder Denies: Hx Depression Traumatic Medical History: Reports: Hx Fractures - thumb Past Surgical History: Reports: Hx Abdominal Surgery - umbilical hernia repair, Hx Cholecystectomy, Hx Orthopedic Surgery - rt shoulder, rt thumb, Hx Umbilical Hernia, Other - Umbilical hernia repair 1 month prior, primary - Immunizations Immunizations up to date: Yes Hx Diphtheria, Pertussis, Tetanus Vaccination: Yes Review of Systems - Review of Systems Notes: Constitutional: Positive for subjective fever at home Eyes: Negative for visual changes. ENT: Negative for facial injury Cardiovascular: Negative for chest injury. Respiratory: Negative for shortness of breath. Gastrointestinal: Negative for abdominal injury. Genitourinary: Negative for genital injury Musculoskeletal: Positive for left hand pain Skin: Negative for laceration/abrasions. Neurological: Negative for head injury. Physical Exam - Vital signs Vitals: Temp Pulse Resp BP Pulse Ox 99.9 F 105 H 20 140/90 H 100 05/24/18 18:43 05/24/18 18:43 05/24/18 18:43 05/24/18 18:43 05/24/18 18:43 Interpretation: Tachycardic Notes: PHYSICAL EXAMINATION: GENERAL: Patient appears very uncomfortable HEAD: Atraumatic, normocephalic. EYES: Pupils equal round and reactive to light, extraocular movements intact, sclera anicteric, conjunctiva are normal. ENT: nares patent, oropharynx clear without exudates. Moderately dry mucous membranes. NECK: Normal range of motion, supple without lymphadenopathy LUNGS: Breath sounds clear to auscultation bilaterally and equal. No wheezes rales or rhonchi. HEART: Regular rate and rhythm without murmurs ABDOMEN: Soft, nontender, normoactive bowel sounds. No guarding, no rebound. No masses appreciated. EXTREMITIES: Splint was cut down along the dorsal aspect of the splint without removing the splinting material from the patient's arm. Patient's hands were maintained in position from splint. The surgical site was inspected, very well in appearance, no evidence of suture rupture, opening of the wound or infection. No spreading erythema. NEUROLOGICAL: No focal neurological deficits. Moves all extremities spontaneo usly and on command. PSYCH: Moderately anxious SKIN: Warm, Dry, normal turgor, surgical site as above Course - Re-evaluation Re-evalutation: 05/24/18 20:33 Patient presents with increased pain to his surgical site on his left hand several days postop. This appears to be directly secondary to blunt trauma to the area as there is no area noted on examination that is suspicious for postoperative infection. No rupture of suture line or apparent loss of surgical integrity. Patient was maintained in the splint and the dressing was reapplied. X-rays without any evidence of acute fracture. Patient did have improvement of pain control with IV analgesia. I have instructed him to follow- up with Dr. Sevilla in the morning. At this time will discharge with return precautions and follow-up recommendations. Verbal discharge instructions given a the bedside and opportunity for questions given. Medication warnings reviewed. Patient is in agreement with this plan and has verbalized understanding of return precautions and the need for orthopedic follow-up in the morning - Vital Signs Vital signs: Temp Pulse Resp BP Pulse Ox 99.9 F 105 H 20 140/90 H 100 05/24/18 18:43 05/24/18 18:43 05/24/18 18:43 05/24/18 18:43 05/24/18 18:43 - Laboratory Result Diagrams: 05/24/18 19:40 05/24/18 19:40 Laboratory results interpreted by me: 05/24/18 05/24/18 19:40 19:40 RDW 15.4 H Monocytes % 15.7 H Absolute Monocytes 1.5 H ESR 32 H C-Reactive Protein 44.3 H - Diagnostic Test Radiology reviewed: Image reviewed, Reports reviewed Radiology results interpreted by me: 05/24/18 22:02 Left hand x-ray: No acute fracture Discharge - Discharge Clinical Impression: Postoperative pain, Chronic prescription opiate use Injury of left hand Qualifiers: Encounter type: initial encounter Qualified Code(s): S69.92XA - Unspecified injury of left wrist, hand and finger(s), initial encounter Condition: Good Disposition: HOME, SELF-CARE Additional Instructions: Your wound does not show any signs of infection or loss of surgical integrity. The x-rays do not show any new injuries. Please follow-up with Dr. Sevilla in the morning. Continue to take your pain medications as prescribed. Return for worsening pain, discoloration of your fingers, or any other symptoms that are worrisome to you.
--- NOTE | 2018-05-24 21:49 | RADIOLOGY REPORT (SQ) ---
EXAM DESCRIPTION: XR HAND 3 OR MORE VIEWS COMPLETED DATE/TME: 05/24/2018 20:26 CLINICAL HISTORY: 42 years, Male, post-op pain COMPARISON: May 20, 2018 COMPARISON: None. FINDINGS: No fracture or dislocation. Small soft tissue foreign bodies remain adjacent to the third and second metacarpals. There is soft tissue swelling in the dorsum of the hand. IMPRESSION: No acute osseous abnormality.
[2018-05-24 23:03] VITALS: BP 143/89
== END 2018-05-24 23:10 | disposition home or self-care (01) ==
LOC: ER 18:34
DX: G89.18 Other acute postprocedural pain (principal); S69.92XA Unspecified injury of left wrist, hand and finger(s), initial encounter; F11.20 Opioid dependence, uncomplicated; W22.09XA Striking against other stationary object, initial encounter; Y92.000 Kitchen of unspecified non-institutional (private) residence as the place of occurrence of the external cause; Z88.6 Allergy status to analgesic agent; I10 Essential (primary) hypertension; Z90.49 Acquired absence of other specified parts of digestive tract
CPT/HCPCS: 96376; 99283; 96372; 96374; 36415; 87040; 83605; 85025; 85652; 86140; 80048; 73130; J3010; J1170

== ENCOUNTER → 2018-06-21 | Outpatient (CLI) | payer MEDICAID ==
[2018-06-21 11:28] LABS: APPEARANCE,URINE SLIGHTLY-CLOUDY; BILIRUBIN,URINE NEGATIVE (NEGATIVE); CALCIUM OXALATE CRYSTALS,URINE FEW /HPF; COLOR,URINE YELLOW; GLUCOSE, URINE NEGATIVE (NEGATIVE); KETONES,URINE NEGATIVE (NEGATIVE); LEUKOCYTE ESTERASE,URINE NEGATIVE (NEGATIVE); NITRITE,URINE NEGATIVE (NEGATIVE); PROTEIN,URINE NEGATIVE (NEGATIVE); URINE SPECIFIC GRAVITY 1.025; UROBILINOGEN,URINE NEGATIVE mg/dL (<2.0)
[2018-06-21 11:29] LABS: HEMOGLOBIN 12.7 g/dL (13.5-17.0); RED BLOOD COUNT 4.29 10^6/uL (4.35-5.55); WHITE BLOOD COUNT 8.2 10^3/uL (4.0-10.5)
[2018-06-21 11:30] LABS: ABSOLUTE BASOPHILS # (AUTO) 0.2 10^3/uL (0.0-0.2); ABSOLUTE EOSINOPHILS # (AUTO) 0.4 10^3/uL (0.0-0.6); ABSOLUTE LYMPHOCYTES (AUTO) 1.9 10^3/uL (0.5-4.7); ABSOLUTE MONOCYTES (AUTO) 0.9 10^3/uL (0.1-1.4); ABSOLUTE NEUT (AUTO) 4.9 10^3/uL (1.7-8.2); BASOPHILS % (AUTO) 2.2 % (0-2); EOSINOPHILS % (AUTO) 4.4 % (0-6); HEMATOCRIT 37.8 % (37.9-51.0); LYMPHOCYTES % (AUTO) 22.6 % (13-45); MEAN CORPUSCULAR HEMOGLOBIN 29.6 pg (27.0-33.4); MEAN CORPUSCULAR HGB CONC 33.6 g/dL (32.0-36.0); MEAN CORPUSCULAR VOLUME 88 fl (80-97); PLATELET COUNT 437 10^3/uL (150-450); RED CELL DISTRIBUTION WIDTH 15.4 % (11.5-14.0); SEGMENTED NEUTROPHILS % (AUTO) 59.8 % (42-78); TOTAL CELLS COUNTED % (AUTO) 100 %
[2018-06-21 11:53] LABS: ANION GAP 12 (5-19); BLOOD UREA NITROGEN 14 mg/dL (7-20); CALCIUM 9.4 mg/dL (8.4-10.2); CARBON DIOXIDE 21 mmol/L (22-30); CHLORIDE 108 mmol/L (98-107); GLUCOSE 69 mg/dL (75-110); POTASSIUM 4.6 mmol/L (3.6-5.0); SODIUM 140.5 mmol/L (137-145)
--- NOTE | 2018-06-21 12:26 | RADIOLOGY REPORT (SQ) ---
EXAM DESCRIPTION: CHEST PA/LATERAL COMPLETED DATE/TIME: 06/21/2018 10:19 am REASON FOR STUDY: PRE-OP COMPARISON: 05/22/2018. TECHNIQUE: Frontal and lateral radiographic views of the chest acquired. NUMBER OF VIEWS: Two view. LIMITATIONS: None. FINDINGS: LUNGS AND PLEURA: Suspicious for infiltrate in the left upper lobe. Focal opacity overlie s the cardiac apex. MEDIASTINUM AND HILAR STRUCTURES: No masses or contour abnormalities. HEART AND VASCULAR STRUCTURES: Heart normal size. No evidence for failure. BONES: No acute findings. HARDWARE: None in the chest. OTHER: No other significant finding. IMPRESSION: Left upper lobe infiltrate. Suspicious for pneumonia. TECHNICAL DOCUMENTATION: JOB ID: [id number] [employer]- All Rights Reserved Reading location - IP/workstation name: [email or web address]
--- NOTE | 2018-06-21 14:48 | EKG REPORT ---
SEVERITY:- NORMAL ECG - SINUS RHYTHM : Confirmed by: Karey Pedroza MD 21-Jun-2018 14:48:01
== END ==
LOC: OD 09:48 → EDSTATUS 06-26 10:30
PROVIDERS: ATTEND Orthopaedic Surgery
DX: M75.121 Complete rotator cuff tear or rupture of right shoulder, not specified as traumatic (principal)
CPT/HCPCS: 36415; 71046; 80048; 81001; 85025; 93005; 93010

== ENCOUNTER 2018-07-24 07:58 | Day surgery (SDC) | payer MEDICAID ==
[~2018-07-24 07:58] MED LIST changes: -KETOROLAC TROMETHAMINE 60 MG/2 ML SDV ONE; +LACTATED RINGERS 1000 ML IV PRN; +LIDOCAINE 0.5% INJ-PF (5 MG/ML) 50 ML SDV SUBCUT PRN; +RINGERS SOLUTION,LACTATED 500 ML IV PRN
[2018-07-24] MEDS ORDERED: BUPIVACAINE HCL 0.5 % INJ/PF 30 ML SDV ONE (08:15)
[2018-07-24] MEDS ORDERED: MORPHINE SULFATE 10 MG/ML INJ ONE (10:13)
[2018-07-24] MEDS ORDERED: ONDANSETRON HCL INJ/PF 4 MG/2 ML SDV ONE (10:13)
[2018-07-24] MEDS ORDERED: PROPOFOL INJ 200 MG/20 ML VIAL IV ONE (10:13)
[2018-07-24] MEDS ORDERED: FENTANYL CITRATE INJ/PF 100 MCG/2 ML AMPUL ONE (10:13)
[2018-07-24] MEDS ORDERED: MIDAZOLAM 2 MG/2 ML INJ ONE (10:13)
[2018-07-24] MEDS ORDERED: ACETAMINOPHEN 1,000 MG/100 ML RTUPB IV ONE (10:13)
[2018-07-24] MEDS ORDERED: DEXAMETHASONE SOD PHOSPHATE INJ 4 MG/1 ML VIAL ONE (10:13)
[2018-07-24 10:24] LABS: PROTHROMBIN TIME 13.7 SEC (11.4-15.4)
[2018-07-24] MEDS ORDERED: CEFAZOLIN 2 GM/D5W RTU 2 GM/50 ML RTUPB IV ONE (10:24)
[2018-07-24 10:25] LABS: PARTIAL THROMBOPLASTIN TIME 29.6 SEC (23.5-35.8)
[2018-07-24] MEDS ORDERED: MEPERIDINE HCL/PF INJ 25 MG/1 ML DISP.SYRIN IV PRN (11:02)
[2018-07-24] MEDS ORDERED: MORPHINE SULFATE 10 MG/ML INJ IV PRN (11:02)
[2018-07-24] MEDS ORDERED: FENTANYL CITRATE INJ/PF 100 MCG/2 ML AMPUL IV PRN ×3 (11:02)
[2018-07-24] MEDS ORDERED: DIPHENHYDRAMINE HCL 50 MG/ML VIAL IV PRN (11:02)
[2018-07-24] MEDS ORDERED: PROMETHAZINE HCL INJ 25 MG/1 ML VIAL IV PRN ×2 (11:02)
[2018-07-24] MEDS ORDERED: ONDANSETRON HCL INJ/PF 4 MG/2 ML SDV IV PRN ×2 (11:02→12:40)
[2018-07-24] MEDS ORDERED: EPINEPHRINE INJ/PF 1 MG/1 ML AMPULE ONE (11:37)
[2018-07-24] MEDS ORDERED: HYDROMORPHONE HCL INJ/PF 2 MG/ML AMPULE IV PRN (12:40)
[2018-07-24] MEDS ORDERED: OXYCODONE-ACETAMINOPHEN 5-325 MG TABLET PO PRN (12:40)
--- NOTE | 2018-07-24 12:40 | Discharge Summary ---
Discharge Summary (SDC) - Discharge Final Diagnosis: Right shoulder rotator cuff tear Date of Surgery: 07/24/18 Discharge Date: 07/24/18 Condition: Good Treatment or Instructions: Schedule Follow Up w/ Dr. Joesph Sevilla @ [facility] for Surgery to be seen in 10-14 days or as scheduled [place]: [place]: [place]: May remove dressing on postop day #3, keep incision covered and dry. Cryocuff to shoulder May begin pendulum exercises along w/ hand, wrist and elbow range of motion 4x per day or as tolerated. May remove sling for hygiene purposes otherwise continue it at all times. Stool softener of choice when on pain medication. Prescriptions: Oxycodone HCl/Acetaminophen [Percocet 7.5-325 mg Tablet] 1 tab PO Q6 PRN #25 tab PRN Reason: Discharge Diet: As Tolerated Respiratory Treatments at Home: Deep Breathing/Coughing Discharge Activity: No Lifting Over 10 Pounds, No Lifting/Push/Pulling Report the Following to Your Physician Immediately: Fever over 101 Degrees, Unusual Bleeding, Redness, Swelling, Warmth, Increased Soreness
--- NOTE | 2018-07-24 12:44 | Operative Report ---
Operative Report DATE OF SURGERY: 07/24/18 PREOPERATIVE DIAGNOSIS: Right shoulder rotator cuff tear, degenerative labral t ear POSTOPERATIVE DIAGNOSIS: Same OPERATION: Right shoulder arthroscopy with rotator cuff repair, subpectoralis biceps tenodesis, acromioplasty subacromial decompression SURGEON: MOLINA RAJPUT ANESTHESIA: GA COMPLICATIONS: None ESTIMATED BLOOD LOSS: Minimal PROCEDURE: Indication for above procedure: 42-year-old male with long-standing history of right shoulder discomfort. He ultimately underwent shoulder reconstruction in the past but patient has now had recurrence of his symptoms. Attempted conservative measures including anti- inflammatories, injections and home exercise program without resolution of the patient's. At that point discussion for operative versus continued nonoperative treatment was discussed. After discussing risks and benefits decision was made to proceed with operative treatment. Procedure in detail: Patient was seen and evaluated in the preoperative holding area. The RIGHT upper extremity was initialized and marked. Patient received Ancef IV for bacterial prophylaxis. Patient was taken back to the operative room where transferred to the operative table and placed under general anesthesia. Once they were adequately anesthetized a patient was placed in the beachchair position. Nonoperative upper extremity bilateral lower extremity were carefully padded, cervical spine placed in neutral position all bony prominences padded. A surgical team debriefing was performed ensuring all instrumentation was available, the surgical procedure was discussed with possible concerns reviewed. The upper extremity was prepped with ChloraPrep and draped in a sterile fashion. A timeout was done identifying correct patient, procedure and extremity everyone in attendance agree with this and verbalized no concerns. Posterior lateral portal was established arthroscope introduced into the glenohumeral joint. Via translation anterior portal established. Postsurgical changes noted along the superior labrum was re-tear with degeneration of the superior labrum and significant synovitis throughout the biceps tendon as it proceeded through the bicipital groove. Previous sutures were debrided. Biceps tenotomy was performed to allow for later tenodesis. Significant synovitis susanna ng the anterior aspect of the shoulder. There was mild fraying along the undersurface of the rotator cuff but no full-thickness tear appreciated. This was then debrided. No evidence of degenerative changes. Attention then turned to the subacromial space. Arthroscope introduced into the subacromial space. Lateral portal established. See significant subacromial bursitis was identified. Subacromial bursectomy was performed. The coracoacromial ligament was identified and released but not excised. Acromioplasty was then performed to the shoulder. Identification the rotator cuff demonstrated mild fraying no significant full-thickness rotator cuff tear appreciated. At this point focus return to biceps tenodesis. Longitudinal skin incision was made along the inferior third of the pectoralis major. Blunt dissection was performed identifying the inferior border of the pectoralis major. Any peripheral vasculature was carefully coagulated. I then identified the tenotomized long head of the biceps which was retrieved and brought out the wound. The tendon was then secured 2 centimeters distal to the musculotendinous junction with a #2 fiber loop and the remaining diseased portio n of the biceps was excised. The Arthrex biceps tenodesis button was then secured to my biceps tendon. Under direct visualization I then cleared an area along the anterior aspect of the humerus and drilled unicortically. The button was then placed into the unicortical hole and the biceps tendon was shuttled to the anterior cortex of the humerus. I then checked stability of the button confirming maximal fixation. Utilizing the free needle one limb of the remaining FiberWire was secured to the biceps providing further fixation. The elbow was then placed through range of motion to ensure appropriate tension of the biceps with flexion and extension. The wound was then copiously irrigated with normal saline. Any peripheral vasculature was carefully coagulated with Bovie cautery. Skin was closed a running subcuticular 4-0 Monocryl suture reinforced with Dermabond and Steri-Strips. Soft dressing was placed. Patient placed in a sling. Sponge counts, instrument counts, needle counts were correct. Patient was then awoken from anesthesia. Transferred from the operating room table to the operating room stretcher. There was no intraoperative complications patient tolerated procedure well stable to PACU. Postop plan: Patient followed in the office 2 weeks. We will begin physical therapy 4 weeks postoperatively.
[2018-07-24] MEDS: HYDROMORPHONE HCL INJ/PF 2 MG/ML AMPULE ONE ×2 (12:49→12:55)
[2018-07-24] MEDS: FENTANYL CITRATE INJ/PF 100 MCG/2 ML AMPUL ONE ×2 (13:00→13:05)
[2018-07-24] MEDS ORDERED: ROCURONIUM BROMIDE INJ 50 MG/5 ML VIAL IV ONE (13:52)
[2018-07-24] MEDS ORDERED: SUCCINYLCHOLINE CHLORIDE INJ 200 MG/10 ML VIAL ONE (13:52)
[2018-07-24] MEDS ORDERED: OXYCODONE-ACETAMINOPHEN 5-325 MG TABLET ONE (13:54)
[2018-07-24 14:53] VITALS: BP 148/108
== END 2018-07-24 13:40 | disposition home or self-care (01) ==
LOC: OROUT 07:58
PROVIDERS: ATTEND Orthopaedic Surgery
DX: M75.121 Complete rotator cuff tear or rupture of right shoulder, not specified as traumatic (principal); S43.431A Superior glenoid labrum lesion of right shoulder, initial encounter; X58.XXXA Exposure to other specified factors, initial encounter; M25.511 Pain in right shoulder; J44.9 Chronic obstructive pulmonary disease, unspecified; G47.33 Obstructive sleep apnea (adult) (pediatric); E66.9 Obesity, unspecified; I10 Essential (primary) hypertension; Z79.01 Long term (current) use of anticoagulants; Z86.711 Personal history of pulmonary embolism; Z79.51 Long term (current) use of inhaled steroids; Z79.899 Other long term (current) drug therapy; Z88.5 Allergy status to narcotic agent
CPT/HCPCS: 36415; 85610; 85730; 29827; 29826; 24340; C1713 ×2; J2250; J3490 ×2; J1100; J0171; J3010; J2270; J1170; J0330; J2405; J2704; J0690; J0131; 1630

== ENCOUNTER 2018-07-31 12:01 | Emergency (ER) | payer MEDICAID ==
[2018-07-31] MEDS ORDERED: OXYCODONE-ACETAMINOPHEN 5-325 MG TABLET PO ONE (12:50)
--- NOTE | 2018-07-31 12:53 | ER Document Report ---
ED Medical Screen (RME) - General Chief Complaint: Fever Stated Complaint: FEVER Mode of Arrival: Ambulatory Information source: Patient Notes: Patient presents emergency department with right shoulder pain fevers, patient reports history of surgery by Dr. Alfonso on July 24. Reports fever started last . Reports yellow drainage coming out of his anterior incision. Was told to come to emergency department by Dr. Alfonso I have greeted and performed a rapid initial assessment of this patient. A comprehensive ED assessment and evaluation of the patient, analysis of test results and completion of the medical decision making process will be conducted by additional ED providers. Dictation of this chart was performed using voice recognition software; therefore, there may be some unintended grammatical errors.. TRAVEL OUTSIDE OF THE [place] IN LAST 30 DAYS: No - Related Data Allergies/Adverse Reactions: codeine [Codeine] Adverse Reaction (Verified 07/31/18 12:18) NSAIDS (Non-Steroidal Anti-Inflamma Adverse Reaction (Verified 07/31/18 12:18) Past Medical History - Past Medical History Cardiac Medical History: Reports: Hx Hypertension Denies: Hx Coronary Artery Disease, Hx Heart Attack Pulmonary Medical History: Reports: Hx Asthma, Hx Bronchitis, Hx Pneumonia Denies: Hx COPD Neurological Medical History: Denies: Hx Cerebrovascular Accident, Hx Seizures Renal/ Medical History: Denies: Hx Peritoneal Dialysis GI Medical History: Reports: Hx Gastritis, Hx Gastroesophageal Reflux Disease - Pickett's esophagus, Hx Colonoscopy, Hx Endoscopy Musculoskeltal Medical History: Denies Hx Arthritis, Reports Hx Musculoskeletal Deformity, Reports Hx Musculoskeletal Trauma Psychiatric Medical History: Reports: Hx Anxiety, Hx Attention Deficit Hyperactivity Disorder Denies: Hx Depression Traumatic Medical History: Reports: Hx Fractures - thumb Past Surgical History: Reports: Hx Abdominal Surgery - umbilical hernia repair, Hx Cholecystectomy, Hx Orthopedic Surgery - rt shoulder, rt thumb, Hx Umbilical Hernia, Other - Umbilical hernia repair 1 month prior, primary - Immunizations Immunizations up to date: Yes Hx Diphtheria, Pertussis, Tetanus Vaccination: Yes History of Influenza Vaccine for 12/2016 - 05/2017 Season: Yes Influenza Administration Date for 12/2016 - 05/2017 Season: 12/25/18 Physical Exam - Vital signs Vitals: Temp Pulse Resp BP Pulse Ox 98.1 F 101 H 16 123/80 95 07/31/18 12:28 07/31/18 12:28 07/31/18 12:28 07/31/18 12:28 07/31/18 12:28 Course - Vital Signs Vital signs: Temp Pulse Resp BP Pulse Ox 98.1 F 101 H 16 123/80 95 07/31/18 12:28 07/31/18 12:28 07/31/18 12:28 07/31/18 12:28 07/31/18 12:28
[2018-07-31 13:24] LABS: ABSOLUTE BASOPHILS # (AUTO) 0.1 10^3/uL (0.0-0.2); ABSOLUTE EOSINOPHILS # (AUTO) 0.1 10^3/uL (0.0-0.6); ABSOLUTE LYMPHOCYTES (AUTO) 1.1 10^3/uL (0.5-4.7); ABSOLUTE MONOCYTES (AUTO) 0.7 10^3/uL (0.1-1.4); ABSOLUTE NEUT (AUTO) 3.9 10^3/uL (1.7-8.2); BASOPHILS % (AUTO) 1.3 % (0-2); EOSINOPHILS % (AUTO) 1.3 % (0-6); HEMATOCRIT 38.4 % (37.9-51.0); HEMOGLOBIN 12.4 g/dL (13.5-17.0); LYMPHOCYTES % (AUTO) 18.9 % (13-45); MEAN CORPUSCULAR HGB CONC 32.4 g/dL (32.0-36.0); MEAN CORPUSCULAR VOLUME 86 fl (80-97); MONOCYTES % (AUTO) 11.9 % (3-13); PLATELET COUNT 199 10^3/uL (150-450); RED BLOOD COUNT 4.45 10^6/uL (4.35-5.55); RED CELL DISTRIBUTION WIDTH 15.9 % (11.5-14.0); SEGMENTED NEUTROPHILS % (AUTO) 66.6 % (42-78); TOTAL CELLS COUNTED % (AUTO) 100 %; WHITE BLOOD COUNT 5.9 10^3/uL (4.0-10.5)
[2018-07-31 13:58] LABS: ALANINE AMINOTRANSFERASE 43 U/L (21-72); ALBUMIN 3.8 g/dL (3.5-5.0); ALKALINE PHOSPHATASE 94 U/L (38-126); ANION GAP 11 (5-19); ASPARTATE AMINO TRANSFERASE 24 U/L (17-59); BILIRUBIN,DIRECT 0.3 mg/dL (0.0-0.4); BILIRUBIN,TOTAL 0.3 mg/dL (0.2-1.3); BLOOD UREA NITROGEN 16 mg/dL (7-20); CALCIUM 9.1 mg/dL (8.4-10.2); CARBON DIOXIDE 25 mmol/L (22-30); CHLORIDE 105 mmol/L (98-107); GLUCOSE 108 mg/dL (75-110); POTASSIUM 4.3 mmol/L (3.6-5.0); SODIUM 141.2 mmol/L (137-145); TOTAL PROTEIN 6.8 g/dL (6.3-8.2)
--- NOTE | 2018-07-31 16:25 | RADIOLOGY REPORT (SQ) ---
EXAM DESCRIPTION: CHEST SINGLE VIEW COMPLETED DATE/TIME: 07/31/2018 4:09 pm REASON FOR STUDY: chest pain COMPARISON: 06/21/2018 EXAM PARAMETERS: NUMBER OF VIEWS: One view. TECHNIQUE: Single frontal radiographic view of the chest acquired. RADIATION DOSE: NA LIMITATIONS: None. FINDINGS: LUNGS AND PLEURA: Almost complete interval resolution of the left lower lobe infiltrate, with minimal to slight residual remaining. The right lung remains clear. No pneumothorax or pleural effusion. MEDIASTINUM AND HILAR STRUCTURES: No masses. Contour normal. HEART AND VASCULAR STRUCTURES: Heart normal in size. Normal vasculature. BONES: No acute findings. HARDWARE: None in the chest. OTHER: No other significant finding. IMPRESSION: 1. Almost complete interval resolution of the left lower lobe infiltrate with minimal t o slight residual remaining. TECHNICAL DOCUMENTATION: JOB ID: [id number] [employer]- All Rights Reserved Reading location - IP/workstation name: [email or web address]
--- NOTE | 2018-07-31 16:40 | ER Document Report ---
ED General - General Chief Complaint: Fever Stated Complaint: FEVER Time Seen by Provider: 07/31/18 15:16 Primary Care Provider: MOLINA SEVILLA DO [ACTIVE STAFF] - Follow up as needed Mode of Arrival: Ambulatory Information source: Patient Notes: This is a 42-year-old man status post right shoulder surgery July 24 (Dr. cruz) who presents to the emergency room with intermittent fever for the past several days. She states his temperatures been as high as 101.7. He does have a history of COPD and does note a cough with sputum production. He denies any abdominal pain, nausea vomiting, dysuria. He does report pain over the right shoulder and mild erythema around 1 of the surgical entrance sites. TRAVEL OUTSIDE OF THE [place] IN LAST 30 DAYS: No - HPI Onset: Last week Onset/Duration: Gradual Quality of pain: Dull Severity: Mild Pain Level: 1 Associated symptoms: Productive cough, Fever. denies: Chest pain, Shortness of breath Exacerbated by: Denies Relieved by: Denies Similar symptoms previously: Yes Recently seen / treated by doctor: Yes - Related Data Allergies/Adverse Reactions: codeine [Codeine] Adverse Reaction (Verified 07/31/18 12:18) NSAIDS (Non-Steroidal Anti-Inflamma Adverse Reaction (Verified 07/31/18 12:18) Past Medical History - General Information source: Patient - Social History Smoking Status: Former Smoker Cigarette use (# per day): No Chew tobacco use (# tins/day): No Frequency of alcohol use: None Drug Abuse: None Lives with: Family Family History: Arthritis, COPD, CVA - father in his 50s, Hyperlipidemia, Hypertension, Malignancy, Thyroid Disfunction Patient has suicidal ideation: No Patient has homicidal ideation: No - Past Medical History Cardiac Medical History: Reports: Hx Hypertension Denies: Hx Coronary Artery Disease, Hx Heart Attack Pulmonary Medical History: Reports: Hx Asthma, Hx Bronchitis, Hx Pneumonia Denies: Hx COPD Neurological Medical History: Denies: Hx Cerebrovascular Accident, Hx Seizures Renal/ Medical History: Denies: Hx Peritoneal Dialysis GI Medical History: Reports: Hx Gastritis, Hx Gastroesophageal Reflux Disease - Pickett's esophagus, Hx Colonoscopy, Hx Endoscopy Musculoskeletal Medical History: Denies Hx Arthritis, Reports Hx Musculoskeletal Deformity, Reports Hx Musculoskeletal Trauma Psychiatric Medical History: Reports: Hx Anxiety, Hx Attention Deficit Hyperactivity Disorder Denies: Hx Depression Traumatic Medical History: Reports: Hx Fractures - thumb Past Surgical History: Reports: Hx Abdominal Surgery - umbilical hernia repair, Hx Cholecystectomy, Hx Orthopedic Surgery - rt shoulder, rt thumb, Hx Umbilical Hernia, Other - Umbilical hernia repair 1 month prior, primary - Immunizations Immunizations up to date: Yes Hx Diphtheria, Pertussis, Tetanus Vaccination: Yes Review of Systems - Review of Systems Constitutional: Fever. denies: Chills EENT: No symptoms reported Cardiovascular: No symptoms reported Respiratory: See HPI Gastrointestinal: No symptoms reported Genitourinary: No symptoms reported Male Genitourinary: No symptoms reported Musculoskeletal: See HPI Skin: See HPI Hematologic/Lymphatic: No symptoms reported Neurological/Psychological: No symptoms reported Physical Exam - Vital signs Vitals: Temp Pulse Resp BP Pulse Ox 98.1 F 101 H 16 123/80 95 07/31/18 12:28 07/31/18 12:28 07/31/18 12:28 07/31/18 12:28 07/31/18 12:28 Notes: Physical exam: GENERAL: 42-year-old man, alert and oriented x3, no acute distress HEAD: Atraumatic, normocephalic. EYES: Pupils equal round and reactive to light, extraocular movements intact, sclera anicteric, conjunctiva are normal. ENT: TMs normal, nares patent, oropharynx clear without exudates. Moist mucous membranes. NECK: Normal range of motion, supple without obvious mass or JVD. LUNGS: Breath sounds clear to auscultation bilaterally and equal. No wheezes rales or rhonchi. HEART: Regular rate and rhythm without murmurs, rubs or gallops. ABDOMEN: Soft, normoactive bowel sounds. No tenderness to palpation. No guarding, no rebound. No masses appreciated. EXTREMITIES: Right shoulder: Surgical entrance sites are dry and all intact. There is mild erythema to the surgical site right on the entrance of the axilla, but there is no fluctuance, drainage (it does not look bad at all). NEUROLOGICAL: Cranial nerves II through XII grossly intact. Normal speech, moving all extremities. PSYCH: Normal mood, normal affect. SKIN: Warm, Dry, normal turgor, no rashes or lesions noted. Course - Re-evaluation Re-evalutation: 07/31/18 21:58 The wound site itself looks quite good. The patient is afebrile here and his white count is normal. Of significance is he does have underlying COPD and has had a cough which is change in sputum color. Therefore I will put him on some doxycycline and he will be following up with Dr. Alfonso in the office on Monday. I did discuss the results of the exam with Dr. Sevilla who is in the OR. - Vital Signs Vital signs: Temp Pulse Resp BP Pulse Ox 97.9 F 92 16 129/84 H 99 07/31/18 16:51 07/31/18 16:51 07/31/18 16:51 07/31/18 16:51 07/31/18 16:51 - Laboratory Result Diagrams: 07/31/18 13:11 07/31/18 13:11 Laboratory results interpreted by me: 07/31/18 13:11 Hgb 12.4 L RDW 15.9 H - Diagnostic Test Radiology reviewed: Image reviewed, Reports reviewed - Patient had a history of pneumonia in the past and this x-ray is much improved. Discharge - Discharge Clinical Impression: Bronchitis, Recent right shoulder surgery Condition: Stable Disposition: HOME, SELF-CARE Additional Instructions: As we discussed the surgical sites look pretty good right now. However, we have to keep a close eye on them, for this reason, I want you to call Dr. cruz's office on Monday to be seen Monday or Monday. I did call him today and he was in the OR. In the cough and the sputum change, I want you to take the antibiotics as prescribed for bronchitis. Return to the emergency room for worsening redness around the wound site, drainage or any concerns the pain is getting worse. Prescriptions: Doxycycline Hyclate 100 mg PO BID #20 capsule Referrals: MOLINA SEVILLA DO [ACTIVE STAFF] - Follow up as needed
[2018-07-31] MEDS ORDERED: OXYCODONE HCL IR 5 MG TABLET PO ONE (16:41)
[2018-07-31 16:53] VITALS: BP 129/84
== END 2018-07-31 16:53 | disposition home or self-care (01) ==
LOC: ER 12:01
DX: J20.9 Acute bronchitis, unspecified (principal); J44.0 Chronic obstructive pulmonary disease with (acute) lower respiratory infection; R50.9 Fever, unspecified; I10 Essential (primary) hypertension; Z88.6 Allergy status to analgesic agent; Z90.49 Acquired absence of other specified parts of digestive tract; Z98.890 Other specified postprocedural states
CPT/HCPCS: 99283; 36415; 87040; 85025; 80053; 71045; J3490

== ENCOUNTER 2018-09-09 16:43 | Emergency (ER) | payer MEDICAID ==
[2018-09-09] MEDS ORDERED: HYDROMORPHONE HCL INJ/PF 2 MG/ML AMPULE IM ONE (17:30)
[2018-09-09] MEDS ORDERED: CLINDAMYCIN HCL 150 MG CAPSULE PO ONE (17:30)
[2018-09-09] MEDS ORDERED: LIDOCAINE 2% VISCOUS SOLN 20 ML UDCUP PO ONE (18:42)
--- NOTE | 2018-09-09 18:45 | ER Document Report ---
HPI - HPI Patient complains to provider of: right jaw pain Onset: Yesterday Onset/Duration: Gradual Quality of pain: Sharp Pain Level: 5 Context: Patient presents complaining of right lower jaw pain that radiates down his neck that started yesterday. Patient states he noticed a small bump to the gingiva that is the source of his tenderness. Patient denies any decayed teeth. Associated Symptoms: Other - Right lower jaw pain. denies: Chest pain, Nonproductive cough, Fever Exacerbated by: Denies Relieved by: Denies Similar symptoms previously: No Recently seen / treated by doctor: No - ROS ROS below otherwise negative: Yes Systems Reviewed and Negative: Yes All other systems reviewed and negative - CONSTITUTIONAL Constitutional: DENIES: Fever, Chills - EENT EENT: DENIES: Sore Throat, Congestion Notes: Right lower jaw pain - NEURO Neurology: DENIES: Headache - RESPIRATORY Respiratory: DENIES: Coughing - GASTROINTESTINAL Gastrointestinal: DENIES: Nausea, Patient vomiting - DERM Skin Color: Normal Skin Problems: None <DAVID GARDINER - Last Filed: 09/09/18 21:05> <SHAWN OLIVO - Last Filed: 09/09/18 21:29> - HPI Time Seen by Provider: 09/09/18 17:22 Past Medical History - General Information source: Patient - Social History Smoking Status: Never Smoker Chew tobacco use (# tins/day): No Frequency of alcohol use: None Drug Abuse: None Occupation: None Lives with: Family Family History: Arthritis, COPD, CVA - father in his 50s, Hyperlipidemia, Hypertension, Malignancy, Thyroid Disfunction Patient has suicidal ideation: No Patient has homicidal ideation: No - Past Medical History Cardiac Medical History: Reports: Hx Hypertension Pulmonary Medical History: Reports: Hx Asthma, Hx Bronchitis, Hx Pneumonia Neurological Medical History: Denies: Hx Cerebrovascular Accident, Hx Seizures Renal/ Medical History: Denies: Hx Peritoneal Dialysis GI Medical History: Reports: Hx Gastritis, Hx Gastroesophageal Reflux Disease - Pickett's esophagus, Hx Colonoscopy, Hx Endoscopy Musculoskeletal Medical History: Reports Hx Musculoskeletal Deformity, Reports Hx Musculoskeletal Trauma Psychiatric Medical History: Reports: Hx Anxiety, Hx Attention Deficit Hyperactivity Disorder Traumatic Medical History: Reports: Hx Fractures - thumb Past Surgical History: Reports: Hx Abdominal Surgery - umbilical hernia repair, Hx Cholecystectomy, Hx Orthopedic Surgery - rt shoulder, rt thumb, Hx Umbilical Hernia, Other - Umbilical hernia repair 1 month prior, primary - Immunizations Immunizations up to date: Yes Hx Diphtheria, Pertussis, Tetanus Vaccination: Yes <DAVID GARDINER - Last Filed: 09/09/18 21:05> Vertical Provider Document - CONSTITUTIONAL Agree With Documented VS: Yes Exam Limitations: No Limitations General Appearance: WD/WN, No Apparent Distress - INFECTION CONTROL TRAVEL OUTSIDE OF THE [place] IN LAST 30 DAYS: No - HEENT HEENT: Atraumatic, Normocephalic Mouth Diagram: 1 - Tender white ulceration to gingiva, area exquisitely tender to palpation, no trismus, no sublingual submental swelling - NECK Neck: Normal Inspection, Supple. negative: Lymphadenopathy-Left, Lymphadenopathy-Right - RESPIRATORY Respiratory: Breath Sounds Normal, No Respiratory Distress - CARDIOVASCULAR Cardiovascular: Regular Rhythm, No Murmur, Tachycardia - BACK Back: Normal Inspection - MUSCULOSKELETAL/EXTREMETIES Musculoskeletal/Extremeties: MAEW - NEURO Level of Consciousness: Awake, Alert, Appropriate Motor/Sensory: No Motor Deficit - DERM Integumentary: Warm, Dry <DAVID GARDINER - Last Filed: 09/09/18 21:05> Course - Re-evaluation Re-evalutation: 09/09/18 18:43 Patient does report that pain is improved somewhat, vital signs improved after pain medication was given. Patient encouraged to follow-up with a dental care provider tomorrow for further examination. Patient was advised that he needs to see dentist to rule out that he does not have an infection or possible cancer in the mouth. 09/09/18 21:05 Report and handoff given to Tanvi Olivo MUSIC ASSISTANT - Vital Signs Vital signs: Temp Pulse Resp BP Pulse Ox 99.8 F 103 H 20 142/89 H 98 09/09/18 18:36 09/09/18 18:36 09/09/18 18:36 09/09/18 18:36 09/09/18 18:36 - Laboratory Result Diagrams: 09/09/18 19:30 09/09/18 19:30 Laboratory results interpreted by me: 09/09/18 20:58 Labs- Entire Visit 09/09/18 09/09/18 19:30 19:30 WBC 8.3 RBC 4.60 Hgb 12.7 L Hct 38.5 MCV 84 MCH 27.5 MCHC 32.9 RDW 17.1 H Plt Count 307 Seg Neutrophils % 66.2 Lymphocytes % 16.6 Monocytes % 15.7 H Eosinophils % 1.3 Basophils % 0.2 Absolute Neutrophils 5.5 Absolute Lymphocytes 1.4 Absolute Monocytes 1.3 Absolute Eosinophils 0.1 Absolute Basophils 0.0 Sodium 140.4 Potassium 4.2 Chloride 105 Carbon Dioxide 26 Anion Gap 9 BUN 14 Creatinine 0.80 Est GFR ( Amer) > 60 Est GFR (Non-Af Amer) > 60 Glucose 75 Calcium 9.5 <DAVID GARDINER - Last Filed: 09/09/18 21:05> - Re-evaluation Re-evalutation: 09/09/18 21:27 Patient states pain is much better than earlier. I have reviewed the CT results with the patient. I have given him a written report of the CT results. There is swelling and a white area behind the teeth on the lower right jaw. He states the pain to his neck and shoulder is better with his pain medicines. He states he understands he is to follow-up with the dentist first thing in the morning and he will be at their office first thing in the morning. He states he is able to swallow he is speaking in full sentences lungs are clear to auscultation and he states he is having no difficulty swallowing or breathing. Patient will be discharged home with the instructions that David Gardiner MUSIC ASSISTANT had written for him . Patient verbalized understanding and agreement with all treatment plans. - Vital Signs Vital signs: Temp Pulse Resp BP Pulse Ox 99.8 F 103 H 20 142/89 H 98 09/09/18 18:36 09/09/18 18:36 09/09/18 18:36 09/09/18 18:36 09/09/18 18:36 - Laboratory Result Diagrams: 09/09/18 19:30 09/09/18 19:30 Laboratory results interpreted by me: 09/09/18 19:30 Hgb 12.7 L RDW 17.1 H Monocytes % 15.7 H <SHAWN OLIVO - Last Filed: 09/09/18 21:29> Discharge <DAVID GARDINER - Last Filed: 09/09/18 21:05> <SHAWN OLIVO - Last Filed: 09/09/18 21:29> - Discharge Clinical Impression: Pain, dental Condition: Stable Disposition: HOME, SELF-CARE Instructions: Clindamycin ([facility]), Toothache ([facility]) Additional Instructions: Return immediately for any new or worsening symptoms Followup with your dental care provider, call tomorrow to make a followup appointment Prescriptions: Clindamycin HCl [Cleocin 300 mg Capsule] 300 mg PO TID #21 capsule Referrals: [facility] [Provider Group] - Follow up as needed
[2018-09-09 19:48] LABS: ABSOLUTE EOSINOPHILS # (AUTO) 0.1 10^3/uL (0.0-0.6); ABSOLUTE LYMPHOCYTES (AUTO) 1.4 10^3/uL (0.5-4.7); ABSOLUTE MONOCYTES (AUTO) 1.3 10^3/uL (0.1-1.4); ABSOLUTE NEUT (AUTO) 5.5 10^3/uL (1.7-8.2); BASOPHILS % (AUTO) 0.2 % (0-2); EOSINOPHILS % (AUTO) 1.3 % (0-6); HEMATOCRIT 38.5 % (37.9-51.0); HEMOGLOBIN 12.7 g/dL (13.5-17.0); LYMPHOCYTES % (AUTO) 16.6 % (13-45); MEAN CORPUSCULAR HEMOGLOBIN 27.5 pg (27.0-33.4); MEAN CORPUSCULAR HGB CONC 32.9 g/dL (32.0-36.0); MEAN CORPUSCULAR VOLUME 84 fl (80-97); MONOCYTES % (AUTO) 15.7 % (3-13); PLATELET COUNT 307 10^3/uL (150-450); RED CELL DISTRIBUTION WIDTH 17.1 % (11.5-14.0); SEGMENTED NEUTROPHILS % (AUTO) 66.2 % (42-78); TOTAL CELLS COUNTED % (AUTO) 100 %; WHITE BLOOD COUNT 8.3 10^3/uL (4.0-10.5)
[2018-09-09 20:04] LABS: ANION GAP 9 (5-19); BLOOD UREA NITROGEN 14 mg/dL (7-20); CALCIUM 9.5 mg/dL (8.4-10.2); CARBON DIOXIDE 26 mmol/L (22-30); CHLORIDE 105 mmol/L (98-107); GLUCOSE 75 mg/dL (75-110); POTASSIUM 4.2 mmol/L (3.6-5.0); SODIUM 140.4 mmol/L (137-145)
[2018-09-09] MEDS ORDERED: HYDROMORPHONE HCL INJ/PF 2 MG/ML AMPULE IV ONE (20:14)
--- NOTE | 2018-09-09 21:21 | RADIOLOGY REPORT (SQ) ---
EXAM DESCRIPTION: CT MAXILLOFACIAL WITH IV CONTRAST COMPLETED DATE/TME: 09/09/2018 18:52 CLINICAL HISTORY: R lower mandible pain, gingival lesion COMPARISON: None Available. TECHNIQUE: Contiguous axial images of the face were obtained without the administration of intravenous contrast. This exam was performed according to our departmental dose-optimization program, which includes automated exposure control, adjustment of the mA and/or kV according to patient size and/or use of iterative reconstruction technique. FINDINGS: There is mucoperiosteal thickening of the left maxillary sinus and patchy opacification of the left ethmoid sinus compatible with chronic sinusitis changes. There is no orbital emphysema. Retrobulbar fat is within normal limits. There is no stranding of the subcutaneous fat. Parotid glands are of normal contour. Airway is patent. There is no bony destruction. IMPRESSION: No acute abnormalities.
[2018-09-09 21:31] VITALS: BP 144/86
== END 2018-09-09 21:31 | disposition home or self-care (01) ==
LOC: ER 16:43
DX: K08.89 Other specified disorders of teeth and supporting structures (principal); I10 Essential (primary) hypertension; K21.9 Gastro-esophageal reflux disease without esophagitis; F41.9 Anxiety disorder, unspecified; F90.9 Attention-deficit hyperactivity disorder, unspecified type; Z90.49 Acquired absence of other specified parts of digestive tract
CPT/HCPCS: 99283; 36415; 85025; 80048; 70487; J3490 ×2; J1170

== ENCOUNTER 2018-09-10 17:43 | Emergency (ER) | payer MEDICAID ==
[2018-09-10] MEDS ORDERED: HYDROCODONE/ACETAMINOPHEN 5-325 MG (6 TAB/ER DISP) PO PRN (20:22)
--- NOTE | 2018-09-10 20:22 | ER Document Report ---
HPI - HPI Time Seen by Provider: 09/10/18 20:07 Pain Level: 4 Context: Patient is a 42-year-old male who presents the emergency department with a chief complaint of tooth pain to tooth #32. He was seen here yesterday and was placed on clindamycin. He states that he feels like the antibiotics are working, but he feels like the pain is continuing. He is currently on Percocets at home and he takes his Percocet every 8 hours. He is afraid to take his Percocet at cl oser intervals, because he is not wanting to take too much because he is afraid he might have to mention his system. - ROS Notes: REVIEW OF SYSTEMS: CONSTITUTIONAL : Denies recent illness. Denies recent unintentional weight loss. Denies fever, chills, or sweats. EENT: See HPI CARDIOVASCULAR: Denies chest pain. RESPIRATORY: Denies shortness of breath, cough, congestion, difficulty breathing, or wheezing. SKIN: Denies rash, itchiness, or lesions HEMATOLOGIC : Denies easy bruising or bleeding. All other systems reviewed and negative. - REPRODUCTIVE Reproductive: DENIES: : Past Medical History - Social History Smoking Status: Unknown if Ever Smoked Family History: Arthritis, COPD, CVA - father in his 50s, Hyperlipidemia, Hypertension, Malignancy, Thyroid Disfunction - Past Medical History Cardiac Medical History: Reports: Hx Hypertension Denies: Hx Coronary Artery Disease, Hx Heart Attack Pulmonary Medical History: Reports: Hx Asthma, Hx Bronchitis, Hx Pneumonia Denies: Hx COPD Neurological Medical History: Denies: Hx Cerebrovascular Accident, Hx Seizures Renal/ Medical History: Denies: Hx Peritoneal Dialysis GI Medical History: Reports: Hx Gastritis, Hx Gastroesophageal Reflux Disease - Pickett's esophagus, Hx Colonoscopy, Hx Endoscopy Musculoskeletal Medical History: Denies Hx Arthritis, Reports Hx Musculoskeletal Deformity, Reports Hx Musculoskeletal Trauma Psychiatric Medical History: Reports: Hx Anxiety, Hx Attention Deficit Hyperactivity Disorder Denies: Hx Depression Traumatic Medical History: Reports: Hx Fractures - thumb Past Surgical History: Reports: Hx Abdominal Surgery - umbilical hernia repair, Hx Cholecystectomy, Hx Orthopedic Surgery - rt shoulder, rt thumb, Hx Umbilical Hernia, Other - Umbilical hernia repair 1 month prior, primary - Immunizations Immunizations up to date: Yes Hx Diphtheria, Pertussis, Tetanus Vaccination: Yes Vertical Provider Document - CONSTITUTIONAL Notes: PHYSICAL EXAMINATION: GENERAL: Appears well, healthy, well-nourished, no acute distress. HEAD: Normocephalic, atraumatic. EYES: PERRL, conjunctiva normal, all extraocular movements intact, sclera nonicteric ENT: Moist mucous membranes. Tenderness to tooth #32 NECK: Supple, no noticeable swelling, redness, rash. Normal range of motion. LUNGS: Equal breath sounds bilaterally and clear to auscultation. No wheezes rales or rhonchi. CARDIOVASCULAR: S1-S2, regular rate, regular rhythm. Radial pulses 2+, normal. PSYCH: Normal mood, normal affect. SKIN: Warm, dry. No rash, lesions, ulcerations noted. Normal skin turgor. - INFECTION CONTROL TRAVEL OUTSIDE OF THE [place] IN LAST 30 DAYS: No Course - Re-evaluation Re-evalutation: 09/10/18 20:22 Patient's physical exam and history is most consistent with a infected tooth. Patient is able to swallow, no facial swelling noted, airways pain, vital signs are normal. I do not suspect Yobany's angina, peritonsilar abscess, or airway obstruction. The patient will be started on oral antibiotics. I have given the patient education on their antibiotics. Patient was given instructions to follow-up with a dentist this week. He has an appointment on Monday. I suspect the patient just does not have his pain under control, as he takes Percocet every 8 hours. He will receive a [place] Dosepak and alternate between [place] and his Percocet every 4-6 hours. Return precautions were given. Verbal discharge instructions were given. Patient verbalized understanding. Patient is stable for discharge. - Vital Signs Vital signs: Temp Pulse Resp BP Pulse Ox 98.8 F 105 H 18 175/99 H 99 09/10/18 18:51 09/10/18 18:51 09/10/18 18:51 09/10/18 18:51 09/10/18 18:51 Discharge - Discharge Clinical Impression: Toothache Condition: Stable Disposition: HOME, SELF-CARE Instructions: Toothache ([facility]) Additional Instructions: You have been seen in the emergency department for a toothache. You can take a lternate taking your percocet and the [place] every 6 hours to help with your pain. You have also been given topical lidocaine. Placed that to the affected tooth as needed to help with pain. You have also been prescribed antibiotics. Please take the antibiotics as prescribed, even if you start to feel better. If you develop a fever greater than 100.4 F, or have any symptoms that are worrisome to you, please return to the emergency department. Please follow-up with a dentist this week in regards to your visit. Forms: Elevated Blood Pressure
[2018-09-10] MEDS ORDERED: LIDOCAINE 2% VISCOUS SOLN 20 ML UDCUP PO ONE (20:23)
[2018-09-10 20:49] VITALS: BP 133/94
== END 2018-09-10 21:44 | disposition home or self-care (01) ==
LOC: ER 17:43
DX: K08.89 Other specified disorders of teeth and supporting structures (principal); I10 Essential (primary) hypertension; F41.9 Anxiety disorder, unspecified; F90.9 Attention-deficit hyperactivity disorder, unspecified type
CPT/HCPCS: 99282; J3490

== ENCOUNTER 2018-09-12 17:36 | Emergency (ER) | payer MEDICAID ==
[2018-09-12 19:11] VITALS: BP 152/100
--- NOTE | 2018-09-12 21:28 | ER Document Report ---
ED General - General Chief Complaint: Toothache Stated Complaint: TOOTHACHE Time Seen by Provider: 09/12/18 20:58 Mode of Arrival: Ambulatory Information source: Patient TRAVEL OUTSIDE OF THE [place] IN LAST 30 DAYS: No - HPI Patient complains to provider of: Dental pain Onset: Last week Onset/Duration: Constant Associated symptoms: denies: Chills, Fever Exacerbated by: Denies Relieved by: Denies Similar symptoms previously: No Recently seen / treated by doctor: No Notes: 42-year-old male coming in today for his third ER visit for pain associated with tooth #32. Seen twice before. CT scan was negative for abscess. Patient has since procured an appointment with an oral surgeon on Monday and is here for more pain medication and viscous lidocaine. He states after this gets taking care of on Monday he will not be back to the ED for any further issues with this tooth. - Related Data Allergies/Adverse Reactions: codeine [Codeine] Adverse Reaction (Verified 09/12/18 18:05) NSAIDS (Non-Steroidal Anti-Inflamma Adverse Reaction (Verified 09/12/18 18:05) Past Medical History - General Information source: Patient - Social History Smoking Status: Never Smoker Chew tobacco use (# tins/day): No Drug Abuse: None Family History: Arthritis, COPD, CVA - father in his 50s, Hyperlipidemia, Hypertension, Malignancy, Thyroid Disfunction Patient has suicidal ideation: No Patient has homicidal ideation: No - Past Medical History Cardiac Medical History: Reports: Hx Hypertension Denies: Hx Coronary Artery Disease, Hx Heart Attack Pulmonary Medical History: Reports: Hx Asthma, Hx Bronchitis, Hx Pneumonia Denies: Hx COPD Neurological Medical History: Denies: Hx Cerebrovascular Accident, Hx Seizures Renal/ Medical History: Denies: Hx Peritoneal Dialysis GI Medical History: Reports: Hx Gastritis, Hx Gastroesophageal Reflux Disease - Pickett's esophagus, Hx Colonoscopy, Hx Endoscopy Musculoskeletal Medical History: Denies Hx Arthritis, Reports Hx Musculoskeletal Deformity, Reports Hx Musculoskeletal Trauma Psychiatric Medical History: Reports: Hx Anxiety, Hx Attention Deficit Hyperactivity Disorder Denies: Hx Depression Traumatic Medical History: Reports: Hx Fractures - thumb Past Surgical History: Reports: Hx Abdominal Surgery - umbilical hernia repair, Hx Cholecystectomy, Hx Orthopedic Surgery - rt shoulder, rt thumb, Hx Umbilical Hernia, Other - Umbilical hernia repair 1 month prior, primary - Immunizations Immunizations up to date: Yes Hx Diphtheria, Pertussis, Tetanus Vaccination: Yes Review of Systems - Review of Systems Notes: Constitutional: No fevers. No chills. EENT: Positive for right lower tooth pain Cardiovascular: No chest pain. No palpitations. Respiratory: No cough. No shortness of breath. No respiratory distress. Gastrointestinal: No abdominal pain. No nausea, vomiting, or diarrhea. Genitourinary: Atraumatic. No lesions. No pain. No discharge. Musculoskeletal: Atraumatic. No swelling. No deformities. Skin: No rash or lesions. Lymphatic: No swollen lymph nodes. Neurologic: No headache. No syncope. Psychiatric: No suicidal or homicidal ideation. Physical Exam - Vital signs Vitals: Temp Pulse Resp BP Pulse Ox 98.9 F 101 H 16 152/100 H 99 09/12/18 19:10 09/12/18 19:10 09/12/18 19:10 09/12/18 19:10 09/12/18 19:10 - Notes Notes: General: Well-developed, well-nourished. In no acute distress. Non-toxic a ppearing. Cardiac: Well-perfused. Regular rate and rhythm. No murmurs, rubs, or gallops. Pulmonary: No respiratory distress. No cyanosis. Bilateral lung fiels are clear to auscultation. Abdominal: Non-distended. Non-rigid. Bowels sounds are present in all four quadrants. No guarding or rebound. HEENT: Head is atraumatic. Conjunctivae not reddened. No tearing. PERRL. EOMI. Orbits atraumatic. No periorbital swelling or erythema. Oropharynx is without erythema, swelling, or exudates. Tooth #32 has tenderness at the base. No drainage. No swelling. No abscess. No trismus. No drooling. No submandibular or sublingual Swelling. No dysphonia dyspnea or dysphagia. Neck: Supple. No adenopathy. No meningismus. Dermatologic: Warm with good turgor. No rash. Atraumatic. Chest: Atraumatic. No chest wall tenderness to palpation. Musculoskeletal: Moves all extremities well. No range of motion deficits. no muscular or joint tenderness. No paraspinal muscle tenderness. no midline spinal tenderness or step-off. Genitourinary: Examination deferred Neurologic: No gross neurologic deficits. Psychiatric: Normal mood. Course - Vital Signs Vital signs: Temp Pulse Resp BP Pulse Ox 98.9 F 101 H 16 152/100 H 99 09/12/18 19:10 09/12/18 19:10 09/12/18 19:10 09/12/18 19:10 09/12/18 19:10 Discharge - Discharge Clinical Impression: Pain, dental Condition: Good Disposition: HOME, SELF-CARE Instructions: Clindamycin (OM), Toothache (OM), Oral Narcotic Medication (REPLACED BY [facility]) Additional Instructions: Continue your clindamycin as directed. Pain medication as directed. Follow-up with oral surgeon on Monday. We are unable to offer any further narcotic prescriptions for you for this problem. Any future narcotic prescriptions for dental pain will need to come from your doctoR/DENTIST. Prescriptions: Hydrocodone/Acetaminophen [[place] 5-325 mg Tablet] 1 tab PO Q6HP PRN #10 tablet PRN Reason: Referrals: ORAL SURGEON, YOUR [Other] - 09/14/18
[2018-09-12] MEDS ORDERED: LIDOCAINE 2% VISCOUS SOLN 20 ML UDCUP PO ONE (21:37)
== END 2018-09-12 21:47 | disposition home or self-care (01) ==
LOC: ER 17:36
DX: K08.89 Other specified disorders of teeth and supporting structures (principal); I10 Essential (primary) hypertension; J45.909 Unspecified asthma, uncomplicated
CPT/HCPCS: 99282; J3490

== ENCOUNTER 2018-10-13 09:31 | Emergency (ER) | payer MEDICAID ==
[2018-10-13 09:37] VITALS: BP 127/101
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
[2018-10-13] MEDS ORDERED: OXYCODONE HCL IR 5 MG TABLET PO ONE (09:57)
--- NOTE | 2018-10-13 10:22 | RADIOLOGY REPORT (SQ) ---
EXAM DESCRIPTION: SHOULDER RIGHT 2 OR MORE VIEWS COMPLETED DATE/TIME: 10/13/2018 9:55 am REASON FOR STUDY: rt shoulder pain COMPARISON: 12/17/2017. NUMBER OF VIEWS: Three views. TECHNIQUE: Internal rotation, external rotation, and Y view images acquired of the right shoulder. LIMITATIONS: None. FINDINGS: MINERALIZATION: Normal. BONES: No acute fracture. Biceps anchor in the proximal humerus. No worrisome bone lesions. JOINTS: No dislocation. VISUALIZED LUNGS AND RIBS: No pneumothorax. No rib fracture. SOFT TISSUES: No radiopaque foreign body. OTHER: No other significant finding. IMPRESSION: SURGICAL CHANGES WITH A BICEPS ANCHOR IN THE PROXIMAL HUMERUS. NO OTHER SIGNIFICANT FIN DINGS. TECHNICAL DOCUMENTATION: JOB ID: [id number] [employer]- All Rights Reserved Reading location - IP/workstation name: [email or web address]
== END 2018-10-13 10:31 | disposition home or self-care (01) ==
LOC: ER 09:31
DX: M25.511 Pain in right shoulder (principal); I10 Essential (primary) hypertension; Z86.711 Personal history of pulmonary embolism; Z79.01 Long term (current) use of anticoagulants
CPT/HCPCS: 99283; 73030; J3490

== ENCOUNTER 2019-05-09 17:11 | Emergency (ER) | payer OTHER ==
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
[2019-05-09 20:22] VITALS: BP 134/95
== END 2019-05-09 19:55 | disposition home or self-care (01) ==
LOC: ER 17:11
DX: M54.2 Cervicalgia (principal); M25.511 Pain in right shoulder; V43.52XA Car driver injured in collision with other type car in traffic accident, initial encounter; Z98.890 Other specified postprocedural states; Z98.1 Arthrodesis status; I10 Essential (primary) hypertension; Z86.711 Personal history of pulmonary embolism; Z79.01 Long term (current) use of anticoagulants; J45.909 Unspecified asthma, uncomplicated
CPT/HCPCS: 72125; 99284

== ENCOUNTER 2019-07-13 18:04 | Emergency (ER) | payer MEDICAID ==
--- NOTE | 2019-07-13 19:01 | ER Document Report ---
ED Medical Screen (RME) - General TRAVEL OUTSIDE OF THE [place] IN LAST 30 DAYS: No - General Chief Complaint: Shoulder Pain Stated Complaint: LEFT SHOULDER PAIN Primary Care Provider: ASHLEY ACUÑA MD [Primary Care Provider] - Follow up as needed Notes: Patient is a 43-year-old white male with a past medical history of COPD who is been on steroids 80 mg/day for a very long time who suffered rotator cuff tear of the right arm, previously repaired by Dr. cruz who presents today with a chief complaint of left shoulder pain. He states he was helping throw some wood after chopping down a tree and he felt a sudden burning sensation in the left shoulder. States he felt like he could feel it tearing. States it radiates all the way down the arm. Range of motion limited because of pain. No blunt injury or trauma. I have treated and performed a rapid initial assessment of this patient. A comprehensive ED assessment and evaluation of the patient, analysis of test results and completion of medical decision making process will be conducted by additional ED providers. PHYSICAL EXAMINATION: GENERAL: Well-appearing, well-nourished and in no acute distress. A&Ox4. Answers questions appropriately. (ARIADNE PATEL) - Related Data Allergies/Adverse Reactions: codeine [Codeine] Adverse Reaction (Verified 05/09/19 18:35) NSAIDS (Non-Steroidal Anti-Inflamma Adverse Reaction (Verified 05/09/19 18:35) Past Medical History - Past Medical History Cardiac Medical History: Reports: Hx Hypertension Denies: Hx Coronary Artery Disease, Hx Heart Attack Pulmonary Medical History: Reports: Hx Asthma, Hx Bronchitis, Hx Pneumonia Denies: Hx COPD Neurological Medical History: Denies: Hx Cerebrovascular Accident, Hx Seizures Renal/ Medical History: Denies: Hx Peritoneal Dialysis GI Medical History: Reports: Hx Gastritis, Hx Gastroesophageal Reflux Disease - Pickett's esophagus, Hx Colonoscopy, Hx Endoscopy Musculoskeltal Medical History: Denies Hx Arthritis, Reports Hx Musculoskeletal Deformity, Reports Hx Musculoskeletal Trauma Psychiatric Medical History: Reports: Hx Anxiety, Hx Attention Deficit Hyperactivity Disorder Denies: Hx Depression Traumatic Medical History: Reports: Hx Fractures - thumb Past Surgical History: Reports: Hx Abdominal Surgery - umbilical hernia repair, Hx Cholecystectomy, Hx Orthopedic Surgery - rt shoulder, rt thumb, Hx Umbilical Hernia, Other - Umbilical hernia repair 1 month prior, primary - Immunizations Immunizations up to date: Yes Hx Diphtheria, Pertussis, Tetanus Vaccination: Yes Physical Exam - Vital signs Vitals: Temp Pulse Resp BP Pulse Ox 98.9 F 117 H 22 H 138/90 H 99 07/13/19 18:09 07/13/19 18:09 07/13/19 18:09 07/13/19 18:09 07/13/19 18:09 Course - Vital Signs Vital signs: Temp Pulse Resp BP Pulse Ox 98.2 F 117 H 18 124/78 97 07/13/19 19:01 07/13/19 19:01 07/13/19 19:01 07/13/19 19:01 07/13/19 19:01 Doctor's Discharge - Discharge Referrals: ASHLEY ACUÑA MD [Primary Care Provider] - Follow up as needed
--- NOTE | 2019-07-13 19:53 | RADIOLOGY REPORT (SQ) ---
EXAM DESCRIPTION: SHOULDER LEFT 2 OR MORE VIEWS IMAGES COMPLETED DATE/TIME: 07/13/2019 6:22 pm REASON FOR STUDY: pain COMPARISON: None. NUMBER OF VIEWS: Three views. TECHNIQUE: Internal rotation, external rotation, and Y view images acquired of the left shoulder. LIMITATIONS: None. FINDINGS: MINERALIZATION: Normal. BONES: No acute fracture. No worrisome bone lesions. JOINTS: No dislocation. VISUALIZED LUNGS AND RIBS: No pneumothorax. No rib fracture. SOFT TISSUES: No radiopaque foreign body. OTHER: No other significant finding. IMPRESSION: NEGATIVE STUDY OF THE LEFT SHOULDER. NO RADIOGRAPHIC EVIDENCE OF ACUTE INJURY. TECHNICAL DOCUMENTATION: JOB ID: [id number] 2010 [employer]- All Rights Reserved Reading location - IP/workstation name: [id number]
[2019-07-13] MEDS ORDERED: ACETAMINOPHEN 325 MG TABLET PO ONE (20:00)
[2019-07-13] MEDS ORDERED: MORPHINE SULFATE 10 MG/ML INJ IM ONE (20:48)
[2019-07-13 21:29] VITALS: BP 103/73
--- NOTE | 2019-07-16 08:42 | ER Document Report ---
Entered by GUERDA MOISE SCRIBE 07/13/192023 Acting as scribe for:KIERAN LEWIS IV, MD ED Extremity Problem, Upper - General Chief Complaint: Shoulder Pain Stated Complaint: LEFT SHOULDER PAIN Time Seen by Provider: 07/13/19 20:19 Primary Care Provider: ASHLEY ACUÑA MD [Primary Care Provider] - Follow up as needed MOLINA SEVILLA DO [ACTIVE STAFF] - 07/15/19 (call Dr. sevilla's office 07/15/19 to schedule follow up appointment for your shoulder) Mode of Arrival: Ambulatory Information source: Patient Notes: This 43 year old male patient presents to the ED today with complaint of left shoulder pain that began yesterday. Patient states that he was tossing wood after chopping down a tree when he felt a sudden "tear" in his left shoulder. He reports that it felt like a burning sensation that radiated down his LUE with numbness/tingling to his fingers. He notes that the pain feels similar to when he had a rotator cuff tear in his right shoulder in June 2018 that was repaired by Dr. Sevilla. He states that he has tried ice packs and pain medications without relief. He also states that he takes steroids 80 mg qd for the past x2 years. TRAVEL OUTSIDE OF THE [place] IN LAST 30 DAYS: No - Related Data Allergies/Adverse Reactions: codeine [Codeine] Adverse Reaction (Verified 05/09/19 18:35) NSAIDS (Non-Steroidal Anti-Inflamma Adverse Reaction (Verified 05/09/19 18:35) Past Medical History - General Information source: Patient, [facility] Records - Social History Smoking Status: Never Smoker Cigarette use (# per day): No Chew tobacco use (# tins/day): No Smoking Education Provided: No Frequency of alcohol use: Social Drug Abuse: None Lives with: Family Family History: Reviewed & Not Pertinent, Arthritis, COPD, CVA - father in his 50s, Hyperlipidemia, Hypertension, Malignancy, Thyroid Disfunction Patient has suicidal ideation: No Patient has homicidal ideation: No - Past Medical History Cardiac Medical History: Reports: Hx Hypertension Pulmonary Medical History: Reports: Hx Asthma, Hx Bronchitis, Hx Pneumonia GI Medical History: Reports: Hx Gastritis, Hx Gastroesophageal Reflux Disease - Pickett's esophagus, Hx Colonoscopy, Hx Endoscopy Musculoskeletal Medical History: Reports Hx Musculoskeletal Deformity, Reports Hx Musculoskeletal Trauma Psychiatric Medical History: Reports: Hx Anxiety, Hx Attention Deficit Hyperactivity Disorder Traumatic Medical History: Reports: Hx Fractures - thumb Past Surgical History: Reports: Hx Cholecystectomy, Hx Orthopedic Surgery - rt shoulder, rt thumb, Hx Umbilical Hernia - Immunizations Immunizations up to date: Yes Hx Diphtheria, Pertussis, Tetanus Vaccination: Yes Review of Systems - Review of Systems Constitutional: No symptoms reported EENT: No symptoms reported Cardiovascular: No symptoms reported Respiratory: No symptoms reported Gastrointestinal: No symptoms reported Genitourinary: No symptoms reported Male Genitourinary: No symptoms reported Musculoskeletal: See HPI, Joint pain - Left shoulder, Other - LUE pain Skin: No symptoms reported Hematologic/Lymphatic: No symptoms reported Neurological/Psychological: See HPI, Numbness - Fingers of left hand, Tingling - Fingers of left hand -: Yes All other systems reviewed and negative Physical Exam - Vital signs Vitals: Temp Pulse Resp BP Pulse Ox 98.9 F 117 H 22 H 138/90 H 99 07/13/19 18:09 07/13/19 18:09 07/13/19 18:09 07/13/19 18:09 07/13/19 18:09 - General General appearance: Alert - HEENT Head: Normocephalic, Atraumatic Eyes: Normal Pupils: PERRL - Respiratory Respiratory status: No respiratory distress Chest status: Nontender Breath sounds: Normal Chest palpation: Normal - Cardiovascular Rhythm: Regular Heart sounds: Normal auscultation Murmur: No Friction rub: No Gallop: None auscultated - Abdominal Inspection: Normal Distension: No distension Bowel sounds: Normal Tenderness: Nontender - Abdomen soft Organomegaly: No organomegaly - Back Back: Normal, Nontender - Extremities General lower extremity: Normal inspection Shoulder: Nontender, Limited ROM - Severe passive ROM limitation secondary to pain. Only adduct 25 degrees from midline, Other - No anterior fullness or step- off appreciated. 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 All questions answered prior to discharge. Emergency signs and symptoms, reasons to return to the emergency department discussed with patient. 07/13/19 20:53 [place] controlled substance database reviewed. - Vital Signs Vital signs: Temp Pulse Resp BP Pulse Ox 98.3 F 80 18 103/73 97 07/13/19 21:26 07/13/19 21:26 07/13/19 21:26 07/13/19 21:26 07/13/19 21:26 - Diagnostic Test Radiology reviewed: Reports reviewed Discharge - Discharge Clinical Impression: Left shoulder strain Qualifiers: Encounter type: initial encounter Qualified Code(s): S46.912A - Strain of unspecified muscle, fascia and tendon at shoulder and upper arm level, left arm, initial encounter Condition: Good Disposition: HOME, SELF-CARE Additional Instructions: Return to the Emergency Department without delay if any worse. Shoulder Injury You have injured your shoulder. This usually results from stretching or tearing of the tendons during trauma. Time and protection are required in order to heal properly. Many injuries are quite disabling, and should be taken seriously. Initial treatment includes cold packs and a sling to rest the shoulder. The physician has assessed the seriousness of your injury, and has outlined a treatment plan. Understand that this treatment may change, depending on how you progress. If a re-examination was recommended, it is important that you follow up as instructed. Some shoulder injuries (such as partial tear of the rotator cuff) are only suspected after you've failed to improve. Call us if there's severe pain, numbness, or loss of function. HOME CARE INSTRUCTIONS & INFORMATION: Thank you for choosing us for your medical needs. We hope you're satisfied with the care you received. After you leave, you must properly care for your problem and, at the same time, observe its progress. Any condition can change. Some illnesses can change rapidly over hours or days. If your condition worsens, return to the Emergency Department or see your physician promptly. ABOUT YOUR X-RAYS AND EKG'S: If you had an EKG or X-rays taken, they have been read by the Emergency Physician. The X-rays and EKG's will also be read by a Radiologist or Shared Services Representative within 24 hours. If discrepancies are noted, you will be notified by telephone. Please be certain the ED has a correct telephone number & address where you can be reached. Also, realize that some fractures or abnormalities do not show up on initial X-rays. If your symptoms continue, see your physician. ABOUT YOUR LABORATORY TEST: If you had laboratory tests, the results have been reviewed by the Emergency Physician. Some test results (for example cultures) may not be available for several days. You will be contacted if any test result shows you need additional treatment. Please be certain the ED has a correct telephone number and address where you can be reached. ABOUT YOUR MEDICATIONS: You will receive instructions on how to take your medicine on the prescription label you receive. Additional information may be provided by the Pharmacy. If you have questions afterwards, call the ED for clarification or further instructions. Some prescribed medications may cause drowsiness. Do not perform tasks such as driving a car or operating machinery w ithout consulting your Pharmacist. If you feel you need a refill of pain medication, your condition will need re-evaluation. Please do not call for a refill of any medication. ABOUT YOUR SIGNATURE: Signature of this document acknowledges to followin. Understanding that you received emergency treatment and that you may be released before al medical problems are known or treated. Please be certain the ED has a correct phone number & address where you can be reached. 2. Acknowledgement that you will arrange for follow-up care as recommended. 3. Authorization for the Emergency Physician to provide information to your follow-up Physician in order to maximize your care. AT ANY TIME, IF YOUR SYMPTOMS CHANGE SIGNIFICANTLY OR WORSEN OR YOU DEVELOP NEW SYMPTOMS, RETURN TO THE EMERGENCY DEPARTMENT IMMEDIATELY FOR RE-EVALUATION. OUR GOAL IS TO PROVIDE EXCELLENT MEDICAL CARE! WE HOPE THAT WE HAVE MET YOUR EXPECTATIONS DURING YOUR EMERGENCY DEPARTMENT VISIT AND THAT YOU FEEL YOU HAVE RECEIVED EXCELLENT CARE! Referrals: ASHLEY ACUÑA MD [Primary Care Provider] - Follow up as needed MOLINA SEVILLA DO [ACTIVE STAFF] - 07/15/19 (call Dr. sevilla's office 07/15/19 to schedule follow up appointment for your shoulder) I personally performed the services described in the documentation, reviewed and edited the documentation which was dictated to the scribe in my presence, and it accurately records my words and actions.
== END 2019-07-13 21:20 | disposition home or self-care (01) ==
LOC: ER 18:04
DX: S46.912A Strain of unspecified muscle, fascia and tendon at shoulder and upper arm level, left arm, initial encounter (principal); X58.XXXA Exposure to other specified factors, initial encounter; I10 Essential (primary) hypertension; Z88.6 Allergy status to analgesic agent
CPT/HCPCS: 99283; 96372; 73030; J3490; J2270

== ENCOUNTER 2019-08-04 20:07 | Observation (INO) | payer MEDICAID ==
[2019-08-04 20:36] LABS: ABSOLUTE BASOPHILS # (AUTO) 0.1 10^3/uL (0.0-0.2); ABSOLUTE EOSINOPHILS # (AUTO) 0.2 10^3/uL (0.0-0.6); ABSOLUTE LYMPHOCYTES (AUTO) 1.4 10^3/uL (0.5-4.7); ABSOLUTE MONOCYTES (AUTO) 1.3 10^3/uL (0.1-1.4); ABSOLUTE NEUT (AUTO) 7.6 10^3/uL (1.7-8.2); BASOPHILS % (AUTO) 0.9 % (0-2); EOSINOPHILS % (AUTO) 1.6 % (0-6); HEMATOCRIT 36.7 % (37.9-51.0); HEMOGLOBIN 12.2 g/dL (13.5-17.0); LYMPHOCYTES % (AUTO) 13.4 % (13-45); MEAN CORPUSCULAR HGB CONC 33.4 g/dL (32.0-36.0); MEAN CORPUSCULAR VOLUME 84 fl (80-97); PLATELET COUNT 315 10^3/uL (150-450); RED BLOOD COUNT 4.37 10^6/uL (4.35-5.55); RED CELL DISTRIBUTION WIDTH 18.3 % (11.5-14.0); SEGMENTED NEUTROPHILS % (AUTO) 72.1 % (42-78); TOTAL CELLS COUNTED % (AUTO) 100 %; WHITE BLOOD COUNT 10.5 10^3/uL (4.0-10.5)
[2019-08-04] MEDS ORDERED: IPRATROPIUM/ALBUTEROL 0.5-2.5 MG/3 ML AMPUL NEB ONE ×2 (20:37→22:54)
[2019-08-04] MEDS ORDERED: METHYLPREDNISOLONE INJ 125 MG/2 ML SDV IV ONE (20:37)
--- NOTE | 2019-08-04 20:41 | ER Document Report ---
ED Respiratory Problem - General Chief Complaint: Shortness Of Breath Stated Complaint: SHORTNESS OF BREATH Time Seen by Provider: 08/04/19 20:17 Primary Care Provider: ASHLEY ACUÑA MD [Primary Care Provider] - Follow up as needed Notes: Patient is 43-year-old male who presents to the emergency department with a chief complaint of shortness of breath. Patient states that he has been short of breath for the past week. States that he has gotten progressively worse in his shortness of breath. Over the past 4 days, he states that his symptoms have worsened. He was tapered off his steroids and his last dose of prednisone was 4 days ago. Denies any chest pain. Patient is currently on Xarelto. He was also recently treated with azithromycin on July 14 and June 13. 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 States that since he has had this he also was diagnosed with asthma. Patient also reports that he was bitten by a tick a few days ago on his right buttock. TRAVEL OUTSIDE OF THE [place] IN LAST 30 DAYS: No - Related Data Allergies/Adverse Reactions: codeine [Codeine] Adverse Reaction (Verified 05/09/19 18:35) NSAIDS (Non-Steroidal Anti-Inflamma Adverse Reaction (Verified 05/09/19 18:35) Past Medical History - General Information source: Patient - Social History Smoking Status: Former Smoker Family History: Reviewed & Not Pertinent, Arthritis, COPD, CVA - father in his 50s, Hyperlipidemia, Hypertension, Malignancy, Thyroid Disfunction Patient has homicidal ideation: No - Past Medical History Cardiac Medical History: Reports: Hx Hypertension Denies: Hx Coronary Artery Disease, Hx Heart Attack Pulmonary Medical History: Reports: Hx Asthma, Hx Bronchitis, Hx Pneumonia Denies: Hx COPD Neurological Medical History: Denies: Hx Cerebrovascular Accident, Hx Seizures Renal/ Medical History: Denies: Hx Peritoneal Dialysis GI Medical History: Reports: Hx Gastritis, Hx Gastroesophageal Reflux Disease - Pickett's esophagus, Hx Colonoscopy, Hx Endoscopy Musculoskeletal Medical History: Denies Hx Arthritis, Reports Hx Musculoskeletal Deformity, Reports Hx Musculoskeletal Trauma Psychiatric Medical History: Reports: Hx Anxiety, Hx Attention Deficit Hyperactivity Disorder Denies: Hx Depression Traumatic Medical History: Reports: Hx Fractures - thumb Past Surgical History: Reports: Hx Abdominal Surgery - umbilical hernia repair, Hx Cholecystectomy, Hx Orthopedic Surgery - rt shoulder, rt thumb, Hx Umbilical Hernia, Other - Umbilical hernia repair 1 month prior, primary - Immunizations Immunizations up to date: Yes Hx Diphtheria, Pertussis, Tetanus Vaccination: Yes Review of Systems - Review of Systems Notes: REVIEW OF SYSTEMS: CONSTITUTIONAL : Denies recent illness. Denies recent unintentional weight loss. Denies fever, chills, or sweats. EENT: Denies eye, ear, throat, or mouth pain, discharge, or symptoms. Denies nasal or sinus congestion. CARDIOVASCULAR: Denies chest pain. RESPIRATORY: See HPI. GASTROINTESTINAL: Denies nausea, vomiting, and diarrhea. Denies abdominal pain. Denies constipation. GENITOURINARY: Denies difficulty urinating, burning, blood in urine, urgency or frequency. MUSCULOSKELETAL: Denies neck and back pain. Denies joint pain or swelling. SKIN: Denies rash, itchiness, or lesions HEMATOLOGIC : Denies easy bruising or bleeding. LYMPHATIC: Denies swollen, painful, enlarged glands. NEUROLOGICAL: Denies no numbness or tingling denies weakness. Denies headache. Denies altered mental status. Denies alteration in speech. PSYCHIATRIC: Denies stress, anxiety, alteration in sleep patterns, or depr ession. All other systems reviewed and negative. Physical Exam - Vital signs Vitals: Temp Pulse Resp BP Pulse Ox 98.0 F 107 H 22 H 132/93 H 100 08/04/19 20:12 08/04/19 20:12 08/04/19 20:12 08/04/19 20:12 08/04/19 20:12 - Notes Notes: PHYSICAL EXAMINATION: GENERAL: Appears well, obese, mild distress. HEAD: Normocephalic, atraumatic. EYES: PERRL, conjunctiva normal, all extraocular movements intact, sclera nonicteric ENT: Moist mucous membranes. NECK: Supple, no noticeable swelling, redness, rash. Normal range of motion. LUNGS: Diminished breath sounds throughout all lung kaur. Expiratory wheezes noted throughout all lung kaur. CARDIOVASCULAR: S1-S2, regular rate, regular rhythm. Radial pulses 2+, normal. ABDOMEN: Normoactive bowel sounds. Soft, nontender, no guarding, no rebound tenderness, and no masses palpated. EXTREMITIES: Normal strength and range of motion, no pitting or edema. No cyanosis. NEUROLOGICAL: Moves all extremities upon command. Strength 5/5 in all extremities. PSYCH: Normal mood, normal affect. SKIN: Warm, dry. Erythematous/open wound to right upper buttock area. Course - Re-evaluation Re-evalutation: 08/04/19 23:00 I reevaluated the patient and he still has expiratory wheezes and diminished breath sounds in all lung kaur. Patient will be sent for CT of the chest to rule out pulmonary emboli, even though he is on Eliquis. Patient states that he feels a little bit better, but based off of physical exam and heart rate of 105, I would like the patient to have a prefer the patient to have a CTA of the chest. 08/05/19 00:25 I reevaluated the patient and his lung sounds are still wheezy. We will give him albuterol. Start the patient up at bedside and his heart rate up went up to the 120. Still waiting CT of the chest results. 08/05/19 01:01 According to the radiologist, the contrast bolus was not adequate. Patient did have clear lungs, per CT. I spoke with Dr. Lainez, the hospitalist. Patient will be rapid COVID tested and patient will be admitted to the telemetry unit. - Vital Signs Vital signs: Temp Pulse Resp BP Pulse Ox 98.0 F 107 H 22 H 132/93 H 100 08/04/19 20:12 08/04/19 20:12 08/04/19 20:12 08/04/19 20:12 08/04/19 20:12 - Laboratory Result Diagrams: 08/04/19 20:20 08/04/19 20:20 Laboratory results interpreted by me: 08/04/19 08/04/19 08/04/19 20:20 20:20 20:20 Hgb 12.2 L Hct 36.7 L RDW 18.3 H Potassium 3.5 L Glucose 143 H Calcium 8.3 L AST 63 H ALT 80 H Lactate Dehydrogenase 281 H Total Protein 6.2 L Urine Blood 08/04/19 20:55 Hgb Hct RDW Potassium Glucose Calcium AST ALT Lactate Dehydrogenase Total Protein Urine Blood LARGE H Discharge - Discharge Clinical Impression: Shortness of breath Asthma exacerbation Qualifiers: Asthma severity: moderate Asthma persistence: unspecified Qualified Code(s): J45.901 - Unspecified asthma with (acute) exacerbation Tick bite of buttock Qualifiers: Encounter type: initial encounter Qualified Code(s): S30.860A - Insect bite (nonvenomous) of lower back and pelvis, initial encounter; W57.XXXA - Bitten or stung by nonvenomous insect and other nonvenomous arthropods, initial encounter Condition: Fair Disposition: ADMITTED INPATIENT Admitting Provider: Migel (Hospitalist) Unit Admitted: Telemetry Referrals: ASHLEY ACUÑA MD [Primary Care Provider] - Follow up as needed
[2019-08-04] MEDS ORDERED: MAGNESIUM SULFATE/D5W 1 GM/100 ML RTUPB IV SCH (20:45)
[2019-08-04 20:48] LABS: ALBUMIN 3.7 g/dL (3.5-5.0); ALKALINE PHOSPHATASE 70 U/L (38-126); ANION GAP 8 (5-19); ASPARTATE AMINO TRANSFERASE 63 U/L (17-59); BILIRUBIN,TOTAL 0.3 mg/dL (0.2-1.3); BLOOD UREA NITROGEN 17 mg/dL (7-20); CALCIUM 8.3 mg/dL (8.4-10.2); CARBON DIOXIDE 27 mmol/L (22-30); CHLORIDE 103 mmol/L (98-107); GLUCOSE 143 mg/dL (75-110); POTASSIUM 3.5 mmol/L (3.6-5.0); TOTAL PROTEIN 6.2 g/dL (6.3-8.2)
--- NOTE | 2019-08-04 20:52 | RADIOLOGY REPORT (SQ) ---
EXAM DESCRIPTION: XR CHEST 1 VIEW COMPLETED DATE/TME: 08/04/2019 20:16 CLINICAL HISTORY: 43 years, Male, SOB COMPARISON: Prior study from 07/31/2018 NUMBER OF VIEWS: One TECHNIQUE: Single frontal view of the chest was obtained portably LIMITATIONS: None. FINDINGS: Cardiac and mediastinal contours are stable. Lungs are clear. No pleural effusion or pneumothorax. Postsurgical changes are partially imaged about the lower cervical spine. IMPRESSION: No acute disease. copyright 2010 [employer]- All Rights Reserved
[2019-08-04] MEDS ORDERED: POTASSIUM CHLORIDE 20 MEQ PACKET PO ONE (21:00)
[2019-08-04 21:23] LABS: FERRITIN 26.2 ng/mL (17.9-464.0)
[2019-08-04] MEDS: MAGNESIUM SULFATE/D5W 1 GM/100 ML RTUPB IV SCH ×2 (21:31→22:48)
[2019-08-04 21:34] LABS: APPEARANCE,URINE SLIGHTLY-CLOUDY; BILIRUBIN,URINE NEGATIVE (NEGATIVE); COLOR,URINE YELLOW; GLUCOSE, URINE NEGATIVE (NEGATIVE); KETONES,URINE NEGATIVE (NEGATIVE); LEUKOCYTE ESTERASE,URINE NEGATIVE (NEGATIVE); NITRITE,URINE NEGATIVE (NEGATIVE); PROTEIN,URINE NEGATIVE (NEGATIVE); URINE SPECIFIC GRAVITY 1.013; UROBILINOGEN,URINE NEGATIVE mg/dL (<2.0)
[2019-08-04] MEDS ORDERED: OXYCODONE HCL IR 5 MG TABLET PO ONE (22:46)
--- NOTE | 2019-08-05 00:32 | RADIOLOGY REPORT (SQ) ---
CLINICAL INDICATION: shortness of breath; tachycardic. . TECHNIQUE: CT arteriography was obtained of the chest with multiplanar MIP and/or 3-D angiographic reconstructions. This exam was performed according to our departmental dose-optimization program, which includes automated exposure control, adjustment of the mA and/or kV according to patient size and/or use of iterative reconstruction techniques. Repeat images COMPARISON: April 08, 2017. CORRELATION: None. FINDINGS: Dilute and inadequate contrast bolus. Average Hounsfield unit measurement within main pulmonary artery segment of 121. Artifact from venous opacification. There is a nondiagnostic contrast bolus. Examination is nondiagnostic for evaluation of pulmonary embolus. Thoracic aorta is of normal caliber. The heart is top normal. No pericardial effusion. No bulky mediastinal adenopathy. The lungs are grossly clear. No consolidation or edema. No effusion or pneumothorax. Chronic changes. Dependent atelectasis Visualized abdominal contents demonstrate hepatic steatosis.. Visualized bones . Postsurgical change from anterior fusion cervicothoracic junction. IMPRESSION: Inadequate contrast bolus. Examination is nondiagnostic for evaluation of pulmonary embolus. Lungs grossly clear .
[2019-08-05] MEDS ORDERED: DOXYCYCLINE HYCLATE 100 MG TABLET PO ONE (00:57)
[2019-08-05] MEDS ORDERED: HYDRALAZINE HCL INJ/PF 20 MG/1 ML SDV IV PRN (01:02)
[2019-08-05] MEDS ORDERED: IPRATROPIUM/ALBUTEROL 0.5-2.5 MG/3 ML AMPUL NEB PRN (01:03)
[2019-08-05] MEDS ORDERED: POTASSIUM CHLORIDE 10 MEQ TABLET.ER PO ONE (01:24)
[2019-08-05] MEDS ORDERED: PREDNISONE 20 MG TABLET PO ONE (01:30)
[2019-08-05] MEDS: CHLORPHENIRAMINE MALEATE 4 MG TABLET PO SCH ×4 (02:12→20:16)
--- NOTE | 2019-08-05 04:28 | PDOC H&P ---
History of Present Illness Admission Date/PCP: 08/05/19 01:12 ASHLEY ACUÑA MD Patient complains of: Fever and cough History of Present Illness: MINAL PEÑA JR is a 43 year old male with a past medical history of Sobeida's granulomatosis, chronic sinusitis, obstructive sleep apnea, and obesity. He presents with 1 week of rhinorrhea, facial pressure, intermittently productive cough with green blood-tinged sputum. He has recently completed a course of B actrim and prednisone but has had subsequent recurrence of symptoms. In the emergency department he has an unremarkable work-up he is referred to the hospitalist for admission. Patient admits to noncompliance with CPAP. Past Medical History Cardiac Medical History: Reports: Hypertension Denies: Coronary Artery Disease, Myocardial Infarction Pulmonary Medical History: Reports: Asthma, Bronchitis, Pneumonia, Sleep Apnea Denies: Chronic Obstructive Pulmonary Disease (COPD) Neurological Medical History: Denies: Seizures GI Medical History: Reports: Gastroesophageal Reflux Disease - Pickett's esophagus Musculoskeltal Medical History: Denies: Arthritis Psychiatric Medical History: Reports: Attention Deficit Hyperactivity Disorder Denies: Depression Hematology: Denies: Anemia Past Surgical History Past Surgical History: Reports: Cholecystectomy, Orthopedic Surgery - rt shoulder, rt thumb, Other - Umbilical hernia repair 1 month prior, primary Social History Information Source: Patient, [facility] Records Smoking Status: Former Smoker Number of Years Smokin Frequency of Alcohol Use: None Hx Recreational Drug Use: No Drugs: None Hx Prescription Drug Abuse: No - Advance Directive Resuscitation Status: Full Code Family History Family History: Reviewed & Not Pertinent, Arthritis, COPD, CVA - father in his 50s, Hyperlipidemia, Hypertension, Malignancy, Thyroid Disfunction Parental Family History Reviewed: Yes Children Family History Reviewed: Yes Sibling(s) Family History Reviewed.: Yes Medication/Allergy Home Medications: Albuterol Sulfate [Ventolin 0.083% Neb 2.5 mg/3 mL Ampul] 2.5 mg NEB RTQ4HP PRN 01/21/17 Epinephrine [Epipen] 0.3 ml IM ASDIR PRN 01/21/17 Montelukast Sodium [Singulair 10 mg Tablet] 10 mg PO DAILY 01/21/17 Dexlansoprazole [Dexilant 60 mg Capsule] 60 mg PO BID 05/21/18 Rivaroxaban [Xarelto] 20 mg PO DAILY 05/21/18 Sertraline HCl 100 mg PO DAILY 05/21/18 Oxycodone HCl [Oxy-Ir 5 mg Tablet] 5 mg PO Q6 PRN #25 tab 05/22/18 Fluticasone/Umeclidin/Vilanter [Trelegy 100-62.5-25 Mcg Ellipta 14 Dose/Dpi] 1 puff IH DAILY 06/21/18 Mometasone Furoate [Nasonex] 1 spray NS DAILY 06/21/18 Oxycodone HCl/Acetaminophen [Percocet 7.5-325 mg Tablet] 1 tab PO Q6 PRN #25 tab 07/24/18 Clindamycin HCl [Cleocin 300 mg Capsule] 300 mg PO TID #21 capsule 09/09/18 Hydrocodone/Acetaminophen [Wallace 5-325 mg Tablet] 1 tab PO Q6HP PRN #10 tablet 09/12/18 Methocarbamol [Robaxin 750 mg Tablet] 750 mg PO TID PRN #10 tablet 05/09/19 Allergies/Adverse Reactions: codeine [Codeine] Adverse Reaction (Verified 05/09/19 18:35) NSAIDS (Non-Steroidal Anti-Inflamma Adverse Reaction (Verified 05/09/19 18:35) Review of Systems Constitutional: PRESENT: as per HPI, chills, fatigue, fever(s). ABSENT: anorexia Eyes: ABSENT: visual disturbances Ears: ABSENT: hearing changes Nose, Mouth, and Throat: PRESENT: as per HPI, headache(s). ABSENT: mouth pain, sore throat Cardiovascular: ABSENT: chest pain, dyspnea on exertion, edema, orthropnea, palpitations Respiratory: PRESENT: as per HPI, cough, sputum Gastrointestinal: ABSENT: abdominal pain, constipation, diarrhea, hematemesis, hematochezia, nausea, vomiting Genitourinary: ABSENT: dysuria, hematuria Musculoskeletal: ABSENT: joint swelling Integumentary: ABSENT: rash, wounds Neurological: ABSENT: abnormal gait, abnormal speech, confusion, dizziness, focal weakness, syncope Psychiatric: ABSENT: anxiety, depression, homidical ideation, suicidal ideation Endocrine: ABSENT: cold intolerance, heat intolerance, polydipsia, polyuria Hematologic/Lymphatic: ABSENT: easy bleeding, easy bruising Physical Exam Vital Signs: Temp Pulse Resp BP Pulse Ox 98.0 F 107 H 12 151/92 H 96 08/04/19 20:12 08/04/19 20:12 08/05/19 02:00 08/04/19 23:00 08/05/19 02:00 Intake & Output 08/03/19 08/04/19 08/05/19 11:59 11:59 11:59 Intake Total 200 Balance 200 Weight 131.7 kg General appearance: PRESENT: cooperative, mild distress, morbidly obese, well- developed, well-nourished, other - Voice with nasal quality control lead exam: PRESENT: atraumatic, normocephalic Eye exam: PRESENT: conjunctival injection, EOMI, PERRLA Ear exam: PRESENT: normal external ear exam Mouth exam: PRESENT: moist, tongue midline Neck exam: ABSENT: carotid bruit, JVD, lymphadenopathy, thyromegaly Respiratory exam: PRESENT: accessory muscle use, crackles, prolonged expiratory phas, retraction, symmetrical, tachypnea, wheezes. ABSENT: rhonchi Cardiovascular exam: PRESENT: RRR. ABSENT: diastolic murmur, rubs, systolic murmur Pulses: PRESENT: normal dorsalis pedis pul Vascular exam: PRESENT: normal capillary refill GI/Abdominal exam: PRESENT: normal bowel sounds, soft. ABSENT: distended, guarding, mass, organolmegaly, rebound, tenderness Rectal exam: PRESENT: deferred Extremities exam: PRESENT: full ROM. ABSENT: calf tenderness, clubbing, pedal edema Neurological exam: PRESENT: alert, awake, oriented to person, oriented to place, oriented to time, oriented to situation, CN II-XII grossly intact. ABSENT: motor sensory deficit Psychiatric exam: PRESENT: appropriate affect, normal mood. ABSENT: homicidal ideation, suicidal ideation Skin exam: PRESENT: dry, intact, warm. ABSENT: cyanosis, rash Results Laboratory Results: 08/04/19 20:20 08/04/19 20:20 08/04/19 08/04/19 08/04/19 20:20 20:20 20:20 WBC 10.5 RBC 4.37 Hgb 12.2 L Hct 36.7 L MCV 84 MCH 28.0 MCHC 33.4 RDW 18.3 H Plt Count 315 Seg Neutrophils % 72.1 Sodium 137.7 Potassium 3.5 L Chloride 103 Carbon Dioxide 27 Anion Gap 8 BUN 17 Creatinine 0.87 Est GFR ( Amer) > 60 Glucose 143 H Calcium 8.3 L Magnesium Ferritin 26.20 Total Bilirubin 0.3 AST 63 H Alkaline Phosphatase 70 C-Reactive Protein Total Protein 6.2 L Albumin 3.7 Urine Color Urine Appearance Urine pH Ur Specific [place] Urine Protein Urine Glucose (UA) Urine Ketones Urine Blood Urine Nitrite Ur Leukocyte Esterase Urine WBC (Auto) Urine RBC (Auto) 08/04/19 08/04/19 08/04/19 20:20 20:20 20:55 WBC RBC Hgb Hct MCV MCH MCHC RDW Plt Count Seg Neutrophils % Sodium Potassium Chloride Carbon Dioxide Anion Gap BUN Creatinine Est GFR ( Amer) Glucose Calcium Magnesium 1.8 Ferritin Total Bilirubin AST Alkaline Phosphatase C-Reactive Protein 19.2 H Total Protein Albumin Urine Color YELLOW Urine Appearance SLIGHTLY-CLOUDY Urine pH 6.0 Ur Specific [place] 1.013 Urine Protein NEGATIVE Urine Glucose (UA) NEGATIVE Urine Ketones NEGATIVE Urine Blood LARGE H Urine Nitrite NEGATIVE Ur Leukocyte Esterase NEGATIVE Urine WBC (Auto) 2 Urine RBC (Auto) >182 Impressions: Chest X-Ray 08/04/19 20:16 IMPRESSION: No acute disease. copyright 2011 [employer]- All Rights Reserved Chest/Abdomen CTA 08/04/19 22:52 IMPRESSION: Inadequate contrast bolus. Examination is nondiagnostic for evaluation of pulmonary embolus. Lungs grossly clear . Assessment and Plan - Diagnosis (1) Obstructive sleep apnea Is this a current diagnosis for this admission?: Yes Plan: CPAP and education (2) Wegeners granulomatosis Is this a current diagnosis for this admission?: Yes Plan: Steroids initiated, follow-up ESR and CRP (3) Shortness of breath Is this a current diagnosis for this admission?: Yes Plan: Secondary to bronchitis complicated by sinusitis and Sobeida's granulomatosis. Supplemental oxygen and treatment of the latter (4) GERD (gastroesophageal reflux disease) Is this a current diagnosis for this admission?: Yes Plan: Possible contributing factor to shortness of breath, PPI initiated (5) Acute sinusitis Qualifiers: Sinusitis location: maxillary Is this a current diagnosis for this admission?: Yes Plan: Trial Levaquin, Flonase, chlorpheniramine, follow-up sputum culture, CBC and blood culture (6) Acute bronchitis Is this a current diagnosis for this admission?: Yes Plan: Secondary to sinusitis, Flonase, chlorpheniramine, Levaquin, prednisone, incentive spirometry and flutter valve ordered. - Time Time Spent with patient: 25-34 minutes
--- NOTE | 2019-08-05 06:21 | EKG REPORT ---
SEVERITY:- BORDERLINE ECG - SINUS TACHYCARDIA DIFFUSE NONSPECIFIC ST-T CHANGES : Confirmed by: Jose Fleming MD 05-Aug-2019 06:20:47
[2019-08-05] MEDS: IPRATROPIUM/ALBUTEROL 0.5-2.5 MG/3 ML AMPUL NEB SCH ×2 (08:52→16:03)
[2019-08-05] MEDS: LEVOFLOXACIN 750 MG/D5W RTU 750 MG/150 ML RTUPB IV SCH (10:26)
[2019-08-05] MEDS: PREDNISONE 20 MG TABLET PO SCH ×2 (10:26→17:33)
[2019-08-05] MEDS: NORMAL SALINE 1000 ML 1,000 ML IV PRN ×2 (10:26→16:00)
[2019-08-05] MEDS: FLUTICASONE NASAL SPRAY 50 MCG/SPRY 120 SPRAY/16 GM NASL SCH ×2 (10:30→23:00)
[2019-08-05] MEDS: OXYCODONE HCL IR 5 MG TABLET PO PRN ×2 (13:25→20:11)
--- NOTE | 2019-08-05 13:44 | Progress Note ---
Provider Note Provider Note: MINAL PEÑA JR is a 43 year old male with a past medical history of Sobeida's granulomatosis, chronic sinusitis, obstructive sleep apnea, and obesity who was admitted early this morning by the [facility] for bronchitis. Overnight events, nursing notes, Vital Signs, Laboratory results, Imaging reports, and Orders reviewed. Agree with plan of care as established by previous provider. In addition, have verified the patient's prescribed controlled substances on the [place] controlled substance database. For the last 2 months, he is received oxycodone 15 mg #180/30 days and Xanax 1 mg #90/30 days. Prior to that, it appears that the patient had multiple dose/frequency schedules and providers with inconsistent prescribing. Discussed with patient; will resume lower dose of each. Oxycodone 10 mg q6hp and Xanax 0.5 mg q8hp will be available. Patient with continued tight lung sounds and expiratory wheezing. Will continue with scheduled/as needed nebulizer treatments and steroid therapy.
[2019-08-05] MEDS: RIVAROXABAN 10 MG TABLET PO SCH (17:32)
[2019-08-05] MEDS: ALPRAZOLAM 0.5 MG TABLET PO PRN (17:33)
[2019-08-06] MEDS: IPRATROPIUM/ALBUTEROL 0.5-2.5 MG/3 ML AMPUL NEB SCH ×3 (00:17→16:02)
[2019-08-06] MEDS: ALPRAZOLAM 0.5 MG TABLET PO PRN ×3 (01:30→18:06)
[2019-08-06] MEDS: OXYCODONE HCL IR 5 MG TABLET PO PRN ×4 (02:30→21:04)
[2019-08-06] MEDS: PANTOPRAZOLE SODIUM 40 MG TABLET.DR PO SCH (06:15)
[2019-08-06 06:57] LABS: ABSOLUTE LYMPHOCYTES (AUTO) 1.2 10^3/uL (0.5-4.7); ABSOLUTE MONOCYTES (AUTO) 1.2 10^3/uL (0.1-1.4); ABSOLUTE NEUT (AUTO) 8.4 10^3/uL (1.7-8.2); BASOPHILS % (AUTO) 0.3 % (0-2); EOSINOPHILS % (AUTO) 0.2 % (0-6); HEMATOCRIT 36.8 % (37.9-51.0); HEMOGLOBIN 12.2 g/dL (13.5-17.0); LYMPHOCYTES % (AUTO) 11.5 % (13-45); MEAN CORPUSCULAR HEMOGLOBIN 27.7 pg (27.0-33.4); MEAN CORPUSCULAR HGB CONC 33.1 g/dL (32.0-36.0); MEAN CORPUSCULAR VOLUME 84 fl (80-97); MONOCYTES % (AUTO) 10.7 % (3-13); PLATELET COUNT 285 10^3/uL (150-450); RED CELL DISTRIBUTION WIDTH 18.3 % (11.5-14.0); SEGMENTED NEUTROPHILS % (AUTO) 77.3 % (42-78); TOTAL CELLS COUNTED % (AUTO) 100 %; WHITE BLOOD COUNT 10.8 10^3/uL (4.0-10.5)
[2019-08-06 07:21] LABS: ANION GAP 8 (5-19); BLOOD UREA NITROGEN 18 mg/dL (7-20); CALCIUM 8.8 mg/dL (8.4-10.2); CARBON DIOXIDE 26 mmol/L (22-30); CHLORIDE 106 mmol/L (98-107); GLUCOSE 94 mg/dL (75-110); POTASSIUM 4.3 mmol/L (3.6-5.0)
[2019-08-06] MEDS: FUROSEMIDE 40 MG TABLET PO SCH (08:44)
[2019-08-06] MEDS: FLUTICASONE NASAL SPRAY 50 MCG/SPRY 120 SPRAY/16 GM NASL SCH ×2 (09:43→21:11)
[2019-08-06] MEDS: LEVOFLOXACIN 750 MG/D5W RTU 750 MG/150 ML RTUPB IV SCH (09:43)
[2019-08-06] MEDS: PREDNISONE 20 MG TABLET PO SCH ×2 (09:43→18:07)
[2019-08-06] MEDS: MONTELUKAST SODIUM 10 MG TABLET PO SCH (09:44)
[2019-08-06] MEDS: LISINOPRIL 10 MG TABLET PO SCH (09:44)
[2019-08-06] MEDS: CHOLECALCIFEROL (D3) 1,000 UNIT (25 MCG) TABLET PO SCH (09:45)
[2019-08-06] MEDS: TAMSULOSIN HCL 0.4 MG CAP.SR.24H PO SCH (09:45)
[2019-08-06] MEDS: FLUTICASONE/UMECLIDIN/VILANTER 100-62.5-25 MCG/DOSE IH SCH (09:46)
[2019-08-06] MEDS ORDERED: (PENDING PHARMACY ID) (Cholecalciferol (Vitamin D3) [Vitamin D3] 125 MCG) PO SCH (10:00)
[2019-08-06] MEDS ORDERED: (PENDING PHARMACY ID) (Lisinopril [Zestril] 40 MG) PO SCH (10:00)
--- NOTE | 2019-08-06 12:50 | PDOC PROGRESS REPORT ---
Subjective Progress Note for:: 08/06/19 Reason For Visit: BRONCHITIS 08/06/2019 Patient was admitted with COPD bronchitis, chronic pain syndrome Physical Exam Vital Signs: Temp Pulse Resp BP Pulse Ox 97.7 F 82 16 125/80 98 08/06/19 07:43 08/06/19 08:08 08/06/19 08:08 08/06/19 07:43 08/06/19 08:08 Intake & Output 08/05/19 08/06/19 08/07/19 06:59 06:59 06:59 Intake Total 200 3830 Balance 200 3830 Weight 128.8 kg 130 kg General appearance: PRESENT: no acute distress Respiratory exam: PRESENT: clear to auscultation yonny, other - Surprisingly clear with no wheezes no rales no rhonchi. ABSENT: rales, rhonchi, wheezes Cardiovascular exam: PRESENT: RRR. ABSENT: diastolic murmur, rubs, systolic murmur Neurological exam: PRESENT: alert, awake, oriented to person, oriented to place, oriented to time, oriented to situation, CN II-XII grossly intact. ABSENT: motor sensory deficit Psychiatric exam: PRESENT: appropriate affect, normal mood. ABSENT: homicidal ideation, suicidal ideation Results Laboratory Results: 08/06/19 06:30 08/06/19 06:30 08/06/19 08/06/19 06:30 06:30 WBC 10.8 H RBC 4.40 Hgb 12.2 L Hct 36.8 L MCV 84 MCH 27.7 MCHC 33.1 RDW 18.3 H Plt Count 285 Seg Neutrophils % 77.3 Sodium 140.1 Potassium 4.3 Chloride 106 Carbon Dioxide 26 Anion Gap 8 BUN 18 Creatinine 0.74 Est GFR ( Amer) > 60 Glucose 94 Calcium 8.8 Impressions: Chest X-Ray 08/04/19 20:16 IMPRESSION: No acute disease. copyright 2011 [employer]- All Rights Reserved Chest/Abdomen CTA 08/04/19 22:52 IMPRESSION: Inadequate contrast bolus. Examination is nondiagnostic for evaluation of pulmonary embolus. Lungs grossly clear . Assessment and Plan - Diagnosis (1) Chronic sinusitis Is this a current diagnosis for this admission?: Yes (2) Acute bronchitis Is this a current diagnosis for this admission?: Yes (3) Obstructive sleep apnea Is this a current diagnosis for this admission?: Yes (4) Shortness of breath Is this a current diagnosis for this admission?: Yes (5) Wegeners granulomatosis Is this a current diagnosis for this admission?: Yes (6) GERD (gastroesophageal reflux disease) Is this a current diagnosis for this admission?: Yes - Plan Summary Summary: 08/06/2019 Temp 98 2 pulse 82 blood pressure 139/81 O2 sat 100% on room air Sed rate was 23 CRP was 19 slightly elevated COVID was negative CBC was normal Previous oxygen saturations on room air 94% and 90% with ambulation Patient on p.o. prednisone 20 mg twice daily and IV Levaquin Plan to discharge tomorrow we will switch to p.o. Levaquin and continue steroids - Time Time Spent with patient: 25-34 minutes
[2019-08-06] MEDS: RIVAROXABAN 10 MG TABLET PO SCH (18:07)
[2019-08-07] MEDS: IPRATROPIUM/ALBUTEROL 0.5-2.5 MG/3 ML AMPUL NEB SCH ×2 (00:07→08:09)
[2019-08-07] MEDS: OXYCODONE HCL IR 5 MG TABLET PO PRN ×2 (03:01→08:58)
[2019-08-07] MEDS: ALPRAZOLAM 0.5 MG TABLET PO PRN ×2 (03:01→12:09)
[2019-08-07] MEDS: PANTOPRAZOLE SODIUM 40 MG TABLET.DR PO SCH (05:47)
[2019-08-07] MEDS: FUROSEMIDE 40 MG TABLET PO SCH (08:35)
[2019-08-07] MEDS: LISINOPRIL 10 MG TABLET PO SCH (09:06)
[2019-08-07] MEDS: TAMSULOSIN HCL 0.4 MG CAP.SR.24H PO SCH (09:06)
[2019-08-07] MEDS: PREDNISONE 20 MG TABLET PO SCH (09:06)
[2019-08-07] MEDS: MONTELUKAST SODIUM 10 MG TABLET PO SCH (09:07)
[2019-08-07] MEDS: CHOLECALCIFEROL (D3) 1,000 UNIT (25 MCG) TABLET PO SCH (09:07)
[2019-08-07] MEDS: FLUTICASONE/UMECLIDIN/VILANTER 100-62.5-25 MCG/DOSE IH SCH (09:10)
[2019-08-07] MEDS: FLUTICASONE NASAL SPRAY 50 MCG/SPRY 120 SPRAY/16 GM NASL SCH (10:00)
[2019-08-07] MEDS ORDERED: LEVOFLOXACIN 750 MG TABLET PO SCH (10:00)
[2019-08-07] MEDS: ACETAMINOPHEN 325 MG TABLET PO PRN ×2 (12:09)
[2019-08-07 14:07] VITALS: BP 136/87
--- NOTE | 2019-08-07 16:26 | PDOC DISCHARGE SUMMARY ---
Impression - Admit/DC Date/PCP Admission Date/Primary Care Provider: 08/05/19 01:12 ASHLEY ACUÑA MD Discharge Date: 08/07/19 - Discharge Diagnosis (1) Chronic sinusitis Is this a current diagnosis for this admission?: Yes (2) Acute bronchitis Is this a current diagnosis for this admission?: Yes (3) Obstructive sleep apnea Is this a current diagnosis for this admission?: Yes (4) Shortness of breath Is this a current diagnosis for this admission?: Yes (5) Wegeners granulomatosis Is this a current diagnosis for this admission?: Yes (6) GERD (gastroesophageal reflux disease) Is this a current diagnosis for this admission?: Yes - Assessment Summary: 08/06/2019 Temp 98 2 pulse 82 blood pressure 139/81 O2 sat 100% on room air Sed rate was 23 CRP was 19 slightly elevated COVID was negative CBC was normal Previous oxygen saturations on room air 94% and 90% with ambulation Patient on p.o. prednisone 20 mg twice daily and IV Levaquin Plan to discharge tomorrow we will switch to p.o. Levaquin and continue steroids 08/07/2019 Patient was discharged home today on p.o. 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 at [place] to discuss whether he should resume his Bactrim and Zithromax for his Sobeida's granulomatosis after he completes his Levaquin Patient is to follow-up with his primary care provider in the next 5 to 7 days Patient was in no respiratory distress at the time of discharge Diagnosis include chronic sinusitis, COPD with acute bronchitis, obstructive sleep apnea, shortness of breath, Sobeida's granulomatosis, GERD Patient was admitted on the 2 days ago for fever and cough and noncompliance of CPAP Chest x-ray on admission showed no evidence of acute cardiopulmonary disease White blood cell count on admission was normal 10.5 on discharge normal 10.8 Chemistry was grossly normal PCR COVID-19 was negative Patient was medically stable and asking to go home at the time of discharge - Additional Information Resuscitation Status: Full Code Discharge Diet: As Tolerated Discharge Activity: Balance Activity w/Rest, Energy Conservation Referrals: ASHLEY ACUÑA MD [Primary Care Provider] - 08/12/19 11:40 am () Prescriptions: Levofloxacin [Levaquin 750 mg Tablet] 750 mg PO DAILY 7 Days #7 tablet Methylprednisolone [Medrol Dosepack (4 mg/Tab) 21 Tab/Dosepak] 4 mg PO ASDIR PRN #21 tab.ds.pk PRN Reason: Home Medications: Montelukast Sodium [Singulair 10 mg Tablet] 10 mg PO DAILY 01/21/17 Rivaroxaban [Xarelto] 20 mg PO DAILY 05/21/18 Fluticasone/Umeclidin/Vilanter [Trelegy 100-62.5-25 Mcg Ellipta 14 Dose/Dpi] 1 puff IH DAILY 06/21/18 Albuterol Sulfate [Proair HFA Inhalation Aerosol 8.5 gm MDI] 2 puff IH QID 08/05/19 Alprazolam [Xanax] 1 mg PO TID 08/05/19 Cholecalciferol (Vitamin D3) [Vitamin D3] 125 mcg PO DAILY 08/05/19 Furosemide [Lasix 40 mg Tablet] 40 mg PO QAM 08/05/19 Lisinopril [Zestril] 40 mg PO DAILY 08/05/19 Ondansetron HCl [Zofran] 8 mg PO Q4HP PRN 08/05/19 Oxycodone HCl [Oxy-Ir 5 mg Tablet] 15 mg PO Q4 08/05/19 Pantoprazole Sodium [Protonix [address] Tablet] 80 mg PO QAM 08/05/19 Tamsulosin HCl [Flomax 0.4 mg Cap.sr] 0.4 mg PO DAILY 08/05/19 Acetaminophen [Tylenol 325 mg Tablet] 650 mg PO Q6HP PRN tablet 08/07/19 Ipratropium/Albuterol Sulfate [Duoneb 3 ml Ampul] 3 ml NEB [id number] PRN vial.neb 08/07/19 Ipratropium/Albuterol Sulfate [Duoneb 3 ml Ampul] 3 ml NEB RTQ8 vial.neb 08/07/19 Levofloxacin [Levaquin 750 mg Tablet] 750 mg PO DAILY 7 Days #7 tablet 08/07/19 Methylprednisolone [Medrol Dosepack (4 mg/Tab) 21 Tab/Dosepak] 4 mg PO ASDIR PRN #21 tab.ds.pk 08/07/19 History of Present Illiness History of Present Illness: MINAL PEÑA JR is a 43 year old male Physical Exam Vital Signs: Temp Pulse Resp BP Pulse Ox 99.4 F 114 H 16 136/87 H 97 08/07/19 14:37 08/07/19 14:05 08/07/19 14:05 08/07/19 14:05 08/07/19 14:05 Intake & Output 08/06/19 08/07/19 08/08/19 06:59 06:59 06:59 Intake Total 3830 1130 Balance 3830 1130 Weight 130 kg 130.2 kg Results Laboratory Results: WBC 10.8 10^3/uL (4.0-10.5) H 08/06/19 06:30 RBC 4.40 10^6/uL (4.35-5.55) 08/06/19 06:30 Hgb 12.2 g/dL (13.5-17.0) L 08/06/19 06:30 Hct 36.8 % (37.9-51.0) L 08/06/19 06:30 MCV 84 fl (80-97) 08/06/19 06:30 MCH 27.7 pg (27.0-33.4) 08/06/19 06:30 MCHC 33.1 g/dL (32.0-36.0) 08/06/19 06:30 RDW 18.3 % (11.5-14.0) H 08/06/19 06:30 Plt Count 285 10^3/uL (150-450) 08/06/19 06:30 Lymph % (Auto) 11.5 % (13-45) L 08/06/19 06:30 [place] % (Auto) 10.7 % (3-13) 08/06/19 06:30 Eos % (Auto) 0.2 % (0-6) 08/06/19 06:30 Baso % (Auto) 0.3 % (0-2) 08/06/19 06:30 Absolute Neuts (auto) 8.4 10^3/uL (1.7-8.2) H 08/06/19 06:30 Absolute Lymphs (auto) 1.2 10^3/uL (0.5-4.7) 05/12/20 06:30 Absolute Monos (auto) 1.2 10^3/uL (0.1-1.4) 08/06/19 06:30 Absolute Eos (auto) 0.0 10^3/uL (0.0-0.6) 08/06/19 06:30 Absolute Basos (auto) 0.0 10^3/uL (0.0-0.2) 08/06/19 06:30 Seg Neutrophils % 77.3 % (42-78) 08/06/19 06:30 ESR 23 mm/hr (0-15) H 08/05/19 01:14 Sodium 140.1 mmol/L (137-145) 08/06/19 06:30 Potassium 4.3 mmol/L (3.6-5.0) 08/06/19 06:30 Chloride 106 mmol/L (98-107) 08/06/19 06:30 Carbon Dioxide 26 mmol/L (22-30) 08/06/19 06:30 Anion Gap 8 (5-19) 08/06/19 06:30 BUN 18 mg/dL (7-20) 08/06/19 06:30 Creatinine 0.74 mg/dL (0.52-1.25) 08/06/19 06:30 Est GFR ( Amer) > 60 (>60) 08/06/19 06:30 Est GFR (MDRD) Non-Af > 60 (>60) 08/06/19 06:30 Glucose 94 mg/dL (75-110) 08/06/19 06:30 Calcium 8.8 mg/dL (8.4-10.2) 08/06/19 06:30 Magnesium 1.8 mg/dL (1.6-2.3) 08/04/19 20:20 Ferritin 26.20 ng/mL (17.9-464.0) 08/04/19 20:20 Total Bilirubin 0.3 mg/dL (0.2-1.3) 08/04/19 20:20 Direct Bilirubin 0.0 mg/dL (0.0-0.4) 08/04/19 20:20 Neonat Total Bilirubin Not Reportable 08/04/19 20:20 Neonat Direct Bilirubin Not Reportable 08/04/19 20:20 Neonat Indirect Bili Not Reportable 05/10/20 20:20 AST 63 U/L (17-59) H 08/04/19 20:20 ALT 80 U/L (<50) H 08/04/19 20:20 Alkaline Phosphatase 70 U/L (38-126) 08/04/19 20:20 Lactate Dehydrogenase 281 U/L (120-246) H 08/04/19 20:20 C-Reactive Protein 19.2 mg/L (<10.0) H 08/04/19 20:20 Total Protein 6.2 g/dL (6.3-8.2) L 08/04/19 20:20 Albumin 3.7 g/dL (3.5-5.0) 08/04/19 20:20 Urine Color YELLOW 08/04/19 20:55 Urine Appearance SLIGHTLY-CLOUDY 08/04/19 20:55 Urine pH 6.0 (5.0-9.0) 08/04/19 20:55 Ur Specific [place] 1.013 08/04/19 20:55 Urine Protein NEGATIVE mg/dL (NEGATIVE) 08/04/19 20:55 Urine Glucose (UA) NEGATIVE mg/dL (NEGATIVE) 08/04/19 20:55 Urine Ketones NEGATIVE mg/dL (NEGATIVE) 08/04/19 20:55 Urine Blood LARGE (NEGATIVE) H 08/04/19 20:55 Urine Nitrite NEGATIVE (NEGATIVE) 08/04/19 20:55 Urine Bilirubin NEGATIVE (NEGATIVE) 08/04/19 20:55 Urine Urobilinogen NEGATIVE mg/dL (<2.0) 08/04/19 20:55 Ur Leukocyte Esterase NEGATIVE (NEGATIVE) 08/04/19 20:55 Urine WBC (Auto) 2 /HPF 08/04/19 20:55 Urine RBC (Auto) >182 /HPF 08/04/19 20:55 U Hyaline Cast (Auto) 15 /LPF 08/04/19 20:55 Urine Mucus (Auto) FEW /LPF 08/04/19 20:55 Urine Ascorbic Acid NEGATIVE (NEGATIVE) 08/04/19 20:55 SARS-CoV-2 (PCR) NEGATIVE (NEGATIVE) 08/05/19 01:23 Impressions: Chest X-Ray 08/04/19 20:16 IMPRESSION: No acute disease. copyright 2011 [employer]- All Rights Reserved Chest/Abdomen CTA 08/04/19 22:52 IMPRESSION: Inadequate contrast bolus. Examination is nondiagnostic for evaluation of pulmonary embolus. Lungs grossly clear . Stroke Is this a Stroke Patient?: No Acute Heart Failure - Is this a Heart Failure Patient?: No
== END 2019-08-07 14:45 | disposition home or self-care (01) ==
LOC: ER 20:07 → INTOOBSV 08-05 01:12 → EH 08-05 01:12 → 3S 08-05 03:20
PROVIDERS: ADMIT Internal Medicine; ATTEND Physician Assistant
DX: J44.0 Chronic obstructive pulmonary disease with (acute) lower respiratory infection (principal); J20.9 Acute bronchitis, unspecified; J32.9 Chronic sinusitis, unspecified; G47.33 Obstructive sleep apnea (adult) (pediatric); M31.30 Wegener's granulomatosis without renal involvement; K22.70 Barrett's esophagus without dysplasia; E66.01 Morbid (severe) obesity due to excess calories; K21.9 Gastro-esophageal reflux disease without esophagitis; G89.4 Chronic pain syndrome; S30.860A Insect bite (nonvenomous) of lower back and pelvis, initial encounter; W57.XXXA Bitten or stung by nonvenomous insect and other nonvenomous arthropods, initial encounter; I10 Essential (primary) hypertension; Z91.19 Patient's noncompliance with other medical treatment and regimen; Z79.899 Other long term (current) drug therapy; Z79.51 Long term (current) use of inhaled steroids; Z87.01 Personal history of pneumonia (recurrent); Z87.891 Personal history of nicotine dependence; Z82.49 Family history of ischemic heart disease and other diseases of the circulatory system; Z20.828 Contact with and (suspected) exposure to other viral communicable diseases; Z79.01 Long term (current) use of anticoagulants
CPT/HCPCS: 93005; 94640 ×5; 99285; 96375; 96365; 36415 ×3; 82728; 83615; 83735; 85025 ×2; 85652; 87635; 86140; 80048; 80053; 81001; 71045; 71275; 94799; 93010; 94667; 94668; J3490 ×27; J2930; J3475; J7512 ×3; J7030; J1956 ×2; J7620 ×4; G0378

== ENCOUNTER 2020-01-23 14:18 | Emergency (ER) | payer OTHER, MEDICARE, MEDICAID ==
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
[2020-01-23 14:48] VITALS: BP 140/87
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
[2020-01-23 15:40] LABS: ANION GAP 10 (5-19); BLOOD UREA NITROGEN 10 mg/dL (7-20); CALCIUM 9.9 mg/dL (8.4-10.2); CARBON DIOXIDE 27 mmol/L (22-30); CHLORIDE 104 mmol/L (98-107); GLUCOSE 98 mg/dL (75-110); POTASSIUM 4.8 mmol/L (3.6-5.0)
[2020-01-23 15:42] LABS: ABSOLUTE BASOPHILS # (AUTO) 0.1 10^3/uL (0.0-0.2); ABSOLUTE LYMPHOCYTES (AUTO) 1.3 10^3/uL (0.5-4.7); ABSOLUTE NEUT (AUTO) 4.4 10^3/uL (1.7-8.2); BASOPHILS % (AUTO) 1.2 % (0-2); EOSINOPHILS % (AUTO) 0.7 % (0-6); HEMATOCRIT 40.7 % (37.9-51.0); HEMOGLOBIN 13.5 g/dL (13.5-17.0); LYMPHOCYTES % (AUTO) 19.1 % (13-45); MEAN CORPUSCULAR HEMOGLOBIN 27.7 pg (27.0-33.4); MEAN CORPUSCULAR HGB CONC 33.2 g/dL (32.0-36.0); MEAN CORPUSCULAR VOLUME 83 fl (80-97); MONOCYTES % (AUTO) 14.1 % (3-13); PLATELET COUNT 311 10^3/uL (150-450); RED BLOOD COUNT 4.88 10^6/uL (4.35-5.55); RED CELL DISTRIBUTION WIDTH 19.7 % (11.5-14.0); SEGMENTED NEUTROPHILS % (AUTO) 64.9 % (42-78); TOTAL CELLS COUNTED % (AUTO) 100 %; WHITE BLOOD COUNT 6.8 10^3/uL (4.0-10.5)
[2020-01-23] MEDS ORDERED: HYDROMORPHONE HCL INJ/PF 2 MG/ML AMPULE IV ONE (15:50)
[2020-01-23] MEDS ORDERED: HYDROMORPHONE HCL INJ/PF 2 MG/ML AMPULE IM ONE (15:55)
[2020-01-23] MEDS ORDERED: PROMETHAZINE HCL INJ 25 MG/1 ML VIAL IM ONE (15:56)
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
== END 2020-01-23 16:59 | disposition home or self-care (01) ==
LOC: ER 14:18
DX: M75.102 Unspecified rotator cuff tear or rupture of left shoulder, not specified as traumatic (principal); M54.2 Cervicalgia; M25.512 Pain in left shoulder; M54.9 Dorsalgia, unspecified; R20.0 Anesthesia of skin; V54.5XXA Driver of pick-up truck or van injured in collision with heavy transport vehicle or bus in traffic accident, initial encounter; I10 Essential (primary) hypertension; Z88.6 Allergy status to analgesic agent; Z79.02 Long term (current) use of antithrombotics/antiplatelets; Z98.1 Arthrodesis status; M31.30 Wegener's granulomatosis without renal involvement; Z79.52 Long term (current) use of systemic steroids; Z79.899 Other long term (current) drug therapy
CPT/HCPCS: 99285; 96372; 96374; 36415; 85025; 80048; 71046; 73030; 70450; 72125; J1170; J2550

== ENCOUNTER 2020-03-12 03:18 | Emergency (ER) | payer MEDICARE, MEDICAID ==
[2020-03-12] MEDS ORDERED: CLINDAMYCIN 300 MG/D5W RTU 300 MG/50 ML RTUPB IV ONE (03:57)
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
[2020-03-12] MEDS ORDERED: MORPHINE SULFATE 10 MG/ML INJ IV ONE ×2 (04:48→08:14)
[2020-03-12 05:13] LABS: ABSOLUTE BASOPHILS # (AUTO) 0.1 10^3/uL (0.0-0.2); ABSOLUTE EOSINOPHILS # (AUTO) 0.2 10^3/uL (0.0-0.6); ABSOLUTE LYMPHOCYTES (AUTO) 2.1 10^3/uL (0.5-4.7); ABSOLUTE NEUT (AUTO) 3.8 10^3/uL (1.7-8.2); BASOPHILS % (AUTO) 0.9 % (0-2); EOSINOPHILS % (AUTO) 3.4 % (0-6); HEMATOCRIT 42.8 % (37.9-51.0); HEMOGLOBIN 14.1 g/dL (13.5-17.0); LYMPHOCYTES % (AUTO) 29.2 % (13-45); MEAN CORPUSCULAR HEMOGLOBIN 28.4 pg (27.0-33.4); MEAN CORPUSCULAR HGB CONC 32.9 g/dL (32.0-36.0); MEAN CORPUSCULAR VOLUME 86 fl (80-97); MONOCYTES % (AUTO) 13.7 % (3-13); PLATELET COUNT 290 10^3/uL (150-450); RED BLOOD COUNT 4.96 10^6/uL (4.35-5.55); RED CELL DISTRIBUTION WIDTH 19.2 % (11.5-14.0); SEGMENTED NEUTROPHILS % (AUTO) 52.8 % (42-78); TOTAL CELLS COUNTED % (AUTO) 100 %; WHITE BLOOD COUNT 7.3 10^3/uL (4.0-10.5)
[2020-03-12 05:36] LABS: ALBUMIN 4.7 g/dL (3.5-5.0); ALKALINE PHOSPHATASE 147 U/L (38-126); ANION GAP 9 (5-19); ASPARTATE AMINO TRANSFERASE 57 U/L (17-59); BILIRUBIN,DIRECT 0.2 mg/dL (0.0-0.4); BILIRUBIN,TOTAL 0.4 mg/dL (0.2-1.3); BLOOD UREA NITROGEN 15 mg/dL (7-20); CALCIUM 10.2 mg/dL (8.4-10.2); CARBON DIOXIDE 25 mmol/L (22-30); CHLORIDE 105 mmol/L (98-107); GLUCOSE 91 mg/dL (75-110); POTASSIUM 4.6 mmol/L (3.6-5.0); TOTAL PROTEIN 9.1 g/dL (6.3-8.2)
--- NOTE | 2020-03-12 06:49 | RADIOLOGY REPORT (SQ) ---
CT neck with and without contrast on 03/12/2020 at 5:53 AM CLINICAL INDICATION: Left ear and jaw swelling TECHNIQUE: Multiple axial images are obtained throughout the neck both prior to and following the administration of IV contrast, 75 ml of Omnipaque 350contrast was administered intravenously without complication. This exam was performed according to our departmental dose-optimization program, which includes automated exposure control, adjustment of the mA and/or kV according to patient size and/or use of iterative reconstruction technique. Total DLP is 1647.61 mGy*cm. COMPARISON: None FINDINGS: There is some soft tissue thickening with mild enhancement of the left external auditory canal consistent with a left-sided otitis externa. There is minimal partial opacification of the left mastoid air cells. The right mastoid air cells and bilateral middle ear cavities are clear. The paranasal sinuses are clear. The patient is status post anterior cervical disc fusion at C6-7. The epiglottis and airway is unremarkable. The visualized lungs are clear. There is no adenopathy in the neck by CT size criteria. There is no prevertebral soft tissue swelling. No mucosal lesion is noted. No neck mass is noted. There is no fluid collection to suggest abscess. The visualized dural venous sinuses are patent. No other bony or soft tissue abnormality is noted. IMPRESSION: 1. Findings consistent with a left-sided otitis externa with minimal left mastoid effusion without evidence to suggest definite mastoiditis. 2. No other acute abnormality.
[2020-03-12] MEDS ORDERED: KETOROLAC TROMETHAMINE INJ/PF 30 MG/1 ML SDV IV ONE (09:35)
[2020-03-12] MEDS ORDERED: CEFTRIAXONE 2 GM/D5W RTU 2 GM/50 ML RTUPB IV ONE (09:35)
[2020-03-12] MEDS ORDERED: ACETAMINOPHEN 325 MG TABLET PO ONE (09:36)
[2020-03-12] MEDS ORDERED: DOXYCYCLINE HYCLATE 100 MG TABLET PO ONE (09:36)
[2020-03-12 10:27] VITALS: BP 166/106
--- NOTE | 2020-03-12 11:31 | ER Document Report ---
ED General - General Chief Complaint: Skin Problem Stated Complaint: EAR PAIN,JAW PAIN Time Seen by Provider: 03/12/20 03:52 Primary Care Provider: ASHLEY ACUÑA MD [Primary Care Provider] - Follow up as needed Mode of Arrival: Ambulatory Information source: Patient TRAVEL OUTSIDE OF THE [place] IN LAST 30 DAYS: No - HPI Notes: Patient presents with acute left ear pain. Is been going on for several days. He evidently had some sort of a furuncle in his ear canal which he drained himself. It then became inflamed and painful. He was seen at another facility started on Cipro otic drops and Bactrim orally. He comes in now complaining that it is still red and swollen and painful. He said the pain initially improved with that medication regimen. His doctor also gave him an IM injection of Rocephin in the office. Now he complains of ongoing worsening pain. He has no discharge or bleeding from the ear. He denies any other trauma. It hurts to lie on that side. He has felt systemically ill. He is otherwise in his usual state of health. It is significant to note that the patient also sees someone for chronic pain management and has oxycodone at home for regular use. He says he has been using it more frequently because of his ear pain it seems to wear off quickly. In the midst of the visit the patient asked me if I could give him a prescription for hydrocodone acetaminophen that he could use "in between my Oxy." He says he cannot take NSAIDs because of GI bleeding problems. The last time he took any Tylenol for this problem was yesterday. - Related Data Allergies/Adverse Reactions: Penicillins Allergy (Verified 03/12/20 03:48) codeine [Codeine] Adverse Reaction (Verified 01/23/20 14:42) NSAIDS (Non-Steroidal Anti-Inflamma Adverse Reaction (Verified 01/23/20 14:42) Home Medications: cipro ear gtts, Bactrim Past Medical History - General Information source: Patient - Social History Smoking Status: Never Smoker Chew tobacco use (# tins/day): Yes Family History: Reviewed & Not Pertinent, Arthritis, COPD, CVA - father in his 50s, Hyperlipidemia, Hypertension, Malignancy, Thyroid Disfunction - Medical History Medical History: Other Notes: Past medical history as documented in the electronic health record is reviewed. - Past Medical History Cardiac Medical History: Reports: Hx Hypertension Denies: Hx Coronary Artery Disease, Hx Heart Attack Pulmonary Medical History: Reports: Hx Asthma, Hx Bronchitis, Hx Pneumonia, Hx Sleep Apnea Denies: Hx COPD Neurological Medical History: Denies: Hx Cerebrovascular Accident, Hx Seizures Renal/ Medical History: Denies: Hx Peritoneal Dialysis GI Medical History: Reports: Hx Gastritis, Hx Gastroesophageal Reflux Disease - Pickett's esophagus, Hx Colonoscopy, Hx Endoscopy Musculoskeletal Medical History: Denies Hx Arthritis, Reports Hx Musculoskeletal Deformity, Reports Hx Musculoskeletal Trauma Psychiatric Medical History: Reports: Hx Anxiety, Hx Attention Deficit Hyperactivity Disorder Denies: Hx Depression Traumatic Medical History: Reports: Hx Fractures - thumb Past Surgical History: Reports: Hx Abdominal Surgery - umbilical hernia repair, Hx Cholecystectomy, Hx Orthopedic Surgery - rt shoulder, rt thumb, Hx Umbilical Hernia, Other - Umbilical hernia repair 1 month prior, primary - Immunizations Immunizations up to date: Yes Hx Diphtheria, Pertussis, Tetanus Vaccination: Yes Review of Systems - Review of Systems Notes: General: No fever or chills documented. ENT: Per history of present illness. Respiratory: No cough wheezing or dyspnea. Skin: Per history of present illness. Physical Exam - Vital signs Vitals: Temp Pulse Resp BP Pulse Ox 98.1 F 86 20 145/100 H 98 03/12/20 03:29 03/12/20 03:29 03/12/20 03:29 03/12/20 03:29 03/12/20 03:29 - Notes Notes: General: Well-developed well-nourished uncomfortable male in no acute physiologic distress. Vital signs and nursing documentation are reviewed. ENT: Right EAC and TM are normal. Left EAC is somewhat inflamed. I do not see an obvious furuncle or boil. There is no active drainage. The TM is clear. The patient's auricle is markedly tender to palpation or traction. He has no obvious facial swelling or cellulitis to speak of. Neck: Supple, nontender, no adenopathy. Course - Re-evaluation Re-evalutation: 03/12/20 16:24 Patient CBC and blood chemistries were normal. Unfortunately his penicillin allergy prevents us from using something like Augmentin which I think would be particularly useful in this case. However he tolerates cephalosporins fairly well so I elected to give him a dose of Rocephin intravenously and then send him home on cefdinir 300 mg twice a day for 10 days. To increase coverage for potential MRSA, even though this really has already been covered with his Bactrim, I will add doxycycline 100 mg twice a day for 10 days also. Regarding his pain management I think appropriate for him to contact his pain management clinic who is prescribing his narcotics and discuss with them what would be appropriate usage levels for managing his acute pain. - Vital Signs Vital signs: Temp Pulse Resp BP Pulse Ox 99.1 F 78 20 166/106 H 100 03/12/20 10:27 03/12/20 10:27 03/12/20 10:27 03/12/20 10:27 03/12/20 10:27 - Laboratory Results Result Diagrams: 03/12/20 04:35 03/12/20 04:35 Laboratory Results Interpreted: 03/12/20 03/12/20 04:35 04:35 RDW 19.2 H [place] % (Auto) 13.7 H Alkaline Phosphatase 147 H Total Protein 9.1 H Critical Laboratory Results Reviewed: No Critical Results - Radiology Results Critical Radiology Results Reviewed: No Critical Results Discharge - Discharge Clinical Impression: Left otitis externa Qualifiers: Otitis externa type: unspecified type Chronicity: acute Qualified Code(s): H60.502 - Unspecified acute noninfective otitis externa, left ear Condition: Stable Disposition: HOME, SELF-CARE Instructions: Acetaminophen, Otitis Externa ([facility]) Additional Instructions: Prescriptions for Omnicef and doxycycline have been sent to your pharmacy. Please pick these up and take them according to label directions. Contact your pain management Center for further guidance on acute pain management. Return to the emergency department if unimproved. You should contact ENT again to see if they can see you sooner than March. Prescriptions: Cefdinir 300 mg PO BID #20 capsule Doxycycline Monohydrate 100 mg PO BID #20 capsule Referrals: ASHLEY ACUÑA MD [Primary Care Provider] - Follow up as needed
== END 2020-03-12 11:23 | disposition home or self-care (01) ==
LOC: ER 03:18
DX: H60.502 Unspecified acute noninfective otitis externa, left ear (principal); G89.29 Other chronic pain; I10 Essential (primary) hypertension; J45.909 Unspecified asthma, uncomplicated; Z79.891 Long term (current) use of opiate analgesic; Z72.0 Tobacco use; Z88.0 Allergy status to penicillin
CPT/HCPCS: 96376; 99285; 96375; 96365; 96366; 96367; 36415; 85025; 80053; 70492; A9270 ×2; J3490; J1885; J2270; J0696